=== PATIENT | male | born 1965 | race Caucasian/White ===

== ENCOUNTER 2018-02-21 21:13 | Inpatient (IN) ==
[2018-02-21] MEDS ORDERED: ceFAZolin 2 GM Premix Inj 2 GM/50 ML PIGGYBACK IV.SIG ONE (21:21)
[2018-02-21] MEDS ORDERED: Tetanus/Diphtheria Toxoid Adult Vaccine Inj 0.5 ML Vial IM ONE (21:21)
[2018-02-21] MEDS ORDERED: Sod Chloride 0.9% Inj 1,000 ML IV.SIG ONE ×2 (21:21→22:19)
--- NOTE | 2018-02-21 21:39 | ED ---
HPI General Chief Complaint: Skin/Abscess/Foreign Body Stated Complaint: Neck Injury/NSB FR Time Seen by Provider: 02/21/18 21:21 Source: patient Mode of arrival: EMS Limitations: no limitations History of Present Illness HPI Narrative: The patient is a 52-year-old male who presents to the emergency department via EMS from [place], [place], from a laceration to the left aspect of the neck. The patient states he was sharpening his knives this morning at 10 AM when he decided to get up and get another beer. The patient states he was walking and tripped accidentally when going from a tile floor to a carpeted floor. The patient states he fell on the ground, puncturing the left aspect of his neck with a knife. The patient states he was lying on the floor since 10 AM, EMS brought the patient to the emergency department for further evaluation. The patient does complain of a puncture wound to left aspect of the neck which bled initially but is currently stopped. He does admit to drinking alcohol earlier today. He denies any headache, does no neck pain over the laceration, cannot recall his last tetanus shot. The patient denies any chest pain, shortness breath, nausea, vomiting, or abdominal pain. Symptoms are moderate. Related Data Home Medications Medication Instructions Recorded Confirmed aspirin 325 mg PO DAILY 02/21/18 02/21/18 Allergies Allergy/AdvReac Type Severity Reaction Status Date / Time No Known Allergies Allergy Unverified 02/21/18 21:20 Review of Systems ROS: all other systems reviewed are negative [facility] Medical History Medical History Patient denies medical problems (Acute) Social History Social History Smoking Status: Current every day smoker Tobacco Type: Cigarettes How Often Do You Have a Drink Containing Alcohol: 4 or more times a week Recent Travel in [facility] within the Last 8 Weeks: No Recent Out of Country Travel within the Last 8 Weeks: No Immunization History Tetanus Immunization: <5 Years Hx Influenza Vaccine This Season: No Exam Narrative Exam Narrative: GENERAL: Awake, alert, 52-year-old male who appears his stated age and is in no acute respiratory distress. SKIN: Focused skin assessment warm/dry. HEAD: Atraumatic. Normocephalic. EYES: Pupils equal and round. No scleral icterus. No injection or drainage. ENT: No nasal bleeding or discharge. Mucous membranes pink and moist. NECK: Trachea midline. No JVD. The patient has a 2 cm transverse, linear laceration to left aspect of the neck which reveals subcutaneous tissue, but does not appear to go through the platysma. There is no active bleeding noted. No arterial pulsations noted. CARDIOVASCULAR: Regular rate and rhythm. No murmur appreciated. RESPIRATORY: No accessory muscle use. Clear to auscultation. Breath sounds equal bilaterally. GASTROINTESTINAL: Abdomen soft, non-tender, nondistended. MUSCULOSKELETAL: No obvious deformities. No clubbing. No cyanosis. No edema. NEUROLOGICAL: Awake and alert. No obvious cranial nerve deficits. Motor grossly within normal limits. Normal speech. Nonfocal. Oriented 4. PSYCHIATRIC: Appropriate mood and affect; insight and judgment normal. Procedures Laceration Laceration 1: Site: other (neck) Side (If applicable): left Size (cm): 2 Description: linear Depth: simple, single layer Anesthetic used: lidocaine 2% Anesthesia technique:: local infiltration Amount (mL): 3 Pre-repair:: wound explored, irrigated extensively and deep structures intact Skin layer closed with: prolene Size (cm): 4-0 Number of sutures:: 3 Technique:: simple, interrupted Course Consultations Consultation #1: I discussed the patient with the on-call trauma surgeon, Dr. Hernandez , who agrees with CTA of the neck and if negative discharge home. Time: 21:30 Initial Documented Vital Signs Temperature 98.0 F 02/21/18 21:21 Pulse Rate 112 H 02/21/18 21:21 Respiratory Rate 16 02/21/18 21:21 Blood Pressure 123/78 02/21/18 21:21 Pulse Oximetry 96 02/21/18 21:21 Last Documented Vital Signs Temperature 98.0 F 02/21/18 21:21 Pulse Rate 112 H 02/21/18 21:21 Respiratory Rate 16 02/21/18 21:21 Blood Pressure 123/78 02/21/18 21:21 Pulse Oximetry 96 02/21/18 21:21 Medical Decision Making MDM Narrative Medical decision making narrative: IV was established, labs are drawn and sent, the patient was placed on cardiac telemetry monitoring and continuous pulse oximetry monitoring. The patient's laceration was anesthetized, explored, did not appear to go through the platysma. I discussed the patient with the trauma surgeon, Dr. Hernandez, after discussion was agreed the wound would be explored, if there is no obvious extension through the platysma, the patient would receive a CTA and if negative be discharged home. The laceration was explored, no visible penetration of the platysma, was closed in a single layer fashion. The patient was administered 1 L of IV fluids. The patient's anion gap was noted to be elevated at 26. Bicarb is low at 11.6. Therefore, lactic acid was ordered. The patient was administered a second liter of IV fluids. Lactic acid was 16.0. Patient's hemoglobin was 9.4, previous hemoglobin on old records reveals a hemoglobin greater than 13. I am unsure if this is a combination of acute blood loss and alcoholic ketosis. The patient's heart rate did come down into the high 90s after 2 L of fluid. I discussed the patient with the on-call and trauma surgeon, Dr. Hernandez, who states the patient could be admitted to the intensive care service, there is no acute indication for surgery. Therefore, the on-call apartment leasing consultant was paged for admission. I discussed the patient with Dr. Mas who agrees with admission. Type and screen was sent to lab. I discussed the findings with the patient and family at bedside. Medical Screen Exam Complete: Yes Emergency Medical Condition: Yes Differential Diagnosis Differential Diagnosis: Differential diagnosis includes laceration, arterial injury, venous injury, Lab Data Result diagrams: 02/21/18 21:25 02/21/18 21:25 Lab Results 02/21/18 02/21/18 02/21/18 Range/Units 21:25 21:25 22:25 WBC 8.0 (4.0-11.0) th/mm3 RBC 3.13 L (4.50-5.90) mil/mm3 Hgb 9.4 L (13.0-17.0) gm/dL Hct 29.6 L (39.0-51.0) % MCV 94.5 (80.0-100.0) fL MCH 30.0 (27.0-34.0) pg MCHC 31.8 L (32.0-36.0) % RDW 17.7 H (11.6-17.2) % Plt Count 120 L (150-450) th/mm3 MPV 8.5 (7.0-11.0) fL Neut % (Auto) 81.6 H (16.0-70.0) % Lymph % (Auto) 11.0 (9.0-44.0) % [place] % (Auto) 6.6 (0.0-8.0) % Eos % (Auto) 0.0 (0.0-4.0) % Baso % (Auto) 0.8 (0.0-2.0) % Neut # (Auto) 6.5 (1.8-7.7) th/mm3 Lymph # (Auto) 0.9 L (1.0-4.8) th/mm3 [place] # (Auto) 0.5 (0.0-0.9) th/mm3 Eos # (Auto) 0.0 (0.0-0.4) th/mm3 Baso # (Auto) 0.1 (0.0-0.2) th/mm3 WBC Differential . Differential Comment Auto diff final Sodium 140 (136-145) meq/L Potassium 4.3 (3.5-5.1) meq/L Chloride 102 (98-107) meq/L Carbon Dioxide 11.9 L (21.0-32.0) meq/L Anion Gap 26 H (5-15) meq/L BUN 6 L (7-18) mg/dL Creatinine 0.98 (0.60-1.30) mg/dL Estimated GFR 80 L (>89) mL/min Random Glucose 112 H (74-106) mg/dL Lactic Acid 16.0 H* (0.4-2.0) mmol/L Calcium 8.2 L (8.5-10.1) mg/dL Total Creatine Kinase 309 H (39-308) U/L CK-MB (CK-2) 3.8 H (0.5-3.6) ng/mL CK-MB (CK-2) % 1.2 (0.0-4.0) % Serum Alcohol 134 H (0-5) mg/dL Imaging Data Radiologist's impression: Neck CTA 02/21/18 21:21 CONCLUSION: 1. Focal soft tissue swelling at the left lateral mid neck primarily within the subcutaneous fat. The deeper structures appear intact. 2. No arterial injury is seen. There is scattered atherosclerotic calcification without a significant stenosis. Discharge Plan Discharge Disposition Patient Disposition: 30 Still Patient Discharge Condition Condition: Serious Discharge Details Diagnosis: Laceration of neck, Lactic acidosis Physicians Team ED Provider: Damion Aly ED Midlevel Provider: Neelam Figueroa Primary Care Provider: Primary Care Clementine Hassan Rxs /Orders / Referrals /Forms Prescriptions: No Action aspirin 325 mg Tablet 325 mg PO DAILY RF: 0 Status ED Status: Pending Admission
[2018-02-21 21:53] LABS: Baso # (Auto) 0.1 th/mm3 (0.0-0.2); Baso % (Auto) 0.8 % (0.0-2.0); Hematocrit 29.6 % (39.0-51.0); Hemoglobin 9.4 gm/dL (13.0-17.0); Lymph # (Auto) 0.9 th/mm3 (1.0-4.8); Mean Corpuscular HGB Conc 31.8 % (32.0-36.0); Mean Corpuscular Volume 94.5 fL (80.0-100.0); Mean Platelet Volume 8.5 fL (7.0-11.0); Mono # (Auto) 0.5 th/mm3 (0.0-0.9); Mono % (Auto) 6.6 % (0.0-8.0); Neut # (Auto) 6.5 th/mm3 (1.8-7.7); Neut % (Auto) 81.6 % (16.0-70.0); Platelet Count 120 th/mm3 (150-450); Red Blood Count 3.13 mil/mm3 (4.50-5.90); Red Cell Distribution Width 17.7 % (11.6-17.2)
[2018-02-21 22:03] LABS: Calcium 8.2 mg/dL (8.5-10.1); Carbon Dioxide 11.9 meq/L (21.0-32.0); Potassium 4.3 meq/L (3.5-5.1)
[2018-02-21 22:25] LABS: CKMB Percent 1.2 % (0.0-4.0); Creatine Kinase MB 3.8 ng/mL (0.5-3.6)
--- NOTE | 2018-02-21 23:19 | CT ---
EXAM DATE: 02/21/2018 11:11 PM EDT AGE/SEX: 52 years / Male INDICATIONS: Laceration to the left aspect of the neck. CLINICAL DATA: This is the patient's initial encounter. Patient reports that signs and symptoms have been present for 1 day and indicates a pain score of 5/10. MEDICAL/SURGICAL HISTORY: None. None. RADIATION DOSE: 10.68 CTDI (mGy) COMPARISON: No prior exams available for comparison. TECHNIQUE: Volumetric scanning was performed using a multirow detector CT scanner during bolus infus ion of 75 ml Omnipaque 350 (iohexol) nonionic water-soluble contrast as a single exam dose. The da ta was postprocessed with a variety of visualization algorithms including full-volume maximum intensi ty projection, multiplanar sliding thin-slab reformation, curved-planar reformation, and surface-rend ering techniques. Using automated exposure control and adjustment of the mA and/or kV according to p atient size, radiation dose was kept as low as reasonably achievable to obtain optimal diagnostic anthony lity images. DICOM format image data is available electronically for review and comparison. FINDINGS: There is induration of the subcutaneous tissues at the left neck at the level of the thyroid cartilag e. The edema appears to be restricted to the superficial subcutaneous fat. There is small amount of a ir within the soft tissues in this region. The deeper structures appear intact. Aortic Arch: There is a three-vessel origin of the great vessels from the aorta. No evidence of ost ial narrowing. There is scattered atherosclerotic calcification at the origin of the right brachiocep halic and left subclavian arteries. Right Carotid: The common carotid artery is intact. The carotid bulb has a normal configuration wit hout ulceration or narrowing. There is calcification at the carotid bulb region. The internal caroti d artery lumen is smooth without stenosis. The external carotid artery is intact. Left Carotid: The common carotid artery is intact. The carotid bulb has a normal configuration with out ulceration or narrowing. The internal carotid artery lumen is smooth without stenosis. The exte rnal carotid artery is intact. Vertebrals: The vertebral arteries have a symmetric diameter. No stenotic lesions are seen. Percent stenosis is calculated using the diameter of the stenotic region over the diameter of the nor mal distal internal carotid artery. CONCLUSION: 1. Focal soft tissue swelling at the left lateral mid neck primarily within the subcutaneous fat. Th e deeper structures appear intact. 2. No arterial injury is seen. There is scattered atherosclerotic calcification without a significan t stenosis. Electronically signed by: Henry Mcleod MD 02/21/2018 11:18 PM EDT
[2018-02-21] MEDS ORDERED: Multivitamin Inj 10 ML, Thiamine Inj 100 MG, Folic Acid Inj 1 MG in Sodium Chlor 0.9% I... IV.SIG SCH (23:55)
--- NOTE | 2018-02-22 00:02 | XR ---
EXAM DATE: 02/21/2018 11:57 PM EDT AGE/SEX: 52 years / Male INDICATIONS: Short of breath, respiratory disease. CLINICAL DATA: This is the patient's initial encounter. Patient reports that signs and symptoms have been present for 1 day and indicates a pain score of 0/10. MEDICAL/SURGICAL HISTORY: None. None. COMPARISON: No prior exams available for comparison. FINDINGS: A single AP view of the chest demonstrates the lungs to be symmetrically aerated without evidence of mass, infiltrate or effusion. The cardiomediastinal contours are unremarkable. Osseous structures a re intact. CONCLUSION: No acute cardiopulmonary process. Electronically signed by: Henry Mcleod MD 02/22/2018 12:01 AM EDT
[2018-02-22] MEDS ORDERED: Acetaminophen 325 MG Tablet PO PRN (00:34)
[2018-02-22] MEDS ORDERED: Bisacodyl 10 MG Supp RECTAL PRN (00:34)
--- NOTE | 2018-02-22 00:34 | P.HPCC ---
History of Present Illness Service: Critical care medicine Primary Care Physician: No Primary Care Physician Chief Complaint: Neck laceration History of Present Illness: 52-year-old male with past medical history of tobacco and alcohol dependence. He states he was sharpening a non-serrated carving knife this morning while intoxicated. He said he got up to put the knife away and he tripped and fell and lacerated his left neck around 10 am on 02/21. He states he hit his head on the counter and had loss of consciousness. There was blood pooling on the floor and each time he tried to get up he was near-syncopal so he remained on the floor all day until neighbors found him at around 8 pm. He was brought to [facility] by [facility]. The wound was explored by the emergency medicine physician and platysma appeared intact. CTA of the neck demonstrated soft tissue swelling in the subcut fat with deeper structures appearing intact. He was found to have anion-gap lactic acidosis with bicarb of 11.9, anion gap of 26 , lactic acid 16. EtOH level is still 134. CPK is 309. Creatinine is normal. His hemoglobin is 9.4. Most recent prior hemoglobin was 13.[address] Aly discussed with Dr. Amador who recommended admission to medicine. The laceration was repaired in the ED and patient received 2 L normal saline bolus, Ancef 2gram, Td, Zofran and reglan for nausea. He denies headache, dysphagia, chest pain, shortness of breath, abdominal pain, flank pain, vomiting, melena, hematemesis, audiovisual hallucinations. He is tremulous and complains of thirst. He is a daily drinker of at least 10 beers per day, last drink was 9 am on 02/21. - Diagnosis (1) Laceration of neck (2) Lactic acidosis (3) EtOH dependence (4) Transaminitis (5) Hypovolemia (6) Alcohol withdrawal (7) LOC (loss of consciousness) (8) Fall from slip, trip, or stumble (9) Acute blood loss anemia (10) Thrombocytopenia (11) Tobacco abuse counseling (12) Tobacco abuse (13) Contusion of rib on right side (14) Hypovolemic shock Inpatient Certification: I certify that the inpatient services were ordered in accordance with Medicare regulations governing the order. This includes certification that hospital inpatient services are reasonable and necessary and in the case of services not specified as inpatient-only under 42 CFR 419.22(n), that they are appropriately provided as inpatient services in accordance to with the 2-midnight benchmark under 43 CFR 412.3(e) Review of Systems All other systems reviewed negative except as stated in HPI [facility] - History History Provided By: Patient - Medical History Medical History: Medical History (Last Updated 02/21/18 @ 21:23 by Pasquale Bean) Patient denies medical problems - Surgical History Surgical History: Surgical History (Last Updated 02/22/18 @ 00:41 by Hannah Mas MD) H/O arthroscopy of left knee S/P excision of varicocele - Family History Family History: Family History (Last Updated 02/22/18 @ 00:56 by Hannah Mas MD) Mother HLD (hyperlipidemia) - Tobacco History Tobacco Use In Past 30 Days: Yes Smoking Status: Current every day smoker Tobacco Type: Cigarettes Packs Per Day: 1 Years Smoked: 25 - Alcohol History How Often Do You Have a Drink Containing Alcohol: 4 or more times a week (12 beers daily) - Travel History Recent Travel in the [facility] Within the Last 8 Weeks: No Recent Travel Out of the Country Within the Last 8 Weeks: No - Immunization History Tetanus Immunization: <5 Years Hx Influenza Vaccine This Season: No Medications and Allergies Active Medications: Active Medications Dextrose/Lactated Ringer's (D5w/Lr Inj) 1,000 mls @ 125 mls/hr IV.CONT .Q8H REBECCA Multivitamins 10 ml/ Thiamine HCl 100 mg/ Folic Acid 1 mg/Sodium Chloride 511.2 mls @ 127.8 mls/hr IV.SIG DAILY REBECCA Stop: 02/23/18 12:59 Allergies Allergy/AdvReac Type Severity Reaction Status Date / Time No Known Allergies Allergy Unverified 02/21/18 21:20 Home Medications Medication Instructions Recorded Confirmed Type aspirin 325 mg PO DAILY 02/21/18 02/21/18 History Results - Labs CBC & Chem 7: 02/22/18 03:53 02/22/18 03:53 Labs: Short CBC 02/21/18 Range/Units 21:25 WBC 8.0 (4.0-11.0) th/mm3 Hgb 9.4 L (13.0-17.0) gm/dL Hct 29.6 L (39.0-51.0) % Plt Count 120 L (150-450) th/mm3 BMP 02/21/18 21:25 Sodium 140 Potassium 4.3 Chloride 102 Carbon Dioxide 11.9 L BUN 6 L Creatinine 0.98 Calcium 8.2 L Cardiac Enzymes 02/21/18 Range/Units 21:25 Total Creatine Kinase 309 H (39-308) U/L CK-MB (CK-2) 3.8 H (0.5-3.6) ng/mL - Imaging Impressions Neck CTA 02/21/18 21:21 CONCLUSION: 1. Focal soft tissue swelling at the left lateral mid neck primarily within the subcutaneous fat. The deeper structures appear intact. 2. No arterial injury is seen. There is scattered atherosclerotic calcification without a significant stenosis. Chest X-Ray 02/21/18 23:47 CONCLUSION: No acute cardiopulmonary process. Exam Vital signs: Vital Signs 02/21/18 21:21 02/22/18 00:22 Temperature 98.0 F Pulse Rate 112 H 108 H Respiratory Rate 16 16 Blood Pressure 123/78 139/73 Pulse Oximetry 96 96 Intake & Output 02/21/18 02/21/18 02/22/18 06:59 18:59 06:59 Weight 80 kg Narrative: Heart rate 97 blood pressure 139/73 sats 98% on room air GENERAL: Disheveled male who has dried blood on his chin, neck, upper arms, upper chest, hair. SKIN: Warm and dry. There are multiple ecchymosis overlying right lateral chest wall. HEAD: Normocephalic. EYES: Pupils equal and round, 3mm and reactive. No scleral icterus. No injection or drainage. ENT: No nasal bleeding or discharge. Mucous membranes pink and moist. NECK: Trachea midline. No crepitus. There is 3-3.5 cm linear laceration left neck that has been sutured with simple interrupted sutures. There is some mild swelling at the site without significant hematoma. No active bleeding. CARDIOVASCULAR: Regular rate and rhythm. 2/6 systolic murmur LSB. RESPIRATORY: Breathing comfortably on room air with no accessory muscle use. Clear to auscultation. Breath sounds equal bilaterally. GASTROINTESTINAL: Abdomen soft, non-tender, nondistended. Bowel sounds present. MUSCULOSKELETAL: Extremities without clubbing, cyanosis, or edema. No obvious deformities. NEUROLOGICAL: Awake and alert, oriented 3. Tremulous. No cranial nerve deficits, extraocular movements intact, no facial droop, normal midline tongue protrusion. No pronator drift. Strength 5 out of 5 in all extremities. Sensation intact. Caprini VTE Risk Assessment Caprini VTE Risk Assessment: Moderate/High Risk (score >= 2) VTE Pharmacological Exception Reason: Hemorrhage Caprini Risk Assessment Model: Point Value = 1 Point Value = 2 Point Value = 3 Point Value = 5 Age 41-60 Minor surgery BMI > 25 kg/m2 Swollen legs Varicose veins or History of unexplained or recurrent spontaneous Oral contraceptives or hormone replacement Sepsis (< 1 month) Serious lung disease, including pneumonia (< 1 month) Abnormal pulmonary function Acute myocardial infarction Congestive heart failure (< 1 month) History of inflammatory bowel disease Medical patient at bed rest Age 61-74 Arthroscopic surgery Major open surgery (> 45 min) Laparoscopic surgery (> 45 min) Malignancy Confined to bed (> 72 hours) Immobilizing plaster cast Central venous access Age >= 75 History of VTE Family history of VTE Factor V Leiden Prothrombin [id number] Lupus anticoagulant Anticardiolipin antibodies Elevated serum homocysteine Heparin-induced thrombocytopenia Other congenital or acquired thrombophilia Stroke (< 1 month) Elective arthroplasty Hip, pelvis, or leg fracture Acute spinal cord injury (< 1 month) Prophylaxis Regimen: Total Risk Factor Score Risk Level Prophylaxis Regimen 0-1 Low Early ambulation 2 Moderate Order ONE of the following: *Sequential Compression Device (SCD) *Heparin 5000 units SQ BID 3-4 Higher Order ONE of the following medications: *Heparin 5000 units SQ TID *Enoxaparin/Lovenox 40 mg SQ daily (WT < 150 kg, CrCl > 30 mL/min) *Enoxaparin/Lovenox 30 mg SQ daily (WT < 150 kg, CrCl > 10-29 mL/min) *Enoxaparin/Lovenox 30 mg SQ BID (WT < 150 kg, CrCl > 30 mL/min) AND/OR *Sequential Compression Device (SCD) 5 or more Highest Order ONE of the following medications: *Heparin 5000 units SQ TID (Preferred with Epidurals) *Enoxaparin/Lovenox 40 mg SQ daily (WT < 150 kg, CrCl > 30 mL/min) *Enoxaparin/Lovenox 30 mg SQ daily (WT < 150 kg, CrCl > 10-29 mL/min) *Enoxaparin/Lovenox 30 mg SQ BID (WT < 150 kg, CrCl > 30 mL/min) AND *Sequential Compression Device (SCD) Assessment and Plan - Problem List (1) Laceration of neck Code(s): S11.91XA - Laceration without foreign body of unspecified part of neck , initial encounter Status: Acute (2) Lactic acidosis Code(s): E87.2 - Acidosis Status: Acute (3) EtOH dependence Code(s): F10.20 - Alcohol dependence, uncomplicated Status: Acute (4) Transaminitis Code(s): R74.0 - Nonspecific elevation of levels of transaminase and lactic acid dehydrogenase [LDH] Status: Acute (5) Hypovolemia Code(s): E86.1 - Hypovolemia Status: Acute (6) Alcohol withdrawal Code(s): F10.239 - Alcohol dependence with withdrawal, unspecified Status: Acute (7) LOC (loss of consciousness) Code(s): R40.20 - Unspecified coma Status: Acute (8) Fall from slip, trip, or stumble Code(s): W01.0XXA - Fall on same level from slipping, tripping and stumbling without subsequent striking against object, initial encounter Status: Acute (9) Acute blood loss anemia Code(s): D62 - Acute posthemorrhagic anemia Status: Acute (10) Thrombocytopenia Code(s): D69.6 - Thrombocytopenia, unspecified Status: Acute (11) Tobacco abuse counseling Code(s): Z71.6 - Tobacco abuse counseling Status: Acute (12) Tobacco abuse Code(s): Z72.0 - Tobacco use Status: Chronic (13) Contusion of rib on right side Code(s): S20.211A - Contusion of right front wall of thorax, initial encounter Status: Acute (14) Hypovolemic shock Code(s): R57.1 - Hypovolemic shock Status: Acute - Assessment and Plan Plan: NEURO: Acute left neck laceration Platysma intact per ED evaluation. CTA unremarkable. Laceration repaired 02/21, suture removal ~7-10 days. Acute alcohol withdrawal Alcohol dependence Librium 25 mg p.o. every 6 hours. CIWA protocol with ativan prn. Thiamine/MVI/folic acid x3 days. Loss of consciousness Suspect syncope secondary to hypovolemia/blood loss. Does report head trauma, will f/u CT brain. Tylenol prn pain. RESP: Tobacco abuse Right rib contusion Obtained chest x-ray- no cardiomegaly, lungs clear w/o ptx. Tobacco cessation counseling discussed. Nicotine patch IS, albuterol prn. Monitor for airway protection during EtoH w/d. CV: Monitor hemodynamic GI: Regular diet FEN/RENAL: Acute anion gap metabolic acidosis Lactic acidemia Hypovolemic shock. Suspect secondary to hypovolemia and acute blood loss (EtOH abuse, no po intake all day, large amount of blood at scene per bystander) Received 2 L NS bolus in the ED. Will give additional LR 1 L bolus. D5 LR @ 125/ hr. Serial lactic acid. Check magnesium and phos, replace electrolytes as indicated per ICU electrolyte placement protocol. ID: No apparent source of concomitant sepsis and he is afebrile and without leukocytosis. F/u U/a. HEME: Acute blood loss anemia Thrombocytopenia, suspect consumptive secondary to acute blood loss Hgb 9.4. Monitor CBC, transfuse as indicated for hgb <7 or symptomatic. Transfusing 2 units PRBC stat. ENDO: Euglycemic without history of diabetes PROPH: SCDs for DVT prophylaxis. Avoid pharmacologic DVT prophylaxis at this time due to anemia and coagulopathy. Famotidine p.o. for stress ulcer prophylaxis. ACCESS: Peripheral IV providing adequate access at this time. Full code Patient and his sister were updated at bedside. Discussed with Dr. Aly Patient is hypovolemic with severe metabolic acidemia requiring ongoing resuscitation with fluids and PRBC to prevent further deterioration. Also with acute EtOH withdrawal. CC 40 minutes exclusive of separately billable procedures. (1) Laceration of neck Qualifiers: Encounter type: initial encounter Qualified Code(s): S11.91XA - Laceration without foreign body of unspecified part of neck, initial encounter
[2018-02-22] MEDS ORDERED: LORazepam 1 MG Tablet PO PRN (00:37)
[2018-02-22] MEDS ORDERED: Magnesium Oxide 400 MG Tablet PO PRN (00:38)
[2018-02-22] MEDS ORDERED: Magnesium Sulfate Inj 2 GM in Sodium Chlor 0.9% Inj 96 ML IV.SIG PRN (00:38)
[2018-02-22] MEDS ORDERED: Potassium Chloride 25 MEQ Effervescent Tablet PO PRN (00:38)
[2018-02-22] MEDS ORDERED: Sodium Phosphate Inj 30 MMOL in Sodium Chlor 0.9% Inj 250 ML IV.SIG PRN (00:38)
[2018-02-22] MEDS ORDERED: Potassium Phosphate 500 MG Soluble Tablet PO PRN ×2 (00:38)
[2018-02-22] MEDS ORDERED: Potassium Chlor 40 mEq Premix 40 MEQ/100 ML PIGGYBACK IV.SIG PRN ×2 (00:38)
[2018-02-22] MEDS ORDERED: Magnesium Sulfate Inj 4 GM in Sodium Chlor 0.9% Inj 92 ML IV.SIG PRN (00:38)
[2018-02-22] MEDS ORDERED: Potassium Chlor 20 mEq Premix 20 MEQ/100 ML PIGGYBACK IV.SIG PRN (00:38)
[2018-02-22] MEDS: Dextrose 5%/Lactated Ringer's 1,000 ML IV.CONT SCH (00:40)
--- NOTE | 2018-02-22 01:05 | CT ---
EXAM DATE: 02/22/2018 12:59 AM EDT AGE/SEX: 52 years / Male INDICATIONS: Trauma, head injury. CLINICAL DATA: This is the patient's initial encounter. Patient reports that signs and symptoms have been present for 1 day and indicates a pain score of 4/10. MEDICAL/SURGICAL HISTORY: None. Non-responsive. RADIATION DOSE: 56.35 CTDI (mGy) COMPARISON: No prior exams available for comparison. TECHNIQUE: CT of the head without contrast. Using automated exposure control and adjustment of the mA and/or kV according to patient size, radiation dose was kept as low as reasonably achievable to ob tain optimal diagnostic quality images. DICOM format image data is available electronically for revi ew and comparison. FINDINGS: Cerebrum: The ventricles are normal for age. No evidence of midline shift, mass lesion, hemorrhage or acute infarction. No extraaxial fluid collections are seen. Posterior Fossa: The cerebellum and brainstem are intact. The 4th ventricle is midline. The cerebe llopontine angle is unremarkable. Extracranial: The visualized portion of the orbits is intact. Skull: The calvaria is intact. No evidence of skull fracture. CONCLUSION: No acute intracranial abnormality is seen. . Electronically signed by: Henry Mcleod MD 02/22/2018 1:03 AM EDT
[2018-02-22 01:17] LABS: Bilirubin,Urine Negative (Negative); Clarity,Urine Clear (Clear); Color,Urine Yellow (Yellw/Straw); Glucose,Urine (UA) 50 mg/dL (Negative); Hyaline Casts,Urine 123 /lpf (0-3); Leukocyte Esterase,Urine Negative (Negative); Mucus,Urine Few /lpf (Occasional); Nitrite,Urine Negative (Negative); Specific Gravity,Urine 1.024 (1.002-1.035); Urobilinogen,Urine 4 or Greater mg/dL (Less than 2)
[2018-02-22 01:20] LABS: Amphetamine Urine With Conf Neg (Neg); Benzodiazepine Urine With Conf Neg (Neg)
[2018-02-22] MEDS: chlordiazePOXIDE 25 MG Capsule PO SCH ×5 (01:23→23:59)
[2018-02-22 01:25] LABS: Albumin 2.4 g/dL (3.4-5.0)
[2018-02-22 01:27] LABS: Total Protein 6.1 g/dL (6.4-8.2); Troponin I 0.03 ng/mL (0.02-0.05)
[2018-02-22 02:05] LABS: Magnesium 1.8 mg/dL (1.5-2.5); Phosphorus 4.6 mg/dL (2.5-4.9)
[2018-02-22 02:21] LABS: INR 1.6 Ratio; Prothrombin Time 15.7 sec (9.8-11.6)
[2018-02-22] MEDS: Chlorhexidine Gluconate 2% 1 Pack (2 Cloths) TOPICAL SCH (03:19)
[2018-02-22] MEDS ORDERED: Calcium Chloride Inj 0.33 GM in Dextrose 5% in Water Inj 100 ML IV.SIG ONE ×2 (03:45)
[2018-02-22] MEDS ORDERED: Chlorhexidine Gluconate 2% 1 Pack (2 Cloths) TOPICAL PRN (04:00)
[2018-02-22 04:19] LABS: Baso % (Auto) 0.4 % (0.0-2.0); Eos % (Auto) 0.1 % (0.0-4.0); Lymph # (Auto) 1.2 th/mm3 (1.0-4.8); Lymph % (Auto) 13.6 % (9.0-44.0); Mean Corpuscular Hemoglobin 30.5 pg (27.0-34.0); Mean Corpuscular Volume 100.2 fL (80.0-100.0); Mean Platelet Volume 8.6 fL (7.0-11.0); Mono # (Auto) 0.9 th/mm3 (0.0-0.9); Mono % (Auto) 10.7 % (0.0-8.0); Neut # (Auto) 6.7 th/mm3 (1.8-7.7); Neut % (Auto) 75.2 % (16.0-70.0); Platelet Count 71 th/mm3 (150-450); Red Blood Count 2.04 mil/mm3 (4.50-5.90); Red Cell Distribution Width 18.8 % (11.6-17.2); White Blood Count 8.8 th/mm3 (4.0-11.0)
[2018-02-22 04:21] LABS: Mean Corpuscular HGB Conc 30.5 % (32.0-36.0)
[2018-02-22 04:25] LABS: Hematocrit 20.4 % (39.0-51.0); Hemoglobin 6.2 gm/dL (13.0-17.0)
[2018-02-22 04:35] LABS: Alanine Aminotransferase 189 U/L (12-78); Albumin 2.1 g/dL (3.4-5.0); Alkaline Phosphatase 85 U/L (45-117); Anion Gap 22 meq/L (5-15); Aspartate Aminotransferase 946 U/L (15-37); Blood Urea Nitrogen 5 mg/dL (7-18); Calcium 6.8 mg/dL (8.5-10.1); Carbon Dioxide 11.1 meq/L (21.0-32.0); Chloride 109 meq/L (98-107); Creatine Kinase 956 U/L (39-308); Glomerular Filtration Rate Greater Than 89 mL/min (>89); Glucose,Random 122 mg/dL (74-106); Potassium 4.4 meq/L (3.5-5.1); Sodium 142 meq/L (136-145); Total Protein 5.4 g/dL (6.4-8.2); Troponin I 0.06 ng/mL (0.02-0.05)
[2018-02-22 04:52] LABS: CKMB Percent 1.2 % (0.0-4.0); Creatine Kinase MB 11.9 ng/mL (0.5-3.6)
[2018-02-22 05:00] LABS: Platelet Morphology Normal (Normal)
[2018-02-22] MEDS ORDERED: Sodium Chlor 0.9% Inj 250 ML IV.SIG SCH ×2 (05:00→16:00)
[2018-02-22] MEDS: Phytonadione 5 MG/SWFI 5 ML Oral Syringe PO SCH ×2 (05:19→09:13)
[2018-02-22 05:43] LABS: % Iron Saturation 14.6 % (20-50)
[2018-02-22] MEDS ORDERED: Famotidine 20 MG Tablet PO SCH (09:00)
[2018-02-22] MEDS: Senna/Docusate Sodium 8.6/50 MG Tablet PO SCH ×2 (09:13→21:08)
[2018-02-22] MEDS: rifAXIMin 550 MG Tablet PO SCH ×2 (09:13→21:07)
--- NOTE | 2018-02-22 09:23 | US ---
EXAM DATE: 02/22/2018 8:30 AM EDT AGE/SEX: 52 years / Male INDICATIONS: Abdominal pain. CLINICAL DATA: This is the patient's initial encounter. Patient reports that signs and symptoms have been present for 1 day and indicates a pain score of 2/10. MEDICAL/SURGICAL HISTORY: . Abdominal pain. Arthroscopy. Excision of varicocele. COMPARISON: No prior exams available for comparison. MEASUREMENTS: Liver:__ 17.7 cm. Common Bile Duct:__ 5mm. Right Kidney:__ 11.7 x 5.8 x 6.2 cm. FINDINGS: Limited exam due to bowel gas. Liver: Nodular appearing liver with diffusely increased hepatic echogenicity. Portal Vein: Hepatopedal flow seen in portal vein. Common Duct: No intraluminal mass or stone visualized. Gallbladder: Diffuse gallbladder wall thickening with mild pericholecystic fluid. Pancreas: Trace peripancreatic fluid and trace ascites. Right Kidney: Trace perinephric fluid. Right kidney is otherwise unremarkable. Other: None. CONCLUSION: 1. Cirrhotic appearing liver with trace amount of ascites. 2. Gallbladder wall thickening with mild pericholecystic fluid. Findings are commonly seen in the se tting of chronic liver disease but limit overall sonographic sensitivity for detection of early acute cholecystitis. If there is compelling continued clinical concern regarding cholecystitis, HIDA scan may be performed to document cystic duct patency. 3. Trace peripancreatic fluid. Suspect this is due to overall mesenteric edema. Clinical correlation with pancreatic enzymes is recommended. Electronically signed by: Jose Harp MD 02/22/2018 9:22 AM EDT
--- NOTE | 2018-02-22 11:57 | MB ---
cc: Karina Amador MD DATE: 02/22/2018 REASON FOR CONSULTATION: Laceration to neck, alcoholic acidosis, anemia, liver failure, thrombocytopenia. HISTORY OF PRESENT ILLNESS: This 52-year-old male was sharpening some sort of a knife yesterday morning while intoxicated. The knife pulled away and lacerated his left neck around 10 a.m. He was transferred to our institution once he was found, but it took probably about 12 hours or so. The patient was brought to the emergency room as a regular evaluation, and I was called by Dr. Damion Aly about the patient. He stated that this was a superficial wound, and my recommendation was for the patient to have exploration of the wound and closure, and I would be happy to consult on the patient. He should be admitted to Medicine for other more complex reasons. PAST MEDICAL HISTORY: Alcohol dependence, tobacco abuse, previous rib contusions, arthroscopy of the knee, varicocele removal. SOCIAL HISTORY: The patient smokes about a pack a day and drinks heavily, about 12 beers a day, if not more. PHYSICAL EXAMINATION: GENERAL: Reveals a 52-year-old male. HEENT: Normocephalic. No trauma to the head. Pupils are equal, reactive. Extraocular muscles intact. NECK: Bilateral carotid pulses. No bruits. A small laceration measuring about an inch in the left neck, which is very superficial, encompasses subcutaneous fat, not even going into the platysma or through the platysma, and has been closed in the ER. CHEST: Bilateral breath sounds. HEART: Regular rhythm. ABDOMEN: Soft. Active bowel sounds. Liver is actually palpated about 2 cm below the costal margin. EXTREMITIES: Within normal limits. The patient appears to be atrophic, malnourished, thin, and is still sort of somnolent, I guess he had a bad night, but answers questions appropriately. NEUROLOGIC: He was fully intact. LABORATORY DATA: I reviewed laboratory and diagnostic procedures. IMPRESSION AND RECOMMENDATIONS: This gentleman has a very superficial wound to the neck into the subcutaneous tissue, not even into the platysma, let alone through the platysma, which is a minor cut, essentially. His major problem, of course, is metabolic derangement consistent with alcohol abuse and malnutrition, which is ketoacidosis lactic acidosis with a lactic acid of 16 mmol/L on admission. Liver insufficiency, thrombocytopenia and anemia. It should be noted that in this particular scenario, patient's hemoglobin went from 9 to 6.2 in 12 hours or so, and this is not from any bleeding. The patient did not bleed from the neck barely anything, because neither external jugular or internal jugular vein were involved. This is dilutional, and in addition, the patient is thrombocytopenic with liver insufficiency and elevated PT/INR. I would certainly attribute most of the effect to receiving 4 units of saline to correct the acidosis, hyperlactatemia, but on the other hand, being an alcoholic patient, I would certainly rule out gastrointestinal bleed or other source of bleeding. This patient has no significant injury to the neck whatsoever. Thank you very much for referral. Karina Amador MD SJ/kb , 10:59 AM , 11:08 AM
[2018-02-22 14:28] LABS: Baso # (Auto) 0.1 th/mm3 (0.0-0.2); Baso % (Auto) 0.9 % (0.0-2.0); Eos # (Auto) 0.1 th/mm3 (0.0-0.4); Eos % (Auto) 0.8 % (0.0-4.0); Hematocrit 24.3 % (39.0-51.0); Hemoglobin 8.2 gm/dL (13.0-17.0); Lymph # (Auto) 1.6 th/mm3 (1.0-4.8); Mean Corpuscular HGB Conc 33.7 % (32.0-36.0); Mean Corpuscular Hemoglobin 29.5 pg (27.0-34.0); Mean Corpuscular Volume 87.6 fL (80.0-100.0); Mean Platelet Volume 8.7 fL (7.0-11.0); Mono # (Auto) 0.5 th/mm3 (0.0-0.9); Mono % (Auto) 8.8 % (0.0-8.0); Neut % (Auto) 64.5 % (16.0-70.0); Platelet Count 59 th/mm3 (150-450); Red Blood Count 2.77 mil/mm3 (4.50-5.90); White Blood Count 6.2 th/mm3 (4.0-11.0)
[2018-02-22 14:43] LABS: Activated Partial Thrombo Time 31.8 sec (24.3-30.1); INR 2.1 Ratio; Prothrombin Time 20.9 sec (9.8-11.6)
[2018-02-22 15:00] LABS: Alanine Aminotransferase 225 U/L (12-78); Albumin 2.3 g/dL (3.4-5.0); Anion Gap 8 meq/L (5-15); Blood Urea Nitrogen 5 mg/dL (7-18); Calcium 7.5 mg/dL (8.5-10.1); Carbon Dioxide 25.4 meq/L (21.0-32.0); Chloride 108 meq/L (98-107); Glucose,Random 116 mg/dL (74-106); Magnesium 1.5 mg/dL (1.5-2.5); Phosphorus 1.4 mg/dL (2.5-4.9); Potassium 3.6 meq/L (3.5-5.1); Sodium 141 meq/L (136-145)
[2018-02-22 15:07] LABS: Alkaline Phosphatase 83 U/L (45-117); Aspartate Aminotransferase 1449 U/L (15-37); Total Protein 5.5 g/dL (6.4-8.2)
[2018-02-22] MEDS ORDERED: Potassium Phosphate Inj 30 MMOL in Sodium Chlor 0.9% Inj 250 ML IV.SIG ONE (15:16)
--- NOTE | 2018-02-22 15:25 | P.PNVS ---
Subjective Subjective/Hospital Course: This gentleman has a very superficial wound to the neck into the subcutaneous tissue, not even into the platysma, let alone through the platysma, which is a minor cut, essentially. His major problem, of course, is metabolic derangement consistent with alcohol abuse and malnutrition, which is lactic acidosis with a lactic acid of 16 mmol/L and massive anion gap on admission. Liver insufficiency, thrombocytopenia and anemia. It should be noted that in this particular scenario, patient's hemoglobin went from 9 to 6.2 in 12 hours or so, and not from neck bleeding. The patient did not This is dilutional, and in addition, the patient is thrombocytopenic with liver insufficiency and elevated PT/INR. I would certainly attribute most of the effect to receiving 4 L of saline to correct the acidosis, hyperlactatemia, but on the other hand, being an alcoholic patient, I would certainly recommend to rule out gastrointestinal bleed or other source of bleeding. In conclusion patient has superficial tiny cuts to the left neck that has no clinical significance whatsoever. Case was discussed with Dr. Damion Aly last night and I fully agreed with his approach. CTA of the neck was negative and small laceration was called by the PA in the ER. Nothing further to add to care from surgical point Thanks J Objective Vital Signs / I&O: Vital Signs 02/21/18 21:21 02/22/18 00:22 02/22/18 03:00 Temperature 98.0 F 98.9 F Pulse Rate 112 H 108 H 117 H Respiratory Rate 16 16 20 Blood Pressure 123/78 139/73 153/75 H Pulse Oximetry 96 96 100 02/22/18 04:00 02/22/18 05:00 02/22/18 06:00 Temperature Pulse Rate 124 H 125 H 111 H Respiratory Rate 20 29 H 27 H Blood Pressure 147/68 H 98/53 L 120/62 Pulse Oximetry 97 97 100 02/22/18 06:40 02/22/18 07:18 02/22/18 10:15 Temperature 100.3 F H 98.6 F 100.1 F H Pulse Rate 115 H 112 H 104 H Respiratory Rate 25 H 25 H 20 Blood Pressure 124/62 144/77 H 111/60 Pulse Oximetry 100 100 98 02/22/18 10:35 Temperature 100.3 F H Pulse Rate 104 H Respiratory Rate 21 Blood Pressure 113/70 Pulse Oximetry 99 Intake & Output 02/21/18 02/22/18 02/22/18 18:59 06:59 18:59 Intake Total 1614.5 / 1614.5 0 / 0 Output Total 800 / 800 Balance 814.5 / 814.5 0 / 0 Weight 64.5 kg Intake: IV 1614.5 / 1614.5 Calcium Chloride Inj 0.33 GM In 103.3 / 103.3 D5W Inj 100 ML @ 110 mls/hr IV .SIG ONCE ONE Rx#:[id number] LR 1000 mL Inj 1,000 ML @ Wide 1000 / 1000 Open IV.SIG BOLUS ONE Rx#: [id number] MVI-12 Inj 10 ML Thiamine Inj 511.2 / 511.2 100 MG Folvite Inj 1 MG In NS Inj 500 ML @ 127.8 mls/hr IV. SIG DAILY REBECCA Rx#:[id number] Intake (Blood Product) Amt 0 / 0 0 / 0 Rbc As-3 Leukoreduced Unit 0 / 0 0 / 0 [id number] Rbc As-3 Leukoreduced Unit 0 / 0 [id number] Output: Urine 800 / 800 Other: Other Intake Source Rbc As-3 Leukoreduced Unit Saline Solution [id number] Date of Last Bowel Movement 02/22/18 Weight On Admission 64.5 kg Laboratory Results - last 24 hr 02/21/18 02/21/18 02/21/18 21:25 21:25 22:25 WBC 8.0 RBC 3.13 L Hgb 9.4 L Hct 29.6 L MCV 94.5 MCH 30.0 MCHC 31.8 L RDW 17.7 H Plt Count 120 L MPV 8.5 Prelim Diff (Auto) Neut % (Auto) 81.6 H Lymph % (Auto) 11.0 [place] % (Auto) 6.6 Eos % (Auto) 0.0 Baso % (Auto) 0.8 Neut # (Auto) 6.5 Lymph # (Auto) 0.9 L [place] # (Auto) 0.5 Eos # (Auto) 0.0 Baso # (Auto) 0.1 WBC Differential . Diff Scan Differential Comment Auto diff final Platelet Estimate Platelet Morphology PT INR APTT Fibrinogen Sodium 140 Potassium 4.3 Chloride 102 Carbon Dioxide 11.9 L Anion Gap 26 H BUN 6 L Creatinine 0.98 Estimated GFR 80 L Random Glucose 112 H Lactic Acid 16.0 H* Calcium 8.2 L Prot Corrected Calcium Phosphorus Magnesium Iron TIBC % Saturation Total Bilirubin Direct Bilirubin Indirect Bilirubin AST ALT Alkaline Phosphatase Ammonia Total Creatine Kinase 309 H CK-MB (CK-2) 3.8 H CK-MB (CK-2) % 1.2 Troponin I Total Protein Albumin Urine Color Urine Clarity Urine pH Ur Specific [place] Urine Protein Urine Glucose (UA) Urine Ketones Urine Occult Blood Urine Nitrate Urine Bilirubin Urine Urobilinogen Ur Leukocyte Esterase Urine RBC Urine WBC Hyaline Casts Granular Casts Urine Mucus Micro UA Comment Urine Culture Comments Urine Opiates Screen Ur Barbiturates Screen Ur Amphetamine Screen U Benzodiazepines Scrn Urine Cocaine Screen U Cannabinoids Screen Serum Alcohol 134 H Blood Type Blood Type Recheck Antibody Screen MTS Gel Crossmatch 02/22/18 02/22/18 02/22/18 00:15 00:15 00:15 WBC RBC Hgb Hct MCV MCH MCHC RDW Plt Count MPV Prelim Diff (Auto) Neut % (Auto) Lymph % (Auto) [place] % (Auto) Eos % (Auto) Baso % (Auto) Neut # (Auto) Lymph # (Auto) [place] # (Auto) Eos # (Auto) Baso # (Auto) WBC Differential Diff Scan Differential Comment Platelet Estimate Platelet Morphology PT INR APTT Fibrinogen Sodium Potassium Chloride Carbon Dioxide Anion Gap BUN Creatinine Estimated GFR Random Glucose Lactic Acid 15.8 H* Calcium Prot Corrected Calcium Phosphorus Magnesium Iron TIBC % Saturation Total Bilirubin 2.5 H Direct Bilirubin 1.5 H Indirect Bilirubin 1.0 H AST 586 H ALT 126 H Alkaline Phosphatase 98 Ammonia Total Creatine Kinase CK-MB (CK-2) CK-MB (CK-2) % Troponin I 0.03 Total Protein 6.1 L Albumin 2.4 L Urine Color Urine Clarity Urine pH Ur Specific [place] Urine Protein Urine Glucose (UA) Urine Ketones Urine Occult Blood Urine Nitrate Urine Bilirubin Urine Urobilinogen Ur Leukocyte Esterase Urine RBC Urine WBC Hyaline Casts Granular Casts Urine Mucus Micro UA Comment Urine Culture Comments Urine Opiates Screen Ur Barbiturates Screen Ur Amphetamine Screen U Benzodiazepines Scrn Urine Cocaine Screen U Cannabinoids Screen Serum Alcohol Blood Type O Positive Blood Type Recheck Required Antibody Screen Negative MTS Gel Crossmatch 02/22/18 02/22/18 02/22/18 00:15 00:15 00:15 WBC RBC Hgb Hct MCV MCH MCHC RDW Plt Count MPV Prelim Diff (Auto) Neut % (Auto) Lymph % (Auto) [place] % (Auto) Eos % (Auto) Baso % (Auto) Neut # (Auto) Lymph # (Auto) [place] # (Auto) Eos # (Auto) Baso # (Auto) WBC Differential Diff Scan Differential Comment Platelet Estimate Platelet Morphology PT INR APTT Fibrinogen Sodium Potassium Chloride Carbon Dioxide Anion Gap BUN Creatinine Estimated GFR Random Glucose Lactic Acid Calcium Prot Corrected Calcium Phosphorus 4.6 Magnesium 1.8 Iron TIBC % Saturation Total Bilirubin Direct Bilirubin Indirect Bilirubin AST ALT Alkaline Phosphatase Ammonia Total Creatine Kinase CK-MB (CK-2) CK-MB (CK-2) % Troponin I Total Protein Albumin Urine Color Yellow Urine Clarity Clear Urine pH 5.0 Ur Specific [place] 1.024 Urine Protein Negative Urine Glucose (UA) 50 Urine Ketones Trace Urine Occult Blood Moderate H Urine Nitrate Negative Urine Bilirubin Negative Urine Urobilinogen 4 or greater Ur Leukocyte Esterase Negative Urine RBC 1 Urine WBC 2 Hyaline Casts 123 Granular Casts 89 Urine Mucus Few H Micro UA Comment Cath-culture not ind Urine Culture Comments Cath-cult not ind Urine Opiates Screen Neg Ur Barbiturates Screen Neg Ur Amphetamine Screen Neg U Benzodiazepines Scrn Neg Urine Cocaine Screen Neg U Cannabinoids Screen Pos H Serum Alcohol Blood Type Blood Type Recheck Antibody Screen MTS Gel Crossmatch 02/22/18 02/22/18 02/22/18 01:15 01:15 03:53 WBC 8.8 RBC 2.04 L Hgb 6.2 L* D Hct 20.4 L* MCV 100.2 H D MCH 30.5 MCHC 30.5 L RDW 18.8 H Plt Count 71 L D MPV 8.6 Prelim Diff (Auto) Slide review pending Neut % (Auto) 75.2 H Lymph % (Auto) 13.6 [place] % (Auto) 10.7 H Eos % (Auto) 0.1 Baso % (Auto) 0.4 Neut # (Auto) 6.7 Lymph # (Auto) 1.2 [place] # (Auto) 0.9 Eos # (Auto) 0.0 Baso # (Auto) 0.0 WBC Differential . Diff Scan Auto diff confirmed Differential Comment . Platelet Estimate Low L Platelet Morphology Normal PT 15.7 H INR 1.6 APTT 31.0 H Fibrinogen 148 L Sodium Potassium Chloride Carbon Dioxide Anion Gap BUN Creatinine Estimated GFR Random Glucose Lactic Acid Calcium Prot Corrected Calcium Phosphorus Magnesium Iron TIBC % Saturation Total Bilirubin Direct Bilirubin Indirect Bilirubin AST ALT Alkaline Phosphatase Ammonia Total Creatine Kinase CK-MB (CK-2) CK-MB (CK-2) % Troponin I Total Protein Albumin Urine Color Urine Clarity Urine pH Ur Specific [place] Urine Protein Urine Glucose (UA) Urine Ketones Urine Occult Blood Urine Nitrate Urine Bilirubin Urine Urobilinogen Ur Leukocyte Esterase Urine RBC Urine WBC Hyaline Casts Granular Casts Urine Mucus Micro UA Comment Urine Culture Comments Urine Opiates Screen Ur Barbiturates Screen Ur Amphetamine Screen U Benzodiazepines Scrn Urine Cocaine Screen U Cannabinoids Screen Serum Alcohol Blood Type Blood Type Recheck Antibody Screen MTS Gel Crossmatch 02/22/18 02/22/18 02/22/18 03:53 03:53 03:53 WBC RBC Hgb Hct MCV MCH MCHC RDW Plt Count MPV Prelim Diff (Auto) Neut % (Auto) Lymph % (Auto) [place] % (Auto) Eos % (Auto) Baso % (Auto) Neut # (Auto) Lymph # (Auto) [place] # (Auto) Eos # (Auto) Baso # (Auto) WBC Differential Diff Scan Differential Comment Platelet Estimate Platelet Morphology PT INR APTT Fibrinogen Sodium 142 Potassium 4.4 Chloride 109 H Carbon Dioxide 11.1 L Anion Gap 22 H BUN 5 L Creatinine 0.78 Estimated GFR Greater than 89 Random Glucose 122 H Lactic Acid 14.3 H* Calcium 6.8 L* D Prot Corrected Calcium 7.7 L Phosphorus Magnesium Iron TIBC % Saturation Total Bilirubin 2.6 H Direct Bilirubin Indirect Bilirubin AST 946 H ALT 189 H Alkaline Phosphatase 85 Ammonia 48 H Total Creatine Kinase 956 H CK-MB (CK-2) 11.9 H CK-MB (CK-2) % 1.2 Troponin I 0.06 H Total Protein 5.4 L D Albumin 2.1 L Urine Color Urine Clarity Urine pH Ur Specific [place] Urine Protein Urine Glucose (UA) Urine Ketones Urine Occult Blood Urine Nitrate Urine Bilirubin Urine Urobilinogen Ur Leukocyte Esterase Urine RBC Urine WBC Hyaline Casts Granular Casts Urine Mucus Micro UA Comment Urine Culture Comments Urine Opiates Screen Ur Barbiturates Screen Ur Amphetamine Screen U Benzodiazepines Scrn Urine Cocaine Screen U Cannabinoids Screen Serum Alcohol Blood Type Blood Type Recheck Antibody Screen MTS Gel Crossmatch 02/22/18 02/22/18 02/22/18 03:53 05:36 13:20 WBC RBC Hgb Hct MCV MCH MCHC RDW Plt Count MPV Prelim Diff (Auto) Neut % (Auto) Lymph % (Auto) [place] % (Auto) Eos % (Auto) Baso % (Auto) Neut # (Auto) Lymph # (Auto) [place] # (Auto) Eos # (Auto) Baso # (Auto) WBC Differential Diff Scan Differential Comment Platelet Estimate Platelet Morphology PT 20.9 H INR 2.1 APTT 31.8 H Fibrinogen 88 L* Sodium Potassium Chloride Carbon Dioxide Anion Gap BUN Creatinine Estimated GFR Random Glucose Lactic Acid Calcium Prot Corrected Calcium Phosphorus Magnesium Iron 40 L TIBC 274 % Saturation 14.6 L Total Bilirubin Direct Bilirubin Indirect Bilirubin AST ALT Alkaline Phosphatase Ammonia Total Creatine Kinase CK-MB (CK-2) CK-MB (CK-2) % Troponin I Total Protein Albumin Urine Color Urine Clarity Urine pH Ur Specific [place] Urine Protein Urine Glucose (UA) Urine Ketones Urine Occult Blood Urine Nitrate Urine Bilirubin Urine Urobilinogen Ur Leukocyte Esterase Urine RBC Urine WBC Hyaline Casts Granular Casts Urine Mucus Micro UA Comment Urine Culture Comments Urine Opiates Screen Ur Barbiturates Screen Ur Amphetamine Screen U Benzodiazepines Scrn Urine Cocaine Screen U Cannabinoids Screen Serum Alcohol Blood Type Blood Type Recheck Antibody Screen MTS Gel Crossmatch See Detail 02/22/18 13:20 WBC 6.2 RBC 2.77 L Hgb 8.2 L D Hct 24.3 L MCV 87.6 D MCH 29.5 MCHC 33.7 RDW 18.0 H Plt Count 59 L MPV 8.7 Prelim Diff (Auto) Slide review pending Neut % (Auto) 64.5 Lymph % (Auto) 25.0 [place] % (Auto) 8.8 H Eos % (Auto) 0.8 Baso % (Auto) 0.9 Neut # (Auto) 4.0 Lymph # (Auto) 1.6 [place] # (Auto) 0.5 Eos # (Auto) 0.1 Baso # (Auto) 0.1 WBC Differential Diff Scan Differential Comment . Platelet Estimate Platelet Morphology PT INR APTT Fibrinogen Sodium Potassium Chloride Carbon Dioxide Anion Gap BUN Creatinine Estimated GFR Random Glucose Lactic Acid Calcium Prot Corrected Calcium Phosphorus Magnesium Iron TIBC % Saturation Total Bilirubin Direct Bilirubin Indirect Bilirubin AST ALT Alkaline Phosphatase Ammonia Total Creatine Kinase CK-MB (CK-2) CK-MB (CK-2) % Troponin I Total Protein Albumin Urine Color Urine Clarity Urine pH Ur Specific [place] Urine Protein Urine Glucose (UA) Urine Ketones Urine Occult Blood Urine Nitrate Urine Bilirubin Urine Urobilinogen Ur Leukocyte Esterase Urine RBC Urine WBC Hyaline Casts Granular Casts Urine Mucus Micro UA Comment Urine Culture Comments Urine Opiates Screen Ur Barbiturates Screen Ur Amphetamine Screen U Benzodiazepines Scrn Urine Cocaine Screen U Cannabinoids Screen Serum Alcohol Blood Type Blood Type Recheck Antibody Screen MTS Gel Crossmatch Impressions Neck CTA 02/21/18 21:21 CONCLUSION: 1. Focal soft tissue swelling at the left lateral mid neck primarily within the subcutaneous fat. The deeper structures appear intact. 2. No arterial injury is seen. There is scattered atherosclerotic calcification without a significant stenosis. Chest X-Ray 02/21/18 23:47 CONCLUSION: No acute cardiopulmonary process. Head CT 02/22/18 00:00 CONCLUSION: No acute intracranial abnormality is seen. . Liver Ultrasound 02/22/18 00:00 CONCLUSION: 1. Cirrhotic appearing liver with trace amount of ascites. 2. Gallbladder wall thickening with mild pericholecystic fluid. Findings are commonly seen in the setting of chronic liver disease but limit overall sonographic sensitivity for detection of early acute cholecystitis. If there is compelling continued clinical concern regarding cholecystitis, HIDA scan may be performed to document cystic duct patency. 3. Trace peripancreatic fluid. Suspect this is due to overall mesenteric edema. Clinical correlation with pancreatic enzymes is recommended.
[2018-02-22 15:26] LABS: Platelet Morphology Normal (Normal)
--- NOTE | 2018-02-22 15:57 | P.CONGI ---
History of Present Illness Consult date: 02/22/18 Consult reason: Elevated LFTs Chief complaint: Lactic/Metabolic Acidosis, Neck Lac, Ac Blood Loss History of Present Illness: This is a 52 yo M with history significant for ETOH abuse who was brought to the ER yesterday after a trip and fall at home in which he hit his head and sustained a laceration to his neck from falling on a knife that he was carrying. Pt had an elevated alcohol level on admission. Our service has been consulted to evaluate pt for elevated LFTs. Pt denies any known personal history of liver issues. Admits to drinking 3, 12 oz beers a day and has been doing this for ten years. Smoke 1 PPD. Denies illicit drug use, however urine toxicology is positive for cannabinoids. Pt denies any history of IV drug use. Denies having any tattoos and high risk sexual behaviors. Denies taking any prescription or OTC herbs or supplements. Does report he has been taking BC Powder three times a day for the past two years for orthopedic pains, prior to this was taking Ibuprofen. States he stopped taking the Ibuprofen two years ago because he was having BRB from his rectum, he was never evaluated by a doctor and states this resolved when he stopped taking the Ibuprofen. Pt does report intermittent nausea with dry heaves, denies any emesis. States some pain in his abdomen with the dry heaves but otherwise denies abdominal pain. States BMs have been normal in color, had a BM last night that was loose. Pt denies prior EGD or colonoscopy. <Shelby Back - Last Filed: 02/22/18 16:56> Review of Systems Gastrointestinal: Reports loose stools, Reports nausea, Denies abdominal pain, Denies black, tarry stools, Denies bright, red blood in stools, Denies vomiting <Shelby Back - Last Filed: 02/22/18 16:56> FOR[facility], [facility] - Medical History Medical History: Medical History (Last Updated 02/21/18 @ 21:23 by Pasquale Bean) Patient denies medical problems - Surgical History Surgical History: Surgical History (Last Updated 02/22/18 @ 00:41 by Hannah Mas MD) H/O arthroscopy of left knee S/P excision of varicocele - Family History Family History: Family History (Last Updated 02/22/18 @ 00:56 by Hannah Mas MD) Mother HLD (hyperlipidemia) <Addison Corley - Last Filed: 02/22/18 16:53> - History History Provided By: Patient - Medical History Medical History: Medical History (Last Updated 02/21/18 @ 21:23 by Pasquale Bean) Patient denies medical problems - Surgical History Surgical History: Surgical History (Last Updated 02/22/18 @ 00:41 by Hannah Mas MD) H/O arthroscopy of left knee S/P excision of varicocele - Family History Family History: Family History (Last Updated 02/22/18 @ 00:56 by Hannah Mas MD) Mother HLD (hyperlipidemia) - Tobacco History Second Hand Smoke Exposure: Yes Tobacco Use In Past 30 Days: Yes Smoking Status: Current every day smoker Tobacco Type: Cigarettes Packs Per Day: 1 Years Smoked: 25 - Alcohol History How Often Do You Have a Drink Containing Alcohol: 4 or more times a week (12 beers daily) - Substance Use History Substance History: No History of Abuse - Travel History Recent Travel in the [place] Within the Last 8 Weeks: No Recent Travel Out of the Country Within the Last 8 Weeks: No - Immunization History Tetanus Immunization: <5 Years Hx Influenza Vaccine This Season: No <Shelby Back - Last Filed: 02/22/18 16:56> Medications and Allergies Active Medications: Active Medications Al Hydroxide/Mg Hydroxide (Milk Of [place]di [place]) 30 ml PO Q12H PRN PRN Reason: Mild Constipation Albuterol (Albuterol Neb (Prn)) 2.5 mg NEB Q2HR NEB PRN PRN Reason: SHORTNESS OF BREATH/WHEEZING Bisacodyl (Dulcolax Supp) 10 mg RECTAL DAILY PRN PRN Reason: SEVERE CONSITIPATION Chlordiazepoxide (Librium) 25 mg PO Q6HR [facility] Last Admin: 02/22/18 12:03 Dose: 25 mg Chlorhexidine Gluconate (Chlorhexidine 2% Cloth) 3 pack TOPICAL DAILY@0400 [facility] Stop: 02/27/18 03:59 Last Admin: 02/22/18 03:19 Dose: 3 pack Chlorhexidine Gluconate (Chlorhexidine 2% Cloth) 3 pack TOPICAL DAILY@0400 PRN PRN Reason: Extra cloth needed Stop: 02/27/18 03:59 Flumazenil (Romazecon Inj) 0.2 mg IV.PUSH Q1M PRN PRN Reason: OVERSEDATION Haloperidol Lactate (Haldol Inj) 1 mg IV.PUSH Q15M PRN PRN Reason: for severe agitation Dextrose/Lactated Ringer's (D5w/Lr Inj) 1,000 mls @ 125 mls/hr IV.CONT .Q8H [facility] Last Infusion: 02/22/18 14:55 Dose: Infused Magnesium Sulfate Inj 4 gm/ (Sodium Chloride) 100 mls @ 50 mls/hr IV.SIG UNSCH PRN PRN Reason: For Magnesium 0.9 - 1.1 mg/dL Magnesium Sulfate Inj 2 gm/ (Sodium Chloride) 100 mls @ 50 mls/hr IV.SIG UNSCH PRN PRN Reason: For Magnesium 1.2 - 1.6 mg/dL Potassium Chloride (Kcl 40 Meq Premix Inj) 40 meq in 100 mls @ 25 mls/hr IV.SIG Q2H PRN PRN Reason: For Potassium 2.8 - 3.2 mEq/L Potassium Chloride (Kcl 20 Meq Premix Inj) 20 meq in 100 mls @ 50 mls/hr IV.SIG Q2H PRN PRN Reason: For Potassium 3.3 - 3.5 mEq/L Potassium Chloride (Kcl 40 Meq Premix Inj) 40 meq in 100 mls @ 25 mls/hr IV.SIG UNSCH PRN PRN Reason: For Potassium 3.3 - 3.5 mEq/L Potassium Phosphate 30 mmol/ (Sodium Chloride) 260 mls @ 42 mls/hr IV.SIG UNSCH PRN PRN Reason: SEE LABEL COMMENTS Sodium Phosphate 30 mmol/ (Sodium Chloride) 260 mls @ 42 mls/hr IV.SIG UNSCH PRN PRN Reason: For Phosphorus < 2.5 mg/dL Potassium Chloride (Kcl 20 Meq Premix Inj) 20 meq in 100 mls @ 50 mls/hr IV.SIG Q2H PRN PRN Reason: For Potassium 2.8 - 3.2 mEq/L Sodium Chloride (Ns Inj) 250 mls @ 15 mls/hr IV.SIG ONCE [facility] Stop: 02/22/18 21:39 Last Admin: 02/22/18 05:20 Dose: 15 mls/hr Multivitamins 10 ml/ Thiamine HCl 100 mg/ Folic Acid 1 mg/Sodium Chloride 511.2 mls @ 127.8 mls/hr IV.SIG Q24H [facility] Stop: 02/24/18 03:59 Sodium Chloride (Ns Inj) 250 mls @ 15 mls/hr IV.SIG ONCE [facility] Stop: 02/23/18 08:39 Potassium Phosphate 30 mmol/ (Sodium Chloride) 260 mls @ 43.333 mls/hr IV.SIG ONCE ONE Stop: 02/22/18 21:15 Pantoprazole Sodium 80 mg/ (Sodium Chloride) 35 mls @ 420 mls/hr IV.SIG BOLUS ONE Stop: 02/22/18 17:04 Pantoprazole Sodium 80 mg/ (Sodium Chloride) 100 mls @ 10 mls/hr IV.CONT CONT [facility] Lactulose (Lactulose Liq) 30 ml PO DAILY PRN PRN Reason: SEVERE CONSITIPATION Lorazepam (Ativan) 1 mg PO Q4H PRN PRN Reason: for CIWA 8-10 Lorazepam (Ativan) 2 mg PO Q2H PRN PRN Reason: for CIWA 11-14 Lorazepam (Ativan Inj) 2 mg IV.PUSH Q2H PRN PRN Reason: for CIWA 11-14 Last Admin: 02/22/18 03:28 Dose: 2 mg Lorazepam (Ativan Inj) 2 mg IV.PUSH Q1H PRN PRN Reason: for CIWA 15-20 Lorazepam (Ativan Inj) 2 mg IV.PUSH Q15M PRN PRN Reason: for CIWA > 20 Lorazepam (Ativan Inj) 1 mg IV.PUSH Q4H PRN PRN Reason: for CIWA 8-10 Magnesium Oxide (Mag-Ox) 800 mg PO UNSCH PRN PRN Reason: For Magnesium 1.2 - 1.6 mg/dL Methylprednisolone Sodium Succinate (Solumedrol Inj) 40 mg IV.PUSH Q12HR [facility] Nicotine (Habitrol 21 Mg Patch.24 Hr) 1 patch T-DERMAL DAILY [facility] Last Admin: 02/22/18 15:14 Dose: 1 patch Ondansetron HCl (Zofran Inj) 4 mg IV.PUSH Q6H PRN PRN Reason: NAUSEA OR VOMITING Patch Removal (Remove Old Patch) 1 each T-DERMAL DAILY [facility] Last Admin: 02/22/18 16:01 Dose: Not Given Pentoxifylline (Trental Sr) 400 mg PO TID [facility] Phytonadione (Mephyton Liq) 10 mg PO DAILY [facility] Stop: 02/23/18 09:01 Last Admin: 02/22/18 09:13 Dose: 10 mg Potassium Bicarb/Potassium Chloride (K-Lyte Cl Eff) 50 meq PO UNSCH PRN PRN Reason: For Potassium 3.3 - 3.5 mEq/L Potassium Phosphate (K-Phos Original) 2,000 mg PO Q4H PRN PRN Reason: Phosphorus Less Than 2.5 mg/dL Potassium Phosphate (K-Phos Original) 2,000 mg PO UNSCH PRN PRN Reason: SEE LABEL COMMENTS Rifaximin (Xifaxan) 550 mg PO Q12HR [facility] Last Admin: 02/22/18 09:13 Dose: 550 mg Senna/Docusate Sodium (Sandy-Colace) 1 tab PO BID [facility] Last Admin: 02/22/18 09:13 Dose: 1 tab Sennosides (Senokot) 17.2 mg PO Q12H PRN PRN Reason: Moderate Constipation Sodium Chloride (Ns Flush) 2 ml IV.FLUSH BID [facility] Last Admin: 02/22/18 09:13 Dose: 2 ml Sodium Chloride (Ns Flush) 2 ml IV.FLUSH PRN PRN PRN Reason: FLUSH AFTER USING IV ACCESS <Addison Corley - Last Filed: 02/22/18 16:53> Active Medications: Active Medications Al Hydroxide/Mg Hydroxide (Milk Of Cyndi Liq) 30 ml PO Q12H PRN PRN Reason: Mild Constipation Albuterol (Albuterol Neb (Prn)) 2.5 mg NEB Q2HR NEB PRN PRN Reason: SHORTNESS OF BREATH/WHEEZING Bisacodyl (Dulcolax Supp) 10 mg RECTAL DAILY PRN PRN Reason: SEVERE CONSITIPATION Chlordiazepoxide (Librium) 25 mg PO Q6HR [facility] Last Admin: 02/22/18 12:03 Dose: 25 mg Chlorhexidine Gluconate (Chlorhexidine 2% Cloth) 3 pack TOPICAL DAILY@0400 [facility] Stop: 02/27/18 03:59 Last Admin: 02/22/18 03:19 Dose: 3 pack Chlorhexidine Gluconate (Chlorhexidine 2% Cloth) 3 pack TOPICAL DAILY@0400 PRN PRN Reason: Extra cloth needed Stop: 02/27/18 03:59 Famotidine (Pepcid) 20 mg PO BID [facility] Last Admin: 02/22/18 09:13 Dose: 20 mg Flumazenil (Romazecon Inj) 0.2 mg IV.PUSH Q1M PRN PRN Reason: OVERSEDATION Haloperidol Lactate (Haldol Inj) 1 mg IV.PUSH Q15M PRN PRN Reason: for severe agitation Dextrose/Lactated Ringer's (D5w/Lr Inj) 1,000 mls @ 125 mls/hr IV.CONT .Q8H [facility] Last Infusion: 02/22/18 14:55 Dose: Infused Magnesium Sulfate Inj 4 gm/ (Sodium Chloride) 100 mls @ 50 mls/hr IV.SIG UNSCH PRN PRN Reason: For Magnesium 0.9 - 1.1 mg/dL Magnesium Sulfate Inj 2 gm/ (Sodium Chloride) 100 mls @ 50 mls/hr IV.SIG UNSCH PRN PRN Reason: For Magnesium 1.2 - 1.6 mg/dL Potassium Chloride (Kcl 40 Meq Premix Inj) 40 meq in 100 mls @ 25 mls/hr IV.SIG Q2H PRN PRN Reason: For Potassium 2.8 - 3.2 mEq/L Potassium Chloride (Kcl 20 Meq Premix Inj) 20 meq in 100 mls @ 50 mls/hr IV.SIG Q2H PRN PRN Reason: For Potassium 3.3 - 3.5 mEq/L Potassium Chloride (Kcl 40 Meq Premix Inj) 40 meq in 100 mls @ 25 mls/hr IV.SIG UNSCH PRN PRN Reason: For Potassium 3.3 - 3.5 mEq/L Potassium Phosphate 30 mmol/ (Sodium Chloride) 260 mls @ 42 mls/hr IV.SIG UNSCH PRN PRN Reason: SEE LABEL COMMENTS Sodium Phosphate 30 mmol/ (Sodium Chloride) 260 mls @ 42 mls/hr IV.SIG UNSCH PRN PRN Reason: For Phosphorus < 2.5 mg/dL Potassium Chloride (Kcl 20 Meq Premix Inj) 20 meq in 100 mls @ 50 mls/hr IV.SIG Q2H PRN PRN Reason: For Potassium 2.8 - 3.2 mEq/L Sodium Chloride (Ns Inj) 250 mls @ 15 mls/hr IV.SIG ONCE [facility] Stop: 02/22/18 21:39 Last Admin: 02/22/18 05:20 Dose: 15 mls/hr Multivitamins 10 ml/ Thiamine HCl 100 mg/ Folic Acid 1 mg/Sodium Chloride 511.2 mls @ 127.8 mls/hr IV.SIG Q24H [facility] Stop: 02/24/18 03:59 Sodium Chloride (Ns Inj) 250 mls @ 15 mls/hr IV.SIG ONCE [facility] Stop: 02/23/18 08:39 Potassium Phosphate 30 mmol/ (Sodium Chloride) 260 mls @ 43.333 mls/hr IV.SIG ONCE ONE Stop: 02/22/18 21:15 Lactulose (Lactulose Liq) 30 ml PO DAILY PRN PRN Reason: SEVERE CONSITIPATION Lorazepam (Ativan) 1 mg PO Q4H PRN PRN Reason: for CIWA 8-10 Lorazepam (Ativan) 2 mg PO Q2H PRN PRN Reason: for CIWA 11-14 Lorazepam (Ativan Inj) 2 mg IV.PUSH Q2H PRN PRN Reason: for CIWA 11-14 Last Admin: 02/22/18 03:28 Dose: 2 mg Lorazepam (Ativan Inj) 2 mg IV.PUSH Q1H PRN PRN Reason: for CIWA 15-20 Lorazepam (Ativan Inj) 2 mg IV.PUSH Q15M PRN PRN Reason: for CIWA > 20 Lorazepam (Ativan Inj) 1 mg IV.PUSH Q4H PRN PRN Reason: for CIWA 8-10 Magnesium Oxide (Mag-Ox) 800 mg PO UNSCH PRN PRN Reason: For Magnesium 1.2 - 1.6 mg/dL Nicotine (Habitrol 21 Mg Patch.24 Hr) 1 patch T-DERMAL DAILY [facility] Last Admin: 02/22/18 15:14 Dose: 1 patch Ondansetron HCl (Zofran Inj) 4 mg IV.PUSH Q6H PRN PRN Reason: NAUSEA OR VOMITING Patch Removal (Remove Old Patch) 1 each T-DERMAL DAILY [facility] Phytonadione (Mephyton Liq) 10 mg PO DAILY [facility] Stop: 02/23/18 09:01 Last Admin: 02/22/18 09:13 Dose: 10 mg Potassium Bicarb/Potassium Chloride (K-Lyte Cl Eff) 50 meq PO UNSCH PRN PRN Reason: For Potassium 3.3 - 3.5 mEq/L Potassium Phosphate (K-Phos Original) 2,000 mg PO Q4H PRN PRN Reason: Phosphorus Less Than 2.5 mg/dL Potassium Phosphate (K-Phos Original) 2,000 mg PO UNSCH PRN PRN Reason: SEE LABEL COMMENTS Rifaximin (Xifaxan) 550 mg PO Q12HR [facility] Last Admin: 02/22/18 09:13 Dose: 550 mg Senna/Docusate Sodium (Sandy-Colace) 1 tab PO BID [facility] Last Admin: 02/22/18 09:13 Dose: 1 tab Sennosides (Senokot) 17.2 mg PO Q12H PRN PRN Reason: Moderate Constipation Sodium Chloride (Ns Flush) 2 ml IV.FLUSH BID [facility] Last Admin: 02/22/18 09:13 Dose: 2 ml Sodium Chloride (Ns Flush) 2 ml IV.FLUSH PRN PRN PRN Reason: FLUSH AFTER USING IV ACCESS <Shelby Back - Last Filed: 02/22/18 16:56> Allergies Allergy/AdvReac Type Severity Reaction Status Date / Time No Known Allergies Allergy Unverified 02/21/18 21:20 Home Medications Medication Instructions Recorded Confirmed Type aspirin 325 mg PO DAILY 02/21/18 02/21/18 History Exam Vital signs: Vital Signs 02/21/18 21:21 02/22/18 00:22 02/22/18 03:00 Temperature 98.0 F 98.9 F Pulse Rate 112 H 108 H 117 H Respiratory Rate 16 16 20 Blood Pressure 123/78 139/73 153/75 H Pulse Oximetry 96 96 100 02/22/18 04:00 02/22/18 05:00 02/22/18 06:00 Temperature Pulse Rate 124 H 125 H 111 H Respiratory Rate 20 29 H 27 H Blood Pressure 147/68 H 98/53 L 120/62 Pulse Oximetry 97 97 100 02/22/18 06:40 02/22/18 07:00 02/22/18 07:18 Temperature 100.3 F H 98.6 F Pulse Rate 115 H 112 H 112 H Respiratory Rate 25 H 23 25 H Blood Pressure 124/62 120/62 144/77 H Pulse Oximetry 100 100 100 02/22/18 10:15 02/22/18 10:35 Temperature 100.1 F H 100.3 F H Pulse Rate 104 H 104 H Respiratory Rate 20 21 Blood Pressure 111/60 113/70 Pulse Oximetry 98 99 Intake & Output 02/21/18 02/22/18 02/22/18 18:59 06:59 18:59 Intake Total 1614.5 / 1614.5 3400 / 3400 Output Total 800 / 800 Balance 814.5 / 814.5 3400 / 3400 Weight 64.5 kg Intake: IV 1614.5 / 1614.5 3000 / 3000 D5W/LR Inj 1,000 ML @ 125 mls/ 1000 / 1000 hr IV.CONT .Q8H [facility] Rx#: [id number] Calcium Chloride Inj 0.33 GM In 103.3 / 103.3 D5W Inj 100 ML @ 110 mls/hr IV .SIG ONCE ONE Rx#:[id number] LR 1000 mL Inj 1,000 ML @ Wide 1000 / 1000 Open IV.SIG BOLUS ONE Rx#: [id number] MVI-12 Inj 10 ML Thiamine Inj 511.2 / 511.2 100 MG Folvite Inj 1 MG In NS Inj 500 ML @ 127.8 mls/hr IV. SIG DAILY [facility] Rx#:[id number] Intake (Blood Product) Amt 0 / 0 400 / 400 Rbc As-3 Leukoreduced Unit 0 / 0 0 / 0 [id number] Rbc As-3 Leukoreduced Unit 400 / 400 [id number] Output: Urine 800 / 800 Other: Other Intake Source Rbc As-3 Leukoreduced Unit Saline Solution [id number] Date of Last Bowel Movement 02/22/18 Weight On Admission 64.5 kg <Addison Corley - Last Filed: 02/22/18 16:53> Vital signs: Vital Signs 02/21/18 21:21 02/22/18 00:22 02/22/18 03:00 Temperature 98.0 F 98.9 F Pulse Rate 112 H 108 H 117 H Respiratory Rate 16 16 20 Blood Pressure 123/78 139/73 153/75 H Pulse Oximetry 96 96 100 02/22/18 04:00 02/22/18 05:00 02/22/18 06:00 Temperature Pulse Rate 124 H 125 H 111 H Respiratory Rate 20 29 H 27 H Blood Pressure 147/68 H 98/53 L 120/62 Pulse Oximetry 97 97 100 02/22/18 06:40 08/16/18 07:18 02/22/18 10:15 Temperature 100.3 F H 98.6 F 100.1 F H Pulse Rate 115 H 112 H 104 H Respiratory Rate 25 H 25 H 20 Blood Pressure 124/62 144/77 H 111/60 Pulse Oximetry 100 100 98 02/22/18 10:35 Temperature 100.3 F H Pulse Rate 104 H Respiratory Rate 21 Blood Pressure 113/70 Pulse Oximetry 99 Intake & Output 02/21/18 02/22/18 02/22/18 18:59 06:59 18:59 Intake Total 1614.5 / 1614.5 3000 / 3000 Output Total 800 / 800 Balance 814.5 / 814.5 3000 / 3000 Weight 64.5 kg Intake: IV 1614.5 / 1614.5 3000 / 3000 D5W/LR Inj 1,000 ML @ 125 mls/ 1000 / 1000 hr IV.CONT .Q8H [facility] Rx#: [id number] Calcium Chloride Inj 0.33 GM In 103.3 / 103.3 D5W Inj 100 ML @ 110 mls/hr IV .SIG ONCE ONE Rx#:[id number] LR 1000 mL Inj 1,000 ML @ Wide 1000 / 1000 Open IV.SIG BOLUS ONE Rx#: [id number] MVI-12 Inj 10 ML Thiamine Inj 511.2 / 511.2 100 MG Folvite Inj 1 MG In NS Inj 500 ML @ 127.8 mls/hr IV. SIG DAILY [facility] Rx#:[id number] Intake (Blood Product) Amt 0 / 0 0 / 0 Rbc As-3 Leukoreduced Unit 0 / 0 0 / 0 [id number] Rbc As-3 Leukoreduced Unit 0 / 0 [id number] Output: Urine 800 / 800 Other: Other Intake Source Rbc As-3 Leukoreduced Unit Saline Solution [id number] Date of Last Bowel Movement 02/22/18 Weight On Admission 64.5 kg - Constitutional no acute distress - Routine HEENT Exam Head: Present: normocephalic, atraumatic Eye: Present: conjunctival icterus - Routine Respiratory Exam Absent: accessory muscle use - Routine Abdominal Exam Present: soft, normoactive bowel sounds, distended. Absent: tenderness - Routine Skin Exam Present: dry, warm - Routine Neurological Exam Present: alert, oriented X3 <Bonnette,Shelby - Last Filed: 02/22/18 16:56> Results - Labs CBC & Chem 7: 02/22/18 13:20 02/22/18 13:20 Labs: Laboratory Results - last 24 hr 02/21/18 02/21/18 02/21/18 21:25 21:25 22:25 WBC 8.0 RBC 3.13 L Hgb 9.4 L Hct 29.6 L MCV 94.5 MCH 30.0 MCHC 31.8 L RDW 17.7 H Plt Count 120 L MPV 8.5 Prelim Diff (Auto) Neut % (Auto) 81.6 H Lymph % (Auto) 11.0 [place] % (Auto) 6.6 Eos % (Auto) 0.0 Baso % (Auto) 0.8 Neut # (Auto) 6.5 Lymph # (Auto) 0.9 L [place] # (Auto) 0.5 Eos # (Auto) 0.0 Baso # (Auto) 0.1 WBC Differential . Diff Scan Differential Comment Auto diff final Platelet Estimate Platelet Morphology PT INR APTT Fibrinogen Sodium 140 Potassium 4.3 Chloride 102 Carbon Dioxide 11.9 L Anion Gap 26 H BUN 6 L Creatinine 0.98 Estimated GFR 80 L Random Glucose 112 H Lactic Acid 16.0 H* Calcium 8.2 L Prot Corrected Calcium Phosphorus Magnesium Iron TIBC % Saturation Total Bilirubin Direct Bilirubin Indirect Bilirubin AST ALT Alkaline Phosphatase Ammonia Total Creatine Kinase 309 H CK-MB (CK-2) 3.8 H CK-MB (CK-2) % 1.2 Troponin I Total Protein Albumin Urine Color Urine Clarity Urine pH Ur Specific [place] Urine Protein Urine Glucose (UA) Urine Ketones Urine Occult Blood Urine Nitrate Urine Bilirubin Urine Urobilinogen Ur Leukocyte Esterase Urine RBC Urine WBC Hyaline Casts Granular Casts Urine Mucus Micro UA Comment Urine Culture Comments Urine Opiates Screen Ur Barbiturates Screen Ur Amphetamine Screen U Benzodiazepines Scrn Urine Cocaine Screen U Cannabinoids Screen Serum Alcohol 134 H Blood Type Blood Type Recheck Antibody Screen MTS Gel Crossmatch 02/22/18 02/22/18 02/22/18 00:15 00:15 00:15 WBC RBC Hgb Hct MCV MCH MCHC RDW Plt Count MPV Prelim Diff (Auto) Neut % (Auto) Lymph % (Auto) [place] % (Auto) Eos % (Auto) Baso % (Auto) Neut # (Auto) Lymph # (Auto) [place] # (Auto) Eos # (Auto) Baso # (Auto) WBC Differential Diff Scan Differential Comment Platelet Estimate Platelet Morphology PT INR APTT Fibrinogen Sodium Potassium Chloride Carbon Dioxide Anion Gap BUN Creatinine Estimated GFR Random Glucose Lactic Acid 15.8 H* Calcium Prot Corrected Calcium Phosphorus Magnesium Iron TIBC % Saturation Total Bilirubin 2.5 H Direct Bilirubin 1.5 H Indirect Bilirubin 1.0 H AST 586 H ALT 126 H Alkaline Phosphatase 98 Ammonia Total Creatine Kinase CK-MB (CK-2) CK-MB (CK-2) % Troponin I 0.03 Total Protein 6.1 L Albumin 2.4 L Urine Color Urine Clarity Urine pH Ur Specific [place] Urine Protein Urine Glucose (UA) Urine Ketones Urine Occult Blood Urine Nitrate Urine Bilirubin Urine Urobilinogen Ur Leukocyte Esterase Urine RBC Urine WBC Hyaline Casts Granular Casts Urine Mucus Micro UA Comment Urine Culture Comments Urine Opiates Screen Ur Barbiturates Screen Ur Amphetamine Screen U Benzodiazepines Scrn Urine Cocaine Screen U Cannabinoids Screen Serum Alcohol Blood Type O Positive Blood Type Recheck Required Antibody Screen Negative MTS Gel Crossmatch 02/22/18 02/22/18 02/22/18 00:15 00:15 00:15 WBC RBC Hgb Hct MCV MCH MCHC RDW Plt Count MPV Prelim Diff (Auto) Neut % (Auto) Lymph % (Auto) [place] % (Auto) Eos % (Auto) Baso % (Auto) Neut # (Auto) Lymph # (Auto) [place] # (Auto) Eos # (Auto) Baso # (Auto) WBC Differential Diff Scan Differential Comment Platelet Estimate Platelet Morphology PT INR APTT Fibrinogen Sodium Potassium Chloride Carbon Dioxide Anion Gap BUN Creatinine Estimated GFR Random Glucose Lactic Acid Calcium Prot Corrected Calcium Phosphorus 4.6 Magnesium 1.8 Iron TIBC % Saturation Total Bilirubin Direct Bilirubin Indirect Bilirubin AST ALT Alkaline Phosphatase Ammonia Total Creatine Kinase CK-MB (CK-2) CK-MB (CK-2) % Troponin I Total Protein Albumin Urine Color Yellow Urine Clarity Clear Urine pH 5.0 Ur Specific [place] 1.024 Urine Protein Negative Urine Glucose (UA) 50 Urine Ketones Trace Urine Occult Blood Moderate H Urine Nitrate Negative Urine Bilirubin Negative Urine Urobilinogen 4 or greater Ur Leukocyte Esterase Negative Urine RBC 1 Urine WBC 2 Hyaline Casts 123 Granular Casts 89 Urine Mucus Few H Micro UA Comment Cath-culture not ind Urine Culture Comments Cath-cult not ind Urine Opiates Screen Neg Ur Barbiturates Screen Neg Ur Amphetamine Screen Neg U Benzodiazepines Scrn Neg Urine Cocaine Screen Neg U Cannabinoids Screen Pos H Serum Alcohol Blood Type Blood Type Recheck Antibody Screen MTS Gel Crossmatch 02/22/18 02/22/18 02/22/18 01:15 01:15 03:53 WBC 8.8 RBC 2.04 L Hgb 6.2 L* D Hct 20.4 L* MCV 100.2 H D MCH 30.5 MCHC 30.5 L RDW 18.8 H Plt Count 71 L D MPV 8.6 Prelim Diff (Auto) Slide review pending Neut % (Auto) 75.2 H Lymph % (Auto) 13.6 [place] % (Auto) 10.7 H Eos % (Auto) 0.1 Baso % (Auto) 0.4 Neut # (Auto) 6.7 Lymph # (Auto) 1.2 [place] # (Auto) 0.9 Eos # (Auto) 0.0 Baso # (Auto) 0.0 WBC Differential . Diff Scan Auto diff confirmed Differential Comment . Platelet Estimate Low L Platelet Morphology Normal PT 15.7 H INR 1.6 APTT 31.0 H Fibrinogen 148 L Sodium Potassium Chloride Carbon Dioxide Anion Gap BUN Creatinine Estimated GFR Random Glucose Lactic Acid Calcium Prot Corrected Calcium Phosphorus Magnesium Iron TIBC % Saturation Total Bilirubin Direct Bilirubin Indirect Bilirubin AST ALT Alkaline Phosphatase Ammonia Total Creatine Kinase CK-MB (CK-2) CK-MB (CK-2) % Troponin I Total Protein Albumin Urine Color Urine Clarity Urine pH Ur Specific [place] Urine Protein Urine Glucose (UA) Urine Ketones Urine Occult Blood Urine Nitrate Urine Bilirubin Urine Urobilinogen Ur Leukocyte Esterase Urine RBC Urine WBC Hyaline Casts Granular Casts Urine Mucus Micro UA Comment Urine Culture Comments Urine Opiates Screen Ur Barbiturates Screen Ur Amphetamine Screen U Benzodiazepines Scrn Urine Cocaine Screen U Cannabinoids Screen Serum Alcohol Blood Type Blood Type Recheck Antibody Screen MTS Gel Crossmatch 02/22/18 02/22/18 02/22/18 03:53 03:53 03:53 WBC RBC Hgb Hct MCV MCH MCHC RDW Plt Count MPV Prelim Diff (Auto) Neut % (Auto) Lymph % (Auto) [place] % (Auto) Eos % (Auto) Baso % (Auto) Neut # (Auto) Lymph # (Auto) [place] # (Auto) Eos # (Auto) Baso # (Auto) WBC Differential Diff Scan Differential Comment Platelet Estimate Platelet Morphology PT INR APTT Fibrinogen Sodium 142 Potassium 4.4 Chloride 109 H Carbon Dioxide 11.1 L Anion Gap 22 H BUN 5 L Creatinine 0.78 Estimated GFR Greater than 89 Random Glucose 122 H Lactic Acid 14.3 H* Calcium 6.8 L* D Prot Corrected Calcium 7.7 L Phosphorus Magnesium Iron TIBC % Saturation Total Bilirubin 2.6 H Direct Bilirubin Indirect Bilirubin AST 946 H ALT 189 H Alkaline Phosphatase 85 Ammonia 48 H Total Creatine Kinase 956 H CK-MB (CK-2) 11.9 H CK-MB (CK-2) % 1.2 Troponin I 0.06 H Total Protein 5.4 L D Albumin 2.1 L Urine Color Urine Clarity Urine pH Ur Specific [place] Urine Protein Urine Glucose (UA) Urine Ketones Urine Occult Blood Urine Nitrate Urine Bilirubin Urine Urobilinogen Ur Leukocyte Esterase Urine RBC Urine WBC Hyaline Casts Granular Casts Urine Mucus Micro UA Comment Urine Culture Comments Urine Opiates Screen Ur Barbiturates Screen Ur Amphetamine Screen U Benzodiazepines Scrn Urine Cocaine Screen U Cannabinoids Screen Serum Alcohol Blood Type Blood Type Recheck Antibody Screen MTS Gel Crossmatch 02/22/18 02/22/18 02/22/18 03:53 05:36 13:20 WBC RBC Hgb Hct MCV MCH MCHC RDW Plt Count MPV Prelim Diff (Auto) Neut % (Auto) Lymph % (Auto) [place] % (Auto) Eos % (Auto) Baso % (Auto) Neut # (Auto) Lymph # (Auto) [place] # (Auto) Eos # (Auto) Baso # (Auto) WBC Differential Diff Scan Differential Comment Platelet Estimate Platelet Morphology PT 20.9 H INR 2.1 APTT 31.8 H Fibrinogen 88 L* Sodium Potassium Chloride Carbon Dioxide Anion Gap BUN Creatinine Estimated GFR Random Glucose Lactic Acid Calcium Prot Corrected Calcium Phosphorus Magnesium Iron 40 L TIBC 274 % Saturation 14.6 L Total Bilirubin Direct Bilirubin Indirect Bilirubin AST ALT Alkaline Phosphatase Ammonia Total Creatine Kinase CK-MB (CK-2) CK-MB (CK-2) % Troponin I Total Protein Albumin Urine Color Urine Clarity Urine pH Ur Specific [place] Urine Protein Urine Glucose (UA) Urine Ketones Urine Occult Blood Urine Nitrate Urine Bilirubin Urine Urobilinogen Ur Leukocyte Esterase Urine RBC Urine WBC Hyaline Casts Granular Casts Urine Mucus Micro UA Comment Urine Culture Comments Urine Opiates Screen Ur Barbiturates Screen Ur Amphetamine Screen U Benzodiazepines Scrn Urine Cocaine Screen U Cannabinoids Screen Serum Alcohol Blood Type Blood Type Recheck Antibody Screen MTS Gel Crossmatch See Detail 02/22/18 02/22/18 13:20 13:20 WBC 6.2 RBC 2.77 L Hgb 8.2 L D Hct 24.3 L MCV 87.6 D MCH 29.5 MCHC 33.7 RDW 18.0 H Plt Count 59 L MPV 8.7 Prelim Diff (Auto) Slide review pending Neut % (Auto) 64.5 Lymph % (Auto) 25.0 [place] % (Auto) 8.8 H Eos % (Auto) 0.8 Baso % (Auto) 0.9 Neut # (Auto) 4.0 Lymph # (Auto) 1.6 [place] # (Auto) 0.5 Eos # (Auto) 0.1 Baso # (Auto) 0.1 WBC Differential . Diff Scan Auto diff confirmed Differential Comment . Platelet Estimate Low L Platelet Morphology Normal PT INR APTT Fibrinogen Sodium 141 Potassium 3.6 D Chloride 108 H Carbon Dioxide 25.4 D Anion Gap 8 BUN 5 L Creatinine 0.74 Estimated GFR Random Glucose 116 H Lactic Acid Calcium 7.5 L Prot Corrected Calcium Phosphorus 1.4 L D Magnesium 1.5 Iron TIBC % Saturation Total Bilirubin 2.6 H Direct Bilirubin Indirect Bilirubin AST 1449 H ALT 225 H Alkaline Phosphatase 83 Ammonia Total Creatine Kinase CK-MB (CK-2) CK-MB (CK-2) % Troponin I Total Protein 5.5 L Albumin 2.3 L Urine Color Urine Clarity Urine pH Ur Specific [place] Urine Protein Urine Glucose (UA) Urine Ketones Urine Occult Blood Urine Nitrate Urine Bilirubin Urine Urobilinogen Ur Leukocyte Esterase Urine RBC Urine WBC Hyaline Casts Granular Casts Urine Mucus Micro UA Comment Urine Culture Comments Urine Opiates Screen Ur Barbiturates Screen Ur Amphetamine Screen U Benzodiazepines Scrn Urine Cocaine Screen U Cannabinoids Screen Serum Alcohol Blood Type Blood Type Recheck Antibody Screen MTS Gel Crossmatch - Imaging Impressions Neck CTA 02/21/18 21:21 CONCLUSION: 1. Focal soft tissue swelling at the left lateral mid neck primarily within the subcutaneous fat. The deeper structures appear intact. 2. No arterial injury is seen. There is scattered atherosclerotic calcification without a significant stenosis. Chest X-Ray 02/21/18 23:47 CONCLUSION: No acute cardiopulmonary process. Head CT 02/22/18 00:00 CONCLUSION: No acute intracranial abnormality is seen. . Liver Ultrasound 02/22/18 00:00 CONCLUSION: 1. Cirrhotic appearing liver with trace amount of ascites. 2. Gallbladder wall thickening with mild pericholecystic fluid. Findings are commonly seen in the setting of chronic liver disease but limit overall sonographic sensitivity for detection of early acute cholecystitis. If there is compelling continued clinical concern regarding cholecystitis, HIDA scan may be performed to document cystic duct patency. 3. Trace peripancreatic fluid. Suspect this is due to overall mesenteric edema. Clinical correlation with pancreatic enzymes is recommended. <Addison Corley - Last Filed: 02/22/18 16:53> - Labs CBC & Chem 7: 02/22/18 13:20 02/22/18 13:20 Labs: Laboratory Results - last 24 hr 02/21/18 02/21/18 02/21/18 21:25 21:25 22:25 WBC 8.0 RBC 3.13 L Hgb 9.4 L Hct 29.6 L MCV 94.5 MCH 30.0 MCHC 31.8 L RDW 17.7 H Plt Count 120 L MPV 8.5 Prelim Diff (Auto) Neut % (Auto) 81.6 H Lymph % (Auto) 11.0 [place] % (Auto) 6.6 Eos % (Auto) 0.0 Baso % (Auto) 0.8 Neut # (Auto) 6.5 Lymph # (Auto) 0.9 L [place] # (Auto) 0.5 Eos # (Auto) 0.0 Baso # (Auto) 0.1 WBC Differential . Diff Scan Differential Comment Auto diff final Platelet Estimate Platelet Morphology PT INR APTT Fibrinogen Sodium 140 Potassium 4.3 Chloride 102 Carbon Dioxide 11.9 L Anion Gap 26 H BUN 6 L Creatinine 0.98 Estimated GFR 80 L Random Glucose 112 H Lactic Acid 16.0 H* Calcium 8.2 L Prot Corrected Calcium Phosphorus Magnesium Iron TIBC % Saturation Total Bilirubin Direct Bilirubin Indirect Bilirubin AST ALT Alkaline Phosphatase Ammonia Total Creatine Kinase 309 H CK-MB (CK-2) 3.8 H CK-MB (CK-2) % 1.2 Troponin I Total Protein Albumin Urine Color Urine Clarity Urine pH Ur Specific [place] Urine Protein Urine Glucose (UA) Urine Ketones Urine Occult Blood Urine Nitrate Urine Bilirubin Urine Urobilinogen Ur Leukocyte Esterase Urine RBC Urine WBC Hyaline Casts Granular Casts Urine Mucus Micro UA Comment Urine Culture Comments Urine Opiates Screen Ur Barbiturates Screen Ur Amphetamine Screen U Benzodiazepines Scrn Urine Cocaine Screen U Cannabinoids Screen Serum Alcohol 134 H Blood Type Blood Type Recheck Antibody Screen MTS Gel Crossmatch 02/22/18 02/22/18 02/22/18 00:15 00:15 00:15 WBC RBC Hgb Hct MCV MCH MCHC RDW Plt Count MPV Prelim Diff (Auto) Neut % (Auto) Lymph % (Auto) [place] % (Auto) Eos % (Auto) Baso % (Auto) Neut # (Auto) Lymph # (Auto) [place] # (Auto) Eos # (Auto) Baso # (Auto) WBC Differential Diff Scan Differential Comment Platelet Estimate Platelet Morphology PT INR APTT Fibrinogen Sodium Potassium Chloride Carbon Dioxide Anion Gap BUN Creatinine Estimated GFR Random Glucose Lactic Acid 15.8 H* Calcium Prot Corrected Calcium Phosphorus Magnesium Iron TIBC % Saturation Total Bilirubin 2.5 H Direct Bilirubin 1.5 H Indirect Bilirubin 1.0 H AST 586 H ALT 126 H Alkaline Phosphatase 98 Ammonia Total Creatine Kinase CK-MB (CK-2) CK-MB (CK-2) % Troponin I 0.03 Total Protein 6.1 L Albumin 2.4 L Urine Color Urine Clarity Urine pH Ur Specific [place] Urine Protein Urine Glucose (UA) Urine Ketones Urine Occult Blood Urine Nitrate Urine Bilirubin Urine Urobilinogen Ur Leukocyte Esterase Urine RBC Urine WBC Hyaline Casts Granular Casts Urine Mucus Micro UA Comment Urine Culture Comments Urine Opiates Screen Ur Barbiturates Screen Ur Amphetamine Screen U Benzodiazepines Scrn Urine Cocaine Screen U Cannabinoids Screen Serum Alcohol Blood Type O Positive Blood Type Recheck Required Antibody Screen Negative MTS Gel Crossmatch 02/22/18 02/22/18 02/22/18 00:15 00:15 00:15 WBC RBC Hgb Hct MCV MCH MCHC RDW Plt Count MPV Prelim Diff (Auto) Neut % (Auto) Lymph % (Auto) [place] % (Auto) Eos % (Auto) Baso % (Auto) Neut # (Auto) Lymph # (Auto) [place] # (Auto) Eos # (Auto) Baso # (Auto) WBC Differential Diff Scan Differential Comment Platelet Estimate Platelet Morphology PT INR APTT Fibrinogen Sodium Potassium Chloride Carbon Dioxide Anion Gap BUN Creatinine Estimated GFR Random Glucose Lactic Acid Calcium Prot Corrected Calcium Phosphorus 4.6 Magnesium 1.8 Iron TIBC % Saturation Total Bilirubin Direct Bilirubin Indirect Bilirubin AST ALT Alkaline Phosphatase Ammonia Total Creatine Kinase CK-MB (CK-2) CK-MB (CK-2) % Troponin I Total Protein Albumin Urine Color Yellow Urine Clarity Clear Urine pH 5.0 Ur Specific [place] 1.024 Urine Protein Negative Urine Glucose (UA) 50 Urine Ketones Trace Urine Occult Blood Moderate H Urine Nitrate Negative Urine Bilirubin Negative Urine Urobilinogen 4 or greater Ur Leukocyte Esterase Negative Urine RBC 1 Urine WBC 2 Hyaline Casts 123 Granular Casts 89 Urine Mucus Few H Micro UA Comment Cath-culture not ind Urine Culture Comments Cath-cult not ind Urine Opiates Screen Neg Ur Barbiturates Screen Neg Ur Amphetamine Screen Neg U Benzodiazepines Scrn Neg Urine Cocaine Screen Neg U Cannabinoids Screen Pos H Serum Alcohol Blood Type Blood Type Recheck Antibody Screen MTS Gel Crossmatch 02/22/18 02/22/18 02/22/18 01:15 01:15 03:53 WBC 8.8 RBC 2.04 L Hgb 6.2 L* D Hct 20.4 L* MCV 100.2 H D MCH 30.5 MCHC 30.5 L RDW 18.8 H Plt Count 71 L D MPV 8.6 Prelim Diff (Auto) Slide review pending Neut % (Auto) 75.2 H Lymph % (Auto) 13.6 [place] % (Auto) 10.7 H Eos % (Auto) 0.1 Baso % (Auto) 0.4 Neut # (Auto) 6.7 Lymph # (Auto) 1.2 [place] # (Auto) 0.9 Eos # (Auto) 0.0 Baso # (Auto) 0.0 WBC Differential . Diff Scan Auto diff confirmed Differential Comment . Platelet Estimate Low L Platelet Morphology Normal PT 15.7 H INR 1.6 APTT 31.0 H Fibrinogen 148 L Sodium Potassium Chloride Carbon Dioxide Anion Gap BUN Creatinine Estimated GFR Random Glucose Lactic Acid Calcium Prot Corrected Calcium Phosphorus Magnesium Iron TIBC % Saturation Total Bilirubin Direct Bilirubin Indirect Bilirubin AST ALT Alkaline Phosphatase Ammonia Total Creatine Kinase CK-MB (CK-2) CK-MB (CK-2) % Troponin I Total Protein Albumin Urine Color Urine Clarity Urine pH Ur Specific [place] Urine Protein Urine Glucose (UA) Urine Ketones Urine Occult Blood Urine Nitrate Urine Bilirubin Urine Urobilinogen Ur Leukocyte Esterase Urine RBC Urine WBC Hyaline Casts Granular Casts Urine Mucus Micro UA Comment Urine Culture Comments Urine Opiates Screen Ur Barbiturates Screen Ur Amphetamine Screen U Benzodiazepines Scrn Urine Cocaine Screen U Cannabinoids Screen Serum Alcohol Blood Type Blood Type Recheck Antibody Screen MTS Gel Crossmatch 02/22/18 02/22/18 02/22/18 03:53 03:53 03:53 WBC RBC Hgb Hct MCV MCH MCHC RDW Plt Count MPV Prelim Diff (Auto) Neut % (Auto) Lymph % (Auto) [place] % (Auto) Eos % (Auto) Baso % (Auto) Neut # (Auto) Lymph # (Auto) [place] # (Auto) Eos # (Auto) Baso # (Auto) WBC Differential Diff Scan Differential Comment Platelet Estimate Platelet Morphology PT INR APTT Fibrinogen Sodium 142 Potassium 4.4 Chloride 109 H Carbon Dioxide 11.1 L Anion Gap 22 H BUN 5 L Creatinine 0.78 Estimated GFR Greater than 89 Random Glucose 122 H Lactic Acid 14.3 H* Calcium 6.8 L* D Prot Corrected Calcium 7.7 L Phosphorus Magnesium Iron TIBC % Saturation Total Bilirubin 2.6 H Direct Bilirubin Indirect Bilirubin AST 946 H ALT 189 H Alkaline Phosphatase 85 Ammonia 48 H Total Creatine Kinase 956 H CK-MB (CK-2) 11.9 H CK-MB (CK-2) % 1.2 Troponin I 0.06 H Total Protein 5.4 L D Albumin 2.1 L Urine Color Urine Clarity Urine pH Ur Specific [place] Urine Protein Urine Glucose (UA) Urine Ketones Urine Occult Blood Urine Nitrate Urine Bilirubin Urine Urobilinogen Ur Leukocyte Esterase Urine RBC Urine WBC Hyaline Casts Granular Casts Urine Mucus Micro UA Comment Urine Culture Comments Urine Opiates Screen Ur Barbiturates Screen Ur Amphetamine Screen U Benzodiazepines Scrn Urine Cocaine Screen U Cannabinoids Screen Serum Alcohol Blood Type Blood Type Recheck Antibody Screen MTS Gel Crossmatch 02/22/18 02/22/18 02/22/18 03:53 05:36 13:20 WBC RBC Hgb Hct MCV MCH MCHC RDW Plt Count MPV Prelim Diff (Auto) Neut % (Auto) Lymph % (Auto) [place] % (Auto) Eos % (Auto) Baso % (Auto) Neut # (Auto) Lymph # (Auto) [place] # (Auto) Eos # (Auto) Baso # (Auto) WBC Differential Diff Scan Differential Comment Platelet Estimate Platelet Morphology PT 20.9 H INR 2.1 APTT 31.8 H Fibrinogen 88 L* Sodium Potassium Chloride Carbon Dioxide Anion Gap BUN Creatinine Estimated GFR Random Glucose Lactic Acid Calcium Prot Corrected Calcium Phosphorus Magnesium Iron 40 L TIBC 274 % Saturation 14.6 L Total Bilirubin Direct Bilirubin Indirect Bilirubin AST ALT Alkaline Phosphatase Ammonia Total Creatine Kinase CK-MB (CK-2) CK-MB (CK-2) % Troponin I Total Protein Albumin Urine Color Urine Clarity Urine pH Ur Specific [place] Urine Protein Urine Glucose (UA) Urine Ketones Urine Occult Blood Urine Nitrate Urine Bilirubin Urine Urobilinogen Ur Leukocyte Esterase Urine RBC Urine WBC Hyaline Casts Granular Casts Urine Mucus Micro UA Comment Urine Culture Comments Urine Opiates Screen Ur Barbiturates Screen Ur Amphetamine Screen U Benzodiazepines Scrn Urine Cocaine Screen U Cannabinoids Screen Serum Alcohol Blood Type Blood Type Recheck Antibody Screen MTS Gel Crossmatch See Detail 02/22/18 02/22/18 13:20 13:20 WBC 6.2 RBC 2.77 L Hgb 8.2 L D Hct 24.3 L MCV 87.6 D MCH 29.5 MCHC 33.7 RDW 18.0 H Plt Count 59 L MPV 8.7 Prelim Diff (Auto) Slide review pending Neut % (Auto) 64.5 Lymph % (Auto) 25.0 [place] % (Auto) 8.8 H Eos % (Auto) 0.8 Baso % (Auto) 0.9 Neut # (Auto) 4.0 Lymph # (Auto) 1.6 [place] # (Auto) 0.5 Eos # (Auto) 0.1 Baso # (Auto) 0.1 WBC Differential . Diff Scan Auto diff confirmed Differential Comment . Platelet Estimate Low L Platelet Morphology Normal PT INR APTT Fibrinogen Sodium 141 Potassium 3.6 D Chloride 108 H Carbon Dioxide 25.4 D Anion Gap 8 BUN 5 L Creatinine 0.74 Estimated GFR Random Glucose 116 H Lactic Acid Calcium 7.5 L Prot Corrected Calcium Phosphorus 1.4 L D Magnesium 1.5 Iron TIBC % Saturation Total Bilirubin 2.6 H Direct Bilirubin Indirect Bilirubin AST 1449 H ALT 225 H Alkaline Phosphatase 83 Ammonia Total Creatine Kinase CK-MB (CK-2) CK-MB (CK-2) % Troponin I Total Protein 5.5 L Albumin 2.3 L Urine Color Urine Clarity Urine pH Ur Specific [place] Urine Protein Urine Glucose (UA) Urine Ketones Urine Occult Blood Urine Nitrate Urine Bilirubin Urine Urobilinogen Ur Leukocyte Esterase Urine RBC Urine WBC Hyaline Casts Granular Casts Urine Mucus Micro UA Comment Urine Culture Comments Urine Opiates Screen Ur Barbiturates Screen Ur Amphetamine Screen U Benzodiazepines Scrn Urine Cocaine Screen U Cannabinoids Screen Serum Alcohol Blood Type Blood Type Recheck Antibody Screen MTS Gel Crossmatch - Imaging Impressions Neck CTA 02/21/18 21:21 CONCLUSION: 1. Focal soft tissue swelling at the left lateral mid neck primarily within the subcutaneous fat. The deeper structures appear intact. 2. No arterial injury is seen. There is scattered atherosclerotic calcification without a significant stenosis. Chest X-Ray 02/21/18 23:47 CONCLUSION: No acute cardiopulmonary process. Head CT 02/22/18 00:00 CONCLUSION: No acute intracranial abnormality is seen. . Liver Ultrasound 02/22/18 00:00 CONCLUSION: 1. Cirrhotic appearing liver with trace amount of ascites. 2. Gallbladder wall thickening with mild pericholecystic fluid. Findings are commonly seen in the setting of chronic liver disease but limit overall sonographic sensitivity for detection of early acute cholecystitis. If there is compelling continued clinical concern regarding cholecystitis, HIDA scan may be performed to document cystic duct patency. 3. Trace peripancreatic fluid. Suspect this is due to overall mesenteric edema. Clinical correlation with pancreatic enzymes is recommended. <Shelby Back - Last Filed: 02/22/18 16:56> Assessment and Plan - Plan Patient was seen and examined, agree with above note, alcohol liver disease with cirrhosis, high INR, no sign of active bleeding but the patient has anemia which could be multifactorial, could be in DIC, we will monitor for bleeding, will do EGD if there is active bleeding, workup of the liver to rule out other etiology beside alcohol <Addison Corley - Last Filed: 02/22/18 16:53> - Plan Assessment: - Elevated LFTs with history of ETOH abuse- pt reports drinking 3 12 oz cans of beer daily for the past ten years, alcohol level was elevated on admission. Denies known personal history of liver issues. Denies history of or current illicit drug use, urine toxicology is positive for cannabinoids. Denies tattoos, high risk sexual behaviors. Denies family history of liver issues. Denies taking prescription medication or OTC herbs and supplements. Takes BC Powder LFTs have been trending up since admission Currently (02/22) [id number] ALT-225 Alk phos-83 T bili-2.6 DF-44 Would benefit from steroids Liver US (02/22) Cirrhotic appearing liver with trace amount of ascites. Gallbladder wall thickening with mild pericholecystic fluid. Findings are commonly seen in the setting of chronic liver disease but limit overall sonographic sensitivity for detection of early acute cholecystitis. Trace peripancreatic fluid. Suspect this is due to overall mesenteric edema. Thrombocytopenia (plts-59) Coagulopathy (INR-2.1) Hypoalbuminemia (albumin- 2.3) - Hyperammonemia- ammonia-48- pt on Lactulose- Xifaxan - Anemia- drop in H/H from admission to recheck early this AM- noted to be partially dilutional. Likely multifactorial, according to ER notes, there was noted to be significant bleeding from neck when EMS arrived on scene Of note, pt reports taking BC Powder TID for 2 years for orthopedic pains, prior to this was taking Ibuprofen but states he stopped this because he was having BRB from his rectum. Did not seek medical care, states resolved when he stopped Ibuprofen. Denies prior EGD or colonoscopy - Lactic acidosis Plan: ? EGD tomorrow depending on stability Obtain consent NPO after MN Hepatitis panel Hemoccult stool Protonix Xifaxan Pentoxifylline Solumedrol Vitamin K Liver work up ordered to rule out other etiologies Avoid hepatotoxins Monitor for worsening coagulopathy, thrombocytopenia Monitor LFTs Further recommendations to follow Pt has been seen and examined by myself and Dr. Corley and this note is written on his behalf <hSelby Back - Last Filed: 02/22/18 16:56>
[2018-02-22] MEDS ORDERED: Pantoprazole Inj 80 MG in Sodium Chlor 0.9% Inj 35 ML IV.SIG ONE (17:00)
[2018-02-22] MEDS: Pantoprazole Inj 80 MG in Sodium Chlor 0.9% Inj 100 ML IV.CONT SCH (18:06)
[2018-02-22] MEDS: Pentoxifylline 400 MG Controlled Release Tablet PO SCH (18:35)
[2018-02-22] MEDS: MethylPREDNISolone Sod Succinate Inj 40 MG/ML Vial IV.PUSH SCH (21:07)
[2018-02-22 22:01] LABS: Hematocrit 22.8 % (39.0-51.0); Hemoglobin 7.7 gm/dL (13.0-17.0); Mean Corpuscular HGB Conc 33.8 % (32.0-36.0); Mean Corpuscular Hemoglobin 29.5 pg (27.0-34.0); Mean Corpuscular Volume 87.4 fL (80.0-100.0); Platelet Count 51 th/mm3 (150-450); Red Blood Count 2.61 mil/mm3 (4.50-5.90); Red Cell Distribution Width 17.8 % (11.6-17.2); White Blood Count 5.5 th/mm3 (4.0-11.0)
[2018-02-22 22:13] LABS: % Iron Saturation 7.2 % (20-50)
[2018-02-22 22:16] LABS: Alpha Fetoprotein Tumor Marker 3.9 ng/mL (0.5-8.0)
[2018-02-22 23:51] LABS: Hepatitis A IgM Antibody Nonreactive (Nonreactive); Hepatitits B Surface Antigen Nonreactive (Nonreactive)
[2018-02-23] MEDS: Multivitamin Inj 10 ML, Thiamine Inj 100 MG, Folic Acid Inj 1 MG in Sodium Chlor 0.9% I... IV.SIG SCH ×2 (00:01→23:56)
[2018-02-23] MEDS: Dextrose 5%/Lactated Ringer's 1,000 ML IV.CONT SCH ×3 (01:36→17:49)
[2018-02-23] MEDS: Pantoprazole Inj 80 MG in Sodium Chlor 0.9% Inj 100 ML IV.CONT SCH ×3 (04:30→23:53)
[2018-02-23] MEDS: Chlorhexidine Gluconate 2% 1 Pack (2 Cloths) TOPICAL SCH (04:31)
[2018-02-23 04:39] LABS: Baso % (Auto) 0.2 % (0.0-2.0); Eos % (Auto) 0.1 % (0.0-4.0); Hematocrit 23.9 % (39.0-51.0); Hemoglobin 8.1 gm/dL (13.0-17.0); Lymph # (Auto) 0.3 th/mm3 (1.0-4.8); Lymph % (Auto) 7.9 % (9.0-44.0); Mean Corpuscular HGB Conc 33.9 % (32.0-36.0); Mean Corpuscular Hemoglobin 29.4 pg (27.0-34.0); Mean Corpuscular Volume 86.8 fL (80.0-100.0); Mean Platelet Volume 8.1 fL (7.0-11.0); Mono # (Auto) 0.2 th/mm3 (0.0-0.9); Mono % (Auto) 5.2 % (0.0-8.0); Neut # (Auto) 3.1 th/mm3 (1.8-7.7); Neut % (Auto) 86.6 % (16.0-70.0); Platelet Count 54 th/mm3 (150-450); Red Blood Count 2.76 mil/mm3 (4.50-5.90); Red Cell Distribution Width 17.9 % (11.6-17.2); White Blood Count 3.6 th/mm3 (4.0-11.0)
[2018-02-23 04:44] LABS: Activated Partial Thrombo Time 31.5 sec (24.3-30.1); INR 1.8 Ratio
[2018-02-23 05:07] LABS: Alanine Aminotransferase 181 U/L (12-78); Albumin 2.4 g/dL (3.4-5.0); Alkaline Phosphatase 84 U/L (45-117); Anion Gap 10 meq/L (5-15); Aspartate Aminotransferase 925 U/L (15-37); Blood Urea Nitrogen 5 mg/dL (7-18); Calcium 7.5 mg/dL (8.5-10.1); Carbon Dioxide 25.5 meq/L (21.0-32.0); Chloride 109 meq/L (98-107); Glomerular Filtration Rate Greater Than 89 mL/min (>89); Glucose,Random 154 mg/dL (74-106); Magnesium 1.5 mg/dL (1.5-2.5); Phosphorus 2.1 mg/dL (2.5-4.9); Potassium 3.1 meq/L (3.5-5.1); Sodium 144 meq/L (136-145); Total Protein 5.5 g/dL (6.4-8.2)
[2018-02-23] MEDS: Potassium Phosphate Inj 30 MMOL in Sodium Chlor 0.9% Inj 250 ML IV.SIG PRN ×2 (06:03→18:14)
[2018-02-23] MEDS: chlordiazePOXIDE 25 MG Capsule PO SCH ×4 (06:03→23:53)
[2018-02-23 06:07] LABS: Platelet Morphology Normal (Normal)
[2018-02-23] MEDS: Phytonadione 5 MG/SWFI 5 ML Oral Syringe PO SCH (09:20)
[2018-02-23] MEDS: MethylPREDNISolone Sod Succinate Inj 40 MG/ML Vial IV.PUSH SCH ×2 (09:20→20:34)
[2018-02-23] MEDS: rifAXIMin 550 MG Tablet PO SCH ×2 (09:21→20:34)
[2018-02-23] MEDS: Senna/Docusate Sodium 8.6/50 MG Tablet PO SCH ×2 (09:21→20:34)
[2018-02-23] MEDS: Pentoxifylline 400 MG Controlled Release Tablet PO SCH ×3 (09:21→17:42)
--- NOTE | 2018-02-23 12:10 | P.PNCC ---
Subjective Subjective Remarks/Hospital Course: 52-year-old male with past medical history of tobacco and alcohol dependence. He states he was sharpening a non-serrated carving knife this morning while intoxicated. He said he got up to put the knife away and he tripped and fell and lacerated his left neck around 10 am on 02/21. He states he hit his head on the counter and had loss of consciousness. There was blood pooling on the floor and each time he tried to get up he was near-syncopal so he remained on the floor all day until neighbors found him at around 8 pm. He was brought to [facility] by [facility]. The wound was explored by the emergency medicine physician and platysma appeared intact. CTA of the neck demonstrated soft tissue swelling in the subcut fat with deeper structures appearing intact. He was found to have anion-gap lactic acidosis with bicarb of 11.9, anion gap of 26 , lactic acid 16. EtOH level is still 134. CPK is 309. Creatinine is normal. His hemoglobin is 9.4. Most recent prior hemoglobin was 13.[address] Aly discussed with Dr. Amador who recommended admission to medicine. The laceration was repaired in the ED and patient received 2 L normal saline bolus, Ancef 2gram, Td, Zofran and reglan for nausea. He denies headache, dysphagia, chest pain, shortness of breath, abdominal pain, flank pain, vomiting, melena, hematemesis, audiovisual hallucinations. He is tremulous and complains of thirst. He is a daily drinker of at least 10 beers per day, last drink was 9 am on 02/21. SUBJ 02/23: Patient lying in bed somnolent from Ativan given overnight for alcohol withdrawal. Currently cooperative. Hemoglobin stable 8.1. Platelet count 54. Potassium 3.1 getting replaced. Tremulous on exam Objective Vital Signs / I&O: Vital Signs 02/22/18 13:00 02/22/18 14:00 02/22/18 15:00 Temperature Pulse Rate 107 H 110 H 100 H Respiratory Rate 20 19 21 Blood Pressure 139/76 115/76 111/72 Pulse Oximetry 97 91 L 100 02/22/18 16:00 02/22/18 17:00 02/22/18 18:00 Temperature 98.2 F Pulse Rate 109 H 100 H 94 H Respiratory Rate 25 H 25 H 21 Blood Pressure 104/76 119/67 123/73 Pulse Oximetry 100 100 94 L 02/22/18 19:00 02/22/18 19:02 02/22/18 20:00 Temperature 99.8 F H 100.1 F H Pulse Rate 114 H 102 H 97 H Respiratory Rate 23 25 H 23 Blood Pressure 113/63 113/63 125/70 Pulse Oximetry 97 97 98 02/22/18 21:00 02/22/18 22:00 02/22/18 23:00 Temperature Pulse Rate 93 H 92 H 84 Respiratory Rate 22 24 24 Blood Pressure 125/78 125/70 124/74 Pulse Oximetry 96 94 L 98 02/23/18 00:00 02/23/18 01:00 02/23/18 02:00 Temperature 99 F Pulse Rate 77 84 69 Respiratory Rate 18 22 20 Blood Pressure 121/72 138/85 127/69 Pulse Oximetry 95 98 100 02/23/18 03:00 02/23/18 04:00 02/23/18 05:00 Temperature 98.9 F Pulse Rate 68 75 71 Respiratory Rate 21 19 20 Blood Pressure 121/71 122/72 116/71 Pulse Oximetry 94 L 97 92 L 02/23/18 06:00 02/23/18 07:00 02/23/18 08:00 Temperature 99 F Pulse Rate 85 73 85 Respiratory Rate 20 13 15 Blood Pressure 137/74 137/74 139/78 Pulse Oximetry 97 97 95 02/23/18 09:00 02/23/18 10:00 02/23/18 11:00 Temperature Pulse Rate 79 67 73 Respiratory Rate 19 17 15 Blood Pressure 115/69 117/70 124/70 Pulse Oximetry 98 100 96 Intake & Output 02/22/18 02/23/18 02/23/18 18:59 06:59 18:59 Intake Total 3520 / 3520 1333.2 / 1333.2 1000 / 1000 Output Total 675 / 675 1999 Balance 2845 / 2845 -666.8 / -666.8 1000 / 1000 Weight 64.5 kg Intake: IV 3000 / 3000 871.2 / 871.2 1000 / 1000 D5W/LR Inj 1,000 ML @ 125 mls/ 1000 / 1000 1000 / 1000 hr IV.CONT .Q8H [facility] Rx#: [id number] Protonix Inj 80 MG In NS Inj 100 / 100 100 ML @ 10 mls/hr IV.CONT CONT [facility] Rx#:[id number] MVI-12 Inj 10 ML Thiamine Inj 511.2 / 511.2 100 MG Folvite Inj 1 MG In NS Inj 500 ML @ 127.8 mls/hr IV. SIG Q24H [facility] Rx#:[id number] Potassium Phosphate Inj 30 MMOL 260 / 260 In NS Inj 250 ML @ 43.333 mls/ hr IV.SIG ONCE ONE Rx#:[id number] NS Inj 250 ML @ 15 mls/hr IV. 0 / 0 SIG ONCE [facility] Rx#:[id number] Oral 120 / 120 Other 231 / 231 Pre-Pooled Cryo Thawed 10units 231 / 231 Unit [id number] Intake (Blood Product) Amt 400 / 400 231 / 231 Pre-Pooled Cryo Thawed 10units 231 / 231 Unit [id number] Rbc As-3 Leukoreduced Unit 0 / 0 [id number] Rbc As-3 Leukoreduced Unit 400 / 400 [id number] Output: Urine 675 / 675 1999 Other: Other Intake Source Rbc As-3 Leukoreduced Unit Saline Solution [id number] # Voids 1 Date of Last Bowel Movement 02/22/18 02/22/18 02/22/18 Result Diagrams: 02/23/18 04:14 02/23/18 04:14 Objective Remarks: GENERAL: Disheveled male who lying in bed, somnolent but received Ativan recently SKIN: Multiple ecchymosis overlying right lateral chest wall. HEAD: Normocephalic. EYES: Pupils equal and round, 3mm and reactive. ENT: No nasal bleeding or discharge. Mucous membranes pink and moist. NECK: Trachea midline. 3-3.5 cm linear laceration left neck that has been sutured with simple interrupted sutures. No swelling or erythema CARDIOVASCULAR: Regular rate and rhythm. 2/6 systolic murmur LSB. RESPIRATORY: Breathing comfortably on room air with no accessory muscle use. Clear to auscultation. GASTROINTESTINAL: Abdomen soft, non-tender, nondistended. Bowel sounds present. MUSCULOSKELETAL: Extremities without clubbing, cyanosis, or edema. No obvious deformities. NEUROLOGICAL: Patient is somnolent but wakes up to stimulation, he is alert. Tremulous. No focal deficits but positive asterixis Assessment and Plan - Problem List (1) Laceration of neck Code(s): S11.91XA - Laceration without foreign body of unspecified part of neck , initial encounter Status: Acute (2) Lactic acidosis Code(s): E87.2 - Acidosis Status: Acute (3) EtOH dependence Code(s): F10.20 - Alcohol dependence, uncomplicated Status: Acute (4) Transaminitis Code(s): R74.0 - Nonspecific elevation of levels of transaminase and lactic acid dehydrogenase [LDH] Status: Acute (5) Hypovolemia Code(s): E86.1 - Hypovolemia Status: Acute (6) Alcohol withdrawal Code(s): F10.239 - Alcohol dependence with withdrawal, unspecified Status: Acute (7) LOC (loss of consciousness) Code(s): R40.20 - Unspecified coma Status: Acute (8) Fall from slip, trip, or stumble Code(s): W01.0XXA - Fall on same level from slipping, tripping and stumbling without subsequent striking against object, initial encounter Status: Acute (9) Acute blood loss anemia Code(s): D62 - Acute posthemorrhagic anemia Status: Acute (10) Thrombocytopenia Code(s): D69.6 - Thrombocytopenia, unspecified Status: Acute (11) Tobacco abuse counseling Code(s): Z71.6 - Tobacco abuse counseling Status: Acute (12) Tobacco abuse Code(s): Z72.0 - Tobacco use Status: Chronic (13) Contusion of rib on right side Code(s): S20.211A - Contusion of right front wall of thorax, initial encounter Status: Acute (14) Hypovolemic shock Code(s): R57.1 - Hypovolemic shock Status: Acute - Assessment and Plan Plan: NEURO: Acute left neck laceration Platysma intact per ED evaluation. CTA unremarkable. Laceration repaired 02/21, suture removal ~7-10 days. Acute alcohol withdrawal Alcohol dependence Librium 25 mg p.o. every 6 hours-reduce to every 12 due to excessive sedation. CIWA protocol with ativan prn. Thiamine/MVI/folic acid x3 days. Loss of consciousness Suspect syncope secondary to hypovolemia/blood loss. Does report head trauma, CT head negative for acute findings Tylenol prn pain. RESP: Tobacco abuse Right rib contusion Obtained chest x-ray- no cardiomegaly, lungs clear Nicotine patch IS, albuterol prn. Monitor for airway protection during EtoH w/d. CV: Monitor hemodynamic GI: Hyperammonemia Liver cirrhosis Appreciate gastroenterology consult Endoscopy planned for today Continue Xifaxan and lactulose pentoxifylline per GI Ammonia has normalized now FEN/RENAL: Acute anion gap metabolic acidosis Lactic acidemia Hypovolemic shock. Suspect secondary to hypovolemia and acute blood loss (EtOH abuse, no po intake all day, large amount of blood at scene per bystander) Received 3L crystalloid bolus on admission. Continue maintenance IV fluids Replace electrolytes as indicated per ICU electrolyte placement protocol. ID: No apparent source of concomitant sepsis and he is afebrile and without leukocytosis. F/u U/a. HEME: Acute blood loss anemia Thrombocytopenia, suspect consumptive secondary to acute blood loss Monitor CBC, transfuse as indicated for hgb <7 or symptomatic. s/p 2 units PRBC stat. Endoscopy per GI ENDO: Euglycemic without history of diabetes PROPH: SCDs for DVT prophylaxis. Avoid pharmacologic DVT prophylaxis at this time due to anemia and coagulopathy. Famotidine p.o. for stress ulcer prophylaxis. ACCESS: Peripheral IV providing adequate access at this time. Full code Patient and his sister were updated at bedside by Dr. Mas. CC 30 minutes exclusive of separately billable procedures. Patient is critically ill with severe anemia probable GI bleed and active alcohol withdrawal. Continue ICU care (1) Laceration of neck Qualifiers: Encounter type: initial encounter Qualified Code(s): S11.91XA - Laceration without foreign body of unspecified part of neck, initial encounter
--- NOTE | 2018-02-23 14:28 | P.PNGI ---
Subjective Interval history: Patient is resting in the bed eyes closed answering simple questions with yes or no answers Mother is in room for supportive care Patient has no obvious nausea vomiting or abdominal pain Current hemoglobin 8.1 <Isha Montanez - Last Filed: 02/23/18 14:35> Interval history: Patient was seen and examined, agree with above note, waking up more now with more response, most likely alcohol related, also has anemia we will plan on doing upper endoscopy tomorrow if his INR is stable and if we are able to obtain a consent <Addison Corley - Last Filed: 02/23/18 15:35> Physical Exam Vital signs: Vital Signs 02/22/18 15:00 02/22/18 16:00 02/22/18 17:00 Temperature Pulse Rate 100 H 109 H 100 H Respiratory Rate 21 25 H 25 H Blood Pressure 111/72 104/76 119/67 Pulse Oximetry 100 100 100 02/22/18 18:00 02/22/18 19:00 02/22/18 19:02 Temperature 98.2 F 99.8 F H Pulse Rate 94 H 114 H 102 H Respiratory Rate 21 23 25 H Blood Pressure 123/73 113/63 113/63 Pulse Oximetry 94 L 97 97 02/22/18 20:00 02/22/18 21:00 02/22/18 22:00 Temperature 100.1 F H Pulse Rate 97 H 93 H 92 H Respiratory Rate 23 22 24 Blood Pressure 125/70 125/78 125/70 Pulse Oximetry 98 96 94 L 02/22/18 23:00 02/23/18 00:00 02/23/18 01:00 Temperature 99 F Pulse Rate 84 77 84 Respiratory Rate 24 18 22 Blood Pressure 124/74 121/72 138/85 Pulse Oximetry 98 95 98 02/23/18 02:00 02/23/18 03:00 02/23/18 04:00 Temperature 98.9 F Pulse Rate 69 68 75 Respiratory Rate 20 21 19 Blood Pressure 127/69 121/71 122/72 Pulse Oximetry 100 94 L 97 02/23/18 05:00 02/23/18 06:00 02/23/18 07:00 Temperature Pulse Rate 71 85 73 Respiratory Rate 20 20 13 Blood Pressure 116/71 137/74 137/74 Pulse Oximetry 92 L 97 97 02/23/18 08:00 02/23/18 09:00 08/17/18 10:00 Temperature 99 F Pulse Rate 85 79 67 Respiratory Rate 15 19 17 Blood Pressure 139/78 115/69 117/70 Pulse Oximetry 95 98 100 02/23/18 11:00 02/23/18 12:00 Temperature Pulse Rate 73 63 Respiratory Rate 15 18 Blood Pressure 124/70 Pulse Oximetry 96 Intake & Output 02/22/18 02/23/18 02/23/18 18:59 06:59 18:59 Intake Total 3520 / 3520 1333.2 / 1333.2 1200 / 1200 Output Total 675 / 675 1999 Balance 2845 / 2845 -666.8 / -666.8 1200 / 1200 Weight 64.5 kg Intake: IV 3000 / 3000 871.2 / 871.2 1200 / 1200 D5W/LR Inj 1,000 ML @ 125 mls/ 1000 / 1000 1000 / 1000 hr IV.CONT .Q8H [facility] Rx#: [id number] Protonix Inj 80 MG In NS Inj 100 / 100 100 / 100 100 ML @ 10 mls/hr IV.CONT CONT [facility] Rx#:[id number] Magnesium Sulfate Inj 2 GM In 100 / 100 NS Inj 96 ML @ 50 mls/hr IV.SIG UNSCH PRN Rx#:[id number] MVI-12 Inj 10 ML Thiamine Inj 511.2 / 511.2 100 MG Folvite Inj 1 MG In NS Inj 500 ML @ 127.8 mls/hr IV. SIG Q24H [facility] Rx#:[id number] Potassium Phosphate Inj 30 MMOL 260 / 260 In NS Inj 250 ML @ 43.333 mls/ hr IV.SIG ONCE ONE Rx#:[id number] NS Inj 250 ML @ 15 mls/hr IV. 0 / 0 SIG ONCE [facility] Rx#:[id number] Oral 120 / 120 Other 231 / 231 Pre-Pooled Cryo Thawed 10units 231 / 231 Unit [id number] Intake (Blood Product) Amt 400 / 400 231 / 231 Pre-Pooled Cryo Thawed 10units 231 / 231 Unit [id number] Rbc As-3 Leukoreduced Unit 0 / 0 [id number] Rbc As-3 Leukoreduced Unit 400 / 400 [id number] Output: Urine 675 / 675 1999 Other: Other Intake Source Rbc As-3 Leukoreduced Unit Saline Solution [id number] # Voids 1 Date of Last Bowel Movement 02/22/18 02/22/18 02/22/18 - Constitutional no acute distress - Routine HEENT Exam Head: Present: normocephalic ENT: Present: mucous membranes dry - Routine Neck Exam Present: supple - Routine Respiratory Exam Present: accessory muscle use - Routine Cardiovascular Exam Present: S1 (Even, unlabored), S2 - Routine Abdominal Exam Present: soft (Round, no facial grimace to light palpation,) - Routine Skin Exam Present: intact <Lisseth,Isha M - Last Filed: 02/23/18 14:35> Vital signs: Vital Signs 02/22/18 16:00 02/22/18 17:00 02/22/18 18:00 Temperature 98.2 F Pulse Rate 109 H 100 H 94 H Respiratory Rate 25 H 25 H 21 Blood Pressure 104/76 119/67 123/73 Pulse Oximetry 100 100 94 L 02/22/18 19:00 02/22/18 19:02 02/22/18 20:00 Temperature 99.8 F H 100.1 F H Pulse Rate 114 H 102 H 97 H Respiratory Rate 23 25 H 23 Blood Pressure 113/63 113/63 125/70 Pulse Oximetry 97 97 98 02/22/18 21:00 02/22/18 22:00 02/22/18 23:00 Temperature Pulse Rate 93 H 92 H 84 Respiratory Rate 22 24 24 Blood Pressure 125/78 125/70 124/74 Pulse Oximetry 96 94 L 98 02/23/18 00:00 02/23/18 01:00 02/23/18 02:00 Temperature 99 F Pulse Rate 77 84 69 Respiratory Rate 18 22 20 Blood Pressure 121/72 138/85 127/69 Pulse Oximetry 95 98 100 02/23/18 03:00 02/23/18 04:00 02/23/18 05:00 Temperature 98.9 F Pulse Rate 68 75 71 Respiratory Rate 21 19 20 Blood Pressure 121/71 122/72 116/71 Pulse Oximetry 94 L 97 92 L 02/23/18 06:00 02/23/18 07:00 02/23/18 08:00 Temperature 99 F Pulse Rate 85 73 85 Respiratory Rate 20 13 15 Blood Pressure 137/74 137/74 139/78 Pulse Oximetry 97 97 95 02/23/18 09:00 02/23/18 10:00 02/23/18 11:00 Temperature Pulse Rate 79 67 73 Respiratory Rate 19 17 15 Blood Pressure 115/69 117/70 124/70 Pulse Oximetry 98 100 96 02/23/18 12:00 Temperature Pulse Rate 63 Respiratory Rate 18 Blood Pressure Pulse Oximetry Intake & Output 02/22/18 02/23/18 02/23/18 18:59 06:59 18:59 Intake Total 3520 / 3520 1333.2 / 1333.2 1200 / 1200 Output Total 675 / 675 1999 Balance 2845 / 2845 -666.8 / -666.8 1200 / 1200 Weight 64.5 kg Intake: IV 3000 / 3000 871.2 / 871.2 1200 / 1200 D5W/LR Inj 1,000 ML @ 125 mls/ 1000 / 1000 1000 / 1000 hr IV.CONT .Q8H [facility] Rx#: [id number] Protonix Inj 80 MG In NS Inj 100 / 100 100 / 100 100 ML @ 10 mls/hr IV.CONT CONT [facility] Rx#:[id number] Magnesium Sulfate Inj 2 GM In 100 / 100 NS Inj 96 ML @ 50 mls/hr IV.SIG UNSCH PRN Rx#:[id number] MVI-12 Inj 10 ML Thiamine Inj 511.2 / 511.2 100 MG Folvite Inj 1 MG In NS Inj 500 ML @ 127.8 mls/hr IV. SIG Q24H [facility] Rx#:[id number] Potassium Phosphate Inj 30 MMOL 260 / 260 In NS Inj 250 ML @ 43.333 mls/ hr IV.SIG ONCE ONE Rx#:[id number] NS Inj 250 ML @ 15 mls/hr IV. 0 / 0 SIG ONCE [facility] Rx#:[id number] Oral 120 / 120 Other 231 / 231 Pre-Pooled Cryo Thawed 10units 231 / 231 Unit [id number] Intake (Blood Product) Amt 400 / 400 231 / 231 Pre-Pooled Cryo Thawed 10units 231 / 231 Unit [id number] Rbc As-3 Leukoreduced Unit 0 / 0 [id number] Rbc As-3 Leukoreduced Unit 400 / 400 [id number] Output: Urine 675 / 675 1999 Other: Other Intake Source Rbc As-3 Leukoreduced Unit Saline Solution [id number] # Voids 1 Date of Last Bowel Movement 02/22/18 02/22/18 02/22/18 <Addison Corley - Last Filed: 02/23/18 15:35> Results - Labs CBC & Chem 7: 02/23/18 04:14 02/23/18 04:14 Laboratory Results - last 24 hr 02/22/18 02/22/18 02/22/18 05:36 13:20 13:20 WBC 6.2 RBC 2.77 L Hgb 8.2 L D Hct 24.3 L MCV 87.6 D MCH 29.5 MCHC 33.7 RDW 18.0 H Plt Count 59 L MPV 8.7 Prelim Diff (Auto) Slide review pending Neut % (Auto) 64.5 Lymph % (Auto) 25.0 Adams % (Auto) 8.8 H Eos % (Auto) 0.8 Baso % (Auto) 0.9 Neut # (Auto) 4.0 Lymph # (Auto) 1.6 Adams # (Auto) 0.5 Eos # (Auto) 0.1 Baso # (Auto) 0.1 WBC Differential . Diff Scan Auto diff confirmed Differential Comment . Platelet Estimate Low L Platelet Morphology Normal PT 20.9 H INR 2.1 APTT 31.8 H Fibrinogen 88 L* Sodium Potassium Chloride Carbon Dioxide Anion Gap BUN Creatinine Estimated GFR Random Glucose Lactic Acid Calcium Phosphorus Magnesium Iron TIBC % Saturation Ferritin Total Bilirubin AST ALT Alkaline Phosphatase Ammonia Total Protein Albumin Tumor Marker AFP Hepatitis A IgM Ab Hep Bs Antigen Hep B Core IgM Ab Hep C IgG Ab MTS Gel Crossmatch See Detail Blood Bank Comment 02/22/18 02/22/18 02/22/18 13:20 16:54 17:10 WBC RBC Hgb Hct MCV MCH MCHC RDW Plt Count MPV Prelim Diff (Auto) Neut % (Auto) Lymph % (Auto) Adams % (Auto) Eos % (Auto) Baso % (Auto) Neut # (Auto) Lymph # (Auto) Adams # (Auto) Eos # (Auto) Baso # (Auto) WBC Differential Diff Scan Differential Comment Platelet Estimate Platelet Morphology PT INR APTT Fibrinogen Sodium 141 Potassium 3.6 D Chloride 108 H Carbon Dioxide 25.4 D Anion Gap 8 BUN 5 L Creatinine 0.74 Estimated GFR Random Glucose 116 H Lactic Acid 1.4 Calcium 7.5 L Phosphorus 1.4 L D Magnesium 1.5 Iron TIBC % Saturation Ferritin Total Bilirubin 2.6 H AST 1449 H ALT 225 H Alkaline Phosphatase 83 Ammonia Total Protein 5.5 L Albumin 2.3 L Tumor Marker AFP Hepatitis A IgM Ab Hep Bs Antigen Hep B Core IgM Ab Hep C IgG Ab MedArk[employer] Gel Crossmatch Blood Bank Comment 02/22/18 02/22/18 02/22/18 21:23 21:23 21:23 WBC 5.5 RBC 2.61 L Hgb 7.7 L Hct 22.8 L MCV 87.4 MCH 29.5 MCHC 33.8 RDW 17.8 H Plt Count 51 L MPV 8.0 Prelim Diff (Auto) Neut % (Auto) Lymph % (Auto) Adams % (Auto) Eos % (Auto) Baso % (Auto) Neut # (Auto) Lymph # (Auto) Adams # (Auto) Eos # (Auto) Baso # (Auto) WBC Differential Diff Scan Differential Comment Platelet Estimate Platelet Morphology PT INR APTT Fibrinogen Sodium Potassium Chloride Carbon Dioxide Anion Gap BUN Creatinine Estimated GFR Random Glucose Lactic Acid 1.8 Calcium Phosphorus Magnesium Iron TIBC % Saturation Ferritin Total Bilirubin AST ALT Alkaline Phosphatase Ammonia Total Protein Albumin Tumor Marker AFP Hepatitis A IgM Ab Nonreactive Hep Bs Antigen Nonreactive Hep B Core IgM Ab Nonreactive Hep C IgG Ab Nonreactive MedArk[employer] Gel Crossmatch Blood Bank Comment 02/22/18 02/23/18 02/23/18 21:23 04:14 04:14 WBC 3.6 L RBC 2.76 L Hgb 8.1 L Hct 23.9 L MCV 86.8 MCH 29.4 MCHC 33.9 RDW 17.9 H Plt Count 54 L MPV 8.1 Prelim Diff (Auto) Slide review pending Neut % (Auto) 86.6 H Lymph % (Auto) 7.9 L Adams % (Auto) 5.2 Eos % (Auto) 0.1 Baso % (Auto) 0.2 Neut # (Auto) 3.1 Lymph # (Auto) 0.3 L Adams # (Auto) 0.2 Eos # (Auto) 0.0 Baso # (Auto) 0.0 WBC Differential . Diff Scan Auto diff confirmed Differential Comment . Platelet Estimate Low L Platelet Morphology Normal PT INR APTT Fibrinogen Sodium 144 Potassium 3.1 L Chloride 109 H Carbon Dioxide 25.5 Anion Gap 10 BUN 5 L Creatinine 0.69 Estimated GFR Greater than 89 Random Glucose 154 H Lactic Acid Calcium 7.5 L Phosphorus 2.1 L Magnesium 1.5 Iron 19 L TIBC 263 % Saturation 7.2 L Ferritin 67 Total Bilirubin 2.4 H AST 925 H ALT 181 H Alkaline Phosphatase 84 Ammonia Total Protein 5.5 L Albumin 2.4 L Tumor Marker AFP 3.9 Hepatitis A IgM Ab Hep Bs Antigen Hep B Core IgM Ab Hep C IgG Ab MTS Gel Crossmatch Blood Bank Comment 02/23/18 02/23/18 04:14 04:14 WBC RBC Hgb Hct MCV MCH MCHC RDW Plt Count MPV Prelim Diff (Auto) Neut % (Auto) Lymph % (Auto) Adams % (Auto) Eos % (Auto) Baso % (Auto) Neut # (Auto) Lymph # (Auto) Adams # (Auto) Eos # (Auto) Baso # (Auto) WBC Differential Diff Scan Differential Comment Platelet Estimate Platelet Morphology PT 18.0 H INR 1.8 APTT 31.5 H Fibrinogen 139 L Sodium Potassium Chloride Carbon Dioxide Anion Gap BUN Creatinine Estimated GFR Random Glucose Lactic Acid Calcium Phosphorus Magnesium Iron TIBC % Saturation Ferritin Total Bilirubin AST ALT Alkaline Phosphatase Ammonia 14 Total Protein Albumin Tumor Marker AFP Hepatitis A IgM Ab Hep Bs Antigen Hep B Core IgM Ab Hep C IgG Ab MTS Gel Crossmatch Blood Bank Comment <Isha Montanez - Last Filed: 02/23/18 14:35> - Labs CBC & Chem 7: 02/23/18 04:14 02/23/18 04:14 Laboratory Results - last 24 hr 02/22/18 02/22/18 02/22/18 05:36 16:54 17:10 WBC RBC Hgb Hct MCV MCH MCHC RDW Plt Count MPV Prelim Diff (Auto) Neut % (Auto) Lymph % (Auto) Adams % (Auto) Eos % (Auto) Baso % (Auto) Neut # (Auto) Lymph # (Auto) Adams # (Auto) Eos # (Auto) Baso # (Auto) WBC Differential Diff Scan Differential Comment Platelet Estimate Platelet Morphology PT INR APTT Fibrinogen Sodium Potassium Chloride Carbon Dioxide Anion Gap BUN Creatinine Estimated GFR Random Glucose Lactic Acid 1.4 Calcium Phosphorus Magnesium Iron TIBC % Saturation Ferritin Total Bilirubin AST ALT Alkaline Phosphatase Ammonia Total Protein Albumin Tumor Marker AFP Hepatitis A IgM Ab Hep Bs Antigen Hep B Core IgM Ab Hep C IgG Ab MTS Gel Crossmatch See Detail Blood Bank Comment 02/22/18 02/22/18 02/22/18 21:23 21:23 21:23 WBC 5.5 RBC 2.61 L Hgb 7.7 L Hct 22.8 L MCV 87.4 MCH 29.5 MCHC 33.8 RDW 17.8 H Plt Count 51 L MPV 8.0 Prelim Diff (Auto) Neut % (Auto) Lymph % (Auto) Adams % (Auto) Eos % (Auto) Baso % (Auto) Neut # (Auto) Lymph # (Auto) Adams # (Auto) Eos # (Auto) Baso # (Auto) WBC Differential Diff Scan Differential Comment Platelet Estimate Platelet Morphology PT INR APTT Fibrinogen Sodium Potassium Chloride Carbon Dioxide Anion Gap BUN Creatinine Estimated GFR Random Glucose Lactic Acid 1.8 Calcium Phosphorus Magnesium Iron TIBC % Saturation Ferritin Total Bilirubin AST ALT Alkaline Phosphatase Ammonia Total Protein Albumin Tumor Marker AFP Hepatitis A IgM Ab Nonreactive Hep Bs Antigen Nonreactive Hep B Core IgM Ab Nonreactive Hep C IgG Ab Nonreactive MTS Gel Crossmatch Blood Bank Comment 02/22/18 02/23/18 02/23/18 21:23 04:14 04:14 WBC 3.6 L RBC 2.76 L Hgb 8.1 L Hct 23.9 L MCV 86.8 MCH 29.4 MCHC 33.9 RDW 17.9 H Plt Count 54 L MPV 8.1 Prelim Diff (Auto) Slide review pending Neut % (Auto) 86.6 H Lymph % (Auto) 7.9 L Adams % (Auto) 5.2 Eos % (Auto) 0.1 Baso % (Auto) 0.2 Neut # (Auto) 3.1 Lymph # (Auto) 0.3 L Adams # (Auto) 0.2 Eos # (Auto) 0.0 Baso # (Auto) 0.0 WBC Differential . Diff Scan Auto diff confirmed Differential Comment . Platelet Estimate Low L Platelet Morphology Normal PT INR APTT Fibrinogen Sodium 144 Potassium 3.1 L Chloride 109 H Carbon Dioxide 25.5 Anion Gap 10 BUN 5 L Creatinine 0.69 Estimated GFR Greater than 89 Random Glucose 154 H Lactic Acid Calcium 7.5 L Phosphorus 2.1 L Magnesium 1.5 Iron 19 L TIBC 263 % Saturation 7.2 L Ferritin 67 Total Bilirubin 2.4 H AST 925 H ALT 181 H Alkaline Phosphatase 84 Ammonia Total Protein 5.5 L Albumin 2.4 L Tumor Marker AFP 3.9 Hepatitis A IgM Ab Hep Bs Antigen Hep B Core IgM Ab Hep C IgG Ab MTS Gel Crossmatch Blood Bank Comment 02/23/18 02/23/18 04:14 04:14 WBC RBC Hgb Hct MCV MCH MCHC RDW Plt Count MPV Prelim Diff (Auto) Neut % (Auto) Lymph % (Auto) Adams % (Auto) Eos % (Auto) Baso % (Auto) Neut # (Auto) Lymph # (Auto) Adams # (Auto) Eos # (Auto) Baso # (Auto) WBC Differential Diff Scan Differential Comment Platelet Estimate Platelet Morphology PT 18.0 H INR 1.8 APTT 31.5 H Fibrinogen 139 L Sodium Potassium Chloride Carbon Dioxide Anion Gap BUN Creatinine Estimated GFR Random Glucose Lactic Acid Calcium Phosphorus Magnesium Iron TIBC % Saturation Ferritin Total Bilirubin AST ALT Alkaline Phosphatase Ammonia 14 Total Protein Albumin Tumor Marker AFP Hepatitis A IgM Ab Hep Bs Antigen Hep B Core IgM Ab Hep C IgG Ab MTS Gel Crossmatch Blood Bank Comment <Addison Corley - Last Filed: 02/23/18 15:35> Assessment and Plan - Plan Assessment: - Elevated LFTs with history of ETOH abuse- pt reports drinking 3 12 oz cans of beer daily for the past ten years, alcohol level was elevated on admission. Denies known personal history of liver issues. Denies history of or current illicit drug use, urine toxicology is positive for cannabinoids. Denies tattoos, high risk sexual behaviors. Denies family history of liver issues. Denies taking prescription medication or OTC herbs and supplements. Takes BC Powder LFTs have been trending up since admission Currently (02/22) [id number] ALT-225 Alk phos-83 T bili-2.6 DF-44 Would benefit from steroids Liver US (02/22) Cirrhotic appearing liver with trace amount of ascites. Gallbladder wall thickening with mild pericholecystic fluid. Findings are commonly seen in the setting of chronic liver disease but limit overall sonographic sensitivity for detection of early acute cholecystitis. Trace peripancreatic fluid. Suspect this is due to overall mesenteric edema. Thrombocytopenia (plts-59) Coagulopathy (INR-2.1) Hypoalbuminemia (albumin- 2.3) - Hyperammonemia- ammonia-48- pt on Lactulose- Xifaxan - Anemia- drop in H/H from admission to recheck early this AM- noted to be partially dilutional. Likely multifactorial, according to ER notes, there was noted to be significant bleeding from neck when EMS arrived on scene Of note, pt reports taking BC Powder TID for 2 years for orthopedic pains, prior to this was taking Ibuprofen but states he stopped this because he was having BRB from his rectum. Did not seek medical care, states resolved when he stopped Ibuprofen. Denies prior EGD or colonoscopy 02/23/2018 patient is resting in the bed with his eyes closed but is answering simple questions. Mother is in the room for supportive care. Patient appears to have no increased anxiety and seems to be lucid for his answers. We will plan EGD for tomorrow but need to check INR labs and possibly give FFP if needed. Vitamin K given today. Currently patient denies any nausea or vomiting and no abdominal pain. Labs show bilirubin 2.4 AST 925 ALT 181, 3.9 alpha-fetoprotein. Liver workup pending. Labs show current hemoglobin 8.1. Admission to the hospital currently continues to be monitored in the intensive care setting underlying cirrhosis with lactic and metabolic acidosis, stable gradual improvement, GI symptoms of nausea vomiting and no obvious bleeding stable. IV fluids continue at 125 an hour. Polanco catheter in place for accurate I&O. Plan: Diet clear liquids today Consent for EGD in a.m., possible esophageal banding PT/INR a.m. of 02/24/2018. Liver workup pending Xifaxan, steroids, Protonix,Pentoxifylline Avoid hepatotoxins Further recommendations to follow after EGD Patient was seen per myself and Dr. Corley, note was written on his behalf <Isha Montanez - Last Filed: 02/23/18 14:35>
[2018-02-23 17:24] LABS: Magnesium 1.9 mg/dL (1.5-2.5); Phosphorus 2.4 mg/dL (2.5-4.9)
[2018-02-24 01:05] LABS: Baso % (Auto) 0.1 % (0.0-2.0); Hematocrit 24.3 % (39.0-51.0); Hemoglobin 8.4 gm/dL (13.0-17.0); Lymph # (Auto) 0.4 th/mm3 (1.0-4.8); Lymph % (Auto) 5.5 % (9.0-44.0); Mean Corpuscular HGB Conc 34.4 % (32.0-36.0); Mean Corpuscular Hemoglobin 29.9 pg (27.0-34.0); Mean Corpuscular Volume 86.8 fL (80.0-100.0); Mean Platelet Volume 8.2 fL (7.0-11.0); Mono # (Auto) 0.4 th/mm3 (0.0-0.9); Mono % (Auto) 5.2 % (0.0-8.0); Neut # (Auto) 6.1 th/mm3 (1.8-7.7); Neut % (Auto) 89.2 % (16.0-70.0); Platelet Count 60 th/mm3 (150-450); Red Blood Count 2.79 mil/mm3 (4.50-5.90); Red Cell Distribution Width 19.1 % (11.6-17.2); White Blood Count 6.8 th/mm3 (4.0-11.0)
[2018-02-24] MEDS: Dextrose 5%/Lactated Ringer's 1,000 ML IV.CONT SCH ×3 (01:06→01:08)
[2018-02-24 01:20] LABS: Activated Partial Thrombo Time 30.1 sec (24.3-30.1); INR 1.8 Ratio
[2018-02-24 01:31] LABS: Alanine Aminotransferase 151 U/L (12-78); Albumin 2.3 g/dL (3.4-5.0); Anion Gap 7 meq/L (5-15); Aspartate Aminotransferase 475 U/L (15-37); Blood Urea Nitrogen 6 mg/dL (7-18); Calcium 7.5 mg/dL (8.5-10.1); Carbon Dioxide 27.2 meq/L (21.0-32.0); Chloride 110 meq/L (98-107); Glomerular Filtration Rate Greater Than 89 mL/min (>89); Glucose,Random 148 mg/dL (74-106); Potassium 3.2 meq/L (3.5-5.1); Sodium 144 meq/L (136-145)
[2018-02-24 01:34] LABS: Alkaline Phosphatase 86 U/L (45-117); Total Protein 5.6 g/dL (6.4-8.2)
[2018-02-24 02:10] LABS: Platelet Morphology Normal (Normal)
[2018-02-24] MEDS: Potassium Chlor 20 mEq Premix 20 MEQ/100 ML PIGGYBACK IV.SIG PRN ×4 (03:26→10:00)
[2018-02-24] MEDS: Chlorhexidine Gluconate 2% 1 Pack (2 Cloths) TOPICAL SCH (05:15)
[2018-02-24] MEDS: chlordiazePOXIDE 25 MG Capsule PO SCH ×3 (05:15→23:31)
--- NOTE | 2018-02-24 06:31 | XR ---
EXAM DATE: 02/24/2018 6:28 AM EDT AGE/SEX: 52 years / Male INDICATIONS: Shortness of breath, possible pulmonary disease. CLINICAL DATA: This is the patient's subsequent encounter. Patient reports that signs and symptoms h ave been present for 3 days and indicates a pain score of Nonresponsive. MEDICAL/SURGICAL HISTORY: Non-responsive. Non-responsive. COMPARISON: C, CHEST 1V SINGLE AP, 02/21/2018. . FINDINGS: The heart size is normal. There is minimal increased density at the left base. The right lung is montserrat r. No effusion is seen. CONCLUSION: Minimal atelectasis or consolidation at the left base. Electronically signed by: Henry Mcleod MD 02/24/2018 6:30 AM EDT
[2018-02-24] MEDS: MethylPREDNISolone Sod Succinate Inj 40 MG/ML Vial IV.PUSH SCH ×2 (08:00→20:26)
[2018-02-24] MEDS: Senna/Docusate Sodium 8.6/50 MG Tablet PO SCH ×2 (08:01→20:25)
[2018-02-24] MEDS: Pentoxifylline 400 MG Controlled Release Tablet PO SCH ×2 (08:02→13:05)
[2018-02-24] MEDS: rifAXIMin 550 MG Tablet PO SCH ×2 (08:02→20:25)
[2018-02-24] MEDS: Pantoprazole Inj 80 MG in Sodium Chlor 0.9% Inj 100 ML IV.CONT SCH ×3 (08:55→20:25)
--- NOTE | 2018-02-24 10:25 | P.PNGI ---
Physical Exam Vital signs: Vital Signs 02/23/18 11:00 02/23/18 12:00 02/23/18 13:00 Temperature 99 F Pulse Rate 73 63 73 Respiratory Rate 15 16 13 Blood Pressure 124/70 118/67 123/71 Pulse Oximetry 96 98 99 02/23/18 14:00 02/23/18 15:00 02/23/18 16:00 Temperature Pulse Rate 70 76 66 Respiratory Rate 12 15 15 Blood Pressure 123/72 115/68 113/64 Pulse Oximetry 96 97 97 02/23/18 17:00 02/23/18 18:00 02/23/18 19:00 Temperature 98 F 99 F Pulse Rate 69 81 93 H Respiratory Rate 16 19 18 Blood Pressure 111/64 133/68 167/66 H Pulse Oximetry 97 94 L 98 02/23/18 20:00 02/23/18 21:00 02/23/18 22:00 Temperature 99.1 F 99 F 99 F Pulse Rate 67 78 72 Respiratory Rate 19 17 16 Blood Pressure 112/61 121/66 108/64 Pulse Oximetry 98 95 94 L 02/23/18 23:00 02/24/18 00:00 02/24/18 01:00 Temperature 99 F 98.8 F 99 F Pulse Rate 75 97 H 76 Respiratory Rate 18 16 17 Blood Pressure 99/56 L 148/69 H 113/67 Pulse Oximetry 95 97 95 02/24/18 02:00 02/24/18 03:00 02/24/18 04:00 Temperature 98.8 F 99 F 98.9 F Pulse Rate 78 78 75 Respiratory Rate 16 18 16 Blood Pressure 87/54 L 130/76 120/72 Pulse Oximetry 95 95 97 02/24/18 05:00 02/24/18 06:00 02/24/18 08:00 Temperature 98.8 F 98.8 F 98.5 F Pulse Rate 68 77 66 Respiratory Rate 17 15 18 Blood Pressure 124/70 140/76 130/71 Pulse Oximetry 94 L 98 93 L Intake & Output 02/23/18 02/24/18 02/24/18 18:59 06:59 18:59 Intake Total 2650 / 2650 1320 / 1320 200 / 200 Output Total 400 / 400 650 / 650 Balance 2250 / 2250 670 / 670 200 / 200 Weight 70.5 kg Intake: IV 2450 / 2450 1200 / 1200 200 / 200 D5W/LR Inj 1,000 ML @ 125 mls/ 2000 / 2000 1000 / 1000 hr IV.CONT .Q8H REBECCA Rx#: [id number] Protonix Inj 80 MG In NS Inj 100 / 100 100 / 100 100 ML @ 10 mls/hr IV.CONT CONT REBECCA Rx#:[id number] Magnesium Sulfate Inj 2 GM In 100 / 100 NS Inj 96 ML @ 50 mls/hr IV.SIG UNSCH PRN Rx#:[id number] KCl 20 mEq Premix Inj 20 meq In 100 / 100 200 / 200 100 ml @ 50 mls/hr IV.SIG Q2H PRN Rx#:[id number] Potassium Phosphate Inj 30 MMOL 250 / 250 In NS Inj 250 ML @ 42 mls/hr IV.SIG UNSCH PRN Rx#:[id number] Oral 200 / 200 120 / 120 Output: Urine 400 / 400 650 / 650 Other: # Voids 1 Date of Last Bowel Movement 02/22/18 02/22/18 02/22/18 Results - Labs CBC & Chem 7: 02/24/18 00:58 02/24/18 00:58 Laboratory Results - last 24 hr 02/22/18 02/23/18 02/24/18 21:23 16:20 00:58 WBC 6.8 D RBC 2.79 L Hgb 8.4 L Hct 24.3 L MCV 86.8 MCH 29.9 MCHC 34.4 RDW 19.1 H Plt Count 60 L MPV 8.2 Prelim Diff (Auto) Slide review pending Neut % (Auto) 89.2 H Lymph % (Auto) 5.5 L [place] % (Auto) 5.2 Eos % (Auto) 0.0 Baso % (Auto) 0.1 Neut # (Auto) 6.1 Lymph # (Auto) 0.4 L [place] # (Auto) 0.4 Eos # (Auto) 0.0 Baso # (Auto) 0.0 WBC Differential . Diff Scan Auto diff confirmed Differential Comment . Platelet Estimate Low L Platelet Morphology Normal PT INR APTT Fibrinogen Sodium Potassium 3.0 L Chloride Carbon Dioxide Anion Gap BUN Creatinine Estimated GFR Random Glucose Calcium Phosphorus 2.4 L Magnesium 1.9 Total Bilirubin AST ALT Alkaline Phosphatase Total Protein Albumin REYNALDO Screen Neg 02/24/18 02/24/18 00:58 00:58 WBC RBC Hgb Hct MCV MCH MCHC RDW Plt Count MPV Prelim Diff (Auto) Neut % (Auto) Lymph % (Auto) [place] % (Auto) Eos % (Auto) Baso % (Auto) Neut # (Auto) Lymph # (Auto) [place] # (Auto) Eos # (Auto) Baso # (Auto) WBC Differential Diff Scan Differential Comment Platelet Estimate Platelet Morphology PT 18.0 H INR 1.8 APTT 30.1 Fibrinogen 122 L Sodium 144 Potassium 3.2 L Chloride 110 H Carbon Dioxide 27.2 Anion Gap 7 BUN 6 L Creatinine 0.63 Estimated GFR Greater than 89 Random Glucose 148 H Calcium 7.5 L Phosphorus Magnesium Total Bilirubin 2.1 H AST 475 H ALT 151 H Alkaline Phosphatase 86 Total Protein 5.6 L Albumin 2.3 L REYNALDO Screen Microbiology 02/24/18 00:30 Stool Stool Occult Blood (GEORGE) - Final Hemoccult negative - Imaging Impressions Chest X-Ray 02/24/18 06:00 CONCLUSION: Minimal atelectasis or consolidation at the left base. Assessment and Plan - Plan Assessment: - Elevated LFTs with history of ETOH abuse- pt reports drinking 3 12 oz cans of beer daily for the past ten years, alcohol level was elevated on admission. Denies known personal history of liver issues. Denies history of or current illicit drug use, urine toxicology is positive for cannabinoids. Denies tattoos, high risk sexual behaviors. Denies family history of liver issues. Denies taking prescription medication or OTC herbs and supplements. Takes BC Powder LFTs have been trending up since admission Currently (02/22) AST-1449 ALT-225 Alk phos-83 T bili-2.6 DF-44 Would benefit from steroids Liver US (02/22) Cirrhotic appearing liver with trace amount of ascites. Gallbladder wall thickening with mild pericholecystic fluid. Findings are commonly seen in the setting of chronic liver disease but limit overall sonographic sensitivity for detection of early acute cholecystitis. Trace peripancreatic fluid. Suspect this is due to overall mesenteric edema. Thrombocytopenia (plts-59) Coagulopathy (INR-2.1) Hypoalbuminemia (albumin- 2.3) - Hyperammonemia- ammonia-48- pt on Lactulose- Xifaxan - Anemia- drop in H/H from admission to recheck early this AM- noted to be partially dilutional. Likely multifactorial, according to ER notes, there was noted to be significant bleeding from neck when EMS arrived on scene Of note, pt reports taking BC Powder TID for 2 years for orthopedic pains, prior to this was taking Ibuprofen but states he stopped this because he was having BRB from his rectum. Did not seek medical care, states resolved when he stopped Ibuprofen. Denies prior EGD or colonoscopy 02/23/2018 patient is resting in the bed with his eyes closed but is answering simple questions. Mother is in the room for supportive care. Patient appears to have no increased anxiety and seems to be lucid for his answers. We will plan EGD for tomorrow but need to check INR labs and possibly give FFP if needed. Vitamin K given today. Currently patient denies any nausea or vomiting and no abdominal pain. Labs show bilirubin 2.4 AST 925 ALT 181, 3.9 alpha-fetoprotein. Liver workup pending. Labs show current hemoglobin 8.1. Admission to the hospital currently continues to be monitored in the intensive care setting underlying cirrhosis with lactic and metabolic acidosis, stable gradual improvement, GI symptoms of nausea vomiting and no obvious bleeding stable. IV fluids continue at 125 an hour. Polanco catheter in place for accurate I&O. 02/24/2018 .reviewed labs patient's platelet count is 60. PT/INR 1.8, FFP 1 unit ordered this a.m. continue to avoid hepatotoxins Still plan for EGD today. Plan: Diet n.p.o. EGD possible esophageal banding plan today FFP 1 unit Xifaxan, steroids, Protonix,Pentoxifylline continue Further recommendations to follow after EGD Patient was seen per myself and Dr. Corley, note was written on his behalf
[2018-02-24] MEDS ORDERED: Sodium Chlor 0.9% Inj 250 ML IV.SIG SCH (11:00)
[2018-02-24] MEDS ORDERED: Lidocaine PF 1% Inj 5 ML Syringe INFILTRATN ONE (12:00)
--- NOTE | 2018-02-24 12:27 | GIPROC ---
[facility] [address] [facility]. [facility], [address] EGD PROCEDURE REPORT EXAM DATE: 02/24/2018 PATIENT NAME: Pasquale Cruz MR #: [id number] BIRTHDATE: 1965 ATTENDING: Surjit Choudhary MD ORDER #: [id number] CARE MGR: Shoaib Marquez STATUS: inpatient INDICATIONS: The patient is a 52 yr old male here for an EGD due to melena, abnormal ultrasound of the GI tract,, and Cirrhosis/ Ascites PROCEDURE PERFORMED: EGD, diagnostic MEDICATIONS: None and Per Anesthesia. TOPICAL ANESTHETIC: none CONSENT: The patient understands the risks and benefits of the procedure and understands that these risks include, but are not limited to: sedation, allergic reaction, infection, perforation and/or bleeding. Alternative means of evaluation and treatment include, among others: physical exam, x-rays, and/or surgical intervention. The patient elects to proceed with this endoscopic procedure. medical equipment was checked for proper function. Hand hygiene and appropriate measures for infection prevention was taken. After the risks, benefits and alternatives of the procedure were thoroughly explained, Informed consent was verified, confirmed and timeout was successfully executed by the treatment team. The patient was anesthetized with topical anesthesia and the Pentax [id number] endoscope was introduced through the mouth and advanced to the second portion of the duodenum. Retroflexed views revealed No Gastric Vx The gastroscope was then slowly withdrawn and removed. ESOPHAGUS: There was LA Class A esophagitis noted. There were 3 columns of small varices in the distal esophagus. There was evidence of prior scarring. No banding done as no active bleeding and varices are small. STOMACH: Moderate portal hypertensive gastropathy was found in the entire examined stomach. DUODENUM: The duodenal mucosa appeared normal in the entire duodenum. ADVERSE EVENTS: There were no complications. IMPRESSIONS: 1. There was LA Class A esophagitis noted 2. No banding done as no active bleeding and varices are small 3. Portal hypertensive gastropathy was found in the entire examined stomach 4. Normal duodenal mucosa in the entire duodenum 5. Retroflexed views revealed No Gastric Vx RECOMMENDATIONS: Nadolol 20 mg QD. PATIENT CONDITION: stable DISPOSITION: Inpatient REPEAT EXAM: Return as needed for EGD Surjit Choudhary MD eSigned: Surjit Choudhary MD 02/24/2018 12:26 PM cc: PATIENT NAME: Pasquale Cruz MR#: [id number]
[2018-02-24 14:40] LABS: Alpha 1 Antitrypsin 128 mg/dL (100 - 190); Smooth Muscle Total Auto Abs Negative (Negative)
[2018-02-24] MEDS: Haloperidol Inj 5 MG/ML Ampul IV.PUSH PRN (16:07)
--- NOTE | 2018-02-24 16:44 | P.PNCC ---
Subjective Subjective Remarks/Hospital Course: 52-year-old male with past medical history of tobacco and alcohol dependence. He states he was sharpening a non-serrated carving knife this morning while intoxicated. He said he got up to put the knife away and he tripped and fell and lacerated his left neck around 10 am on 02/21. He states he hit his head on the counter and had loss of consciousness. There was blood pooling on the floor and each time he tried to get up he was near-syncopal so he remained on the floor all day until neighbors found him at around 8 pm. He was brought to [facility] by [facility]. The wound was explored by the emergency medicine physician and platysma appeared intact. CTA of the neck demonstrated soft tissue swelling in the subcut fat with deeper structures appearing intact. He was found to have anion-gap lactic acidosis with bicarb of 11.9, anion gap of 26 , lactic acid 16. EtOH level is still 134. CPK is 309. Creatinine is normal. His hemoglobin is 9.4. Most recent prior hemoglobin was 13.[address] Aly discussed with Dr. Amador who recommended admission to medicine. The laceration was repaired in the ED and patient received 2 L normal saline bolus, Ancef 2gram, Td, Zofran and reglan for nausea. He denies headache, dysphagia, chest pain, shortness of breath, abdominal pain, flank pain, vomiting, melena, hematemesis, audiovisual hallucinations. He is tremulous and complains of thirst. He is a daily drinker of at least 10 beers per day, last drink was 9 am on 02/21. 02/23: Patient lying in bed somnolent from Ativan given overnight for alcohol withdrawal. Currently cooperative. Hemoglobin stable 8.1. Platelet count 54. Potassium 3.1 getting replaced. Tremulous on exam Subjective: 02/24 EGD today with esophagitis, portal gastropathy, small varices non-bleeding and thus no intervention. EtOH withdrawal symptoms and delirium have accelerated despite librium, ativan, haldol.. Adding precedex. Objective Vital Signs / I&O: Vital Signs 02/23/18 17:00 02/23/18 18:00 02/23/18 19:00 Temperature 98 F 99 F Pulse Rate 69 81 93 H Respiratory Rate 16 19 18 Blood Pressure 111/64 133/68 167/66 H Pulse Oximetry 97 94 L 98 02/23/18 20:00 02/23/18 21:00 02/23/18 22:00 Temperature 99.1 F 99 F 99 F Pulse Rate 67 78 72 Respiratory Rate 19 17 16 Blood Pressure 112/61 121/66 108/64 Pulse Oximetry 98 95 94 L 02/23/18 23:00 02/24/18 00:00 02/24/18 01:00 Temperature 99 F 98.8 F 99 F Pulse Rate 75 97 H 76 Respiratory Rate 18 16 17 Blood Pressure 99/56 L 148/69 H 113/67 Pulse Oximetry 95 97 95 02/24/18 02:00 02/24/18 03:00 02/24/18 04:00 Temperature 98.8 F 99 F 98.9 F Pulse Rate 78 78 75 Respiratory Rate 16 18 16 Blood Pressure 87/54 L 130/76 120/72 Pulse Oximetry 95 95 97 02/24/18 05:00 02/24/18 06:00 02/24/18 08:00 Temperature 98.8 F 98.8 F 98.5 F Pulse Rate 68 77 66 Respiratory Rate 17 15 18 Blood Pressure 124/70 140/76 130/71 Pulse Oximetry 94 L 98 93 L 02/24/18 10:00 02/24/18 11:00 02/24/18 12:00 Temperature 98.7 F 98 F Pulse Rate 64 74 70 Respiratory Rate 16 18 16 Blood Pressure 151/77 H 176/77 H 145/75 H Pulse Oximetry 96 96 95 02/24/18 14:00 Temperature 98.5 F Pulse Rate 76 Respiratory Rate 18 Blood Pressure 136/71 Pulse Oximetry 95 Intake & Output 02/23/18 02/24/18 02/24/18 18:59 06:59 18:59 Intake Total 2650 / 2650 1320 / 1320 400 / 400 Output Total 400 / 400 650 / 650 Balance 2250 / 2250 670 / 670 400 / 400 Weight 70.5 kg Intake: IV 2450 / 2450 1200 / 1200 200 / 200 D5W/LR Inj 1,000 ML @ 125 mls/ 2000 / 2000 1000 / 1000 hr IV.CONT .Q8H REBECCA Rx#: [id number] Protonix Inj 80 MG In NS Inj 100 / 100 100 / 100 100 ML @ 10 mls/hr IV.CONT CONT REBECCA Rx#:[id number] Magnesium Sulfate Inj 2 GM In 100 / 100 NS Inj 96 ML @ 50 mls/hr IV.SIG UNSCH PRN Rx#:[id number] KCl 20 mEq Premix Inj 20 meq In 100 / 100 200 / 200 100 ml @ 50 mls/hr IV.SIG Q2H PRN Rx#:[id number] Potassium Phosphate Inj 30 MMOL 250 / 250 In NS Inj 250 ML @ 42 mls/hr IV.SIG UNSCH PRN Rx#:[id number] Oral 200 / 200 120 / 120 Anesthesia Amount 200 / 200 Output: Urine 400 / 400 650 / 650 Other: # Voids 1 Date of Last Bowel Movement 02/22/18 02/22/18 02/22/18 Result Diagrams: 02/24/18 00:58 02/24/18 16:45 Objective Remarks: GENERAL: Disheveled male who is laying in bed, restless, agitated. SKIN: Multiple ecchymosis overlying right lateral chest wall. HEAD: Normocephalic. EYES: Pupils equal and round, 3mm and reactive. ENT: No nasal bleeding or discharge. Mucous membranes pink and moist. NECK: Trachea midline. 3-3.5 cm linear laceration left neck that has been sutured with simple interrupted sutures. No swelling or erythema CARDIOVASCULAR: Regular rate and rhythm. 2/6 systolic murmur LSB. RESPIRATORY: Breathing comfortably on room air with no accessory muscle use. Clear to auscultation. GASTROINTESTINAL: Abdomen soft, non-tender, nondistended. Bowel sounds present. MUSCULOSKELETAL: Extremities without clubbing, cyanosis, or edema. No obvious deformities. NEUROLOGICAL: Patient at times appears sleepy but intermittently is restless and agitated. Tremulous. No focal deficits but positive asterixis Assessment and Plan - Problem List (1) Laceration of neck Code(s): S11.91XA - Laceration without foreign body of unspecified part of neck , initial encounter Status: Acute (2) Lactic acidosis Code(s): E87.2 - Acidosis Status: Acute (3) EtOH dependence Code(s): F10.20 - Alcohol dependence, uncomplicated Status: Acute (4) Transaminitis Code(s): R74.0 - Nonspecific elevation of levels of transaminase and lactic acid dehydrogenase [LDH] Status: Acute (5) Hypovolemia Code(s): E86.1 - Hypovolemia Status: Acute (6) Alcohol withdrawal Code(s): F10.239 - Alcohol dependence with withdrawal, unspecified Status: Acute (7) LOC (loss of consciousness) Code(s): R40.20 - Unspecified coma Status: Acute (8) Fall from slip, trip, or stumble Code(s): W01.0XXA - Fall on same level from slipping, tripping and stumbling without subsequent striking against object, initial encounter Status: Acute (9) Acute blood loss anemia Code(s): D62 - Acute posthemorrhagic anemia Status: Acute (10) Thrombocytopenia Code(s): D69.6 - Thrombocytopenia, unspecified Status: Acute (11) Tobacco abuse counseling Code(s): Z71.6 - Tobacco abuse counseling Status: Acute (12) Tobacco abuse Code(s): Z72.0 - Tobacco use Status: Chronic (13) Contusion of rib on right side Code(s): S20.211A - Contusion of right front wall of thorax, initial encounter Status: Acute (14) Hypovolemic shock Code(s): R57.1 - Hypovolemic shock Status: Acute - Assessment and Plan Plan: NEURO: Acute left neck laceration Platysma intact per ED evaluation. CTA unremarkable. Laceration repaired 02/21, suture removal ~7-10 days. Acute alcohol withdrawal Alcohol dependence Librium 25 mg p.o. every 6 hours-reduce to every 12 due to excessive sedation. CIWA protocol with ativan prn. Thiamine/MVI/folic acid x3 days. Precedex added. Loss of consciousness Suspect syncope secondary to hypovolemia/blood loss. Does report head trauma, CT head negative for acute findings Tylenol prn pain. RESP: Tobacco abuse Right rib contusion Obtained chest x-ray- no cardiomegaly, lungs clear Nicotine patch IS, albuterol prn. Monitor for airway protection during EtoH w/d. CV: Monitor hemodynamic GI: Small Varices Esophagitis Hyperammonemia Liver cirrhosis Appreciate gastroenterology consult Endoscopy 02/24 - LA Class A esophagitis, small nonbleeding varices, portal gastropathy. Continue Xifaxan and lactulose pentoxifylline per GI Ammonia has normalized now FEN/RENAL: Acute anion gap metabolic acidosis Lactic acidemia Hypovolemic shock. Suspect secondary to hypovolemia and acute blood loss (EtOH abuse, no po intake all day, moderate blood at scene per bystander) Received 3L crystalloid bolus on admission. Continue maintenance IV fluids d5 LR decrease to 85 ml/hr. Replace electrolytes as indicated per ICU electrolyte placement protocol. ID: No apparent source of concomitant sepsis and he is afebrile and without leukocytosis. F/u U/a. HEME: Acute blood loss anemia Thrombocytopenia, suspect consumptive secondary to acute blood loss Monitor CBC, transfuse as indicated for hgb <7 or symptomatic. s/p 2 units PRBC stat. ENDO: Euglycemic without history of diabetes PROPH: SCDs for DVT prophylaxis. Avoid pharmacologic DVT prophylaxis at this time due to anemia and coagulopathy. Famotidine p.o. for stress ulcer prophylaxis. ACCESS: Peripheral IV providing adequate access at this time. Full code Patient and his mother and sister were updated at bedside. Level 3 followup. (1) Laceration of neck Qualifiers: Encounter type: initial encounter Qualified Code(s): S11.91XA - Laceration without foreign body of unspecified part of neck, initial encounter
[2018-02-24 17:51] LABS: Ceruloplasmin 17 mg/dL (18-36)
[2018-02-24 20:06] LABS: Baso % (Auto) 0.1 % (0.0-2.0); Lymph # (Auto) 0.6 th/mm3 (1.0-4.8); Lymph % (Auto) 4.5 % (9.0-44.0); Mean Corpuscular HGB Conc 32.1 % (32.0-36.0); Mean Corpuscular Volume 90.1 fL (80.0-100.0); Mean Platelet Volume 8.3 fL (7.0-11.0); Mono # (Auto) 0.8 th/mm3 (0.0-0.9); Mono % (Auto) 6.6 % (0.0-8.0); Neut # (Auto) 11.3 th/mm3 (1.8-7.7); Neut % (Auto) 88.8 % (16.0-70.0); Platelet Count 70 th/mm3 (150-450); Red Blood Count 3.11 mil/mm3 (4.50-5.90); Red Cell Distribution Width 19.1 % (11.6-17.2); White Blood Count 12.7 th/mm3 (4.0-11.0)
[2018-02-24 20:30] LABS: Anion Gap 10 meq/L (5-15); Blood Urea Nitrogen 7 mg/dL (7-18); Calcium 7.6 mg/dL (8.5-10.1); Carbon Dioxide 22.8 meq/L (21.0-32.0); Chloride 111 meq/L (98-107); Glomerular Filtration Rate Greater Than 89 mL/min (>89); Glucose,Random 117 mg/dL (74-106); Potassium 3.5 meq/L (3.5-5.1); Sodium 144 meq/L (136-145)
[2018-02-24 22:27] LABS: Platelet Morphology Normal (Normal); Target Cells 1+
[2018-02-25] MEDS: Haloperidol Inj 5 MG/ML Ampul IV.PUSH PRN (00:25)
[2018-02-25] MEDS: Dextrose 5%/Lactated Ringer's 1,000 ML IV.CONT SCH ×4 (04:27→20:42)
[2018-02-25] MEDS: Pentoxifylline 400 MG Controlled Release Tablet PO SCH ×2 (15:51→17:47)
[2018-02-25] MEDS: chlordiazePOXIDE 25 MG Capsule PO SCH ×2 (15:52→17:47)
[2018-02-25] MEDS ORDERED: Pantoprazole Inj 80 MG in Sodium Chlor 0.9% Inj 100 ML IV.CONT SCH (19:00)
[2018-02-25] MEDS: MethylPREDNISolone Sod Succinate Inj 40 MG/ML Vial IV.PUSH SCH (20:28)
[2018-02-25] MEDS: rifAXIMin 550 MG Tablet PO SCH (20:28)
[2018-02-25] MEDS: Senna/Docusate Sodium 8.6/50 MG Tablet PO SCH (20:28)
[2018-02-25] MEDS: KCL 20 mEq/D5W/NaCl 0.45% Inj 1,000 ML IV.CONT SCH (21:33)
--- NOTE | 2018-02-25 23:44 | P.PNCC ---
Subjective Subjective Remarks/Hospital Course: 52-year-old male with past medical history of tobacco and alcohol dependence. He states he was sharpening a non-serrated carving knife this morning while intoxicated. He said he got up to put the knife away and he tripped and fell and lacerated his left neck around 10 am on 02/21. He states he hit his head on the counter and had loss of consciousness. There was blood pooling on the floor and each time he tried to get up he was near-syncopal so he remained on the floor all day until neighbors found him at around 8 pm. He [place] [facility] [facility] The wound was explored by the emergency medicine physician and platysma appeared intact. CTA of the neck demonstrated soft tissue swelling in the subcut fat with deeper structures appearing intact. He was found to have anion-gap lactic acidosis with bicarb of 11.9, anion gap of 26 , lactic acid 16. EtOH level is still 134. CPK is 309. Creatinine is normal. His hemoglobin is 9.4. Most recent prior hemoglobin was 13.[address] Aly discussed with Dr. Amador who recommended admission to medicine. The laceration was repaired in the ED and patient received 2 L normal saline bolus, Ancef 2gram, Td, Zofran and reglan for nausea. He denies headache, dysphagia, chest pain, shortness of breath, abdominal pain, flank pain, vomiting, melena, hematemesis, audiovisual hallucinations. He is tremulous and complains of thirst. He is a daily drinker of at least 10 beers per day, last drink was 9 am on 02/21. 02/23: Patient lying in bed somnolent from Ativan given overnight for alcohol withdrawal. Currently cooperative. Hemoglobin stable 8.1. Platelet count 54. Potassium 3.1 getting replaced. Tremulous on exam 02/24 EGD today with esophagitis, portal gastropathy, small varices non-bleeding and thus no intervention. EtOH withdrawal symptoms and delirium have accelerated despite librium, ativan, haldol.. Adding precedex. Subjective: 02/25 Remains on precedex. DTs are the primary issue at this point, seems a little better than yesterday but still delirious. Objective Vital Signs / I&O: Vital Signs 02/25/18 00:00 02/25/18 00:01 02/25/18 01:00 Temperature 97.6 F Pulse Rate 114 H 82 77 Respiratory Rate 26 H 25 H 21 Blood Pressure 142/63 H 142/80 H Pulse Oximetry 94 L 94 L 96 02/25/18 02:00 02/25/18 02:01 02/25/18 03:00 Temperature Pulse Rate 132 H 83 76 Respiratory Rate 28 H 27 H 32 H Blood Pressure 111/71 Pulse Oximetry 90 L 95 97 02/25/18 03:23 02/25/18 04:00 02/25/18 04:01 Temperature 98.2 F Pulse Rate 60 61 61 Respiratory Rate 30 H 20 22 Blood Pressure 156/83 H 122/66 Pulse Oximetry 96 93 L 93 L 02/25/18 05:00 02/25/18 06:00 02/25/18 06:01 Temperature Pulse Rate 56 L 54 L 55 L Respiratory Rate 26 H 24 22 Blood Pressure 134/70 140/67 Pulse Oximetry 92 L 91 L 91 L 02/25/18 07:00 02/25/18 08:00 02/25/18 10:00 Temperature 97.6 F Pulse Rate 75 75 53 L Respiratory Rate 20 16 Blood Pressure 129/71 127/95 H Pulse Oximetry 95 96 02/25/18 12:00 02/25/18 14:00 02/25/18 15:00 Temperature Pulse Rate 54 L 53 L 55 L Respiratory Rate 18 Blood Pressure 155/69 H Pulse Oximetry 93 L 02/25/18 16:00 02/25/18 17:00 02/25/18 18:00 Temperature 97.6 F Pulse Rate 67 75 58 L Respiratory Rate 16 18 16 Blood Pressure 134/70 132/75 126/74 Pulse Oximetry 93 L 93 L 95 Intake & Output 02/25/18 02/25/18 02/26/18 06:59 18:59 06:59 Intake Total 100 / 100 1400 / 1400 1000 / 1000 Output Total 0 / 0 600 / 600 Balance 100 / 100 800 / 800 1000 / 1000 Intake: IV 100 / 100 1000 / 1000 1000 / 1000 D5W/LR Inj 1,000 ML @ 85 mls/hr 1000 / 1000 1000 / 1000 IV.CONT .[id number] REBECCA Rx#: [id number] Protonix Inj 80 MG In NS Inj 100 / 100 100 ML @ 10 mls/hr IV.CONT Q10H REBECCA Rx#:[id number] Oral 0 / 0 400 / 400 Tube Feeding 0 / 0 Output: Urine 0 / 0 600 / 600 Other: Date of Last Bowel Movement 02/22/18 02/22/18 Result Diagrams: 02/24/18 19:16 02/24/18 19:16 Objective Remarks: GENERAL: Disheveled male who is laying in bed, in soft restraints. SKIN: Multiple ecchymosis overlying right lateral chest wall. HEAD: Normocephalic. EYES: Pupils equal and round, 3mm and reactive. ENT: No nasal bleeding or discharge. Mucous membranes pink and moist. NECK: Trachea midline. 3-3.5 cm linear laceration left neck that has been sutured with simple interrupted sutures. No swelling or erythema CARDIOVASCULAR: Regular rate and rhythm. 2/6 systolic murmur LSB. RESPIRATORY: Breathing comfortably on room air with no accessory muscle use. Clear to auscultation. GASTROINTESTINAL: Abdomen soft, non-tender, nondistended. Bowel sounds present. MUSCULOSKELETAL: Extremities without clubbing, cyanosis, or edema. No obvious deformities. NEUROLOGICAL: Patient is sleepy but arousable, intermittently restless. Does awake and converses but demonstrates delusions, delirium. No focal deficits, no asterixis noted today. Assessment and Plan - Problem List (1) Laceration of neck Code(s): S11.91XA - Laceration without foreign body of unspecified part of neck , initial encounter Status: Acute (2) Lactic acidosis Code(s): E87.2 - Acidosis Status: Acute (3) EtOH dependence Code(s): F10.20 - Alcohol dependence, uncomplicated Status: Acute (4) Transaminitis Code(s): R74.0 - Nonspecific elevation of levels of transaminase and lactic acid dehydrogenase [LDH] Status: Acute (5) Hypovolemia Code(s): E86.1 - Hypovolemia Status: Acute (6) Alcohol withdrawal Code(s): F10.239 - Alcohol dependence with withdrawal, unspecified Status: Acute (7) LOC (loss of consciousness) Code(s): R40.20 - Unspecified coma Status: Acute (8) Fall from slip, trip, or stumble Code(s): W01.0XXA - Fall on same level from slipping, tripping and stumbling without subsequent striking against object, initial encounter Status: Acute (9) Acute blood loss anemia Code(s): D62 - Acute posthemorrhagic anemia Status: Acute (10) Thrombocytopenia Code(s): D69.6 - Thrombocytopenia, unspecified Status: Acute (11) Tobacco abuse counseling Code(s): Z71.6 - Tobacco abuse counseling Status: Acute (12) Tobacco abuse Code(s): Z72.0 - Tobacco use Status: Chronic (13) Contusion of rib on right side Code(s): S20.211A - Contusion of right front wall of thorax, initial encounter Status: Acute (14) Hypovolemic shock Code(s): R57.1 - Hypovolemic shock Status: Acute - Assessment and Plan Plan: NEURO: Acute left neck laceration Platysma intact per ED evaluation. CTA unremarkable. Laceration repaired 02/21, suture removal ~7-10 days. Acute alcohol withdrawal Alcohol dependence Librium 25 mg p.o. every 6 hours taper to every 12 due to excessive sedation. CIWA protocol with ativan prn. Thiamine/MVI/folic acid x3 days. Wean precedex as tolerated. Loss of consciousness Suspect syncope secondary to hypovolemia/blood loss. Did report head trauma, CT head negative for acute findings Tylenol prn pain. RESP: Tobacco abuse Right rib contusion Obtained chest x-ray on admit- no cardiomegaly, lungs clear Nicotine patch IS, albuterol prn. Monitor for airway protection during EtoH w/d. CV: Monitor hemodynamic GI: Small Varices Esophagitis Hyperammonemia, resolved Liver cirrhosis Appreciate gastroenterology consult Endoscopy 02/24 - LA Class A esophagitis, small nonbleeding varices, portal gastropathy. Continue Xifaxan and lactulose pentoxifylline per GI Nadolol 20 mg po daily (hold orders) Ammonia has normalized now Holding off on dobhoff and tube feeds for now due to varices, discussing with GI. Family uncertain if plan is to proceed with colonoscopy, discussing with GI. FEN/RENAL: Acute anion gap metabolic acidosisresolved Lactic acidemia resolved Hypovolemic shock. resolved Suspect secondary to hypovolemia and acute blood loss (EtOH abuse, no po intake all day, moderate blood at scene per bystander) Decrease IVF to D51/2 NS 20 KCL/L @ 42/hr. Replace electrolytes as indicated per ICU electrolyte placement protocol. ID: U/a negative. HEME: Acute blood loss anemia Thrombocytopenia, suspect consumptive secondary to acute blood loss Hypofibrinogenemia Coagulopathy secondary to poor hepatic synthetic function and consumption due to acute blood loss. Monitor CBC, transfuse as indicated for hgb <7 or symptomatic. s/p 2 units PRBC stat. ENDO: Euglycemic without history of diabetes PROPH: SCDs for DVT prophylaxis. Avoid pharmacologic DVT prophylaxis at this time due to anemia and coagulopathy. Famotidine p.o. for stress ulcer prophylaxis. ACCESS: Peripheral IV providing adequate access at this time. Full code Patient and his sisters were updated at bedside. Level 3 followup. (1) Laceration of neck Qualifiers: Encounter type: initial encounter Qualified Code(s): S11.91XA - Laceration without foreign body of unspecified part of neck, initial encounter
[2018-02-26] MEDS: chlordiazePOXIDE 25 MG Capsule PO SCH ×5 (00:32→15:36)
[2018-02-26] MEDS: Dexmedetomidine Inj 200 MCG in Sodium Chlor 0.9% Inj 48 ML IV.CONT PRN ×2 (05:14→22:03)
[2018-02-26] MEDS: Pentoxifylline 400 MG Controlled Release Tablet PO SCH ×5 (07:26→17:59)
[2018-02-26] MEDS: Senna/Docusate Sodium 8.6/50 MG Tablet PO SCH ×4 (07:27→21:04)
[2018-02-26] MEDS: Chlorhexidine Gluconate 2% 1 Pack (2 Cloths) TOPICAL SCH ×2 (07:34→07:45)
[2018-02-26] MEDS: rifAXIMin 550 MG Tablet PO SCH ×3 (07:35→21:03)
[2018-02-26] MEDS: MethylPREDNISolone Sod Succinate Inj 40 MG/ML Vial IV.PUSH SCH ×3 (07:35→21:04)
[2018-02-26] MEDS: Pantoprazole Inj 40 MG Vial IV.PUSH SCH (07:39)
[2018-02-26] MEDS: Nadolol 20 MG Tablet PO SCH (09:53)
[2018-02-26 10:05] LABS: Albumin 2.1 g/dL (3.4-5.0); Anion Gap 7 meq/L (5-15); Aspartate Aminotransferase 115 U/L (15-37); Blood Urea Nitrogen 10 mg/dL (7-18); Calcium 7.5 mg/dL (8.5-10.1); Carbon Dioxide 26.4 meq/L (21.0-32.0); Chloride 113 meq/L (98-107); Glomerular Filtration Rate Greater Than 89 mL/min (>89); Glucose,Random 119 mg/dL (74-106); Potassium 3.3 meq/L (3.5-5.1); Sodium 146 meq/L (136-145)
[2018-02-26 10:06] LABS: Alanine Aminotransferase 96 U/L (12-78)
[2018-02-26 10:08] LABS: Alkaline Phosphatase 97 U/L (45-117); Total Protein 5.4 g/dL (6.4-8.2)
[2018-02-26 10:11] LABS: Baso % (Auto) 0.1 % (0.0-2.0); Hematocrit 30.8 % (39.0-51.0); Hemoglobin 9.9 gm/dL (13.0-17.0); Lymph # (Auto) 0.6 th/mm3 (1.0-4.8); Lymph % (Auto) 12.9 % (9.0-44.0); Mean Corpuscular HGB Conc 32.2 % (32.0-36.0); Mean Corpuscular Hemoglobin 29.4 pg (27.0-34.0); Mean Corpuscular Volume 91.4 fL (80.0-100.0); Mean Platelet Volume 8.8 fL (7.0-11.0); Mono # (Auto) 0.5 th/mm3 (0.0-0.9); Mono % (Auto) 11.7 % (0.0-8.0); Neut # (Auto) 3.2 th/mm3 (1.8-7.7); Neut % (Auto) 75.3 % (16.0-70.0); Platelet Count 72 th/mm3 (150-450); Red Blood Count 3.37 mil/mm3 (4.50-5.90); Red Cell Distribution Width 19.6 % (11.6-17.2); White Blood Count 4.3 th/mm3 (4.0-11.0)
[2018-02-26 11:06] LABS: Platelet Morphology Normal (Normal); Target Cells 1+
[2018-02-26] MEDS: Pantoprazole Inj 80 MG in Sodium Chlor 0.9% Inj 100 ML IV.CONT SCH ×2 (11:33→11:37)
--- NOTE | 2018-02-26 16:07 | P.PNGI ---
Subjective Interval history: Laying in bed somewhat confused and lethargic but no evidence of active bleeding at this point Physical Exam Vital signs: Vital Signs 02/25/18 16:00 02/25/18 16:01 02/25/18 17:00 Temperature 97.6 F Pulse Rate 67 68 75 Respiratory Rate 24 21 25 H Blood Pressure 134/70 155/89 H 132/75 Pulse Oximetry 93 L 93 L 93 L 02/25/18 17:01 02/25/18 18:00 02/25/18 19:00 Temperature Pulse Rate 74 58 L 55 L Respiratory Rate 25 H 22 12 Blood Pressure 134/70 126/74 Pulse Oximetry 93 L 95 97 02/25/18 19:48 02/25/18 20:00 02/25/18 21:00 Temperature 98.0 F Pulse Rate 57 L 63 78 Respiratory Rate 23 21 23 Blood Pressure 109/75 146/82 H 100/63 Pulse Oximetry 96 96 94 L 02/25/18 22:00 02/25/18 23:00 02/26/18 00:00 Temperature Pulse Rate 80 74 50 L Respiratory Rate 20 17 19 Blood Pressure 97/63 L 111/72 Pulse Oximetry 93 L 92 L 95 02/26/18 00:01 02/26/18 01:00 02/26/18 01:35 Temperature Pulse Rate 52 L 66 74 Respiratory Rate 20 26 H 20 Blood Pressure 143/70 H 108/64 Pulse Oximetry 95 90 L 92 L 02/26/18 02:00 02/26/18 02:01 02/26/18 03:00 Temperature Pulse Rate 55 L 58 L 58 L Respiratory Rate 18 19 20 Blood Pressure 143/80 H 123/76 Pulse Oximetry 98 98 94 L 02/26/18 04:00 02/26/18 05:00 02/26/18 06:00 Temperature 98.1 F Pulse Rate 55 L 44 L 50 L Respiratory Rate 18 13 14 Blood Pressure 134/80 137/77 139/84 Pulse Oximetry 95 97 98 02/26/18 08:00 02/26/18 08:01 02/26/18 09:00 Temperature 97.6 F Pulse Rate 55 L 57 L 42 L Respiratory Rate 16 16 14 Blood Pressure 130/77 Pulse Oximetry 94 L 93 L 94 L 02/26/18 09:01 02/26/18 09:07 02/26/18 10:00 Temperature Pulse Rate 43 L 47 L Respiratory Rate 11 L 15 Blood Pressure 152/80 H Pulse Oximetry 95 94 L 97 02/26/18 10:08 02/26/18 11:00 02/26/18 12:00 Temperature 97.9 F Pulse Rate 57 L 64 56 L Respiratory Rate 19 18 16 Blood Pressure 169/93 H 149/76 H 165/81 H Pulse Oximetry 95 97 99 Intake & Output 02/25/18 02/26/18 02/26/18 18:59 06:59 18:59 Intake Total 1400 / 1400 1040 / 1040 2171.2 / 2171.2 Output Total 600 / 600 2300 / 2300 Balance 800 / 800 -1260 / -1260 2171.2 / 2171.2 Intake: IV 1000 / 1000 1000 / 1000 2171.2 / 2171.2 D5W/LR Inj 1,000 ML @ 85 mls/hr 1000 / 1000 1000 / 1000 IV.CONT .[id number] REBECCA Rx#: [id number] Magnesium Sulfate Inj 2 GM In 0 / 0 NS Inj 96 ML @ 50 mls/hr IV.SIG UNSCH PRN Rx#:[id number] KCl 20 mEq Premix Inj 20 meq In 100 / 100 100 ml @ 50 mls/hr IV.SIG Q2H PRN Rx#:[id number] Potassium Phosphate Inj 30 MMOL 260 / 260 In NS Inj 250 ML @ 42 mls/hr IV.SIG UNSCH PRN Rx#:[id number] Oral 400 / 400 40 / 40 Output: Urine 600 / 600 2300 / 2300 Other: Date of Last Bowel Movement 02/22/18 02/22/18 02/22/18 - Constitutional no acute distress, somnolent - Routine HEENT Exam Head: Present: normocephalic, atraumatic Eye: Present: EOMI ENT: Present: mucous membranes moist - Routine Neck Exam Present: supple - Routine Respiratory Exam Present: CTA bilaterally - Routine Cardiovascular Exam Present: RRR - Routine Abdominal Exam Present: distended (Mildly distended mostly tympanic). Absent: tenderness - Routine Extremities Exam Absent: cyanosis, clubbing, edema Results - Labs CBC & Chem 7: 02/26/18 08:52 02/26/18 08:52 Laboratory Results - last 24 hr 02/24/18 02/26/18 02/26/18 10:17 08:52 08:52 WBC 4.3 RBC 3.37 L Hgb 9.9 L Hct 30.8 L MCV 91.4 MCH 29.4 MCHC 32.2 RDW 19.6 H Plt Count 72 L MPV 8.8 Prelim Diff (Auto) Slide review pending Neut % (Auto) 75.3 H Lymph % (Auto) 12.9 Howell % (Auto) 11.7 H Eos % (Auto) 0.0 Baso % (Auto) 0.1 Neut # (Auto) 3.2 Lymph # (Auto) 0.6 L Howell # (Auto) 0.5 Eos # (Auto) 0.0 Baso # (Auto) 0.0 WBC Differential . Diff Scan Auto diff confirmed Differential Comment . Platelet Estimate Low L Platelet Morphology Normal Target Cells 1+ H Sodium 146 H Potassium 3.3 L Chloride 113 H Carbon Dioxide 26.4 Anion Gap 7 BUN 10 Creatinine 0.63 Estimated GFR Greater than 89 Random Glucose 119 H Calcium 7.5 L Total Bilirubin 2.1 H AST 115 H ALT 96 H Alkaline Phosphatase 97 Total Protein 5.4 L Albumin 2.1 L Blood Bank Comment Assessment and Plan - Attending Attestation - Elevated LFTs with history of ETOH abuse consistent with alcoholic hepatitis pt reports drinking 3 12 oz cans of beer daily for the past ten years, alcohol level was elevated on admission. Denies known personal history of liver issues. Denies history of or current illicit drug use, urine toxicology is positive for cannabinoids. Denies tattoos, high risk sexual behaviors. Denies family history of liver issues. Denies taking prescription medication or OTC herbs and supplements. Takes BC Powder LFTs have been trending up since admission Currently (02/22) AST-[id number] ALT-225 Alk phos-83 T bili-2.6 DF-44 Would benefit from steroids Liver US (02/22) Cirrhotic appearing liver with trace amount of ascites. Gallbladder wall thickening with mild pericholecystic fluid. Findings are commonly seen in the setting of chronic liver disease but limit overall sonographic sensitivity for detection of early acute cholecystitis. Trace peripancreatic fluid. Suspect this is due to overall mesenteric edema. Thrombocytopenia (plts-59) Coagulopathy (INR-2.1) Hypoalbuminemia (albumin- 2.3) - Hyperammonemia- ammonia-48- pt on Lactulose- Xifaxan - Anemia- drop in H/H from admission to recheck early this AM- noted to be partially dilutional. Likely multifactorial, according to ER notes, there was noted to be significant bleeding from neck when EMS arrived on scene Of note, pt reports taking BC Powder TID for 2 years for orthopedic pains, prior to this was taking Ibuprofen but states he stopped this because he was having BRB from his rectum. Did not seek medical care, states resolved when he stopped Ibuprofen. Denies prior EGD or colonoscopy -Cirrhosis 02/23/2018 patient is resting in the bed with his eyes closed but is answering simple questions. Mother is in the room for supportive care. Patient appears to have no increased anxiety and seems to be lucid for his answers. We will plan EGD for tomorrow but need to check INR labs and possibly give FFP if needed. Vitamin K given today. Currently patient denies any nausea or vomiting and no abdominal pain. Labs show bilirubin 2.4 AST 925 ALT 181, 3.9 alpha-fetoprotein. Liver workup pending. Labs show current hemoglobin 8.1. Admission to the hospital currently continues to be monitored in the intensive care setting underlying cirrhosis with lactic and metabolic acidosis, stable gradual improvement, GI symptoms of nausea vomiting and no obvious bleeding stable. IV fluids continue at 125 an hour. Polanco catheter in place for accurate I&O. Plan: No varices noted and no active bleedings noted on endoscopy Liver workup pending Xifaxan, steroids, Protonix,Pentoxifylline Avoid hepatotoxins And stop alcohol Monitor labs Advance diet as tolerated
--- NOTE | 2018-02-26 19:37 | P.PNCC ---
Subjective Subjective Remarks/Hospital Course: 52-year-old male with past medical history of tobacco and alcohol dependence. He states he was sharpening a non-serrated carving knife this morning while intoxicated. He said he got up to put the knife away and he tripped and fell and lacerated his left neck around 10 am on 02/21. He states he hit his head on the counter and had loss of consciousness. There was blood pooling on the floor and each time he tried to get up he was near-syncopal so he remained on the floor all day until neighbors found him at around 8 pm. He was brought to [facility] by [facility]. The wound was explored by the emergency medicine physician and platysma appeared intact. CTA of the neck demonstrated soft tissue swelling in the subcut fat with deeper structures appearing intact. He was found to have anion-gap lactic acidosis with bicarb of 11.9, anion gap of 26 , lactic acid 16. EtOH level is still 134. CPK is 309. Creatinine is normal. His hemoglobin is 9.4. Most recent prior hemoglobin was 13.[address] Ayl discussed with Dr. Amador who recommended admission to medicine. The laceration was repaired in the ED and patient received 2 L normal saline bolus, Ancef 2gram, Td, Zofran and reglan for nausea. He denies headache, dysphagia, chest pain, shortness of breath, abdominal pain, flank pain, vomiting, melena, hematemesis, audiovisual hallucinations. He is tremulous and complains of thirst. He is a daily drinker of at least 10 beers per day, last drink was 9 am on 02/21. 02/23: Patient lying in bed somnolent from Ativan given overnight for alcohol withdrawal. Currently cooperative. Hemoglobin stable 8.1. Platelet count 54. Potassium 3.1 getting replaced. Tremulous on exam 02/24 EGD today with esophagitis, portal gastropathy, small varices non-bleeding and thus no intervention. EtOH withdrawal symptoms and delirium have accelerated despite librium, ativan, haldol.. Adding precedex. Subjective: 02/25 Remains on precedex. DTs are the primary issue at this point, seems a little better than yesterday but still delirious. 02/26: agitated delirium persists. remains on precedex, although mental status starting to clear slightly. hgb stable. Objective Vital Signs / I&O: Vital Signs 02/25/18 19:48 02/25/18 20:00 02/25/18 21:00 Temperature 36.7 C Pulse Rate 57 L 63 78 Respiratory Rate 23 21 23 Blood Pressure 109/75 146/82 H 100/63 Pulse Oximetry 96 96 94 L 02/25/18 22:00 02/25/18 23:00 02/26/18 00:00 Temperature Pulse Rate 80 74 50 L Respiratory Rate 20 17 19 Blood Pressure 97/63 L 111/72 Pulse Oximetry 93 L 92 L 95 02/26/18 00:01 02/26/18 01:00 02/26/18 01:35 Temperature Pulse Rate 52 L 66 74 Respiratory Rate 20 26 H 20 Blood Pressure 143/70 H 108/64 Pulse Oximetry 95 90 L 92 L 02/26/18 02:00 02/26/18 02:01 02/26/18 03:00 Temperature Pulse Rate 55 L 58 L 58 L Respiratory Rate 18 19 20 Blood Pressure 143/80 H 123/76 Pulse Oximetry 98 98 94 L 02/26/18 04:00 02/26/18 05:00 02/26/18 06:00 Temperature 36.7 C Pulse Rate 55 L 44 L 50 L Respiratory Rate 18 13 14 Blood Pressure 134/80 137/77 139/84 Pulse Oximetry 95 97 98 02/26/18 08:00 02/26/18 08:01 02/26/18 09:00 Temperature 36.4 C Pulse Rate 55 L 57 L 42 L Respiratory Rate 16 16 14 Blood Pressure 130/77 Pulse Oximetry 94 L 93 L 94 L 02/26/18 09:01 02/26/18 09:07 02/26/18 10:00 Temperature Pulse Rate 43 L 47 L Respiratory Rate 11 L 15 Blood Pressure 152/80 H Pulse Oximetry 95 94 L 97 02/26/18 10:08 02/26/18 11:00 02/26/18 12:00 Temperature 36.6 C Pulse Rate 57 L 64 56 L Respiratory Rate 19 18 16 Blood Pressure 169/93 H 149/76 H 165/81 H Pulse Oximetry 95 97 99 02/26/18 14:00 02/26/18 16:00 02/26/18 18:00 Temperature 36.8 C Pulse Rate 78 52 L 56 L Respiratory Rate 17 Blood Pressure 149/75 H Pulse Oximetry 96 Intake & Output 02/26/18 02/26/18 02/27/18 06:59 18:59 06:59 Intake Total 1040 / 1040 2171.2 / 2171.2 Output Total 2300 / 2300 275 / 275 Balance -1260 / -1260 1896.2 / 1896.2 Intake: IV 1000 / 1000 2171.2 / 2171.2 D5W/LR Inj 1,000 ML @ 85 mls/hr 1000 / 1000 IV.CONT .[id number] [facility] Rx#: [id number] Magnesium Sulfate Inj 2 GM In 0 / 0 NS Inj 96 ML @ 50 mls/hr IV.SIG UNSCH PRN Rx#:[id number] KCl 20 mEq Premix Inj 20 meq In 100 / 100 100 ml @ 50 mls/hr IV.SIG Q2H PRN Rx#:[id number] Potassium Phosphate Inj 30 MMOL 260 / 260 In NS Inj 250 ML @ 42 mls/hr IV.SIG UNSCH PRN Rx#:[id number] Oral 40 / 40 Output: Urine 2300 / 2300 275 / 275 Other: Date of Last Bowel Movement 02/22/18 02/22/18 Result Diagrams: 02/26/18 08:52 02/26/18 08:52 Objective Remarks: GENERAL: Disheveled male who is laying in bed, in soft restraints. SKIN: Multiple ecchymosis overlying right lateral chest wall. HEAD: Normocephalic. EYES: Pupils equal and round, 3mm and reactive. ENT: No nasal bleeding or discharge. Mucous membranes pink and moist. NECK: Trachea midline. 3-3.5 cm linear laceration left neck that has been sutured with simple interrupted sutures. No swelling or erythema CARDIOVASCULAR: Regular rate and rhythm. 2/6 systolic murmur LSB. RESPIRATORY: Breathing comfortably on room air with no accessory muscle use. Clear to auscultation. GASTROINTESTINAL: Abdomen soft, non-tender, nondistended. Bowel sounds present. MUSCULOSKELETAL: Extremities without clubbing, cyanosis, or edema. No obvious deformities. NEUROLOGICAL: Patient is sleepy but arousable, intermittently restless. Does awake and converses but demonstrates delusions, delirium. No focal deficits, no asterixis noted today. Assessment and Plan - Problem List (1) Laceration of neck Code(s): S11.91XA - Laceration without foreign body of unspecified part of neck , initial encounter Status: Acute (2) Lactic acidosis Code(s): E87.2 - Acidosis Status: Acute (3) EtOH dependence Code(s): F10.20 - Alcohol dependence, uncomplicated Status: Acute (4) Transaminitis Code(s): R74.0 - Nonspecific elevation of levels of transaminase and lactic acid dehydrogenase [LDH] Status: Acute (5) Hypovolemia Code(s): E86.1 - Hypovolemia Status: Acute (6) Alcohol withdrawal Code(s): F10.239 - Alcohol dependence with withdrawal, unspecified Status: Acute (7) LOC (loss of consciousness) Code(s): R40.20 - Unspecified coma Status: Acute (8) Fall from slip, trip, or stumble Code(s): W01.0XXA - Fall on same level from slipping, tripping and stumbling without subsequent striking against object, initial encounter Status: Acute (9) Acute blood loss anemia Code(s): D62 - Acute posthemorrhagic anemia Status: Acute (10) Thrombocytopenia Code(s): D69.6 - Thrombocytopenia, unspecified Status: Acute (11) Tobacco abuse counseling Code(s): Z71.6 - Tobacco abuse counseling Status: Acute (12) Tobacco abuse Code(s): Z72.0 - Tobacco use Status: Chronic (13) Contusion of rib on right side Code(s): S20.211A - Contusion of right front wall of thorax, initial encounter Status: Acute (14) Hypovolemic shock Code(s): R57.1 - Hypovolemic shock Status: Acute - Assessment and Plan Plan: NEURO: Acute left neck laceration Platysma intact per ED evaluation. CTA unremarkable. Laceration repaired 02/21, suture removal ~7-10 days. Acute alcohol withdrawal Alcohol dependence Librium 25 mg p.o. q12h ativan for CIWA Thiamine/MVI/folic acid x3 days. Wean precedex as tolerated to off increase haldol to 5mg iv for agitation start clonidine 0.3mg po TID to help with withdraw symptoms. Loss of consciousness Suspect syncope secondary to hypovolemia/blood loss. Did report head trauma, CT head negative for acute findings Tylenol prn pain. RESP: Tobacco abuse Right rib contusion Obtained chest x-ray on admit- no cardiomegaly, lungs clear Nicotine patch IS, albuterol prn. Monitor for airway protection during EtoH w/d. CV: Monitor hemodynamic start clonidine to help with tachycardia associated with withdraw. GI: Small Varices Esophagitis Hyperammonemia, resolved Liver cirrhosis Appreciate gastroenterology consult Endoscopy 02/24 - LA Class A esophagitis, small nonbleeding varices, portal gastropathy. Continue Xifaxan and lactulose pentoxifylline per GI Nadolol 20 mg po daily (hold orders) Ammonia has normalized now Holding off on dobhoff and tube feeds for now due to varices, discussing with GI. Family uncertain if plan is to proceed with colonoscopy, discussing with GI. FEN/RENAL: Acute anion gap metabolic acidosisresolved Lactic acidemia resolved Hypovolemic shock. resolved Suspect secondary to hypovolemia and acute blood loss (EtOH abuse, no po intake all day, moderate blood at scene per bystander) Decrease IVF to D51/2 NS 20 KCL/L @ 42/hr. Replace electrolytes as indicated per ICU electrolyte placement protocol. ID: U/a negative. HEME: Acute blood loss anemia Thrombocytopenia, suspect consumptive secondary to acute blood loss Hypofibrinogenemia Coagulopathy secondary to poor hepatic synthetic function and consumption due to acute blood loss. Monitor CBC, transfuse as indicated for hgb <7 or symptomatic. s/p 2 units PRBC stat. ENDO: Euglycemic without history of diabetes PROPH: SCDs for DVT prophylaxis. Avoid pharmacologic DVT prophylaxis at this time due to anemia and coagulopathy. Famotidine p.o. for stress ulcer prophylaxis. ACCESS: Peripheral IV providing adequate access at this time. Full code could safely transition out of ICU once off precedex infusion. continue ciwa. (1) Laceration of neck Qualifiers: Encounter type: initial encounter Qualified Code(s): S11.91XA - Laceration without foreign body of unspecified part of neck, initial encounter
[2018-02-26] MEDS: KCL 20 mEq/D5W/NaCl 0.45% Inj 1,000 ML IV.CONT SCH (21:02)
[2018-02-26] MEDS ORDERED: Haloperidol Inj 5 MG/ML Ampul IV.PUSH PRN (22:43)
[2018-02-27] MEDS: chlordiazePOXIDE 25 MG Capsule PO SCH ×2 (04:06→15:12)
[2018-02-27 06:02] LABS: Alanine Aminotransferase 86 U/L (12-78); Anion Gap 6 meq/L (5-15); Aspartate Aminotransferase 83 U/L (15-37); Blood Urea Nitrogen 17 mg/dL (7-18); Calcium 7.6 mg/dL (8.5-10.1); Carbon Dioxide 26.5 meq/L (21.0-32.0); Chloride 113 meq/L (98-107); Glomerular Filtration Rate Greater Than 89 mL/min (>89); Glucose,Random 127 mg/dL (74-106); Magnesium 1.8 mg/dL (1.5-2.5); Phosphorus 3.7 mg/dL (2.5-4.9); Potassium 3.9 meq/L (3.5-5.1); Sodium 145 meq/L (136-145)
[2018-02-27 06:05] LABS: Alkaline Phosphatase 98 U/L (45-117); Total Protein 5.4 g/dL (6.4-8.2)
[2018-02-27] MEDS: Pantoprazole Inj 40 MG Vial IV.PUSH SCH (06:08)
[2018-02-27 06:59] LABS: Baso % (Auto) 0.2 % (0.0-2.0); Hematocrit 31.1 % (39.0-51.0); Lymph # (Auto) 0.8 th/mm3 (1.0-4.8); Lymph % (Auto) 11.4 % (9.0-44.0); Mean Corpuscular HGB Conc 32.3 % (32.0-36.0); Mean Corpuscular Hemoglobin 29.6 pg (27.0-34.0); Mean Corpuscular Volume 91.4 fL (80.0-100.0); Mean Platelet Volume 8.9 fL (7.0-11.0); Mono # (Auto) 0.7 th/mm3 (0.0-0.9); Mono % (Auto) 10.4 % (0.0-8.0); Neut # (Auto) 5.3 th/mm3 (1.8-7.7); Platelet Count 82 th/mm3 (150-450); Red Cell Distribution Width 19.2 % (11.6-17.2); White Blood Count 6.8 th/mm3 (4.0-11.0)
[2018-02-27] MEDS: Pentoxifylline 400 MG Controlled Release Tablet PO SCH ×3 (08:39→18:21)
[2018-02-27] MEDS: Nadolol 20 MG Tablet PO SCH (08:39)
[2018-02-27] MEDS: Senna/Docusate Sodium 8.6/50 MG Tablet PO SCH ×2 (08:39→20:51)
[2018-02-27] MEDS: rifAXIMin 550 MG Tablet PO SCH ×2 (08:39→20:52)
[2018-02-27] MEDS: MethylPREDNISolone Sod Succinate Inj 40 MG/ML Vial IV.PUSH SCH ×2 (08:40→20:50)
[2018-02-27 09:22] LABS: Platelet Morphology Normal (Normal); Target Cells 1+
--- NOTE | 2018-02-27 12:00 | P.PNGI ---
Subjective Interval history: Patient is attempting to sit up in bed but is still fairly weakened and leaning over Oxygen at 4 L, heart rate 54 No obvious bleeding Still has shakey hands and continues CIWA protocol Physical Exam Vital signs: Vital Signs 02/26/18 12:00 02/26/18 14:00 02/26/18 16:00 Temperature 97.9 F 98.2 F Pulse Rate 56 L 78 52 L Respiratory Rate 16 17 Blood Pressure 165/81 H 149/75 H Pulse Oximetry 99 96 02/26/18 17:00 02/26/18 17:01 02/26/18 18:00 Temperature Pulse Rate 60 60 56 L Respiratory Rate 20 19 17 Blood Pressure 125/73 161/85 H Pulse Oximetry 93 L 93 L 95 02/26/18 19:00 02/26/18 19:48 02/26/18 20:00 Temperature 98.4 F Pulse Rate 80 54 L Respiratory Rate 32 H 20 Blood Pressure 127/85 Pulse Oximetry 86 L 94 L 94 L 02/26/18 20:03 02/26/18 21:00 02/26/18 21:02 Temperature Pulse Rate 56 L 54 L 57 L Respiratory Rate 27 H 30 H 19 Blood Pressure 147/81 H 168/81 H Pulse Oximetry 93 L 95 95 02/26/18 22:00 02/26/18 22:01 02/26/18 23:00 Temperature Pulse Rate 51 L 55 L 53 L Respiratory Rate 18 17 17 Blood Pressure 150/74 H 154/82 H Pulse Oximetry 95 95 94 L 02/27/18 00:00 02/27/18 01:00 02/27/18 02:00 Temperature 98.3 F Pulse Rate 57 L 59 L 58 L Respiratory Rate 17 17 19 Blood Pressure 146/83 H 148/89 H 151/91 H Pulse Oximetry 94 L 93 L 90 L 02/27/18 03:00 02/27/18 03:01 02/27/18 04:00 Temperature 98.3 F Pulse Rate 54 L 54 L 45 L Respiratory Rate 19 18 18 Blood Pressure 160/92 H Pulse Oximetry 92 L 93 L 97 02/27/18 04:01 02/27/18 06:00 02/27/18 08:00 Temperature 97.8 F Pulse Rate 52 L 45 L 43 L Respiratory Rate 21 14 Blood Pressure 161/83 H 156/77 H Pulse Oximetry 96 100 02/27/18 08:48 02/27/18 10:00 Temperature Pulse Rate 50 L Respiratory Rate Blood Pressure Pulse Oximetry 97 Intake & Output 02/26/18 02/27/18 02/27/18 18:59 06:59 18:59 Intake Total 2171.2 / 2171.2 1115 / 1115 Output Total 275 / 275 1300 / 1300 Balance 1896.2 / 1896.2 -185 / -185 Weight 75 kg Intake: IV 2171.2 / 2171.2 1055 / 1055 Precedex Inj 200 MCG In NS Inj 55 / 55 48 ML @ 0.2 MCG/KG/HR 3.52 mls/ hr IV.CONT TITRATE PRN Rx#: [id number] D5W/1/2NS + KCL 20 mEq Inj 1, 1000 / 1000 000 ML @ 42 mls/hr IV.CONT . [id number] [facility] Rx#:[id number] Magnesium Sulfate Inj 2 GM In 0 / 0 NS Inj 96 ML @ 50 mls/hr IV.SIG UNSCH PRN Rx#:[id number] KCl 20 mEq Premix Inj 20 meq In 100 / 100 100 ml @ 50 mls/hr IV.SIG Q2H PRN Rx#:[id number] Potassium Phosphate Inj 30 MMOL 260 / 260 In NS Inj 250 ML @ 42 mls/hr IV.SIG UNSCH PRN Rx#:[id number] Oral 60 / 60 Output: Urine 275 / 275 1300 / 1300 Other: Date of Last Bowel Movement 02/22/18 02/22/18 02/22/18 # Bowel Movements 0 # Incontinent Bowel Movements 0 - Constitutional mild distress - Routine HEENT Exam Head: Present: normocephalic ENT: Present: mucous membranes moist - Routine Respiratory Exam Present: accessory muscle use (No acute shortness of breath but does require oxygen per nasal cannula) - Routine Cardiovascular Exam Present: bradycardia - Routine Abdominal Exam Present: soft (taut, soft bowel sounds) - Routine Neurological Exam Present: alert (Drowsy but is responding to soft verbal stimuli) Results - Labs CBC & Chem 7: 02/27/18 06:11 02/27/18 04:23 Laboratory Results - last 24 hr 02/27/18 02/27/18 04:23 06:11 WBC 6.8 D RBC 3.40 L Hgb 10.0 L Hct 31.1 L MCV 91.4 MCH 29.6 MCHC 32.3 RDW 19.2 H Plt Count 82 L MPV 8.9 Prelim Diff (Auto) Slide review pending Neut % (Auto) 78.0 H Lymph % (Auto) 11.4 Bleckley % (Auto) 10.4 H Eos % (Auto) 0.0 Baso % (Auto) 0.2 Neut # (Auto) 5.3 Lymph # (Auto) 0.8 L Bleckley # (Auto) 0.7 Eos # (Auto) 0.0 Baso # (Auto) 0.0 WBC Differential . Diff Scan Auto diff confirmed Differential Comment . Platelet Estimate Low L Platelet Morphology Normal Target Cells 1+ H Sodium 145 Potassium 3.9 Chloride 113 H Carbon Dioxide 26.5 Anion Gap 6 BUN 17 Creatinine 0.63 Estimated GFR Greater than 89 Random Glucose 127 H Calcium 7.6 L Phosphorus 3.7 Magnesium 1.8 Total Bilirubin 1.9 H AST 83 H ALT 86 H Alkaline Phosphatase 98 Total Protein 5.4 L Albumin 2.0 L
--- NOTE | 2018-02-27 12:04 | P.PNGI ---
Physical Exam Vital signs: Vital Signs 02/26/18 22:00 02/26/18 22:01 02/26/18 23:00 Temperature Pulse Rate 51 L 55 L 53 L Respiratory Rate 18 17 17 Blood Pressure 150/74 H 154/82 H Pulse Oximetry 95 95 94 L 02/27/18 00:00 02/27/18 01:00 02/27/18 02:00 Temperature 98.3 F Pulse Rate 57 L 59 L 58 L Respiratory Rate 17 17 19 Blood Pressure 146/83 H 148/89 H 151/91 H Pulse Oximetry 94 L 93 L 90 L 02/27/18 03:00 02/27/18 03:01 02/27/18 04:00 Temperature 98.3 F Pulse Rate 54 L 54 L 45 L Respiratory Rate 19 18 18 Blood Pressure 160/92 H Pulse Oximetry 92 L 93 L 97 02/27/18 04:01 02/27/18 06:00 02/27/18 08:00 Temperature 97.8 F Pulse Rate 52 L 45 L 43 L Respiratory Rate 21 14 Blood Pressure 161/83 H 156/77 H Pulse Oximetry 96 100 02/27/18 08:48 02/27/18 10:00 02/27/18 12:00 Temperature 97.9 F Pulse Rate 50 L 56 L Respiratory Rate 19 Blood Pressure 164/85 H Pulse Oximetry 97 95 02/27/18 14:00 02/27/18 14:14 02/27/18 16:00 Temperature 97.6 F Pulse Rate 62 56 L 64 Respiratory Rate 19 23 Blood Pressure 114/68 Pulse Oximetry 87 L 02/27/18 16:38 02/27/18 16:40 02/27/18 18:00 Temperature Pulse Rate 48 L 64 Respiratory Rate 23 Blood Pressure Pulse Oximetry 96 02/27/18 20:00 Temperature Pulse Rate 54 L Respiratory Rate 22 Blood Pressure Pulse Oximetry 96 Intake & Output 02/27/18 02/27/18 02/28/18 06:59 18:59 06:59 Intake Total 1115 / 1115 160 / 160 1000 / 1000 Output Total 1300 / 1300 300 / 300 Balance -185 / -185 -140 / -140 1000 / 1000 Weight 75 kg Intake: IV 1055 / 1055 100 / 100 1000 / 1000 Precedex Inj 200 MCG In NS Inj 55 / 55 48 ML @ 0.2 MCG/KG/HR 3.52 mls/ hr IV.CONT TITRATE PRN Rx#: [id number] D5W/1/2NS + KCL 20 mEq Inj 1, 1000 / 1000 1000 / 1000 000 ML @ 42 mls/hr IV.CONT . [id number] [facility] Rx#:[id number] Zosyn 4.5 GM Premix 4.5 gm In 100 / 100 100 ml @ 200 mls/hr IV.SIG Q8H [facility] Rx#:[id number] Oral 60 / 60 60 / 60 Output: Urine 1300 / 1300 300 / 300 Other: Date of Last Bowel Movement 02/22/18 02/22/18 # Bowel Movements 0 0 # Incontinent Bowel Movements 0 0 <Bruce Eric E - Last Filed: 02/27/18 21:05> Vital signs: Vital Signs 02/26/18 14:00 02/26/18 16:00 02/26/18 17:00 Temperature 98.2 F Pulse Rate 78 52 L 60 Respiratory Rate 17 20 Blood Pressure 149/75 H Pulse Oximetry 96 93 L 02/26/18 17:01 02/26/18 18:00 02/26/18 19:00 Temperature Pulse Rate 60 56 L 80 Respiratory Rate 19 17 32 H Blood Pressure 125/73 161/85 H 127/85 Pulse Oximetry 93 L 95 86 L 02/26/18 19:48 02/26/18 20:00 02/26/18 20:03 Temperature 98.4 F Pulse Rate 54 L 56 L Respiratory Rate 20 27 H Blood Pressure 147/81 H Pulse Oximetry 94 L 94 L 93 L 02/26/18 21:00 02/26/18 21:02 02/26/18 22:00 Temperature Pulse Rate 54 L 57 L 51 L Respiratory Rate 30 H 19 18 Blood Pressure 168/81 H Pulse Oximetry 95 95 95 02/26/18 22:01 02/26/18 23:00 02/27/18 00:00 Temperature 98.3 F Pulse Rate 55 L 53 L 57 L Respiratory Rate 17 17 17 Blood Pressure 150/74 H 154/82 H 146/83 H Pulse Oximetry 95 94 L 94 L 02/27/18 01:00 02/27/18 02:00 02/27/18 03:00 Temperature Pulse Rate 59 L 58 L 54 L Respiratory Rate 17 19 19 Blood Pressure 148/89 H 151/91 H Pulse Oximetry 93 L 90 L 92 L 02/27/18 03:01 02/27/18 04:00 02/27/18 04:01 Temperature 98.3 F Pulse Rate 54 L 45 L 52 L Respiratory Rate 18 18 21 Blood Pressure 160/92 H 161/83 H Pulse Oximetry 93 L 97 96 02/27/18 06:00 02/27/18 08:00 02/27/18 08:48 Temperature 97.8 F Pulse Rate 45 L 43 L Respiratory Rate 14 Blood Pressure 156/77 H Pulse Oximetry 100 97 02/27/18 10:00 Temperature Pulse Rate 50 L Respiratory Rate Blood Pressure Pulse Oximetry Intake & Output 02/26/18 02/27/18 02/27/18 18:59 06:59 18:59 Intake Total 2171.2 / 2171.2 1115 / 1115 Output Total 275 / 275 1300 / 1300 Balance 1896.2 / 1896.2 -185 / -185 Weight 75 kg Intake: IV 2171.2 / 2171.2 1055 / 1055 Precedex Inj 200 MCG In NS Inj 55 / 55 48 ML @ 0.2 MCG/KG/HR 3.52 mls/ hr IV.CONT TITRATE PRN Rx#: [id number] D5W/1/2NS + KCL 20 mEq Inj 1, 1000 / 1000 000 ML @ 42 mls/hr IV.CONT . [id number] [facility] Rx#:[id number] Magnesium Sulfate Inj 2 GM In 0 / 0 NS Inj 96 ML @ 50 mls/hr IV.SIG UNSCH PRN Rx#:[id number] KCl 20 mEq Premix Inj 20 meq In 100 / 100 100 ml @ 50 mls/hr IV.SIG Q2H PRN Rx#:[id number] Potassium Phosphate Inj 30 MMOL 260 / 260 In NS Inj 250 ML @ 42 mls/hr IV.SIG UNSCH PRN Rx#:[id number] Oral 60 / 60 Output: Urine 275 / 275 1300 / 1300 Other: Date of Last Bowel Movement 02/22/18 02/22/18 02/22/18 # Bowel Movements 0 # Incontinent Bowel Movements 0 <Isha Montanez - Last Filed: 02/28/18 15:22> Results - Labs CBC & Chem 7: 02/27/18 06:11 02/27/18 04:23 Laboratory Results - last 24 hr 02/27/18 02/27/18 02/27/18 04:23 06:11 18:06 WBC 6.8 D RBC 3.40 L Hgb 10.0 L Hct 31.1 L MCV 91.4 MCH 29.6 MCHC 32.3 RDW 19.2 H Plt Count 82 L MPV 8.9 Prelim Diff (Auto) Slide review pending Neut % (Auto) 78.0 H Lymph % (Auto) 11.4 O'Brien % (Auto) 10.4 H Eos % (Auto) 0.0 Baso % (Auto) 0.2 Neut # (Auto) 5.3 Lymph # (Auto) 0.8 L O'Brien # (Auto) 0.7 Eos # (Auto) 0.0 Baso # (Auto) 0.0 WBC Differential . Diff Scan Auto diff confirmed Differential Comment . Platelet Estimate Low L Platelet Morphology Normal Target Cells 1+ H Puncture Site Right radial Patient Temperature 98.6 O2 Saturation 90 ABG pH 7.49 H ABG pCO2 31 L ABG pO2 62 ABG HCO3 23 ABG O2 Content 12.4 ABG Base Excess 0.0 ABG Methemoglobin 1.2 Baudilio Test Present Hemoglobin 9.7 L Carboxyhemoglobin 1.3 O2 Delivery Device Nasal cannula Liter Flow 5.00 Inspired O2 21 Critical Value No Sodium 145 Potassium 3.9 Chloride 113 H Carbon Dioxide 26.5 Anion Gap 6 BUN 17 Creatinine 0.63 Estimated GFR Greater than 89 Random Glucose 127 H Calcium 7.6 L Phosphorus 3.7 Magnesium 1.8 Total Bilirubin 1.9 H AST 83 H ALT 86 H Alkaline Phosphatase 98 Total Protein 5.4 L Albumin 2.0 L - Imaging Impressions Chest X-Ray 02/27/18 00:00 CONCLUSION: Interval development of airspace opacities in the medial infrahilar region bilaterally. <Bruce Eric E - Last Filed: 02/27/18 21:05> - Labs CBC & Chem 7: 02/28/18 04:16 02/28/18 04:16 Laboratory Results - last 24 hr 02/27/18 02/27/18 04:23 06:11 WBC 6.8 D RBC 3.40 L Hgb 10.0 L Hct 31.1 L MCV 91.4 MCH 29.6 MCHC 32.3 RDW 19.2 H Plt Count 82 L MPV 8.9 Prelim Diff (Auto) Slide review pending Neut % (Auto) 78.0 H Lymph % (Auto) 11.4 O'Brien % (Auto) 10.4 H Eos % (Auto) 0.0 Baso % (Auto) 0.2 Neut # (Auto) 5.3 Lymph # (Auto) 0.8 L O'Brien # (Auto) 0.7 Eos # (Auto) 0.0 Baso # (Auto) 0.0 WBC Differential . Diff Scan Auto diff confirmed Differential Comment . Platelet Estimate Low L Platelet Morphology Normal Target Cells 1+ H Sodium 145 Potassium 3.9 Chloride 113 H Carbon Dioxide 26.5 Anion Gap 6 BUN 17 Creatinine 0.63 Estimated GFR Greater than 89 Random Glucose 127 H Calcium 7.6 L Phosphorus 3.7 Magnesium 1.8 Total Bilirubin 1.9 H AST 83 H ALT 86 H Alkaline Phosphatase 98 Total Protein 5.4 L Albumin 2.0 L <Isha Montanez - Last Filed: 02/28/18 15:22> Assessment and Plan - Attending Attestation Patient seen and examined Agree with above Continue with current supportive care Monitor labs Advance diet to low-salt diet <Bruce Eric - Last Filed: 02/27/18 21:05> - Plan - Elevated LFTs with history of ETOH abuse consistent with alcoholic hepatitis pt reports drinking 3 12 oz cans of beer daily for the past ten years, alcohol level was elevated on admission. Denies known personal history of liver issues. Denies history of or current illicit drug use, urine toxicology is positive for cannabinoids. Denies tattoos, high risk sexual behaviors. Denies family history of liver issues. Denies taking prescription medication or OTC herbs and supplements. Takes BC Powder LFTs have been trending up since admission Currently (02/22) AST-[id number] ALT-225 Alk phos-83 T bili-2.6 DF-44 Would benefit from steroids Liver US (02/22) Cirrhotic appearing liver with trace amount of ascites. Gallbladder wall thickening with mild pericholecystic fluid. Findings are commonly seen in the setting of chronic liver disease but limit overall sonographic sensitivity for detection of early acute cholecystitis. Trace peripancreatic fluid. Suspect this is due to overall mesenteric edema. Thrombocytopenia (plts-59) Coagulopathy (INR-2.1) Hypoalbuminemia (albumin- 2.3) - Hyperammonemia- ammonia-48- pt on Lactulose- Xifaxan - Anemia- drop in H/H from admission to recheck early this AM- noted to be partially dilutional. Likely multifactorial, according to ER notes, there was noted to be significant bleeding from neck when EMS arrived on scene Of note, pt reports taking BC Powder TID for 2 years for orthopedic pains, prior to this was taking Ibuprofen but states he stopped this because he was having BRB from his rectum. Did not seek medical care, states resolved when he stopped Ibuprofen. Denies prior EGD or colonoscopy -Cirrhosis 02/23/2018 patient is resting in the bed with his eyes closed but is answering simple questions. Mother is in the room for supportive care. Patient appears to have no increased anxiety and seems to be lucid for his answers. We will plan EGD for tomorrow but need to check INR labs and possibly give FFP if needed. Vitamin K given today. Currently patient denies any nausea or vomiting and no abdominal pain. Labs show bilirubin 2.4 AST 925 ALT 181, 3.9 alpha-fetoprotein. Liver workup pending. Labs show current hemoglobin 8.1. Admission to the hospital currently continues to be monitored in the intensive care setting underlying cirrhosis with lactic and metabolic acidosis, stable gradual improvement, GI symptoms of nausea vomiting and no obvious bleeding stable. IV fluids continue at 125 an hour. Polanco catheter in place for accurate I&O. 02/27/2018 hemoglobin stable at 10. Patient is still very weak and fatigued and appears to have shakey hands. Speech is slurred mildly understandable. Patient tolerated small amounts of clear liquids today without any current nausea vomiting currently continue same treatment EGD 02/24/2018 showed 3 columns of esophageal varices but no banding was needed. Remains on nadolol 20 mg daily Plan: Diet clear liquids Xifaxan, steroids, Protonix,Pentoxifylline, Nadolol 20 mg daily Avoid hepatotoxins Monitor labs and for any active bleeding Patient was seen per myself and Dr. Eric, note was written on his behalf <Isha Montanez - Last Filed: 02/28/18 15:22>
[2018-02-27] MEDS: guaiFENesin 600 MG ER Tablet PO SCH ×2 (15:24→20:51)
[2018-02-27] MEDS: Piperacil/Tazo 4.5 GM Premix 4.5 GM/100 ML BAG IV.SIG SCH ×2 (15:24→23:46)
--- NOTE | 2018-02-27 17:17 | P.PNIM ---
Subjective Interval history: 52-year-old male with past medical history of tobacco and alcohol dependence. He states he was sharpening a non-serrated carving knife this morning while intoxicated. He said he got up to put the knife away and he tripped and fell and lacerated his left neck around 10 am on 02/21. He states he hit his head on the counter and had loss of consciousness. There was blood pooling on the floor and each time he tried to get up he was near-syncopal so he remained on the floor all day until neighbors found him at around 8 pm. [place] [facility] [place] The wound was explored by the emergency medicine physician and platysma appeared intact. CTA of the neck demonstrated soft tissue swelling in the subcut fat with deeper structures appearing intact. He was found to have anion-gap lactic acidosis with bicarb of 11.9, anion gap of 26 , lactic acid 16. EtOH level is still 134. CPK is 309. Creatinine is normal. His hemoglobin is 9.4. Most recent prior hemoglobin was 13.[address] Aly discussed with Dr. Amador who recommended admission to medicine. The laceration was repaired in the ED and patient received 2 L normal saline bolus, Ancef 2gram, Td, Zofran and reglan for nausea. He denies headache, dysphagia, chest pain, shortness of breath, abdominal pain, flank pain, vomiting, melena, hematemesis, audiovisual hallucinations. He is tremulous and complains of thirst. He is a daily drinker of at least 10 beers per day, last drink was 9 am on 02/21. 02/23: Patient lying in bed somnolent from Ativan given overnight for alcohol withdrawal. Currently cooperative. Hemoglobin stable 8.1. Platelet count 54. Potassium 3.1 getting replaced. Tremulous on exam 02/24 EGD today with esophagitis, portal gastropathy, small varices non-bleeding and thus no intervention. EtOH withdrawal symptoms and delirium have accelerated despite librium, ativan, haldol.. Adding precedex. 02/25 Remains on precedex. DTs are the primary issue at this point, seems a little better than yesterday but still delirious. 02/26: agitated delirium persists. remains on precedex, although mental status starting to clear slightly. hgb stable. 8-21 TRANSFERRED TO OUR SERVICE TODAY HAS REMAINED CONFUSED TODAY REQUIRING MORE OXYGEN LUNGS CONGESTED START ANTIBIOTICS AND MUCINEX AND NEB TREATMENTS AM LABS PT AND OT ABG Physical Exam Vital signs: Vital Signs 02/26/18 18:00 02/26/18 19:00 02/26/18 19:48 Temperature Pulse Rate 56 L 80 Respiratory Rate 17 32 H Blood Pressure 161/85 H 127/85 Pulse Oximetry 95 86 L 94 L 02/26/18 20:00 02/26/18 20:03 02/26/18 21:00 Temperature 98.4 F Pulse Rate 54 L 56 L 54 L Respiratory Rate 20 27 H 30 H Blood Pressure 147/81 H Pulse Oximetry 94 L 93 L 95 02/26/18 21:02 02/26/18 22:00 02/26/18 22:01 Temperature Pulse Rate 57 L 51 L 55 L Respiratory Rate 19 18 17 Blood Pressure 168/81 H 150/74 H Pulse Oximetry 95 95 95 02/26/18 23:00 02/27/18 00:00 02/27/18 01:00 Temperature 98.3 F Pulse Rate 53 L 57 L 59 L Respiratory Rate 17 17 17 Blood Pressure 154/82 H 146/83 H 148/89 H Pulse Oximetry 94 L 94 L 93 L 02/27/18 02:00 02/27/18 03:00 02/27/18 03:01 Temperature Pulse Rate 58 L 54 L 54 L Respiratory Rate 19 19 18 Blood Pressure 151/91 H 160/92 H Pulse Oximetry 90 L 92 L 93 L 02/27/18 04:00 02/27/18 04:01 02/27/18 06:00 Temperature 98.3 F Pulse Rate 45 L 52 L 45 L Respiratory Rate 18 21 Blood Pressure 161/83 H Pulse Oximetry 97 96 02/27/18 08:00 02/27/18 08:48 02/27/18 10:00 Temperature 97.8 F Pulse Rate 43 L 50 L Respiratory Rate 14 Blood Pressure 156/77 H Pulse Oximetry 100 97 02/27/18 12:00 02/27/18 14:00 02/27/18 14:14 Temperature Pulse Rate 56 L 62 56 L Respiratory Rate 19 Blood Pressure Pulse Oximetry 02/27/18 16:00 02/27/18 16:38 02/27/18 16:40 Temperature Pulse Rate 64 48 L Respiratory Rate 23 Blood Pressure Pulse Oximetry 96 Intake & Output 02/26/18 02/27/18 02/27/18 18:59 06:59 18:59 Intake Total 2171.2 / 2171.2 1115 / 1115 100 / 100 Output Total 275 / 275 1300 / 1300 Balance 1896.2 / 1896.2 -185 / -185 100 / 100 Weight 75 kg Intake: IV 2171.2 / 2171.2 1055 / 1055 100 / 100 Precedex Inj 200 MCG In NS Inj 55 / 55 48 ML @ 0.2 MCG/KG/HR 3.52 mls/ hr IV.CONT TITRATE PRN Rx#: [id number] D5W/1/2NS + KCL 20 mEq Inj 1, 1000 / 1000 000 ML @ 42 mls/hr IV.CONT . [id number] REBECCA Rx#:[id number] Magnesium Sulfate Inj 2 GM In 0 / 0 NS Inj 96 ML @ 50 mls/hr IV.SIG UNSCH PRN Rx#:[id number] Zosyn 4.5 GM Premix 4.5 gm In 100 / 100 100 ml @ 200 mls/hr IV.SIG Q8H REBECCA Rx#:[id number] KCl 20 mEq Premix Inj 20 meq In 100 / 100 100 ml @ 50 mls/hr IV.SIG Q2H PRN Rx#:[id number] Potassium Phosphate Inj 30 MMOL 260 / 260 In NS Inj 250 ML @ 42 mls/hr IV.SIG UNSCH PRN Rx#:[id number] Oral 60 / 60 Output: Urine 275 / 275 1300 / 1300 Other: Date of Last Bowel Movement 02/22/18 02/22/18 02/22/18 # Bowel Movements 0 # Incontinent Bowel Movements 0 Narrative: GENERAL: Disheveled male who is laying in bed, in soft restraints. SKIN: Multiple ecchymosis overlying right lateral chest wall. HEAD: Normocephalic. EYES: Pupils equal and round, 3mm and reactive. ENT: No nasal bleeding or discharge. Mucous membranes pink and moist. NECK: Trachea midline. 3-3.5 cm linear laceration left neck that has been sutured with simple interrupted sutures. No swelling or erythema CARDIOVASCULAR: Regular rate and rhythm. 2/6 systolic murmur LSB. RESPIRATORY: COARSE BS BL- RHONCHI BL NO RALES [employer] INSPIRATIONS GASTROINTESTINAL: Abdomen soft, non-tender, nondistended. Bowel sounds present. MUSCULOSKELETAL: Extremities without clubbing, cyanosis, or edema. No obvious deformities. NEUROLOGICAL: Patient is sleepy but arousable, intermittently restless. Does awake and converses but demonstrates delusions, delirium. No focal deficits, no asterixis noted today. INSIGHT AND JUDGEMENT IS LIMITED Results - Labs CBC & Chem 7: 02/27/18 06:11 02/27/18 04:23 Laboratory Results - last 24 hr 02/27/18 02/27/18 04:23 06:11 WBC 6.8 D RBC 3.40 L Hgb 10.0 L Hct 31.1 L MCV 91.4 MCH 29.6 MCHC 32.3 RDW 19.2 H Plt Count 82 L MPV 8.9 Prelim Diff (Auto) Slide review pending Neut % (Auto) 78.0 H Lymph % (Auto) 11.4 Kane % (Auto) 10.4 H Eos % (Auto) 0.0 Baso % (Auto) 0.2 Neut # (Auto) 5.3 Lymph # (Auto) 0.8 L Kane # (Auto) 0.7 Eos # (Auto) 0.0 Baso # (Auto) 0.0 WBC Differential . Diff Scan Auto diff confirmed Differential Comment . Platelet Estimate Low L Platelet Morphology Normal Target Cells 1+ H Sodium 145 Potassium 3.9 Chloride 113 H Carbon Dioxide 26.5 Anion Gap 6 BUN 17 Creatinine 0.63 Estimated GFR Greater than 89 Random Glucose 127 H Calcium 7.6 L Phosphorus 3.7 Magnesium 1.8 Total Bilirubin 1.9 H AST 83 H ALT 86 H Alkaline Phosphatase 98 Total Protein 5.4 L Albumin 2.0 L - Imaging Neck CTA 02/21/18 21:21 CONCLUSION: 1. Focal soft tissue swelling at the left lateral mid neck primarily within the subcutaneous fat. The deeper structures appear intact. 2. No arterial injury is seen. There is scattered atherosclerotic calcification without a significant stenosis. Chest X-Ray 02/21/18 23:47 CONCLUSION: No acute cardiopulmonary process. Head CT 02/22/18 00:00 CONCLUSION: No acute intracranial abnormality is seen. . Liver Ultrasound 02/22/18 00:00 CONCLUSION: 1. Cirrhotic appearing liver with trace amount of ascites. 2. Gallbladder wall thickening with mild pericholecystic fluid. Findings are commonly seen in the setting of chronic liver disease but limit overall sonographic sensitivity for detection of early acute cholecystitis. If there is compelling continued clinical concern regarding cholecystitis, HIDA scan may be performed to document cystic duct patency. 3. Trace peripancreatic fluid. Suspect this is due to overall mesenteric edema. Clinical correlation with pancreatic enzymes is recommended. Chest X-Ray 02/24/18 06:00 CONCLUSION: Minimal atelectasis or consolidation at the left base. - Procedures EGD today with esophagitis, portal gastropathy, small varices non-bleeding and thus no intervention Assessment and Plan - Plan NEURO: Acute left neck laceration Platysma intact per ED evaluation. CTA unremarkable. Laceration repaired 02/21, suture removal ~7-10 days. Acute alcohol withdrawal Alcohol dependence Librium 25 mg p.o. q12h ativan for CIWA Thiamine/MVI/folic acid x3 days. Wean precedex as tolerated to off increase haldol to 5mg iv for agitation start clonidine 0.3mg po TID to help with withdraw symptoms. OFF PRECEDEX Loss of consciousness Suspect syncope secondary to hypovolemia/blood loss. Did report head trauma, CT head negative for acute findings Tylenol prn pain. RESP: Tobacco abuse Right rib contusion Obtained chest x-ray on admit- no cardiomegaly, lungs clear Nicotine patch IS, albuterol prn. Monitor for airway protection during EtoH w/d. COPD VS PNA- ZOSYN- MUCINEX DUONEBS ADD SOLUMEDROL CV: Monitor hemodynamic start clonidine to help with tachycardia associated with withdraw. GI: Small Varices Esophagitis Hyperammonemia, resolved Liver cirrhosis Appreciate gastroenterology consult Endoscopy 02/24 - LA Class A esophagitis, small nonbleeding varices, portal gastropathy. Continue Xifaxan and lactulose pentoxifylline per GI Nadolol 20 mg po daily (hold orders) Ammonia has normalized now Holding off on dobhoff and tube feeds for now due to varices, discussing with GI. Family uncertain if plan is to proceed with colonoscopy, discussing with GI. FEN/RENAL: Acute anion gap metabolic acidosisresolved Lactic acidemia resolved Hypovolemic shock. resolved Suspect secondary to hypovolemia and acute blood loss (EtOH abuse, no po intake all day, moderate blood at scene per bystander) Decrease IVF to D51/2 NS 20 KCL/L @ 42/hr. Replace electrolytes as indicated per ICU electrolyte placement protocol. ID: U/a negative. HEME: Acute blood loss anemia Thrombocytopenia, suspect consumptive secondary to acute blood loss Hypofibrinogenemia Coagulopathy secondary to poor hepatic synthetic function and consumption due to acute blood loss. Monitor CBC, transfuse as indicated for hgb <7 or symptomatic. s/p 2 units PRBC stat. ENDO: Euglycemic without history of diabetes PROPH: SCDs for DVT prophylaxis. Avoid pharmacologic DVT prophylaxis at this time due to anemia and coagulopathy. Famotidine p.o. for stress ulcer prophylaxis. ACCESS: Peripheral IV providing adequate access at this time. Full code ADD SOLUMEDROL AND ZOSYN AND MUCINEX AND DUONEBS ABG NOW Code Status: FULL CODE Discussed Condition With: RN AND PT AND MOTHER Discharge Planning: PENDING IMPROVEMENT
--- NOTE | 2018-02-27 18:06 | XR ---
EXAM DATE: 02/27/2018 6:00 PM EDT AGE/SEX: 52 years / Male INDICATIONS: Congestion. CLINICAL DATA: This is the patient's subsequent encounter. Patient reports that signs and symptoms h ave been present for 4 - 6 days and indicates a pain score of 0/10. MEDICAL/SURGICAL HISTORY: None. None. COMPARISON: C, CHEST 1V SINGLE AP, 02/24/2018. . FINDINGS: Interval development of indistinctness and fullness of the bronchopulmonary markings in the perihilar and infrahilar region with some ill-defined airspace opacities in the medial lower lungs. Both hemid iaphragms remain well delineated. The heart is normal in size. The upper lungs are clear. CONCLUSION: Interval development of airspace opacities in the medial infrahilar region bilaterally. Electronically signed by: Mikhail Echeverria MD 02/27/2018 6:05 PM EDT
[2018-02-27 18:23] LABS: ABG PCO2 31 mmHg (38-42); ABG PO2 62 mmHG (61-120)
[2018-02-27] MEDS: KCL 20 mEq/D5W/NaCl 0.45% Inj 1,000 ML IV.CONT SCH (20:50)
[2018-02-28] MEDS: chlordiazePOXIDE 25 MG Capsule PO SCH ×2 (03:20→13:40)
[2018-02-28] MEDS: Pantoprazole Inj 40 MG Vial IV.PUSH SCH (05:42)
[2018-02-28 06:18] LABS: INR 1.4 Ratio; Prothrombin Time 14.4 sec (9.8-11.6)
[2018-02-28 06:23] LABS: Baso % (Auto) 0.1 % (0.0-2.0); Hematocrit 31.7 % (39.0-51.0); Hemoglobin 10.2 gm/dL (13.0-17.0); Lymph # (Auto) 0.8 th/mm3 (1.0-4.8); Lymph % (Auto) 6.6 % (9.0-44.0); Mean Corpuscular Hemoglobin 29.2 pg (27.0-34.0); Mean Corpuscular Volume 91.3 fL (80.0-100.0); Mean Platelet Volume 9.1 fL (7.0-11.0); Mono # (Auto) 1.2 th/mm3 (0.0-0.9); Mono % (Auto) 10.1 % (0.0-8.0); Neut # (Auto) 9.6 th/mm3 (1.8-7.7); Neut % (Auto) 83.2 % (16.0-70.0); Platelet Count 99 th/mm3 (150-450); Red Blood Count 3.48 mil/mm3 (4.50-5.90); Red Cell Distribution Width 19.1 % (11.6-17.2); White Blood Count 11.6 th/mm3 (4.0-11.0)
[2018-02-28 06:41] LABS: Albumin 2.2 g/dL (3.4-5.0); Anion Gap 8 meq/L (5-15); Aspartate Aminotransferase 61 U/L (15-37); Blood Urea Nitrogen 17 mg/dL (7-18); Calcium 7.7 mg/dL (8.5-10.1); Carbon Dioxide 27.1 meq/L (21.0-32.0); Chloride 109 meq/L (98-107); Glomerular Filtration Rate Greater Than 89 mL/min (>89); Glucose,Random 110 mg/dL (74-106); Magnesium 1.9 mg/dL (1.5-2.5); Potassium 3.5 meq/L (3.5-5.1); Sodium 144 meq/L (136-145)
[2018-02-28 06:50] LABS: Alanine Aminotransferase 76 U/L (12-78); Alkaline Phosphatase 102 U/L (45-117); Free T4 (Free Thyroxine) 0.85 ng/dL (0.76-1.46); Phosphorus 3.4 mg/dL (2.5-4.9); Total Protein 5.8 g/dL (6.4-8.2)
[2018-02-28 07:51] LABS: Acanthocytes Occ; Platelet Morphology Normal (Normal); Target Cells 1+
[2018-02-28] MEDS: Nadolol 20 MG Tablet PO SCH (10:09)
[2018-02-28] MEDS: Senna/Docusate Sodium 8.6/50 MG Tablet PO SCH ×2 (10:09→21:47)
[2018-02-28] MEDS: MethylPREDNISolone Sod Succinate Inj 40 MG/ML Vial IV.PUSH SCH ×2 (10:09→21:46)
[2018-02-28] MEDS: Piperacil/Tazo 4.5 GM Premix 4.5 GM/100 ML BAG IV.SIG SCH ×3 (10:09→23:47)
[2018-02-28] MEDS: rifAXIMin 550 MG Tablet PO SCH ×2 (10:10→21:47)
[2018-02-28] MEDS: guaiFENesin 600 MG ER Tablet PO SCH ×2 (10:10→21:47)
[2018-02-28] MEDS: Pentoxifylline 400 MG Controlled Release Tablet PO SCH ×3 (10:10→18:44)
--- NOTE | 2018-02-28 12:10 | P.PNIM ---
Subjective Interval history: 52-year-old male with past medical history of tobacco and alcohol dependence. He states he was sharpening a non-serrated carving knife this morning while intoxicated. He said he got up to put the knife away and he tripped and fell and lacerated his left neck around 10 am on 02/21. He states he hit his head on the counter and had loss of consciousness. There was blood pooling on the floor and each time he tried to get up he was near-syncopal so he remained on the floor all day until neighbors found him at around 8 pm. He was brought to [facility] [place] by [facility]. The wound was explored by the emergency medicine physician and platysma appeared intact. CTA of the neck demonstrated soft tissue swelling in the subcut fat with deeper structures appearing intact. He was found to have anion-gap lactic acidosis with bicarb of 11.9, anion gap of 26 , lactic acid 16. EtOH level is still 134. CPK is 309. Creatinine is normal. His hemoglobin is 9.4. Most recent prior hemoglobin was 13.[address] Aly discussed with Dr. Amador who recommended admission to medicine. The laceration was repaired in the ED and patient received 2 L normal saline bolus, Ancef 2gram, Td, Zofran and reglan for nausea. He denies headache, dysphagia, chest pain, shortness of breath, abdominal pain, flank pain, vomiting, melena, hematemesis, audiovisual hallucinations. He is tremulous and complains of thirst. He is a daily drinker of at least 10 beers per day, last drink was 9 am on 02/21. 02/23: Patient lying in bed somnolent from Ativan given overnight for alcohol withdrawal. Currently cooperative. Hemoglobin stable 8.1. Platelet count 54. Potassium 3.1 getting replaced. Tremulous on exam 02/24 EGD today with esophagitis, portal gastropathy, small varices non-bleeding and thus no intervention. EtOH withdrawal symptoms and delirium have accelerated despite librium, ativan, haldol.. Adding precedex. 02/25 Remains on precedex. DTs are the primary issue at this point, seems a little better than yesterday but still delirious. 02/26: agitated delirium persists. remains on precedex, although mental status starting to clear slightly. hgb stable. 02-27 TRANSFERRED TO OUR SERVICE TODAY HAS REMAINED CONFUSED TODAY REQUIRING MORE OXYGEN LUNGS CONGESTED START ANTIBIOTICS AND MUCINEX AND NEB TREATMENTS AM LABS PT AND OT ABG 02-28 WILL CONSULT PULMONARY DW RN AND PT AND FAMILY AND RESPIRATORY ON 10L BY MASK Physical Exam Vital signs: Vital Signs 02/27/18 14:00 02/27/18 14:14 02/27/18 16:00 Temperature 97.6 F Pulse Rate 62 56 L 64 Respiratory Rate 19 23 Blood Pressure 114/68 Pulse Oximetry 87 L 02/27/18 16:38 02/27/18 16:40 02/27/18 17:00 Temperature Pulse Rate 48 L 46 L Respiratory Rate 23 25 H Blood Pressure 147/82 H Pulse Oximetry 96 100 02/27/18 18:00 02/27/18 18:16 02/27/18 19:00 Temperature Pulse Rate 51 L 52 L 72 Respiratory Rate 12 22 28 H Blood Pressure 154/71 H 151/79 H Pulse Oximetry 94 L 94 L 81 L 02/27/18 19:03 02/27/18 20:00 02/27/18 21:00 Temperature 99.3 F Pulse Rate 67 56 L 74 Respiratory Rate 26 H 16 33 H Blood Pressure 129/70 160/82 H 146/67 H Pulse Oximetry 94 L 95 87 L 02/27/18 22:00 02/27/18 23:00 02/27/18 23:01 Temperature Pulse Rate 51 L 64 71 Respiratory Rate 19 25 H 22 Blood Pressure 172/82 H 168/83 H Pulse Oximetry 95 89 L 81 L 02/27/18 23:27 02/28/18 00:00 02/28/18 00:06 Temperature Pulse Rate 55 L 57 L 57 L Respiratory Rate 20 21 21 Blood Pressure 185/87 H 158/84 H Pulse Oximetry 93 L 91 L 02/28/18 01:00 02/28/18 02:00 02/28/18 03:00 Temperature Pulse Rate 50 L 57 L 60 Respiratory Rate 21 26 H 22 Blood Pressure 174/79 H 173/83 H Pulse Oximetry 94 L 91 L 95 02/28/18 03:01 02/28/18 03:03 02/28/18 03:39 Temperature Pulse Rate 59 L 56 L 48 L Respiratory Rate 29 H 23 20 Blood Pressure 190/91 H 161/80 H Pulse Oximetry 94 L 91 L 02/28/18 04:00 02/28/18 05:00 02/28/18 05:38 Temperature 99.1 F Pulse Rate 43 L 52 L 51 L Respiratory Rate 19 23 20 Blood Pressure 173/82 H 172/113 H 175/86 H Pulse Oximetry 100 90 L 92 L 02/28/18 06:00 02/28/18 06:01 02/28/18 06:22 Temperature Pulse Rate 53 L 52 L 48 L Respiratory Rate 30 H 26 H 22 Blood Pressure 139/70 147/72 H Pulse Oximetry 91 L 91 L 93 L 02/28/18 07:47 02/28/18 11:07 Temperature Pulse Rate 56 L 52 L Respiratory Rate 26 H 20 Blood Pressure Pulse Oximetry 93 L 95 Intake & Output 02/27/18 02/28/18 02/28/18 18:59 06:59 18:59 Intake Total 160 / 160 1100 / 1100 Output Total 300 / 300 700 / 700 Balance -140 / -140 400 / 400 Weight 74 kg Intake: IV 100 / 100 1100 / 1100 D5W/1/2NS + KCL 20 mEq Inj 1, 1000 / 1000 000 ML @ 42 mls/hr IV.CONT . [id number] REBECCA Rx#:[id number] Zosyn 4.5 GM Premix 4.5 gm In 100 / 100 100 / 100 100 ml @ 200 mls/hr IV.SIG Q8H REBECCA Rx#:[id number] Oral 60 / 60 Output: Urine 300 / 300 700 / 700 Other: Date of Last Bowel Movement 02/22/18 02/22/18 # Bowel Movements 0 0 # Incontinent Bowel Movements 0 0 Narrative: GENERAL: Disheveled male who is laying in bed, in soft restraints. SKIN: Multiple ecchymosis overlying right lateral chest wall. HEAD: Normocephalic. EYES: Pupils equal and round, 3mm and reactive. ENT: No nasal bleeding or discharge. Mucous membranes pink and moist. NECK: Trachea midline. 3-3.5 cm linear laceration left neck that has been sutured with simple interrupted sutures. No swelling or erythema CARDIOVASCULAR: Regular rate and rhythm. 2/6 systolic murmur LSB. RESPIRATORY: COARSE BS BL- RHONCHI BL NO RALES [employer] INSPIRATIONS GASTROINTESTINAL: Abdomen soft, non-tender, nondistended. Bowel sounds present. MUSCULOSKELETAL: Extremities without clubbing, cyanosis, or edema. No obvious deformities. NEUROLOGICAL: Patient is sleepy but arousable, intermittently restless. Does awake and converses but demonstrates delusions, delirium. No focal deficits, no asterixis noted today. INSIGHT AND JUDGEMENT IS LIMITED Results - Labs CBC & Chem 7: 02/28/18 04:16 02/28/18 04:16 Laboratory Results - last 24 hr 02/22/18 02/27/18 02/28/18 21:23 18:06 04:16 WBC RBC Hgb Hct MCV MCH MCHC RDW Plt Count MPV Prelim Diff (Auto) Neut % (Auto) Lymph % (Auto) Starr % (Auto) Eos % (Auto) Baso % (Auto) Neut # (Auto) Lymph # (Auto) Starr # (Auto) Eos # (Auto) Baso # (Auto) WBC Differential Diff Scan Differential Comment Platelet Estimate Platelet Morphology Target Cells Acanthocytes (Spur) PT INR Puncture Site Right radial Patient Temperature 98.6 O2 Saturation 90 ABG pH 7.49 H ABG pCO2 31 L ABG pO2 62 ABG HCO3 23 ABG O2 Content 12.4 ABG Base Excess 0.0 ABG Methemoglobin 1.2 Baudilio Test Present Hemoglobin 9.7 L Carboxyhemoglobin 1.3 O2 Delivery Device Nasal cannula Liter Flow 5.00 Inspired O2 21 Critical Value No Sodium 144 Potassium 3.5 Chloride 109 H Carbon Dioxide 27.1 Anion Gap 8 BUN 17 Creatinine 0.70 Estimated GFR Greater than 89 Random Glucose 110 H Calcium 7.7 L Phosphorus 3.4 Magnesium 1.9 Total Bilirubin 2.2 H AST 61 H ALT 76 Alkaline Phosphatase 102 Total Protein 5.8 L Albumin 2.2 L TSH 1.940 Free T4 0.85 Mitochondria M2 IgG Ab Less than 20.0 02/28/18 02/28/18 04:16 04:16 WBC 11.6 H D RBC 3.48 L Hgb 10.2 L Hct 31.7 L MCV 91.3 MCH 29.2 MCHC 32.0 RDW 19.1 H Plt Count 99 L MPV 9.1 Prelim Diff (Auto) Slide review pending Neut % (Auto) 83.2 H Lymph % (Auto) 6.6 L Starr % (Auto) 10.1 H Eos % (Auto) 0.0 Baso % (Auto) 0.1 Neut # (Auto) 9.6 H Lymph # (Auto) 0.8 L Starr # (Auto) 1.2 H Eos # (Auto) 0.0 Baso # (Auto) 0.0 WBC Differential . Diff Scan Auto diff confirmed Differential Comment . Platelet Estimate Low L Platelet Morphology Normal Target Cells 1+ H Acanthocytes (Spur) Occ H PT 14.4 H INR 1.4 Puncture Site Patient Temperature O2 Saturation ABG pH ABG pCO2 ABG pO2 ABG HCO3 ABG O2 Content ABG Base Excess ABG Methemoglobin Baudilio Test Hemoglobin Carboxyhemoglobin O2 Delivery Device Liter Flow Inspired O2 Critical Value Sodium Potassium Chloride Carbon Dioxide Anion Gap BUN Creatinine Estimated GFR Random Glucose Calcium Phosphorus Magnesium Total Bilirubin AST ALT Alkaline Phosphatase Total Protein Albumin TSH Free T4 Mitochondria M2 IgG Ab - Imaging Impressions Chest X-Ray 02/27/18 00:00 CONCLUSION: Interval development of airspace opacities in the medial infrahilar region bilaterally. - Procedures EGD today with esophagitis, portal gastropathy, small varices non-bleeding and thus no intervention Assessment and Plan - Plan NEURO: Acute left neck laceration Platysma intact per ED evaluation. CTA unremarkable. Laceration repaired 02/21, suture removal ~7-10 days. Acute alcohol withdrawal Alcohol dependence Librium 25 mg p.o. q12h ativan for CIWA Thiamine/MVI/folic acid x3 days. Wean precedex as tolerated to off increase haldol to 5mg iv for agitation start clonidine 0.3mg po TID to help with withdraw symptoms. OFF PRECEDEX Loss of consciousness Suspect syncope secondary to hypovolemia/blood loss. Did report head trauma, CT head negative for acute findings Tylenol prn pain. RESP: Tobacco abuse Right rib contusion Obtained chest x-ray on admit- no cardiomegaly, lungs clear Nicotine patch IS, albuterol prn. Monitor for airway protection during EtoH w/d. COPD VS PNA- ZOSYN- MUCINEX DUONEBS ADD SOLUMEDROL PROBABLY LEFT SIDE PNEUMONIA VS COPD WILL CONSULT PULMONARY CV: Monitor hemodynamic start clonidine to help with tachycardia associated with withdraw. GI: Small Varices Esophagitis Hyperammonemia, resolved Liver cirrhosis Appreciate gastroenterology consult Endoscopy 02/24 - [place] Class A esophagitis, small nonbleeding varices, portal gastropathy. Continue Xifaxan and lactulose pentoxifylline per GI Nadolol 20 mg po daily (hold orders) Ammonia has normalized now Holding off on dobhoff and tube feeds for now due to varices, discussing with GI. Family uncertain if plan is to proceed with colonoscopy, discussing with GI. FEN/RENAL: Acute anion gap metabolic acidosisresolved Lactic acidemia resolved Hypovolemic shock. resolved Suspect secondary to hypovolemia and acute blood loss (EtOH abuse, no po intake all day, moderate blood at scene per bystander) Decrease IVF to D51/2 NS 20 KCL/L @ 42/hr. Replace electrolytes as indicated per ICU electrolyte placement protocol. ID: U/a negative. HEME: Acute blood loss anemia Thrombocytopenia, suspect consumptive secondary to acute blood loss Hypofibrinogenemia Coagulopathy secondary to poor hepatic synthetic function and consumption due to acute blood loss. Monitor CBC, transfuse as indicated for hgb <7 or symptomatic. s/p 2 units PRBC stat. ENDO: Euglycemic without history of diabetes PROPH: SCDs for DVT prophylaxis. Avoid pharmacologic DVT prophylaxis at this time due to anemia and coagulopathy. Famotidine p.o. for stress ulcer prophylaxis. ACCESS: Peripheral IV providing adequate access at this time. Full code ADD SOLUMEDROL AND ZOSYN AND MUCINEX AND DUONEBS ABG NOW Code Status: FULL CODE Discussed Condition With: RN AND PT AND FAMILY AND RT Discharge Planning: PENDING IMPROVEMENT
[2018-02-28] MEDS: Budesonide-Formoterol 160/4.5 MCG 6 GM Inhaler INH SCH ×2 (14:25→21:54)
--- NOTE | 2018-02-28 15:22 | P.PNGI ---
Subjective Interval history: Patient is resting in the bed eyes closed appears fairly lethargic and drowsy he has been on his CIWA protocol but has had no pain meds today. Current hemoglobin 10 labs PT/INR 1.4, bilirubin 2.2, AST 61, ALT 76, Mother in the room for supportive care No obvious abdominal pain <Isha Montanez - Last Filed: 02/28/18 15:16> Physical Exam Vital signs: Vital Signs 02/27/18 16:00 02/27/18 16:38 02/27/18 16:40 Temperature 97.6 F Pulse Rate 64 48 L Respiratory Rate 23 23 Blood Pressure 114/68 Pulse Oximetry 87 L 96 02/27/18 17:00 02/27/18 18:00 02/27/18 18:16 Temperature Pulse Rate 46 L 51 L 52 L Respiratory Rate 25 H 12 22 Blood Pressure 147/82 H 154/71 H 151/79 H Pulse Oximetry 100 94 L 94 L 02/27/18 19:00 02/27/18 19:03 02/27/18 20:00 Temperature 99.3 F Pulse Rate 72 67 56 L Respiratory Rate 28 H 26 H 16 Blood Pressure 129/70 160/82 H Pulse Oximetry 81 L 94 L 95 02/27/18 21:00 02/27/18 22:00 02/27/18 23:00 Temperature Pulse Rate 74 51 L 64 Respiratory Rate 33 H 19 25 H Blood Pressure 146/67 H 172/82 H Pulse Oximetry 87 L 95 89 L 02/27/18 23:01 02/27/18 23:27 02/28/18 00:00 Temperature Pulse Rate 71 55 L 57 L Respiratory Rate 22 20 21 Blood Pressure 168/83 H 185/87 H Pulse Oximetry 81 L 93 L 02/28/18 00:06 02/28/18 01:00 02/28/18 02:00 Temperature Pulse Rate 57 L 50 L 57 L Respiratory Rate 21 21 26 H Blood Pressure 158/84 H 174/79 H 173/83 H Pulse Oximetry 91 L 94 L 91 L 02/28/18 03:00 02/28/18 03:01 02/28/18 03:03 Temperature Pulse Rate 60 59 L 56 L Respiratory Rate 22 29 H 23 Blood Pressure 190/91 H 161/80 H Pulse Oximetry 95 94 L 91 L 02/28/18 03:39 02/28/18 04:00 02/28/18 05:00 Temperature 99.1 F Pulse Rate 48 L 43 L 52 L Respiratory Rate 20 19 23 Blood Pressure 173/82 H 172/113 H Pulse Oximetry 100 90 L 02/28/18 05:38 02/28/18 06:00 02/28/18 06:01 Temperature Pulse Rate 51 L 53 L 52 L Respiratory Rate 20 30 H 26 H Blood Pressure 175/86 H 139/70 Pulse Oximetry 92 L 91 L 91 L 02/28/18 06:22 02/28/18 07:47 02/28/18 08:00 Temperature 98.3 F Pulse Rate 48 L 56 L 41 L Respiratory Rate 22 26 H 20 Blood Pressure 147/72 H 171/84 H Pulse Oximetry 93 L 93 L 99 02/28/18 10:00 02/28/18 11:07 02/28/18 12:00 Temperature 97.7 F Pulse Rate 46 L 52 L 52 L Respiratory Rate 20 22 Blood Pressure 148/72 H Pulse Oximetry 95 99 02/28/18 14:00 Temperature Pulse Rate 53 L Respiratory Rate Blood Pressure Pulse Oximetry Intake & Output 02/27/18 02/28/18 02/28/18 18:59 06:59 18:59 Intake Total 160 / 160 1100 / 1100 100 / 100 Output Total 300 / 300 700 / 700 Balance -140 / -140 400 / 400 100 / 100 Weight 74 kg Intake: IV 100 / 100 1100 / 1100 100 / 100 D5W/1/2NS + KCL 20 mEq Inj 1, 1000 / 1000 000 ML @ 42 mls/hr IV.CONT . [id number] [facility] Rx#:[id number] Zosyn 4.5 GM Premix 4.5 gm In 100 / 100 100 / 100 100 / 100 100 ml @ 200 mls/hr IV.SIG Q8H [facility] Rx#:[id number] Oral 60 / 60 Output: Urine 300 / 300 700 / 700 Other: Date of Last Bowel Movement 02/22/18 02/22/18 02/22/18 # Bowel Movements 0 0 # Incontinent Bowel Movements 0 0 - Constitutional no acute distress (Overweight) - Routine HEENT Exam ENT: Present: mucous membranes dry - Routine Neck Exam Present: supple - Routine Respiratory Exam Present: accessory muscle use (No obvious shortness of breath) - Routine Cardiovascular Exam Present: S1, S2 - Routine Abdominal Exam Present: normoactive bowel sounds (Soft bowel sounds, round,), distended ( Moderate distention,taut, no obvious pain with light palpation) <Isha Montanez - Last Filed: 02/28/18 15:16> Vital signs: Vital Signs 02/27/18 16:00 02/27/18 16:38 02/27/18 16:40 Temperature 97.6 F Pulse Rate 64 48 L Respiratory Rate 23 23 Blood Pressure 114/68 Pulse Oximetry 87 L 96 02/27/18 17:00 02/27/18 18:00 02/27/18 18:16 Temperature Pulse Rate 46 L 51 L 52 L Respiratory Rate 25 H 12 22 Blood Pressure 147/82 H 154/71 H 151/79 H Pulse Oximetry 100 94 L 94 L 02/27/18 19:00 02/27/18 19:03 02/27/18 20:00 Temperature 99.3 F Pulse Rate 72 67 56 L Respiratory Rate 28 H 26 H 16 Blood Pressure 129/70 160/82 H Pulse Oximetry 81 L 94 L 95 02/27/18 21:00 02/27/18 22:00 02/27/18 23:00 Temperature Pulse Rate 74 51 L 64 Respiratory Rate 33 H 19 25 H Blood Pressure 146/67 H 172/82 H Pulse Oximetry 87 L 95 89 L 02/27/18 23:01 02/27/18 23:27 02/28/18 00:00 Temperature Pulse Rate 71 55 L 57 L Respiratory Rate 22 20 21 Blood Pressure 168/83 H 185/87 H Pulse Oximetry 81 L 93 L 02/28/18 00:06 02/28/18 01:00 02/28/18 02:00 Temperature Pulse Rate 57 L 50 L 57 L Respiratory Rate 21 21 26 H Blood Pressure 158/84 H 174/79 H 173/83 H Pulse Oximetry 91 L 94 L 91 L 02/28/18 03:00 02/28/18 03:01 02/28/18 03:03 Temperature Pulse Rate 60 59 L 56 L Respiratory Rate 22 29 H 23 Blood Pressure 190/91 H 161/80 H Pulse Oximetry 95 94 L 91 L 02/28/18 03:39 02/28/18 04:00 02/28/18 05:00 Temperature 99.1 F Pulse Rate 48 L 43 L 52 L Respiratory Rate 20 19 23 Blood Pressure 173/82 H 172/113 H Pulse Oximetry 100 90 L 02/28/18 05:38 02/28/18 06:00 02/28/18 06:01 Temperature Pulse Rate 51 L 53 L 52 L Respiratory Rate 20 30 H 26 H Blood Pressure 175/86 H 139/70 Pulse Oximetry 92 L 91 L 91 L 02/28/18 06:22 02/28/18 07:47 02/28/18 08:00 Temperature 98.3 F Pulse Rate 48 L 56 L 41 L Respiratory Rate 22 26 H 20 Blood Pressure 147/72 H 171/84 H Pulse Oximetry 93 L 93 L 99 02/28/18 10:00 02/28/18 11:07 02/28/18 12:00 Temperature 97.7 F Pulse Rate 46 L 52 L 52 L Respiratory Rate 20 22 Blood Pressure 148/72 H Pulse Oximetry 95 99 02/28/18 14:00 Temperature Pulse Rate 53 L Respiratory Rate Blood Pressure Pulse Oximetry Intake & Output 02/27/18 02/28/18 02/28/18 18:59 06:59 18:59 Intake Total 160 / 160 1100 / 1100 100 / 100 Output Total 300 / 300 700 / 700 Balance -140 / -140 400 / 400 100 / 100 Weight 74 kg Intake: IV 100 / 100 1100 / 1100 100 / 100 D5W/1/2NS + KCL 20 mEq Inj 1, 1000 / 1000 000 ML @ 42 mls/hr IV.CONT . [id number] [facility] Rx#:[id number] Zosyn 4.5 GM Premix 4.5 gm In 100 / 100 100 / 100 100 / 100 100 ml @ 200 mls/hr IV.SIG Q8H [facility] Rx#:[id number] Oral 60 / 60 Output: Urine 300 / 300 700 / 700 Other: Date of Last Bowel Movement 02/22/18 02/22/18 02/22/18 # Bowel Movements 0 0 # Incontinent Bowel Movements 0 0 <Bruce Eric E - Last Filed: 02/28/18 15:52> Results - Labs CBC & Chem 7: 02/28/18 04:16 02/28/18 04:16 Laboratory Results - last 24 hr 02/22/1818 02/28/18 21:23 18:06 04:16 WBC RBC Hgb Hct MCV MCH MCHC RDW Plt Count MPV Prelim Diff (Auto) Neut % (Auto) Lymph % (Auto) Wilcox % (Auto) Eos % (Auto) Baso % (Auto) Neut # (Auto) Lymph # (Auto) Wilcox # (Auto) Eos # (Auto) Baso # (Auto) WBC Differential Diff Scan Differential Comment Platelet Estimate Platelet Morphology Target Cells Acanthocytes (Spur) PT INR Puncture Site Right radial Patient Temperature 98.6 O2 Saturation 90 ABG pH 7.49 H ABG pCO2 31 L ABG pO2 62 ABG HCO3 23 ABG O2 Content 12.4 ABG Base Excess 0.0 ABG Methemoglobin 1.2 Baudilio Test Present Hemoglobin 9.7 L Carboxyhemoglobin 1.3 O2 Delivery Device Nasal cannula Liter Flow 5.00 Inspired O2 21 Critical Value No Sodium 144 Potassium 3.5 Chloride 109 H Carbon Dioxide 27.1 Anion Gap 8 BUN 17 Creatinine 0.70 Estimated GFR Greater than 89 Random Glucose 110 H Calcium 7.7 L Phosphorus 3.4 Magnesium 1.9 Total Bilirubin 2.2 H AST 61 H ALT 76 Alkaline Phosphatase 102 Total Protein 5.8 L Albumin 2.2 L TSH 1.940 Free T4 0.85 Mitochondria M2 IgG Ab Less than 20.0 02/28/18 02/28/18 04:16 04:16 WBC 11.6 H D RBC 3.48 L Hgb 10.2 L Hct 31.7 L MCV 91.3 MCH 29.2 MCHC 32.0 RDW 19.1 H Plt Count 99 L MPV 9.1 Prelim Diff (Auto) Slide review pending Neut % (Auto) 83.2 H Lymph % (Auto) 6.6 L Wilcox % (Auto) 10.1 H Eos % (Auto) 0.0 Baso % (Auto) 0.1 Neut # (Auto) 9.6 H Lymph # (Auto) 0.8 L Wilcox # (Auto) 1.2 H Eos # (Auto) 0.0 Baso # (Auto) 0.0 WBC Differential . Diff Scan Auto diff confirmed Differential Comment . Platelet Estimate Low L Platelet Morphology Normal Target Cells 1+ H Acanthocytes (Spur) Occ H PT 14.4 H INR 1.4 Puncture Site Patient Temperature O2 Saturation ABG pH ABG pCO2 ABG pO2 ABG HCO3 ABG O2 Content ABG Base Excess ABG Methemoglobin Baudilio Test Hemoglobin Carboxyhemoglobin O2 Delivery Device Liter Flow Inspired O2 Critical Value Sodium Potassium Chloride Carbon Dioxide Anion Gap BUN Creatinine Estimated GFR Random Glucose Calcium Phosphorus Magnesium Total Bilirubin AST ALT Alkaline Phosphatase Total Protein Albumin TSH Free T4 Mitochondria M2 IgG Ab - Imaging Impressions Chest X-Ray 02/27/18 00:00 CONCLUSION: Interval development of airspace opacities in the medial infrahilar region bilaterally. - Procedures EGD today with esophagitis, portal gastropathy, small varices non-bleeding and thus no intervention <Isha Montanez - Last Filed: 02/28/18 15:16> - Labs CBC & Chem 7: 02/28/18 04:16 02/28/18 04:16 Laboratory Results - last 24 hr 02/22/18 02/27/18 02/28/18 21:23 18:06 04:16 WBC RBC Hgb Hct MCV MCH MCHC RDW Plt Count MPV Prelim Diff (Auto) Neut % (Auto) Lymph % (Auto) Wilcox % (Auto) Eos % (Auto) Baso % (Auto) Neut # (Auto) Lymph # (Auto) Wilcox # (Auto) Eos # (Auto) Baso # (Auto) WBC Differential Diff Scan Differential Comment Platelet Estimate Platelet Morphology Target Cells Acanthocytes (Spur) PT INR Puncture Site Right radial Patient Temperature 98.6 O2 Saturation 90 ABG pH 7.49 H ABG pCO2 31 L ABG pO2 62 ABG HCO3 23 ABG O2 Content 12.4 ABG Base Excess 0.0 ABG Methemoglobin 1.2 Baudilio Test Present Hemoglobin 9.7 L Carboxyhemoglobin 1.3 O2 Delivery Device Nasal cannula Liter Flow 5.00 Inspired O2 21 Critical Value No Sodium 144 Potassium 3.5 Chloride 109 H Carbon Dioxide 27.1 Anion Gap 8 BUN 17 Creatinine 0.70 Estimated GFR Greater than 89 Random Glucose 110 H Calcium 7.7 L Phosphorus 3.4 Magnesium 1.9 Total Bilirubin 2.2 H AST 61 H ALT 76 Alkaline Phosphatase 102 Total Protein 5.8 L Albumin 2.2 L TSH 1.940 Free T4 0.85 Mitochondria M2 IgG Ab Less than 20.0 02/28/18 02/28/18 04:16 04:16 WBC 11.6 H D RBC 3.48 L Hgb 10.2 L Hct 31.7 L MCV 91.3 MCH 29.2 MCHC 32.0 RDW 19.1 H Plt Count 99 L MPV 9.1 Prelim Diff (Auto) Slide review pending Neut % (Auto) 83.2 H Lymph % (Auto) 6.6 L Wilcox % (Auto) 10.1 H Eos % (Auto) 0.0 Baso % (Auto) 0.1 Neut # (Auto) 9.6 H Lymph # (Auto) 0.8 L Wilcox # (Auto) 1.2 H Eos # (Auto) 0.0 Baso # (Auto) 0.0 WBC Differential . Diff Scan Auto diff confirmed Differential Comment . Platelet Estimate Low L Platelet Morphology Normal Target Cells 1+ H Acanthocytes (Spur) Occ H PT 14.4 H INR 1.4 Puncture Site Patient Temperature O2 Saturation ABG pH ABG pCO2 ABG pO2 ABG HCO3 ABG O2 Content ABG Base Excess ABG Methemoglobin Baudilio Test Hemoglobin Carboxyhemoglobin O2 Delivery Device Liter Flow Inspired O2 Critical Value Sodium Potassium Chloride Carbon Dioxide Anion Gap BUN Creatinine Estimated GFR Random Glucose Calcium Phosphorus Magnesium Total Bilirubin AST ALT Alkaline Phosphatase Total Protein Albumin TSH Free T4 Mitochondria M2 IgG Ab - Imaging Impressions Chest X-Ray 02/27/18 00:00 CONCLUSION: Interval development of airspace opacities in the medial infrahilar region bilaterally. <Bruce Eric E - Last Filed: 02/28/18 15:52> Assessment and Plan - Plan - Elevated LFTs with history of ETOH abuse consistent with alcoholic hepatitis pt reports drinking 3 12 oz cans of beer daily for the past ten years, alcohol level was elevated on admission. Denies known personal history of liver issues. Denies history of or current illicit drug use, urine toxicology is positive for cannabinoids. Denies tattoos, high risk sexual behaviors. Denies family history of liver issues. Denies taking prescription medication or OTC herbs and supplements. Takes BC Powder LFTs have been trending up since admission Currently (02/22) [id number] ALT-225 Alk phos-83 T bili-2.6 DF-44 Would benefit from steroids Liver US (02/22) Cirrhotic appearing liver with trace amount of ascites. Gallbladder wall thickening with mild pericholecystic fluid. Findings are commonly seen in the setting of chronic liver disease but limit overall sonographic sensitivity for detection of early acute cholecystitis. Trace peripancreatic fluid. Suspect this is due to overall mesenteric edema. Thrombocytopenia (plts-59) Coagulopathy (INR-2.1) Hypoalbuminemia (albumin- 2.3) - Hyperammonemia- ammonia-48- pt on Lactulose- Xifaxan - Anemia- drop in H/H from admission to recheck early this AM- noted to be partially dilutional. Likely multifactorial, according to ER notes, there was noted to be significant bleeding from neck when EMS arrived on scene Of note, pt reports taking BC Powder TID for 2 years for orthopedic pains, prior to this was taking Ibuprofen but states he stopped this because he was having BRB from his rectum. Did not seek medical care, states resolved when he stopped Ibuprofen. Denies prior EGD or colonoscopy -Cirrhosis 02/23/2018 patient is resting in the bed with his eyes closed but is answering simple questions. Mother is in the room for supportive care. Patient appears to have no increased anxiety and seems to be lucid for his answers. We will plan EGD for tomorrow but need to check INR labs and possibly give FFP if needed. Vitamin K given today. Currently patient denies any nausea or vomiting and no abdominal pain. Labs show bilirubin 2.4 AST 925 ALT 181, 3.9 alpha-fetoprotein. Liver workup pending. Labs show current hemoglobin 8.1. Admission to the hospital currently continues to be monitored in the intensive care setting underlying cirrhosis with lactic and metabolic acidosis, stable gradual improvement, GI symptoms of nausea vomiting and no obvious bleeding stable. IV fluids continue at 125 an hour. Polanco catheter in place for accurate I&O. 02/27/2018 hemoglobin stable at 10. Patient is still very weak and fatigued and appears to have shakey hands. Speech is slurred mildly understandable. Patient tolerated small amounts of clear liquids today without any current nausea vomiting currently continue same treatment EGD 02/24/2018 showed 3 columns of esophageal varices but no banding was needed. Remains on nadolol 20 mg daily 02/28/2018 patient's fairly lethargic today continues with his CIWA protocol but is not requiring any pain meds. Liver workup shows REYNALDO negative, AMA 20, AMSA negative, ceruloplasmin 17, hepatitis panel negative alpha-fetoprotein 3.9. Current bilirubin 2.2, AST 61 ALT 76, PT/INR 1.4 and hemoglobin 10. Patient has no obvious bleeding will need outpatient and further liver workup when he is stable. Speech therapy has been working with patient on his swallow since he is fairly lethargic. Recommended low-sodium diet if patient can tolerate may need thickener in his feedings and/or liquids for now. Still remains in the intensive care setting for now for close observation. Now requiring simple mask oxygen. O2 sat in the low to mid 90s Plan: Diet , low-sodium, recommendations appreciated from speech therapist monitoring patient's swallow Xifaxan, steroids, Protonix,Pentoxifylline, Nadolol 20 mg daily Avoid hepatotoxins Monitor labs and for any active bleeding Patient was seen per myself and Dr. Eric, note was written on his behalf <Isha Montanez - Last Filed: 02/28/18 15:16> - Attending Attestation Patient seen and examined Agree with above Continue with current supportive care Monitor labs Alcoholic hepatitis appears to be stable may be been improving Encephalopathy has been slow to resolve would recommend workup for other causes No blood or bleeding noted Not much to add from a GI perspective at this point we will sign off <Bruce Eric - Last Filed: 02/28/18 15:52>
[2018-02-28 15:38] LABS: Hemoglobin A1c 5.1 % (4.3-6.0)
--- NOTE | 2018-02-28 19:34 | MB ---
cc: Speedy Benjamin MD DATE: 02/28/2018 REASON FOR CONSULTATION: Pneumonia and respiratory distress. HISTORY OF PRESENT ILLNESS: This is a 52-year-old white male with a long history of ethanolism and tobaccoism who was admitted a week ago with a fall, at which time he lacerated his left neck and also had a concussion, following which he had lost consciousness. The patient was brought by his neighbors, since he was unable to get up off of the floor and apparently EVAC had to place him on oxygen. Upon arrival in the ER, he was noted to have significant lactic acidosis and ethanol level of over 130. The patient had a hemoglobin of 9.4. His neck laceration was sutured by the surgical team. Subsequent to that, the patient was in the intensive care unit, treated for sepsis and pneumonia as well as transaminitis, hypoglycemia and exacerbation of COPD. He had suffered a contusion to the right rib cage and was hypotensive due to dehydration. Following adequate resuscitation and antibiotic therapy and supportive care, the patient did improve and has been on oxygen intermittently; however, yesterday, the patient deteriorated with nausea, vomiting and agitation, and possibly aspirated again. He was on Precedex drip for his agitation and has been on a partial nonrebreather mask to maintain his saturations above 92. A chest x-ray that was done today showed evidence of extensive right lung as well as a left lung infiltrate in the perihilar region. The patient is running a saturation of 95% on 60% FiO2, and he is confused and somewhat agitated, but is in bed. PAST MEDICAL HISTORY: Has included a history of COPD and chronic smoking, history of alcohol dependence and alcohol withdrawal, history of transaminitis, and previous history of pneumonia. He has had esophageal varices and liver cirrhosis and coagulopathy. ALLERGIES: NO KNOWN DRUG ALLERGIES. HABITS: The patient smoked 1-2 packs per day for over 25 years. Alcohol use is regular. PAST SURGICAL HISTORY: Includes varicocele excision and arthroscopy of the left knee. FAMILY HISTORY: Essentially noncontributory. His father of malignancy. Mother is alive in good health. REVIEW OF SYSTEMS: The patient is uncooperative and disoriented, unable to provide any details. PHYSICAL EXAMINATION: GENERAL: This is an averagely built, middle-aged, white male, who is awake, but somewhat confused. Face was flushed. VITAL SIGNS: His blood pressure was 130/60, pulse is 105, respirations 22, temperature 98.2. HEENT: Head is normocephalic. Pupils reactive. Sclerae were clear. Nasal mucosa edematous. Throat was injected. Tongue was dry. NECK: Supple. No venous distention. There is a sutured laceration of the neck on the left side and no thyromegaly. CHEST: Equal movements with wheezes scattered throughout both lung barreto. Crackles over the right middle lower chest, as well as the left base. HEART: The heart sounds were regular, S1 and S2. No murmur. No S3. ABDOMEN: Soft, protuberant, no mass. No organomegaly, tenderness. The bowel sounds are active. EXTREMITIES: No lesions. Peripheral pulses are diminished. Reflexes are 1+ with no gross motor deficits. SKIN: No lesions are noted. IMPRESSION: 1. Probable aspiration pneumonia. 2. Alcohol dependence. 3. Anemia. 4. Recent fall and syncopal episode. 5. Probable chronic obstructive pulmonary disease. PLAN: The patient is already on antibiotic coverage including Zosyn 4.5 grams IV every 8 hours. We will also add Flagyl 500 mg IV every 8 hours. Continue with Solu-Medrol 40 mg IV every 12 hours. O2 via Ventimask at 50% and wean down to nasal cannula. Chest x-ray to be repeated. Sputum sent for culture and Gram stain. Nebulized DuoNeb solution added every 6 hours and that the patient aspiration precautions to be done as well as a swallow test to evaluate him for aspiration. The patient's sedation will be gradually weaned down. Continue with Rifaximin 550 mg b.i.d. p.o. and Symbicort added at 160/4.5 mcg 2 puffs twice a day. MD FOX Mehta/donna , 05:47 PM , 06:03 PM
[2018-02-28] MEDS: KCL 20 mEq/D5W/NaCl 0.45% Inj 1,000 ML IV.CONT SCH (21:42)
[2018-03-01] MEDS: chlordiazePOXIDE 25 MG Capsule PO SCH ×2 (01:45→15:14)
[2018-03-01 05:22] LABS: Baso % (Auto) 0.1 % (0.0-2.0); Hematocrit 29.8 % (39.0-51.0); Hemoglobin 9.8 gm/dL (13.0-17.0); Lymph # (Auto) 0.7 th/mm3 (1.0-4.8); Lymph % (Auto) 9.5 % (9.0-44.0); Mean Corpuscular HGB Conc 32.7 % (32.0-36.0); Mean Corpuscular Hemoglobin 29.5 pg (27.0-34.0); Mean Corpuscular Volume 90.1 fL (80.0-100.0); Mean Platelet Volume 8.8 fL (7.0-11.0); Mono # (Auto) 0.7 th/mm3 (0.0-0.9); Mono % (Auto) 9.3 % (0.0-8.0); Neut % (Auto) 81.1 % (16.0-70.0); Platelet Count 80 th/mm3 (150-450); Red Blood Count 3.31 mil/mm3 (4.50-5.90); Red Cell Distribution Width 18.4 % (11.6-17.2); White Blood Count 7.4 th/mm3 (4.0-11.0)
[2018-03-01 05:40] LABS: Alanine Aminotransferase 57 U/L (12-78); Albumin 1.9 g/dL (3.4-5.0); Anion Gap 7 meq/L (5-15); Aspartate Aminotransferase 43 U/L (15-37); Blood Urea Nitrogen 14 mg/dL (7-18); Calcium 7.5 mg/dL (8.5-10.1); Carbon Dioxide 26.5 meq/L (21.0-32.0); Chloride 108 meq/L (98-107); Glomerular Filtration Rate Greater Than 89 mL/min (>89); Glucose,Random 126 mg/dL (74-106); Magnesium 1.8 mg/dL (1.5-2.5); Potassium 3.5 meq/L (3.5-5.1); Sodium 141 meq/L (136-145)
[2018-03-01 05:42] LABS: Alkaline Phosphatase 87 U/L (45-117); Phosphorus 3.3 mg/dL (2.5-4.9); Total Protein 5.3 g/dL (6.4-8.2)
[2018-03-01] MEDS: Pantoprazole Inj 40 MG Vial IV.PUSH SCH (05:43)
--- NOTE | 2018-03-01 06:25 | XR ---
EXAM DATE: 03/01/2018 5:39 AM EDT AGE/SEX: 52 years / Male INDICATIONS: Shortness of breath, possible pulmonary disease. CLINICAL DATA: This is the patient's subsequent encounter. Patient reports that signs and symptoms h ave been present for 1 week and indicates a pain score of Nonresponsive. MEDICAL/SURGICAL HISTORY: Non-responsive. Non-responsive. COMPARISON: [facility] – [place], CHEST 1V SINGLE AP, 02/27/2018. . FINDINGS: A single AP view of the chest demonstrates no significant change. Bilateral infiltrates are again see n within the medial lung bases. No effusions. Heart is normal in size. Bony structures are unremarkab le. CONCLUSION: Unchanged bilateral infiltrates. Electronically signed by: Mikhail Booker MD 03/01/2018 6:24 AM EDT
[2018-03-01 07:18] LABS: ABG Base Excess 0.5 mmol/L (-2-2); ABG PCO2 35 mmHg (38-42); ABG PO2 73 mmHG (61-120)
[2018-03-01] MEDS ORDERED: hydrALAZINE 50 MG Tablet PO ONE (08:15)
[2018-03-01] MEDS: rifAXIMin 550 MG Tablet PO SCH ×2 (08:50→21:03)
[2018-03-01] MEDS: Piperacil/Tazo 4.5 GM Premix 4.5 GM/100 ML BAG IV.SIG SCH ×3 (08:50→23:08)
[2018-03-01] MEDS: Pentoxifylline 400 MG Controlled Release Tablet PO SCH ×3 (08:50→18:15)
[2018-03-01] MEDS: guaiFENesin 600 MG ER Tablet PO SCH ×2 (08:50→21:03)
[2018-03-01] MEDS: MethylPREDNISolone Sod Succinate Inj 40 MG/ML Vial IV.PUSH SCH ×2 (08:50→21:04)
[2018-03-01] MEDS: Senna/Docusate Sodium 8.6/50 MG Tablet PO SCH ×2 (08:50→21:03)
[2018-03-01] MEDS: Nadolol 20 MG Tablet PO SCH (08:51)
[2018-03-01] MEDS: Budesonide-Formoterol 160/4.5 MCG 6 GM Inhaler INH SCH ×2 (08:51→21:03)
[2018-03-01 09:04] LABS: Platelet Morphology Normal (Normal); Target Cells 1+
--- NOTE | 2018-03-01 12:13 | P.PN ---
Subjective Interval history: He is lethargic today. On O2 Ventimask at 50 % Was on Ativan , librium and haldol. On IV Fluids and NPO. Physical Exam Vital signs: Vital Signs 02/28/18 14:00 02/28/18 15:52 02/28/18 16:00 Temperature 97.1 F L Pulse Rate 53 L 51 L 44 L Respiratory Rate 23 20 Blood Pressure 154/76 H Pulse Oximetry 99 02/28/18 16:29 02/28/18 18:00 02/28/18 20:00 Temperature 99.0 F Pulse Rate 51 L 52 L Respiratory Rate 17 Blood Pressure 167/81 H Pulse Oximetry 93 L 99 02/28/18 20:15 02/28/18 22:00 03/01/18 00:00 Temperature 96.4 F L Pulse Rate 48 L 47 L 41 L Respiratory Rate 20 19 Blood Pressure 169/88 H Pulse Oximetry 96 95 03/01/18 02:00 03/01/18 04:00 03/01/18 04:13 Temperature 97.2 F L Pulse Rate 41 L 40 L 47 L Respiratory Rate 17 16 Blood Pressure 195/98 H Pulse Oximetry 97 03/01/18 06:00 03/01/18 08:00 03/01/18 08:07 Temperature 96.4 F L Pulse Rate 40 L 40 L 40 L Respiratory Rate 14 14 Blood Pressure 203/91 H Pulse Oximetry 94 L 95 03/01/18 10:00 Temperature Pulse Rate 58 L Respiratory Rate Blood Pressure Pulse Oximetry Intake & Output 02/28/18 03/01/18 03/01/18 18:59 06:59 18:59 Intake Total 540 / 540 1500 / 1500 Output Total 1000 / 1000 380 / 380 Balance -460 / -460 1120 / 1120 Weight 73.5 kg Intake: IV 300 / 300 1300 / 1300 D5W/1/2NS + KCL 20 mEq Inj 1, 1000 / 1000 000 ML @ 42 mls/hr IV.CONT . [id number] REBECCA Rx#:[id number] Zosyn 4.5 GM Premix 4.5 gm In 200 / 200 100 / 100 100 ml @ 200 mls/hr IV.SIG Q8H REBECCA Rx#:[id number] Flagyl 500 MG Inj 100 ML @ 100 100 / 100 200 / 200 mls/hr IV.SIG Q8H REBECCA Rx#: [id number] Oral 240 / 240 Tube Feeding 0 / 0 Anesthesia Amount 200 / 200 Output: Urine 1000 / 1000 380 / 380 Other: # Incontinent Voids 1 Date of Last Bowel Movement 02/22/18 02/22/18 02/22/18 # Bowel Movements 0 0 # Incontinent Bowel Movements 0 Narrative: GENERAL: Lethargic and pale. SKIN: Multiple ecchymosis overlying right lateral chest wall. HEAD: Normocephalic. EYES: Pupils equal and reactive. ENT: No nasal bleeding or discharge. Mucous membranes pink and moist. NECK: Trachea midline. No swelling or erythema CARDIOVASCULAR: Regular rate and rhythm. 2/6 systolic murmur LSB. RESPIRATORY: COARSE wheezes all over GASTROINTESTINAL: Abdomen soft, non-tender, nondistended. Bowel sounds present. MUSCULOSKELETAL: Extremities without clubbing, cyanosis, or edema. No obvious deformities. NEUROLOGICAL: Patient is sleepy but intermittently restless. delirium. no asterixis noted . Results - Labs CBC & Chem 7: 03/01/18 03:45 03/01/18 03:45 Laboratory Results - last 24 hr 02/28/18 03/01/18 03/01/18 04:16 03:45 03:45 WBC 7.4 RBC 3.31 L Hgb 9.8 L Hct 29.8 L MCV 90.1 MCH 29.5 MCHC 32.7 RDW 18.4 H Plt Count 80 L MPV 8.8 Prelim Diff (Auto) Slide review pending Neut % (Auto) 81.1 H Lymph % (Auto) 9.5 [place] % (Auto) 9.3 H Eos % (Auto) 0.0 Baso % (Auto) 0.1 Neut # (Auto) 6.0 Lymph # (Auto) 0.7 L [place] # (Auto) 0.7 Eos # (Auto) 0.0 Baso # (Auto) 0.0 WBC Differential . Diff Scan Auto diff confirmed Differential Comment . Platelet Estimate Low L Platelet Morphology Normal Target Cells 1+ H Puncture Site Patient Temperature O2 Saturation ABG pH ABG pCO2 ABG pO2 ABG HCO3 ABG O2 Content ABG Base Excess ABG Methemoglobin Baudilio Test Hemoglobin Carboxyhemoglobin O2 Delivery Device Inspired O2 Critical Value Sodium 141 Potassium 3.5 Chloride 108 H Carbon Dioxide 26.5 Anion Gap 7 BUN 14 Creatinine 0.53 L Estimated GFR Greater than 89 POC Glucose Random Glucose 126 H Hemoglobin A1c 5.1 Calcium 7.5 L Phosphorus 3.3 Magnesium 1.8 Total Bilirubin 1.7 H AST 43 H ALT 57 Alkaline Phosphatase 87 Total Protein 5.3 L Albumin 1.9 L 03/01/18 03/01/18 07:01 07:48 WBC RBC Hgb Hct MCV MCH MCHC RDW Plt Count MPV Prelim Diff (Auto) Neut % (Auto) Lymph % (Auto) [place] % (Auto) Eos % (Auto) Baso % (Auto) Neut # (Auto) Lymph # (Auto) [place] # (Auto) Eos # (Auto) Baso # (Auto) WBC Differential Diff Scan Differential Comment Platelet Estimate Platelet Morphology Target Cells Puncture Site Right radial Patient Temperature 98.6 O2 Saturation 92 ABG pH 7.45 H ABG pCO2 35 L ABG pO2 73 ABG HCO3 24 ABG O2 Content 13.0 ABG Base Excess 0.5 ABG Methemoglobin 1.2 Baudilio Test Present Hemoglobin 9.9 L Carboxyhemoglobin 1.3 O2 Delivery Device Ventur mask Inspired O2 50 Critical Value No Sodium Potassium Chloride Carbon Dioxide Anion Gap BUN Creatinine Estimated GFR POC Glucose 142 H Random Glucose Hemoglobin A1c Calcium Phosphorus Magnesium Total Bilirubin AST ALT Alkaline Phosphatase Total Protein Albumin - Imaging Impressions Chest X-Ray 03/01/18 00:00 CONCLUSION: Unchanged bilateral infiltrates. - Procedures EGD today with esophagitis, portal gastropathy, small varices non-bleeding and thus no intervention Assessment and Plan - Assessment (1) Aspiration pneumonia due to gastric secretions Code(s): J69.0 - Pneumonitis due to inhalation of food and vomit Status: Acute (2) COPD (chronic obstructive pulmonary disease) Code(s): J44.9 - Chronic obstructive pulmonary disease, unspecified Status: Acute (3) Laceration of neck Code(s): S11.91XA - Laceration without foreign body of unspecified part of neck , initial encounter Status: Acute (4) Lactic acidosis Code(s): E87.2 - Acidosis Status: Acute (5) EtOH dependence Code(s): F10.20 - Alcohol dependence, uncomplicated Status: Acute (6) Transaminitis Code(s): R74.0 - Nonspecific elevation of levels of transaminase and lactic acid dehydrogenase [LDH] Status: Acute (7) Hypovolemia Code(s): E86.1 - Hypovolemia Status: Acute (8) Alcohol withdrawal Code(s): F10.239 - Alcohol dependence with withdrawal, unspecified Status: Acute (9) LOC (loss of consciousness) Code(s): R40.20 - Unspecified coma Status: Acute - Plan 1. Will hold sedation. 2. O2 at 40 % Ventimask and wean . 3. Nebs qid , duoneb 4. Continue antibiotics , Zosyn , Flagyl 5. Chest XRay , CBC BMP in am 6. PT Evaluation. 7. PO diet after swallow study if more alert. (3) Laceration of neck Qualifiers: Encounter type: initial encounter Qualified Code(s): S11.91XA - Laceration without foreign body of unspecified part of neck, initial encounter
[2018-03-01] MEDS ORDERED: hydrALAZINE 50 MG Tablet PO PRN (17:00)
--- NOTE | 2018-03-01 17:00 | P.PNIM ---
Subjective Interval history: 52-year-old male with past medical history of tobacco and alcohol dependence. He states he was sharpening a non-serrated carving knife this morning while intoxicated. He said he got up to put the knife away and he tripped and fell and lacerated his left neck around 10 am on 02/21. He states he hit his head on the counter and had loss of consciousness. There was blood pooling on the floor and each time he tried to get up he was near-syncopal so he remained on the floor all day until neighbors found him at around 8 pm. He [place] [facility] [place] The wound was explored by the emergency medicine physician and platysma appeared intact. CTA of the neck demonstrated soft tissue swelling in the subcut fat with deeper structures appearing intact. He was found to have anion-gap lactic acidosis with bicarb of 11.9, anion gap of 26 , lactic acid 16. EtOH level is still 134. CPK is 309. Creatinine is normal. His hemoglobin is 9.4. Most recent prior hemoglobin was 13.[address] Aly discussed with Dr. Amador who recommended admission to medicine. The laceration was repaired in the ED and patient received 2 L normal saline bolus, Ancef 2gram, Td, Zofran and reglan for nausea. He denies headache, dysphagia, chest pain, shortness of breath, abdominal pain, flank pain, vomiting, melena, hematemesis, audiovisual hallucinations. He is tremulous and complains of thirst. He is a daily drinker of at least 10 beers per day, last drink was 9 am on 02/21. 02/23: Patient lying in bed somnolent from Ativan given overnight for alcohol withdrawal. Currently cooperative. Hemoglobin stable 8.1. Platelet count 54. Potassium 3.1 getting replaced. Tremulous on exam 02/24 EGD today with esophagitis, portal gastropathy, small varices non-bleeding and thus no intervention. EtOH withdrawal symptoms and delirium have accelerated despite librium, ativan, haldol.. Adding precedex. 02/25 Remains on precedex. DTs are the primary issue at this point, seems a little better than yesterday but still delirious. 02/26: agitated delirium persists. remains on precedex, although mental status starting to clear slightly. hgb stable. 02-27 TRANSFERRED TO OUR SERVICE TODAY HAS REMAINED CONFUSED TODAY REQUIRING MORE OXYGEN LUNGS CONGESTED START ANTIBIOTICS AND MUCINEX AND NEB TREATMENTS AM LABS PT AND OT ABG 02-28 WILL CONSULT PULMONARY JULIO C RN AND PT AND FAMILY AND RESPIRATORY ON 10L BY MASK 03-01 HAD ISSUES WITH HEART RATE AND BLOOD PRESSURE REMAINS VERY LETHARGIC MADE NPO EXCEPT MEDS JULIO C RN AND PT AND FAMILY HAVING URINARY RETENTION NOT ABLE TO START FLOMAX DUE TO DYSPHAGIA PLACE RILEY AM LABS PRN HYDRALAZINE Physical Exam Vital signs: Vital Signs 02/28/18 18:00 02/28/18 20:00 02/28/18 20:15 Temperature 99.0 F Pulse Rate 51 L 52 L 48 L Respiratory Rate 17 20 Blood Pressure 167/81 H Pulse Oximetry 99 96 02/28/18 22:00 03/01/18 00:00 03/01/18 02:00 Temperature 96.4 F L Pulse Rate 47 L 41 L 41 L Respiratory Rate 19 Blood Pressure 169/88 H Pulse Oximetry 95 03/01/18 04:00 03/01/18 04:13 03/01/18 06:00 Temperature 97.2 F L Pulse Rate 40 L 47 L 40 L Respiratory Rate 17 16 Blood Pressure 195/98 H Pulse Oximetry 97 03/01/18 08:00 03/01/18 08:07 03/01/18 10:00 Temperature 96.4 F L Pulse Rate 40 L 40 L 58 L Respiratory Rate 14 14 Blood Pressure 203/91 H Pulse Oximetry 94 L 95 03/01/18 12:00 03/01/18 12:14 03/01/18 14:00 Temperature 97.5 F L Pulse Rate 52 L 55 L 58 L Respiratory Rate 17 16 Blood Pressure 102/70 Pulse Oximetry 94 L 03/01/18 15:47 Temperature Pulse Rate 61 Respiratory Rate 14 Blood Pressure Pulse Oximetry Intake & Output 02/28/18 03/01/18 03/01/18 18:59 06:59 18:59 Intake Total 540 / 540 1500 / 1500 200 / 200 Output Total 1000 / 1000 380 / 380 Balance -460 / -460 1120 / 1120 200 / 200 Weight 73.5 kg Intake: IV 300 / 300 1300 / 1300 200 / 200 D5W/1/2NS + KCL 20 mEq Inj 1, 1000 / 1000 000 ML @ 42 mls/hr IV.CONT . [id number] REBECCA Rx#:[id number] Zosyn 4.5 GM Premix 4.5 gm In 200 / 200 100 / 100 100 / 100 100 ml @ 200 mls/hr IV.SIG Q8H REBECCA Rx#:[id number] Flagyl 500 MG Inj 100 ML @ 100 100 / 100 200 / 200 100 / 100 mls/hr IV.SIG Q8H REBECCA Rx#: [id number] Oral 240 / 240 Tube Feeding 0 / 0 Anesthesia Amount 200 / 200 Output: Urine 1000 / 1000 380 / 380 Other: # Incontinent Voids 1 Date of Last Bowel Movement 02/22/18 02/22/18 02/22/18 # Bowel Movements 0 0 # Incontinent Bowel Movements 0 Narrative: GENERAL: Lethargic and pale. SKIN: Multiple ecchymosis overlying right lateral chest wall. HEAD: Normocephalic. EYES: Pupils equal and reactive. ENT: No nasal bleeding or discharge. Mucous membranes pink and moist. NECK: Trachea midline. No swelling or erythema CARDIOVASCULAR: Regular rate and rhythm. 2/6 systolic murmur LSB. RESPIRATORY: COARSE wheezes all over GASTROINTESTINAL: Abdomen soft, non-tender, nondistended. Bowel sounds present. MUSCULOSKELETAL: Extremities without clubbing, cyanosis, or edema. No obvious deformities. NEUROLOGICAL: Patient is sleepy but intermittently restless. delirium. no asterixis noted . Results - Labs CBC & Chem 7: 03/01/18 03:45 03/01/18 03:45 Laboratory Results - last 24 hr 03/01/18 03/01/18 03/01/18 03:45 03:45 07:01 WBC 7.4 RBC 3.31 L Hgb 9.8 L Hct 29.8 L MCV 90.1 MCH 29.5 MCHC 32.7 RDW 18.4 H Plt Count 80 L MPV 8.8 Prelim Diff (Auto) Slide review pending Neut % (Auto) 81.1 H Lymph % (Auto) 9.5 [place] % (Auto) 9.3 H Eos % (Auto) 0.0 Baso % (Auto) 0.1 Neut # (Auto) 6.0 Lymph # (Auto) 0.7 L [place] # (Auto) 0.7 Eos # (Auto) 0.0 Baso # (Auto) 0.0 WBC Differential . Diff Scan Auto diff confirmed Differential Comment . Platelet Estimate Low L Platelet Morphology Normal Target Cells 1+ H Puncture Site Right radial Patient Temperature 98.6 O2 Saturation 92 ABG pH 7.45 H ABG pCO2 35 L ABG pO2 73 ABG HCO3 24 ABG O2 Content 13.0 ABG Base Excess 0.5 ABG Methemoglobin 1.2 Baudilio Test Present Hemoglobin 9.9 L Carboxyhemoglobin 1.3 O2 Delivery Device Ventur mask Inspired O2 50 Critical Value No Sodium 141 Potassium 3.5 Chloride 108 H Carbon Dioxide 26.5 Anion Gap 7 BUN 14 Creatinine 0.53 L Estimated GFR Greater than 89 POC Glucose Random Glucose 126 H Calcium 7.5 L Phosphorus 3.3 Magnesium 1.8 Total Bilirubin 1.7 H AST 43 H ALT 57 Alkaline Phosphatase 87 Total Protein 5.3 L Albumin 1.9 L 03/01/18 07:48 WBC RBC Hgb Hct MCV MCH MCHC RDW Plt Count MPV Prelim Diff (Auto) Neut % (Auto) Lymph % (Auto) [place] % (Auto) Eos % (Auto) Baso % (Auto) Neut # (Auto) Lymph # (Auto) [place] # (Auto) Eos # (Auto) Baso # (Auto) WBC Differential Diff Scan Differential Comment Platelet Estimate Platelet Morphology Target Cells Puncture Site Patient Temperature O2 Saturation ABG pH ABG pCO2 ABG pO2 ABG HCO3 ABG O2 Content ABG Base Excess ABG Methemoglobin Baudilio Test Hemoglobin Carboxyhemoglobin O2 Delivery Device Inspired O2 Critical Value Sodium Potassium Chloride Carbon Dioxide Anion Gap BUN Creatinine Estimated GFR POC Glucose 142 H Random Glucose Calcium Phosphorus Magnesium Total Bilirubin AST ALT Alkaline Phosphatase Total Protein Albumin - Imaging Impressions Chest X-Ray 03/01/18 00:00 CONCLUSION: Unchanged bilateral infiltrates. - Procedures EGD today with esophagitis, portal gastropathy, small varices non-bleeding and thus no intervention Assessment and Plan - Plan NEURO: Acute left neck laceration Platysma intact per ED evaluation. CTA unremarkable. Laceration repaired 02/21, suture removal ~7-10 days. Acute alcohol withdrawal Alcohol dependence Librium 25 mg p.o. q12h ativan for CIWA Thiamine/MVI/folic acid x3 days. Wean precedex as tolerated to off increase haldol to 5mg iv for agitation start clonidine 0.3mg po TID to help with withdraw symptoms. OFF PRECEDEX Loss of consciousness Suspect syncope secondary to hypovolemia/blood loss. Did report head trauma, CT head negative for acute findings Tylenol prn pain. RESP: Tobacco abuse Right rib contusion Obtained chest x-ray on admit- no cardiomegaly, lungs clear Nicotine patch IS, albuterol prn. Monitor for airway protection during EtoH w/d. COPD VS PNA- ZOSYN- MUCINEX DUONEBS ADD SOLUMEDROL PROBABLY LEFT SIDE PNEUMONIA VS COPD WILL CONSULT PULMONARY CV: Monitor hemodynamic start clonidine to help with tachycardia associated with withdraw. GI: Small Varices Esophagitis Hyperammonemia, resolved Liver cirrhosis Appreciate gastroenterology consult Endoscopy 02/24 - LA Class A esophagitis, small nonbleeding varices, portal gastropathy. Continue Xifaxan and lactulose pentoxifylline per GI Nadolol 20 mg po daily (hold orders) Ammonia has normalized now Holding off on Dobbhoff and tube feeds for now due to varices, discussing with GI. Family uncertain if plan is to proceed with colonoscopy, discussing with GI. FEN/RENAL: Acute anion gap metabolic acidosisresolved Lactic acidemia resolved Hypovolemic shock. resolved Suspect secondary to hypovolemia and acute blood loss (EtOH abuse, no po intake all day, moderate blood at scene per bystander) Decrease IVF to D51/2 NS 20 KCL/L @ 42/hr. Replace electrolytes as indicated per ICU electrolyte placement protocol. ID: U/a negative. HEME: Acute blood loss anemia Thrombocytopenia, suspect consumptive secondary to acute blood loss Hypofibrinogenemia Coagulopathy secondary to poor hepatic synthetic function and consumption due to acute blood loss. Monitor CBC, transfuse as indicated for hgb <7 or symptomatic. s/p 2 units PRBC stat. ENDO: Euglycemic without history of diabetes PROPH: SCDs for DVT prophylaxis. Avoid pharmacologic DVT prophylaxis at this time due to anemia and coagulopathy. Famotidine p.o. for stress ulcer prophylaxis. ACCESS: Peripheral IV providing adequate access at this time. Full code CONTINUE SOLUMEDROL AND ZOSYN AND FLAGYL AND MUCINEX AND DUONEB URINARY RETENTION- RILEY PLACED- KEEP IN PLACE PATIENT REMAINS LETHARGIC- HOLD SEDATION SWALLOW EVAL HAD BRADYCARDIA HOLD BETA BLOCKERS DW RN AND PT AND FAMILY Code Status: FULL CODE Discussed Condition With: RN AND PT AND FAMILY Discharge Planning: PENDING IMPROVEMENT
[2018-03-01] MEDS: KCL 20 mEq/D5W/NaCl 0.45% Inj 1,000 ML IV.CONT SCH (21:03)
[2018-03-01 23:16] LABS: Bilirubin,Urine Negative (Negative); Clarity,Urine Clear (Clear); Color,Urine Amber (Yellw/Straw); Glucose,Urine (UA) Negative (Negative); Hyaline Casts,Urine 1 /lpf (0-3); Leukocyte Esterase,Urine Negative (Negative); Mucus,Urine Few /lpf (Occasional); Nitrite,Urine Negative (Negative); Specific Gravity,Urine 1.032 (1.002-1.035); Squamous Epithelial Cell,Urine <1 /hpf (0-5); Urobilinogen,Urine 4 or Greater mg/dL (Less than 2)
[2018-03-02] MEDS: chlordiazePOXIDE 25 MG Capsule PO SCH ×2 (02:19→14:02)
[2018-03-02] MEDS: Pantoprazole Inj 40 MG Vial IV.PUSH SCH (05:04)
[2018-03-02 07:14] LABS: Baso % (Auto) 0.2 % (0.0-2.0); Hematocrit 33.1 % (39.0-51.0); Hemoglobin 10.6 gm/dL (13.0-17.0); Lymph # (Auto) 0.7 th/mm3 (1.0-4.8); Lymph % (Auto) 6.9 % (9.0-44.0); Mean Corpuscular HGB Conc 32.1 % (32.0-36.0); Mean Corpuscular Hemoglobin 29.3 pg (27.0-34.0); Mean Corpuscular Volume 91.4 fL (80.0-100.0); Mono # (Auto) 0.9 th/mm3 (0.0-0.9); Mono % (Auto) 9.2 % (0.0-8.0); Neut # (Auto) 8.5 th/mm3 (1.8-7.7); Neut % (Auto) 83.7 % (16.0-70.0); Platelet Count 101 th/mm3 (150-450); Red Blood Count 3.62 mil/mm3 (4.50-5.90); Red Cell Distribution Width 18.4 % (11.6-17.2); White Blood Count 10.2 th/mm3 (4.0-11.0)
[2018-03-02] MEDS: Piperacil/Tazo 4.5 GM Premix 4.5 GM/100 ML BAG IV.SIG SCH ×3 (07:56→23:37)
[2018-03-02] MEDS: MethylPREDNISolone Sod Succinate Inj 40 MG/ML Vial IV.PUSH SCH (08:00)
[2018-03-02] MEDS: Senna/Docusate Sodium 8.6/50 MG Tablet PO SCH ×2 (08:00→21:01)
[2018-03-02] MEDS: Budesonide-Formoterol 160/4.5 MCG 6 GM Inhaler INH SCH ×2 (08:00→21:01)
[2018-03-02] MEDS: Pentoxifylline 400 MG Controlled Release Tablet PO SCH ×3 (08:00→17:12)
[2018-03-02] MEDS: guaiFENesin 600 MG ER Tablet PO SCH ×2 (08:00→21:01)
[2018-03-02] MEDS: rifAXIMin 550 MG Tablet PO SCH ×2 (08:00→21:01)
[2018-03-02] MEDS: Nadolol 20 MG Tablet PO SCH (08:01)
[2018-03-02 10:55] LABS: INR 1.5 Ratio; Prothrombin Time 15.3 sec (9.8-11.6)
[2018-03-02 11:19] LABS: Alanine Aminotransferase 52 U/L (12-78); Anion Gap 9 meq/L (5-15); Aspartate Aminotransferase 37 U/L (15-37); Blood Urea Nitrogen 19 mg/dL (7-18); Calcium 7.7 mg/dL (8.5-10.1); Carbon Dioxide 25.9 meq/L (21.0-32.0); Chloride 107 meq/L (98-107); Glomerular Filtration Rate Greater Than 89 mL/min (>89); Glucose,Random 120 mg/dL (74-106); Magnesium 2.2 mg/dL (1.5-2.5); Phosphorus 2.8 mg/dL (2.5-4.9); Potassium 3.2 meq/L (3.5-5.1); Sodium 142 meq/L (136-145)
[2018-03-02 11:22] LABS: Alkaline Phosphatase 94 U/L (45-117); Total Protein 5.7 g/dL (6.4-8.2)
--- NOTE | 2018-03-02 16:20 | P.PNIM ---
Subjective Interval history: 52-year-old male with past medical history of tobacco and alcohol dependence. He states he was sharpening a non-serrated carving knife this morning while intoxicated. He said he got up to put the knife away and he tripped and fell and lacerated his left neck around 10 am on 02/21. He states he hit his head on the counter and had loss of consciousness. There was blood pooling on the floor and each time he tried to get up he was near-syncopal so he remained on the floor all day until neighbors found him at around 8 pm. He was [place] [facility] [place] [facility] The wound was explored by the emergency medicine physician and platysma appeared intact. CTA of the neck demonstrated soft tissue swelling in the subcut fat with deeper structures appearing intact. He was found to have anion-gap lactic acidosis with bicarb of 11.9, anion gap of 26 , lactic acid 16. EtOH level is still 134. CPK is 309. Creatinine is normal. His hemoglobin is 9.4. Most recent prior hemoglobin was 13.[address] Aly discussed with Dr. Amador who recommended admission to medicine. The laceration was repaired in the ED and patient received 2 L normal saline bolus, Ancef 2gram, Td, Zofran and reglan for nausea. He denies headache, dysphagia, chest pain, shortness of breath, abdominal pain, flank pain, vomiting, melena, hematemesis, audiovisual hallucinations. He is tremulous and complains of thirst. He is a daily drinker of at least 10 beers per day, last drink was 9 am on 02/21. 02/23: Patient lying in bed somnolent from Ativan given overnight for alcohol withdrawal. Currently cooperative. Hemoglobin stable 8.1. Platelet count 54. Potassium 3.1 getting replaced. Tremulous on exam 02/24 EGD today with esophagitis, portal gastropathy, small varices non-bleeding and thus no intervention. EtOH withdrawal symptoms and delirium have accelerated despite librium, ativan, haldol.. Adding precedex. 02/25 Remains on precedex. DTs are the primary issue at this point, seems a little better than yesterday but still delirious. 02/26: agitated delirium persists. remains on precedex, although mental status starting to clear slightly. hgb stable. 02-27 TRANSFERRED TO OUR SERVICE TODAY HAS REMAINED CONFUSED TODAY REQUIRING MORE OXYGEN LUNGS CONGESTED START ANTIBIOTICS AND MUCINEX AND NEB TREATMENTS AM LABS PT AND OT ABG 02-28 WILL CONSULT PULMONARY DW RN AND PT AND FAMILY AND RESPIRATORY ON 10L BY MASK 03-01 HAD ISSUES WITH HEART RATE AND BLOOD PRESSURE REMAINS VERY LETHARGIC MADE NPO EXCEPT MEDS DW RN AND PT AND FAMILY HAVING URINARY RETENTION NOT ABLE TO START FLOMAX DUE TO DYSPHAGIA PLACE RILEY AM LABS PRN HYDRALAZINE 03-02 DW RN AND PT AND FAMILY LESS LETHARGIC PASSED A SWALLOW EVAL TODAY TOLERATING A DIET RILEY IN PLACE TODAY START FLOMAX PRN HYDRALAZINE Physical Exam Vital signs: Vital Signs 03/01/18 18:00 03/01/18 20:00 03/01/18 20:20 Temperature 97.9 F Pulse Rate 54 L 55 L 55 L Respiratory Rate 14 19 Blood Pressure 116/73 Pulse Oximetry 99 98 03/01/18 22:00 03/02/18 00:00 03/02/18 01:11 Temperature 98.3 F Pulse Rate 61 54 L 51 L Respiratory Rate 16 20 Blood Pressure 134/77 Pulse Oximetry 96 03/02/18 02:00 03/02/18 04:00 03/02/18 04:08 Temperature 98.2 F Pulse Rate 57 L 59 L 56 L Respiratory Rate 18 20 Blood Pressure 144/90 H Pulse Oximetry 93 L 03/02/18 06:00 03/02/18 08:00 03/02/18 08:09 Temperature 97.7 F Pulse Rate 67 67 72 Respiratory Rate 12 22 Blood Pressure 96/53 L Pulse Oximetry 91 L 93 L 03/02/18 10:00 03/02/18 11:57 03/02/18 12:00 Temperature 98 F Pulse Rate 67 61 55 L Respiratory Rate 18 10 L Blood Pressure 123/69 Pulse Oximetry 95 03/02/18 14:00 03/02/18 15:41 Temperature Pulse Rate 72 69 Respiratory Rate 24 Blood Pressure Pulse Oximetry Intake & Output 03/01/18 03/02/18 03/02/18 18:59 06:59 18:59 Intake Total 350 / 350 1400 / 1400 100 / 100 Output Total 600 / 600 315 / 315 Balance -250 / -250 1085 / 1085 100 / 100 Weight 74.5 kg Intake: IV 300 / 300 1300 / 1300 100 / 100 D5W/1/2NS + KCL 20 mEq Inj 1, 1000 / 1000 000 ML @ 42 mls/hr IV.CONT . [id number] [facility] Rx#:[id number] Zosyn 4.5 GM Premix 4.5 gm In 200 / 200 100 / 100 100 / 100 100 ml @ 200 mls/hr IV.SIG Q8H [facility] Rx#:[id number] Flagyl 500 MG Inj 100 ML @ 100 100 / 100 200 / 200 mls/hr IV.SIG Q8H [facility] Rx#: [id number] Oral 50 / 50 100 / 100 Output: Urine 315 / 315 Urine Amount (Catheter) 600 / 600 Indwelling Urethral Catheter 600 / 600 Other: # Voids 1 Date of Last Bowel Movement 02/22/18 02/22/18 02/22/18 # Bowel Movements 0 Narrative: GENERAL: Lethargic and pale. PASSED SWALLOW EVAL SKIN: Multiple ecchymosis overlying right lateral chest wall. HEAD: Normocephalic. EYES: Pupils equal and reactive. ENT: No nasal bleeding or discharge. Mucous membranes pink and moist. NECK: Trachea midline. No swelling or erythema CARDIOVASCULAR: Regular rate and rhythm. 2/6 systolic murmur LSB. RESPIRATORY: COARSE wheezes all over GASTROINTESTINAL: Abdomen soft, non-tender, nondistended. Bowel sounds present. MUSCULOSKELETAL: Extremities without clubbing, cyanosis, or edema. No obvious deformities. NEUROLOGICAL: Patient is sleepy but intermittently restless. LESS delirium. no asterixis noted . - Urinary Catheter Management Indwelling Urethral Catheter Cath placed during this visit: yes Reason for continuing: Acute urinary retention Insertion date: 03/01/18 Insertion time: 17:05 Results - Labs CBC & Chem 7: 03/02/18 06:17 03/02/18 09:30 Laboratory Results - last 24 hr 03/01/18 03/02/18 03/02/18 17:05 06:17 06:17 WBC 10.2 RBC 3.62 L Hgb 10.6 L Hct 33.1 L MCV 91.4 MCH 29.3 MCHC 32.1 RDW 18.4 H Plt Count 101 L MPV 9.0 Neut % (Auto) 83.7 H Lymph % (Auto) 6.9 L [place] % (Auto) 9.2 H Eos % (Auto) 0.0 Baso % (Auto) 0.2 Neut # (Auto) 8.5 H Lymph # (Auto) 0.7 L [place] # (Auto) 0.9 Eos # (Auto) 0.0 Baso # (Auto) 0.0 WBC Differential . Differential Comment Auto diff final PT INR Sodium Potassium Chloride Carbon Dioxide Anion Gap BUN Creatinine Estimated GFR Random Glucose Calcium Phosphorus Magnesium Total Bilirubin AST ALT Alkaline Phosphatase Ammonia 29 Total Protein Albumin Urine Color Anna Urine Clarity Clear Urine pH 5.0 Ur Specific [place] 1.032 Urine Protein Negative Urine Glucose (UA) Negative Urine Ketones Negative Urine Occult Blood Negative Urine Nitrate Negative Urine Bilirubin Negative Urine Urobilinogen 4 or greater Ur Leukocyte Esterase Negative Urine RBC 3 Urine WBC 5 Ur Squamous Epith Cells <1 Hyaline Casts 1 Urine Mucus Few H Micro UA Comment Cath-culture not ind Ur Microscopic Review Not Reportable Urine Culture Comments Cath-cult not ind 03/02/18 03/02/18 09:30 09:30 WBC RBC Hgb Hct MCV MCH MCHC RDW Plt Count MPV Neut % (Auto) Lymph % (Auto) [place] % (Auto) Eos % (Auto) Baso % (Auto) Neut # (Auto) Lymph # (Auto) [place] # (Auto) Eos # (Auto) Baso # (Auto) WBC Differential Differential Comment PT 15.3 H INR 1.5 Sodium 142 Potassium 3.2 L Chloride 107 Carbon Dioxide 25.9 Anion Gap 9 BUN 19 H Creatinine 0.63 Estimated GFR Greater than 89 Random Glucose 120 H Calcium 7.7 L Phosphorus 2.8 Magnesium 2.2 Total Bilirubin 1.6 H AST 37 ALT 52 Alkaline Phosphatase 94 Ammonia Total Protein 5.7 L Albumin 2.0 L Urine Color Urine Clarity Urine pH Ur Specific [place] Urine Protein Urine Glucose (UA) Urine Ketones Urine Occult Blood Urine Nitrate Urine Bilirubin Urine Urobilinogen Ur Leukocyte Esterase Urine RBC Urine WBC Ur Squamous Epith Cells Hyaline Casts Urine Mucus Micro UA Comment Ur Microscopic Review Urine Culture Comments - Procedures EGD today with esophagitis, portal gastropathy, small varices non-bleeding and thus no intervention Assessment and Plan - Plan NEURO: Acute left neck laceration Platysma intact per ED evaluation. CTA unremarkable. Laceration repaired 02/21, suture removal ~7-10 days. Acute alcohol withdrawal Alcohol dependence Librium 25 mg p.o. q12h ativan for CIWA Thiamine/MVI/folic acid x3 days. Wean precedex as tolerated to off increase haldol to 5mg iv for agitation start clonidine 0.3mg po TID to help with withdraw symptoms. OFF PRECEDEX Loss of consciousness Suspect syncope secondary to hypovolemia/blood loss. Did report head trauma, CT head negative for acute findings Tylenol prn pain. RESP: Tobacco abuse Right rib contusion Obtained chest x-ray on admit- no cardiomegaly, lungs clear Nicotine patch IS, albuterol prn. Monitor for airway protection during EtoH w/d. COPD VS PNA- ZOSYN- MUCINEX DUONEBS ADD SOLUMEDROL PROBABLY LEFT SIDE PNEUMONIA VS COPD WILL CONSULT PULMONARY CV: Monitor hemodynamic start clonidine to help with tachycardia associated with withdraw. GI: Small Varices Esophagitis Hyperammonemia, resolved Liver cirrhosis Appreciate gastroenterology consult Endoscopy 02/24 - LA Class A esophagitis, small nonbleeding varices, portal gastropathy. Continue Xifaxan and lactulose pentoxifylline per GI Nadolol 20 mg po daily (hold orders) Ammonia has normalized now Holding off on Dobbhoff and tube feeds for now due to varices, discussing with GI. Family uncertain if plan is to proceed with colonoscopy, discussing with GI. FEN/RENAL: Acute anion gap metabolic acidosisresolved Lactic acidemia resolved Hypovolemic shock. resolved Suspect secondary to hypovolemia and acute blood loss (EtOH abuse, no po intake all day, moderate blood at scene per bystander) Decrease IVF to D51/2 NS 20 KCL/L @ 42/hr. Replace electrolytes as indicated per ICU electrolyte placement protocol. ID: U/a negative. HEME: Acute blood loss anemia Thrombocytopenia, suspect consumptive secondary to acute blood loss Hypofibrinogenemia Coagulopathy secondary to poor hepatic synthetic function and consumption due to acute blood loss. Monitor CBC, transfuse as indicated for hgb <7 or symptomatic. s/p 2 units PRBC stat. ENDO: Euglycemic without history of diabetes PROPH: SCDs for DVT prophylaxis. Avoid pharmacologic DVT prophylaxis at this time due to anemia and coagulopathy. Famotidine p.o. for stress ulcer prophylaxis. ACCESS: Peripheral IV providing adequate access at this time. Full code CONTINUE SOLUMEDROL AND ZOSYN AND FLAGYL AND MUCINEX AND DUONEB URINARY RETENTION- RILEY PLACED- KEEP IN PLACE PATIENT PASSED SWALLOW EVAL- DIET STARTED CAN RESTART MED FLOMAX HAD BRADYCARDIA HOLD BETA BLOCKERS DW RN AND PT AND FAMILY Code Status: FULL CODE Discussed Condition With: RN AND PT AND FAMILY Discharge Planning: PENDING IMPROVEMENT
--- NOTE | 2018-03-02 18:31 | P.PN ---
Subjective Interval history: Better today and on O2 3L. Able to take a diet and is cooperative. No fever. CXR is stable. Physical Exam Vital signs: Vital Signs 03/01/18 20:00 03/01/18 20:20 03/01/18 22:00 Temperature 97.9 F Pulse Rate 55 L 55 L 61 Respiratory Rate 14 19 Blood Pressure 116/73 Pulse Oximetry 99 98 03/02/18 00:00 03/02/18 01:11 03/02/18 02:00 Temperature 98.3 F Pulse Rate 54 L 51 L 57 L Respiratory Rate 16 20 Blood Pressure 134/77 Pulse Oximetry 96 03/02/18 04:00 03/02/18 04:08 03/02/18 06:00 Temperature 98.2 F Pulse Rate 59 L 56 L 67 Respiratory Rate 18 20 Blood Pressure 144/90 H Pulse Oximetry 93 L 03/02/18 08:00 03/02/18 08:09 03/02/18 10:00 Temperature 97.7 F Pulse Rate 67 72 67 Respiratory Rate 12 22 Blood Pressure 96/53 L Pulse Oximetry 91 L 93 L 03/02/18 11:57 03/02/18 12:00 03/02/18 14:00 Temperature 98 F Pulse Rate 61 55 L 72 Respiratory Rate 18 10 L Blood Pressure 123/69 Pulse Oximetry 95 03/02/18 15:41 03/02/18 16:00 Temperature 97 F L Pulse Rate 69 53 L Respiratory Rate 24 11 L Blood Pressure 106/64 Pulse Oximetry 97 Intake & Output 03/01/18 03/02/18 03/02/18 18:59 06:59 18:59 Intake Total 350 / 350 1400 / 1400 300 / 300 Output Total 600 / 600 315 / 315 Balance -250 / -250 1085 / 1085 300 / 300 Weight 74.5 kg Intake: IV 300 / 300 1300 / 1300 300 / 300 D5W/1/2NS + KCL 20 mEq Inj 1, 1000 / 1000 000 ML @ 42 mls/hr IV.CONT . [id number] [facility] Rx#:[id number] Zosyn 4.5 GM Premix 4.5 gm In 200 / 200 100 / 100 200 / 200 100 ml @ 200 mls/hr IV.SIG Q8H [facility] Rx#:[id number] Flagyl 500 MG Inj 100 ML @ 100 100 / 100 200 / 200 100 / 100 mls/hr IV.SIG Q8H [facility] Rx#: [id number] Oral 50 / 50 100 / 100 Output: Urine 315 / 315 Urine Amount (Catheter) 600 / 600 Indwelling Urethral Catheter 600 / 600 Other: # Voids 1 Date of Last Bowel Movement 02/22/18 02/22/18 02/22/18 # Bowel Movements 0 Narrative: GENERAL: Awake and answers questions. PASSED SWALLOW EVAL SKIN: Multiple ecchymosis overlying right lateral chest wall. HEAD: Normocephalic. EYES: Pupils equal and reactive. ENT: No nasal bleeding or discharge. Mucous membranes pink and moist. NECK: Trachea midline. No swelling or erythema CARDIOVASCULAR: Regular rate and rhythm. 2/6 systolic murmur LSB. RESPIRATORY:Occ Basal crackles and wheeze. GASTROINTESTINAL: Abdomen soft, non-tender, nondistended. Bowel sounds present. MUSCULOSKELETAL: Extremities without clubbing, cyanosis, or edema. No obvious deformities. NEUROLOGICAL: Patient is alert and moves all limbs .Mild tremors noted . No gross deficit. - Urinary Catheter Management Indwelling Urethral Catheter Cath placed during this visit: yes Reason for continuing: Acute urinary retention Insertion date: 03/01/18 Insertion time: 17:05 Results - Labs CBC & Chem 7: 03/02/18 06:17 03/02/18 09:30 Laboratory Results - last 24 hr 03/01/18 03/02/18 03/02/18 17:05 06:17 06:17 WBC 10.2 RBC 3.62 L Hgb 10.6 L Hct 33.1 L MCV 91.4 MCH 29.3 MCHC 32.1 RDW 18.4 H Plt Count 101 L MPV 9.0 Neut % (Auto) 83.7 H Lymph % (Auto) 6.9 L [place] % (Auto) 9.2 H Eos % (Auto) 0.0 Baso % (Auto) 0.2 Neut # (Auto) 8.5 H Lymph # (Auto) 0.7 L [place] # (Auto) 0.9 Eos # (Auto) 0.0 Baso # (Auto) 0.0 WBC Differential . Differential Comment Auto diff final PT INR Sodium Potassium Chloride Carbon Dioxide Anion Gap BUN Creatinine Estimated GFR Random Glucose Calcium Phosphorus Magnesium Total Bilirubin AST ALT Alkaline Phosphatase Ammonia 29 Total Protein Albumin Urine Color Anna Urine Clarity Clear Urine pH 5.0 Ur Specific [place] 1.032 Urine Protein Negative Urine Glucose (UA) Negative Urine Ketones Negative Urine Occult Blood Negative Urine Nitrate Negative Urine Bilirubin Negative Urine Urobilinogen 4 or greater Ur Leukocyte Esterase Negative Urine RBC 3 Urine WBC 5 Ur Squamous Epith Cells <1 Hyaline Casts 1 Urine Mucus Few H Micro UA Comment Cath-culture not ind Ur Microscopic Review Not Reportable Urine Culture Comments Cath-cult not ind 03/02/18 03/02/18 09:30 09:30 WBC RBC Hgb Hct MCV MCH MCHC RDW Plt Count MPV Neut % (Auto) Lymph % (Auto) [place] % (Auto) Eos % (Auto) Baso % (Auto) Neut # (Auto) Lymph # (Auto) [place] # (Auto) Eos # (Auto) Baso # (Auto) WBC Differential Differential Comment PT 15.3 H INR 1.5 Sodium 142 Potassium 3.2 L Chloride 107 Carbon Dioxide 25.9 Anion Gap 9 BUN 19 H Creatinine 0.63 Estimated GFR Greater than 89 Random Glucose 120 H Calcium 7.7 L Phosphorus 2.8 Magnesium 2.2 Total Bilirubin 1.6 H AST 37 ALT 52 Alkaline Phosphatase 94 Ammonia Total Protein 5.7 L Albumin 2.0 L Urine Color Urine Clarity Urine pH Ur Specific [place] Urine Protein Urine Glucose (UA) Urine Ketones Urine Occult Blood Urine Nitrate Urine Bilirubin Urine Urobilinogen Ur Leukocyte Esterase Urine RBC Urine WBC Ur Squamous Epith Cells Hyaline Casts Urine Mucus Micro UA Comment Ur Microscopic Review Urine Culture Comments - Procedures EGD today with esophagitis, portal gastropathy, small varices non-bleeding and thus no intervention Assessment and Plan - Assessment (1) Aspiration pneumonia due to gastric secretions Code(s): J69.0 - Pneumonitis due to inhalation of food and vomit Status: Acute (2) COPD (chronic obstructive pulmonary disease) Code(s): J44.9 - Chronic obstructive pulmonary disease, unspecified Status: Acute (3) Laceration of neck Code(s): S11.91XA - Laceration without foreign body of unspecified part of neck , initial encounter Status: Acute (4) Lactic acidosis Code(s): E87.2 - Acidosis Status: Acute (5) EtOH dependence Code(s): F10.20 - Alcohol dependence, uncomplicated Status: Acute (6) Transaminitis Code(s): R74.0 - Nonspecific elevation of levels of transaminase and lactic acid dehydrogenase [LDH] Status: Acute (7) Hypovolemia Code(s): E86.1 - Hypovolemia Status: Acute (8) Alcohol withdrawal Code(s): F10.239 - Alcohol dependence with withdrawal, unspecified Status: Acute (9) LOC (loss of consciousness) Code(s): R40.20 - Unspecified coma Status: Acute - Plan 1. Diet as tolerated 2. O2 at 3 l N/C 3. Nebs qid , duoneb 4. Continue antibiotics , Zosyn , Flagyl 5. CBC BMP Ches Xray in am 6. PT Evaluation. 7. Transfer to tele (3) Laceration of neck Qualifiers: Encounter type: initial encounter Qualified Code(s): S11.91XA - Laceration without foreign body of unspecified part of neck, initial encounter
[2018-03-02] MEDS: KCL 20 mEq/D5W/NaCl 0.45% Inj 1,000 ML IV.CONT SCH (21:00)
[2018-03-03] MEDS: chlordiazePOXIDE 25 MG Capsule PO SCH ×2 (01:36→18:52)
[2018-03-03 05:29] LABS: Baso % (Auto) 0.5 % (0.0-2.0); Eos % (Auto) 0.3 % (0.0-4.0); Hematocrit 30.9 % (39.0-51.0); Hemoglobin 10.1 gm/dL (13.0-17.0); Lymph % (Auto) 10.4 % (9.0-44.0); Mean Corpuscular HGB Conc 32.6 % (32.0-36.0); Mean Corpuscular Hemoglobin 29.3 pg (27.0-34.0); Mean Corpuscular Volume 89.9 fL (80.0-100.0); Mean Platelet Volume 8.3 fL (7.0-11.0); Mono # (Auto) 0.7 th/mm3 (0.0-0.9); Neut % (Auto) 81.8 % (16.0-70.0); Platelet Count 109 th/mm3 (150-450); Red Blood Count 3.44 mil/mm3 (4.50-5.90); Red Cell Distribution Width 17.9 % (11.6-17.2); White Blood Count 9.8 th/mm3 (4.0-11.0)
[2018-03-03] MEDS: Pantoprazole Inj 40 MG Vial IV.PUSH SCH (05:52)
[2018-03-03 05:58] LABS: Albumin 1.9 g/dL (3.4-5.0); Anion Gap 7 meq/L (5-15); Aspartate Aminotransferase 33 U/L (15-37); Blood Urea Nitrogen 19 mg/dL (7-18); Calcium 7.5 mg/dL (8.5-10.1); Chloride 106 meq/L (98-107); Glomerular Filtration Rate Greater Than 89 mL/min (>89); Glucose,Random 103 mg/dL (74-106); Magnesium 2.1 mg/dL (1.5-2.5); Potassium 3.2 meq/L (3.5-5.1); Sodium 140 meq/L (136-145)
[2018-03-03 06:01] LABS: Alanine Aminotransferase 46 U/L (12-78); Alkaline Phosphatase 89 U/L (45-117); Phosphorus 2.5 mg/dL (2.5-4.9); Total Protein 5.3 g/dL (6.4-8.2)
--- NOTE | 2018-03-03 09:29 | P.PNPL ---
Subjective Interval history: No events overnight, on 3L oxygen with good sats. Afebrile. Physical Exam Vital signs: Vital Signs 03/02/18 10:00 03/02/18 11:57 03/02/18 12:00 Temperature 98 F Pulse Rate 67 61 55 L Respiratory Rate 18 10 L Blood Pressure 123/69 Pulse Oximetry 95 03/02/18 14:00 03/02/18 15:41 03/02/18 16:00 Temperature 97 F L Pulse Rate 72 69 53 L Respiratory Rate 24 11 L Blood Pressure 106/64 Pulse Oximetry 97 03/02/18 18:00 03/02/18 19:16 03/02/18 20:00 Temperature 98.1 F Pulse Rate 66 64 68 Respiratory Rate 16 15 Blood Pressure 100/73 Pulse Oximetry 96 97 03/02/18 22:00 03/02/18 23:49 03/03/18 00:00 Temperature 98 F Pulse Rate 68 75 58 L Respiratory Rate 18 11 L Blood Pressure 126/77 Pulse Oximetry 97 03/03/18 02:00 03/03/18 04:00 03/03/18 04:11 Temperature 97.9 F Pulse Rate 61 69 68 Respiratory Rate 18 18 Blood Pressure 130/66 Pulse Oximetry 92 L 03/03/18 06:00 03/03/18 08:06 Temperature Pulse Rate 76 69 Respiratory Rate 17 Blood Pressure Pulse Oximetry 99 Intake & Output 03/02/18 03/03/18 03/03/18 18:59 06:59 18:59 Intake Total 540 / 540 1680 / 1680 Output Total 400 / 400 350 / 350 Balance 140 / 140 1330 / 1330 Weight 74.5 kg Intake: IV 300 / 300 1200 / 1200 D5W/1/2NS + KCL 20 mEq Inj 1, 1000 / 1000 000 ML @ 42 mls/hr IV.CONT . [id number] [facility] Rx#:[id number] Zosyn 4.5 GM Premix 4.5 gm In 200 / 200 100 / 100 100 ml @ 200 mls/hr IV.SIG Q8H [facility] Rx#:[id number] Flagyl 500 MG Inj 100 ML @ 100 100 / 100 100 / 100 mls/hr IV.SIG Q8H [facility] Rx#: [id number] Oral 240 / 240 480 / 480 Output: Urine Amount (Catheter) 400 / 400 350 / 350 Indwelling Urethral Catheter 400 / 400 350 / 350 Other: Date of Last Bowel Movement 02/22/18 02/22/18 # Bowel Movements 0 0 - Constitutional no acute distress - Routine HEENT Exam Head: Present: normocephalic, atraumatic Eye: Present: EOMI, PERRL, normal accommodation ENT: Present: mucous membranes moist - Routine Neck Exam Present: supple, full ROM, trachea midline - Routine Respiratory Exam Present: CTA bilaterally - Routine Cardiovascular Exam Present: RRR, S1, S2 - Routine Abdominal Exam Present: soft, normoactive bowel sounds - Routine Skin Exam Present: intact - Routine Neurological Exam Present: alert - Urinary Catheter Management Indwelling Urethral Catheter Cath placed during this visit: yes Reason for continuing: Acute urinary retention Insertion date: 03/01/18 Insertion time: 17:05 Assessment and Plan - Assessment (1) Laceration of neck Code(s): S11.91XA - Laceration without foreign body of unspecified part of neck , initial encounter Status: Acute Qualifiers: Encounter type: initial encounter Qualified Code(s): S11.91XA - Laceration without foreign body of unspecified part of neck, initial encounter (2) Lactic acidosis Code(s): E87.2 - Acidosis Status: Acute (3) EtOH dependence Code(s): F10.20 - Alcohol dependence, uncomplicated Status: Acute (4) Transaminitis Code(s): R74.0 - Nonspecific elevation of levels of transaminase and lactic acid dehydrogenase [LDH] Status: Acute (5) Hypovolemia Code(s): E86.1 - Hypovolemia Status: Acute (6) Alcohol withdrawal Code(s): F10.239 - Alcohol dependence with withdrawal, unspecified Status: Acute (7) LOC (loss of consciousness) Code(s): R40.20 - Unspecified coma Status: Acute (8) Fall from slip, trip, or stumble Code(s): W01.0XXA - Fall on same level from slipping, tripping and stumbling without subsequent striking against object, initial encounter Status: Acute (9) Acute blood loss anemia Code(s): D62 - Acute posthemorrhagic anemia Status: Acute (10) Thrombocytopenia Code(s): D69.6 - Thrombocytopenia, unspecified Status: Acute (11) Tobacco abuse counseling Code(s): Z71.6 - Tobacco abuse counseling Status: Acute (12) Tobacco abuse Code(s): Z72.0 - Tobacco use Status: Chronic (13) Contusion of rib on right side Code(s): S20.211A - Contusion of right front wall of thorax, initial encounter Status: Acute (14) Hypovolemic shock Code(s): R57.1 - Hypovolemic shock Status: Acute - Plan 1)Resp Insuff 2)Aspiration pneumonia due to gastric secretions 3)COPD 4) Laceration of neck 5) Lactic acidosis- Resolved 6) EtOH dependence 7) Alcohol withdrawal 8)Anemia 9)Thrombocytopenia 10)Coagulopathy- improving Plan Continue with oxygen keep sats >92% Bronchodilators Continue with abx( Zosyn , Flagyl)monitor for signs of infections ( Fever, WBC) Check sputum cx CXR 03/01: unchanged b/l infiltrates d/c IVF and diurese as needed. Electrolytes replacement per protocol. Continue treatment plan
--- NOTE | 2018-03-03 10:08 | P.PNIM ---
Subjective Interval history: 52-year-old male with past medical history of tobacco and alcohol dependence. He states he was sharpening a non-serrated carving knife this morning while intoxicated. He said he got up to put the knife away and he tripped and fell and lacerated his left neck around 10 am on 02/21. He states he hit his head on the counter and had loss of consciousness. There was blood pooling on the floor and each time he tried to get up he was near-syncopal so he remained on the floor all day until neighbors found him at around 8 pm. He was brought [place] [facility] [place] [facility]. The wound was explored by the emergency medicine physician and platysma appeared intact. CTA of the neck demonstrated soft tissue swelling in the subcut fat with deeper structures appearing intact. He was found to have anion-gap lactic acidosis with bicarb of 11.9, anion gap of 26 , lactic acid 16. EtOH level is still 134. CPK is 309. Creatinine is normal. His hemoglobin is 9.4. Most recent prior hemoglobin was 13.[address] Aly discussed with Dr. Amador who recommended admission to medicine. The laceration was repaired in the ED and patient received 2 L normal saline bolus, Ancef 2gram, Td, Zofran and reglan for nausea. He denies headache, dysphagia, chest pain, shortness of breath, abdominal pain, flank pain, vomiting, melena, hematemesis, audiovisual hallucinations. He is tremulous and complains of thirst. He is a daily drinker of at least 10 beers per day, last drink was 9 am on 02/21. 02/23: Patient lying in bed somnolent from Ativan given overnight for alcohol withdrawal. Currently cooperative. Hemoglobin stable 8.1. Platelet count 54. Potassium 3.1 getting replaced. Tremulous on exam 02/24 EGD today with esophagitis, portal gastropathy, small varices non-bleeding and thus no intervention. EtOH withdrawal symptoms and delirium have accelerated despite librium, ativan, haldol.. Adding precedex. 02/25 Remains on precedex. DTs are the primary issue at this point, seems a little better than yesterday but still delirious. 02/26: agitated delirium persists. remains on precedex, although mental status starting to clear slightly. hgb stable. 02-27 TRANSFERRED TO OUR SERVICE TODAY HAS REMAINED CONFUSED TODAY REQUIRING MORE OXYGEN LUNGS CONGESTED START ANTIBIOTICS AND MUCINEX AND NEB TREATMENTS AM LABS PT AND OT ABG 02-28 WILL CONSULT PULMONARY DW RN AND PT AND FAMILY AND RESPIRATORY ON 10L BY MASK 03-01 HAD ISSUES WITH HEART RATE AND BLOOD PRESSURE REMAINS VERY LETHARGIC MADE NPO EXCEPT MEDS DW RN AND PT AND FAMILY HAVING URINARY RETENTION NOT ABLE TO START FLOMAX DUE TO DYSPHAGIA PLACE RILEY AM LABS PRN HYDRALAZINE 03-02 DW RN AND PT AND FAMILY LESS LETHARGIC PASSED A SWALLOW EVAL TODAY TOLERATING A DIET RILEY IN PLACE TODAY START FLOMAX PRN HYDRALAZINE 03-03 VERY LETHARGIC TODAY WILL GET ABG AMMONIA LEVEL IS NORMAL DW RN AND PT INCREASE ACTIVITY SEEN BY PULMONARY Physical Exam Vital signs: Vital Signs 03/02/18 11:57 03/02/18 12:00 03/02/18 14:00 Temperature 98 F Pulse Rate 61 55 L 72 Respiratory Rate 18 10 L Blood Pressure 123/69 Pulse Oximetry 95 03/02/18 15:41 03/02/18 16:00 03/02/18 18:00 Temperature 97 F L Pulse Rate 69 53 L 66 Respiratory Rate 24 11 L Blood Pressure 106/64 Pulse Oximetry 97 03/02/18 19:16 03/02/18 20:00 03/02/18 22:00 Temperature 98.1 F Pulse Rate 64 68 68 Respiratory Rate 16 15 Blood Pressure 100/73 Pulse Oximetry 96 97 03/02/18 23:49 03/03/18 00:00 03/03/18 02:00 Temperature 98 F Pulse Rate 75 58 L 61 Respiratory Rate 18 11 L Blood Pressure 126/77 Pulse Oximetry 97 03/03/18 04:00 03/03/18 04:11 03/03/18 06:00 Temperature 97.9 F Pulse Rate 69 68 76 Respiratory Rate 18 18 Blood Pressure 130/66 Pulse Oximetry 92 L 03/03/18 08:06 Temperature Pulse Rate 69 Respiratory Rate 17 Blood Pressure Pulse Oximetry 99 Intake & Output 03/02/18 03/03/18 03/03/18 18:59 06:59 18:59 Intake Total 540 / 540 1680 / 1680 Output Total 400 / 400 350 / 350 Balance 140 / 140 1330 / 1330 Weight 74.5 kg Intake: IV 300 / 300 1200 / 1200 D5W/1/2NS + KCL 20 mEq Inj 1, 1000 / 1000 000 ML @ 42 mls/hr IV.CONT . [id number] REBECCA Rx#:[id number] Zosyn 4.5 GM Premix 4.5 gm In 200 / 200 100 / 100 100 ml @ 200 mls/hr IV.SIG Q8H REBECCA Rx#:[id number] Flagyl 500 MG Inj 100 ML @ 100 100 / 100 100 / 100 mls/hr IV.SIG Q8H REBECCA Rx#: [id number] Oral 240 / 240 480 / 480 Output: Urine Amount (Catheter) 400 / 400 350 / 350 Indwelling Urethral Catheter 400 / 400 350 / 350 Other: Date of Last Bowel Movement 02/22/18 02/22/18 # Bowel Movements 0 0 Narrative: GENERAL:VERY LETHARGIC AGAIN TODAY PASSED SWALLOW EVAL YESTERDAY SKIN: Multiple ecchymosis overlying right lateral chest wall. HEAD: Normocephalic. EYES: Pupils equal and reactive. ENT: No nasal bleeding or discharge. Mucous membranes pink and moist. NECK: Trachea midline. No swelling or erythema CARDIOVASCULAR: Regular rate and rhythm. 2/6 systolic murmur LSB. RESPIRATORY:Occ Basal crackles and wheeze. GASTROINTESTINAL: Abdomen soft, non-tender, nondistended. Bowel sounds present. MUSCULOSKELETAL: Extremities without clubbing, cyanosis, or edema. No obvious deformities. NEUROLOGICAL: Patient is AROUSABLE and moves all limbs .Mild tremors noted . No gross deficit. - Urinary Catheter Management Indwelling Urethral Catheter Cath placed during this visit: yes Reason for continuing: Acute urinary retention Insertion date: 03/01/18 Insertion time: 17:05 Results - Labs CBC & Chem 7: 03/03/18 05:10 03/03/18 05:10 Laboratory Results - last 24 hr 03/02/18 03/02/18 03/03/18 09:30 09:30 05:10 WBC RBC Hgb Hct MCV MCH MCHC RDW Plt Count MPV Neut % (Auto) Lymph % (Auto) Murray % (Auto) Eos % (Auto) Baso % (Auto) Neut # (Auto) Lymph # (Auto) Murray # (Auto) Eos # (Auto) Baso # (Auto) WBC Differential Differential Comment PT 15.3 H INR 1.5 Sodium 142 140 Potassium 3.2 L 3.2 L Chloride 107 106 Carbon Dioxide 25.9 27.0 Anion Gap 9 7 BUN 19 H 19 H Creatinine 0.63 0.64 Estimated GFR Greater than 89 Greater than 89 Random Glucose 120 H 103 Calcium 7.7 L 7.5 L Phosphorus 2.8 2.5 Magnesium 2.2 2.1 Total Bilirubin 1.6 H 1.4 H AST 37 33 ALT 52 46 Alkaline Phosphatase 94 89 Ammonia Total Protein 5.7 L 5.3 L Albumin 2.0 L 1.9 L 03/03/18 03/03/18 05:10 05:10 WBC 9.8 RBC 3.44 L Hgb 10.1 L Hct 30.9 L MCV 89.9 MCH 29.3 MCHC 32.6 RDW 17.9 H Plt Count 109 L MPV 8.3 Neut % (Auto) 81.8 H Lymph % (Auto) 10.4 Murray % (Auto) 7.0 Eos % (Auto) 0.3 Baso % (Auto) 0.5 Neut # (Auto) 8.0 H Lymph # (Auto) 1.0 Murray # (Auto) 0.7 Eos # (Auto) 0.0 Baso # (Auto) 0.0 WBC Differential . Differential Comment Auto diff final PT INR Sodium Potassium Chloride Carbon Dioxide Anion Gap BUN Creatinine Estimated GFR Random Glucose Calcium Phosphorus Magnesium Total Bilirubin AST ALT Alkaline Phosphatase Ammonia 11 Total Protein Albumin - Imaging Neck CTA 02/21/18 21:21 CONCLUSION: 1. Focal soft tissue swelling at the left lateral mid neck primarily within the subcutaneous fat. The deeper structures appear intact. 2. No arterial injury is seen. There is scattered atherosclerotic calcification without a significant stenosis. Chest X-Ray 02/21/18 23:47 CONCLUSION: No acute cardiopulmonary process. Head CT 02/22/18 00:00 CONCLUSION: No acute intracranial abnormality is seen. . Liver Ultrasound 02/22/18 00:00 CONCLUSION: 1. Cirrhotic appearing liver with trace amount of ascites. 2. Gallbladder wall thickening with mild pericholecystic fluid. Findings are commonly seen in the setting of chronic liver disease but limit overall sonographic sensitivity for detection of early acute cholecystitis. If there is compelling continued clinical concern regarding cholecystitis, HIDA scan may be performed to document cystic duct patency. 3. Trace peripancreatic fluid. Suspect this is due to overall mesenteric edema. Clinical correlation with pancreatic enzymes is recommended. Chest X-Ray 02/24/18 06:00 CONCLUSION: Minimal atelectasis or consolidation at the left base. Chest X-Ray 02/27/18 00:00 CONCLUSION: Interval development of airspace opacities in the medial infrahilar region bilaterally. Chest X-Ray 03/01/18 00:00 CONCLUSION: Unchanged bilateral infiltrates. - Procedures EGD today with esophagitis, portal gastropathy, small varices non-bleeding and thus no intervention Assessment and Plan - Plan NEURO: Acute left neck laceration Platysma intact per ED evaluation. CTA unremarkable. Laceration repaired 02/21, suture removal ~7-10 days. Acute alcohol withdrawal Alcohol dependence Librium 25 mg p.o. q12h ativan for CIWA Thiamine/MVI/folic acid x3 days. Wean precedex as tolerated to off increase haldol to 5mg iv for agitation start clonidine 0.3mg po TID to help with withdraw symptoms. OFF PRECEDEX Loss of consciousness Suspect syncope secondary to hypovolemia/blood loss. Did report head trauma, CT head negative for acute findings Tylenol prn pain. RESP: Tobacco abuse Right rib contusion Obtained chest x-ray on admit- no cardiomegaly, lungs clear Nicotine patch IS, albuterol prn. Monitor for airway protection during EtoH w/d. COPD VS PNA- ZOSYN- MUCINEX DUONEBS ADD SOLUMEDROL PROBABLY LEFT SIDE PNEUMONIA VS COPD WILL CONSULT PULMONARY CV: Monitor hemodynamic start clonidine to help with tachycardia associated with withdraw. GI: Small Varices Esophagitis Hyperammonemia, resolved Liver cirrhosis Appreciate gastroenterology consult Endoscopy 02/24 - LA Class A esophagitis, small nonbleeding varices, portal gastropathy. Continue Xifaxan and lactulose pentoxifylline per GI Nadolol 20 mg po daily (hold orders) Ammonia has normalized now Holding off on Dobbhoff and tube feeds for now due to varices, discussing with GI. Family uncertain if plan is to proceed with colonoscopy, discussing with GI. FEN/RENAL: Acute anion gap metabolic acidosisresolved Lactic acidemia resolved Hypovolemic shock. resolved Suspect secondary to hypovolemia and acute blood loss (EtOH abuse, no po intake all day, moderate blood at scene per bystander) Decrease IVF to D51/2 NS 20 KCL/L @ 42/hr. Replace electrolytes as indicated per ICU electrolyte placement protocol. ID: U/a negative. HEME: Acute blood loss anemia Thrombocytopenia, suspect consumptive secondary to acute blood loss Hypofibrinogenemia Coagulopathy secondary to poor hepatic synthetic function and consumption due to acute blood loss. Monitor CBC, transfuse as indicated for hgb <7 or symptomatic. s/p 2 units PRBC stat. ENDO: Euglycemic without history of diabetes PROPH: SCDs for DVT prophylaxis. Avoid pharmacologic DVT prophylaxis at this time due to anemia and coagulopathy. Famotidine p.o. for stress ulcer prophylaxis. ACCESS: Peripheral IV providing adequate access at this time. Full code CONTINUE SOLUMEDROL AND ZOSYN AND FLAGYL AND MUCINEX AND DUONEB URINARY RETENTION- RILEY PLACED- KEEP IN PLACE PATIENT PASSED SWALLOW EVAL- DIET STARTED CAN RESTART MED FLOMAX HAD BRADYCARDIA HOLD BETA BLOCKERS LETHARGIC TODAY WILL GET ABG 8-25 DW RN AND PT Code Status: FULL CODE Discussed Condition With: RN AND PT Discharge Planning: PENDING IMPROVEMENT
[2018-03-03 10:20] LABS: ABG Base Excess 1.1 mmol/L (-2-2); ABG PCO2 31 mmHg (38-42); ABG PO2 76 mmHG (61-120)
[2018-03-03] MEDS: Nadolol 20 MG Tablet PO SCH (12:08)
[2018-03-03] MEDS: guaiFENesin 600 MG ER Tablet PO SCH ×2 (12:10→20:57)
[2018-03-03] MEDS: Pentoxifylline 400 MG Controlled Release Tablet PO SCH ×3 (12:11→18:53)
[2018-03-03] MEDS: Budesonide-Formoterol 160/4.5 MCG 6 GM Inhaler INH SCH ×2 (12:12→20:57)
[2018-03-03] MEDS: rifAXIMin 550 MG Tablet PO SCH ×2 (12:12→20:56)
[2018-03-03] MEDS: Senna/Docusate Sodium 8.6/50 MG Tablet PO SCH ×2 (12:12→20:57)
[2018-03-03] MEDS: Piperacil/Tazo 4.5 GM Premix 4.5 GM/100 ML BAG IV.SIG SCH ×2 (12:54→20:55)
[2018-03-03] MEDS: Potassium Phosphate Inj 30 MMOL in Sodium Chlor 0.9% Inj 250 ML IV.SIG PRN (12:56)
[2018-03-04] MEDS: chlordiazePOXIDE 25 MG Capsule PO SCH (03:16)
[2018-03-04 04:30] LABS: Baso % (Auto) 0.4 % (0.0-2.0); Eos # (Auto) 0.1 th/mm3 (0.0-0.4); Eos % (Auto) 1.1 % (0.0-4.0); Hematocrit 28.5 % (39.0-51.0); Hemoglobin 9.5 gm/dL (13.0-17.0); Lymph # (Auto) 0.6 th/mm3 (1.0-4.8); Lymph % (Auto) 7.6 % (9.0-44.0); Mean Corpuscular HGB Conc 33.2 % (32.0-36.0); Mean Corpuscular Hemoglobin 29.4 pg (27.0-34.0); Mean Corpuscular Volume 88.7 fL (80.0-100.0); Mono # (Auto) 0.5 th/mm3 (0.0-0.9); Mono % (Auto) 5.4 % (0.0-8.0); Neut # (Auto) 7.3 th/mm3 (1.8-7.7); Neut % (Auto) 85.5 % (16.0-70.0); Platelet Count 86 th/mm3 (150-450); Red Blood Count 3.22 mil/mm3 (4.50-5.90); Red Cell Distribution Width 17.8 % (11.6-17.2); White Blood Count 8.5 th/mm3 (4.0-11.0)
[2018-03-04] MEDS: Pantoprazole Inj 40 MG Vial IV.PUSH SCH (05:33)
[2018-03-04 07:14] LABS: Anion Gap 10 meq/L (5-15); Chloride 109 meq/L (98-107); Potassium 3.4 meq/L (3.5-5.1); Sodium 142 meq/L (136-145)
[2018-03-04 07:15] LABS: Alanine Aminotransferase 41 U/L (12-78); Albumin 1.8 g/dL (3.4-5.0); Alkaline Phosphatase 83 U/L (45-117); Aspartate Aminotransferase 39 U/L (15-37); Blood Urea Nitrogen 17 mg/dL (7-18); Calcium 7.6 mg/dL (8.5-10.1); Glomerular Filtration Rate Greater Than 89 mL/min (>89); Glucose,Random 92 mg/dL (74-106); Magnesium 1.9 mg/dL (1.5-2.5); Phosphorus 2.6 mg/dL (2.5-4.9)
[2018-03-04 07:24] LABS: Platelet Morphology Normal (Normal)
[2018-03-04 07:26] LABS: Burr Cells 1+
[2018-03-04 07:27] LABS: Acanthocytes Occ
--- NOTE | 2018-03-04 08:37 | P.PN ---
Subjective Interval history: 52-year-old male with past medical history of tobacco and alcohol dependence. He states he was sharpening a non-serrated carving knife this morning while intoxicated. He said he got up to put the knife away and he tripped and fell and lacerated his left neck around 10 am on 02/21. He states he hit his head on the counter and had loss of consciousness. There was blood pooling on the floor and each time he tried to get up he was near-syncopal so he remained on the floor all day until neighbors found him at around 8 pm. [place] [facility] [place] [facility] The wound was explored by the emergency medicine physician and platysma appeared intact. CTA of the neck demonstrated soft tissue swelling in the subcut fat with deeper structures appearing intact. He was found to have anion-gap lactic acidosis with bicarb of 11.9, anion gap of 26 , lactic acid 16. EtOH level is still 134. CPK is 309. Creatinine is normal. His hemoglobin is 9.4. Most recent prior hemoglobin was 13.[address] Aly discussed with Dr. Amador who recommended admission to medicine. The laceration was repaired in the ED and patient received 2 L normal saline bolus, Ancef 2gram, Td, Zofran and Reglan for nausea. Since admission started on CIWA protocol thinking in Alcohol withdrawal, he drinks 10 beers daily. had EGD 02/24/18 with Esophagitis, portal gastropathy, small varices non-bleeding and thus no intervention, was on Precedex, on Oxygen document preparation specialist following, Urinary retention, placed Polanco catha and started on Flomax, passed Swallow test on 03/02/1803/04: Stable in his bedroom, continue Lethargic, discussed with nurse Miss Pearson, no new issues, continue present care in Intensive care unit not improving his Mental condition. No nausea, vomit or diarrhea. Physical Exam Vital signs: Vital Signs 03/03/18 09:00 03/03/18 10:00 03/03/18 11:00 Temperature Pulse Rate 63 61 62 Respiratory Rate 14 14 13 Blood Pressure 97/65 L 97/66 L 95/65 L Pulse Oximetry 100 97 99 03/03/18 12:00 03/03/18 12:06 03/03/18 12:56 Temperature Pulse Rate 52 L 54 L 54 L Respiratory Rate 15 14 20 Blood Pressure 110/65 Pulse Oximetry 97 97 03/03/18 13:00 03/03/18 14:00 03/03/18 15:00 Temperature Pulse Rate 51 L 64 69 Respiratory Rate 13 11 L 13 Blood Pressure 122/73 91/61 L 92/63 L Pulse Oximetry 99 91 L 95 03/03/18 15:54 03/03/18 16:00 03/03/18 17:00 Temperature 98.5 F Pulse Rate 64 62 56 L Respiratory Rate 15 12 11 L Blood Pressure 91/64 L 95/67 L Pulse Oximetry 100 100 03/03/18 18:00 03/03/18 18:01 03/03/18 20:00 Temperature 98.6 F Pulse Rate 55 L 56 L 58 L Respiratory Rate 15 15 18 Blood Pressure 113/68 103/67 Pulse Oximetry 99 99 100 03/03/18 20:06 03/03/18 22:00 03/04/18 00:00 Temperature 98.8 F Pulse Rate 58 L 71 68 Respiratory Rate 16 15 Blood Pressure 137/82 Pulse Oximetry 100 95 03/04/18 02:00 03/04/18 03:51 03/04/18 04:00 Temperature 98.5 F Pulse Rate 81 75 68 Respiratory Rate 16 14 Blood Pressure 133/85 Pulse Oximetry 100 03/04/18 06:00 03/04/18 07:00 03/04/18 07:51 Temperature Pulse Rate 73 69 Respiratory Rate 12 Blood Pressure Pulse Oximetry 100 Intake & Output 03/03/18 03/04/18 03/04/18 18:59 06:59 18:59 Intake Total 650 / 650 540 / 540 Output Total 525 / 525 375 / 375 Balance 125 / 125 165 / 165 Weight 76 kg Intake: IV 300 / 300 300 / 300 Zosyn 4.5 GM Premix 4.5 gm In 100 / 100 100 / 100 100 ml @ 200 mls/hr IV.SIG Q8H REBECCA Rx#:[id number] Flagyl 500 MG Inj 100 ML @ 100 200 / 200 200 / 200 mls/hr IV.SIG Q8H REBECCA Rx#: [id number] Oral 350 / 350 240 / 240 Output: Urine Amount (Catheter) 525 / 525 375 / 375 Indwelling Urethral Catheter 525 / 525 375 / 375 Other: Date of Last Bowel Movement 02/22/18 02/22/18 # Bowel Movements 0 Narrative: GENERAL: Lethargic SKIN: Multiple ecchymosis overlying right lateral chest wall. HEAD: Normocephalic. EYES: Pupils equal and reactive. ENT: No nasal bleeding or discharge. Mucous membranes pink and moist. NECK: Trachea midline. No swelling or erythema CARDIOVASCULAR: Regular rate and rhythm. 2/6 systolic murmur LSB. RESPIRATORY:Occ Basal crackles and wheeze. GASTROINTESTINAL: Abdomen soft, non-tender, nondistended. Bowel sounds present. MUSCULOSKELETAL: Extremities without clubbing, cyanosis, or edema. No obvious deformities. NEUROLOGICAL: Patient is AROUSABLE and moves all limbs .Mild tremors noted . No gross deficit. - Urinary Catheter Management Indwelling Urethral Catheter Cath placed during this visit: yes Reason for continuing: Acute urinary retention Insertion date: 03/01/18 Insertion time: 17:05 Results - Labs CBC & Chem 7: 03/04/18 02:57 03/04/18 02:57 Laboratory Results - last 24 hr 03/03/18 03/04/18 03/04/18 10:10 02:57 02:57 WBC 8.5 RBC 3.22 L Hgb 9.5 L Hct 28.5 L MCV 88.7 MCH 29.4 MCHC 33.2 RDW 17.8 H Plt Count 86 L MPV 9.0 Prelim Diff (Auto) Slide review pending Neut % (Auto) 85.5 H Lymph % (Auto) 7.6 L Cecil % (Auto) 5.4 Eos % (Auto) 1.1 Baso % (Auto) 0.4 Neut # (Auto) 7.3 Lymph # (Auto) 0.6 L Cecil # (Auto) 0.5 Eos # (Auto) 0.1 Baso # (Auto) 0.0 WBC Differential . Diff Scan Auto diff confirmed Differential Comment . Platelet Estimate Low L Platelet Morphology Normal [place] Cells 1+ H Acanthocytes (Spur) Occ H Puncture Site Left radial Patient Temperature 98.6 O2 Saturation 94 ABG pH 7.51 H* ABG pCO2 31 L ABG pO2 76 ABG HCO3 24 ABG O2 Content 12.3 ABG Base Excess 1.1 ABG Methemoglobin 1.2 Baudilio Test + Hemoglobin 9.2 L Carboxyhemoglobin 1.3 O2 Delivery Device Nasal cannula Liter Flow 3.00 Critical Value Yes Sodium 142 Potassium 3.4 L Chloride 109 H Carbon Dioxide 23.0 Anion Gap 10 BUN 17 Creatinine 0.54 L Estimated GFR Greater than 89 Random Glucose 92 Calcium 7.6 L Phosphorus 2.6 Magnesium 1.9 Total Bilirubin 1.3 H AST 39 H ALT 41 Alkaline Phosphatase 83 Total Protein 5.0 L Albumin 1.8 L - Imaging Neck CTA 02/21/18 21:21 CONCLUSION: 1. Focal soft tissue swelling at the left lateral mid neck primarily within the subcutaneous fat. The deeper structures appear intact. 2. No arterial injury is seen. There is scattered atherosclerotic calcification without a significant stenosis. Chest X-Ray 02/21/18 23:47 CONCLUSION: No acute cardiopulmonary process. Head CT 02/22/18 00:00 CONCLUSION: No acute intracranial abnormality is seen. . Liver Ultrasound 02/22/18 00:00 CONCLUSION: 1. Cirrhotic appearing liver with trace amount of ascites. 2. Gallbladder wall thickening with mild pericholecystic fluid. Findings are commonly seen in the setting of chronic liver disease but limit overall sonographic sensitivity for detection of early acute cholecystitis. If there is compelling continued clinical concern regarding cholecystitis, HIDA scan may be performed to document cystic duct patency. 3. Trace peripancreatic fluid. Suspect this is due to overall mesenteric edema. Clinical correlation with pancreatic enzymes is recommended. Chest X-Ray 02/24/18 06:00 CONCLUSION: Minimal atelectasis or consolidation at the left base. Chest X-Ray 02/27/18 00:00 CONCLUSION: Interval development of airspace opacities in the medial infrahilar region bilaterally. Chest X-Ray 03/01/18 00:00 CONCLUSION: Unchanged bilateral infiltrates. - Procedures EGD today with esophagitis, portal gastropathy, small varices non-bleeding and thus no intervention Assessment and Plan - Plan 1. Acute left neck Laceration, Platysma intact CTA unremarkable, Laceration repaired 02/21/18 suture removed seven to 10 days, 2. Acute Alcohol withdrawal/alcoholic dependence continue CIWA protocol 3. Tobacco dependence strongly recommended to stop smoking 4. Respiratory failure document preparation specialist following, CXR no cardiomegaly, lungs clear 5. Aspiration Pneumonia Zosyn, Metronidazole, bronchodilator, Mucolytic and incentive spirometry 6. Esophageal Varices/Esophagitis/Liver Cirrhosis/ Hyperammonemia resolved. Endoscopy 02/24 - [place] Class A esophagitis, small nonbleeding varices, portal gastropathy. Continue Xifaxan and lactulose pentoxifylline per GI Nadolol 20 mg po daily (hold orders) Ammonia has normalized now 7. Acute Anion gap Metabolic acidosis resolved/Lactic acidemia resolved/ Hypovolemic shock resolved 8. Acute blood loss anemia following hemoglobin 9. Urinary Retention Polanco cath placed and Flomax PROPH: SCDs for DVT prophylaxis. Avoid pharmacologic DVT prophylaxis at this time due to anemia and coagulopathy. Famotidine p.o. for stress ulcer prophylaxis. Code Status: Full code. Discussed Condition With: Nurse Miss Garciaa. Discharge Planning: not yet clear for discharge.
--- NOTE | 2018-03-04 09:14 | P.PNPL ---
Subjective Interval history: Patient is more awake today, on 3L oxygen Afebrile. Physical Exam Vital signs: Vital Signs 03/03/18 10:00 03/03/18 11:00 03/03/18 12:00 Temperature Pulse Rate 61 62 52 L Respiratory Rate 14 13 15 Blood Pressure 97/66 L 95/65 L Pulse Oximetry 97 99 97 03/03/18 12:06 03/03/18 12:56 03/03/18 13:00 Temperature Pulse Rate 54 L 54 L 51 L Respiratory Rate 14 20 13 Blood Pressure 110/65 122/73 Pulse Oximetry 97 99 03/03/18 14:00 03/03/18 15:00 03/03/18 15:54 Temperature Pulse Rate 64 69 64 Respiratory Rate 11 L 13 15 Blood Pressure 91/61 L 92/63 L Pulse Oximetry 91 L 95 03/03/18 16:00 03/03/18 17:00 03/03/18 18:00 Temperature 98.5 F Pulse Rate 62 56 L 55 L Respiratory Rate 12 11 L 15 Blood Pressure 91/64 L 95/67 L Pulse Oximetry 100 100 99 03/03/18 18:01 03/03/18 20:00 03/03/18 20:06 Temperature 98.6 F Pulse Rate 56 L 58 L 58 L Respiratory Rate 15 18 16 Blood Pressure 113/68 103/67 Pulse Oximetry 99 100 100 03/03/18 22:00 03/04/18 00:00 03/04/18 02:00 Temperature 98.8 F Pulse Rate 71 68 81 Respiratory Rate 15 Blood Pressure 137/82 Pulse Oximetry 95 03/04/18 03:51 03/04/18 04:00 03/04/18 06:00 Temperature 98.5 F Pulse Rate 75 68 73 Respiratory Rate 16 14 Blood Pressure 133/85 Pulse Oximetry 100 03/04/18 07:00 03/04/18 07:51 Temperature Pulse Rate 69 Respiratory Rate 12 Blood Pressure Pulse Oximetry 100 Intake & Output 03/03/18 03/04/18 03/04/18 18:59 06:59 18:59 Intake Total 650 / 650 540 / 540 Output Total 525 / 525 375 / 375 Balance 125 / 125 165 / 165 Weight 76 kg Intake: IV 300 / 300 300 / 300 Zosyn 4.5 GM Premix 4.5 gm In 100 / 100 100 / 100 100 ml @ 200 mls/hr IV.SIG Q8H REBECCA Rx#:[id number] Flagyl 500 MG Inj 100 ML @ 100 200 / 200 200 / 200 mls/hr IV.SIG Q8H REBECCA Rx#: [id number] Oral 350 / 350 240 / 240 Output: Urine Amount (Catheter) 525 / 525 375 / 375 Indwelling Urethral Catheter 525 / 525 375 / 375 Other: Date of Last Bowel Movement 02/22/18 02/22/18 # Bowel Movements 0 - Constitutional no acute distress - Routine HEENT Exam Head: Present: normocephalic, atraumatic Eye: Present: EOMI, PERRL, normal accommodation, conjunctivae pink - Routine Neck Exam Present: supple, full ROM, trachea midline - Routine Respiratory Exam Present: CTA bilaterally - Routine Cardiovascular Exam Present: RRR, S1, S2 - Routine Abdominal Exam Present: soft, normoactive bowel sounds - Routine Extremities Exam Present: full ROM, pulses intact - Routine Skin Exam Present: intact - Routine Neurological Exam Present: alert, CN II-XII intact - Urinary Catheter Management Indwelling Urethral Catheter Cath placed during this visit: yes Reason for continuing: Acute urinary retention Insertion date: 03/01/18 Insertion time: 17:05 Assessment and Plan - Assessment (1) Laceration of neck Code(s): S11.91XA - Laceration without foreign body of unspecified part of neck , initial encounter Status: Acute Qualifiers: Encounter type: initial encounter Qualified Code(s): S11.91XA - Laceration without foreign body of unspecified part of neck, initial encounter (2) Lactic acidosis Code(s): E87.2 - Acidosis Status: Acute (3) EtOH dependence Code(s): F10.20 - Alcohol dependence, uncomplicated Status: Acute (4) Transaminitis Code(s): R74.0 - Nonspecific elevation of levels of transaminase and lactic acid dehydrogenase [LDH] Status: Acute (5) Hypovolemia Code(s): E86.1 - Hypovolemia Status: Acute (6) Alcohol withdrawal Code(s): F10.239 - Alcohol dependence with withdrawal, unspecified Status: Acute (7) LOC (loss of consciousness) Code(s): R40.20 - Unspecified coma Status: Acute (8) Fall from slip, trip, or stumble Code(s): W01.0XXA - Fall on same level from slipping, tripping and stumbling without subsequent striking against object, initial encounter Status: Acute (9) Acute blood loss anemia Code(s): D62 - Acute posthemorrhagic anemia Status: Acute (10) Thrombocytopenia Code(s): D69.6 - Thrombocytopenia, unspecified Status: Acute (11) Tobacco abuse counseling Code(s): Z71.6 - Tobacco abuse counseling Status: Acute (12) Tobacco abuse Code(s): Z72.0 - Tobacco use Status: Chronic (13) Contusion of rib on right side Code(s): S20.211A - Contusion of right front wall of thorax, initial encounter Status: Acute (14) Hypovolemic shock Code(s): R57.1 - Hypovolemic shock Status: Acute - Plan 1)Resp Insuff 2)Aspiration pneumonia due to gastric secretions 3)COPD 4) Laceration of neck 5) Lactic acidosis- Resolved 6) EtOH dependence 7) Alcohol withdrawal 8)Anemia 9)Thrombocytopenia 10)Coagulopathy- improving Plan Continue with oxygen keep sats >92% Bronchodilators Continue with abx( Zosyn , Flagyl)monitor for signs of infections ( Fever, WBC) Check sputum cx CXR 03/01: unchanged b/l infiltrates Off IVF, diurese with Lasix 40mg IV x1 Electrolytes replacement per protocol. Continue treatment plan
[2018-03-04] MEDS: guaiFENesin 600 MG ER Tablet PO SCH ×2 (11:13→20:27)
[2018-03-04] MEDS: Piperacil/Tazo 4.5 GM Premix 4.5 GM/100 ML BAG IV.SIG SCH ×4 (11:16→23:38)
[2018-03-04] MEDS: rifAXIMin 550 MG Tablet PO SCH ×2 (11:17→20:27)
[2018-03-04] MEDS: Budesonide-Formoterol 160/4.5 MCG 6 GM Inhaler INH SCH ×2 (11:18→20:27)
[2018-03-04] MEDS: Nadolol 20 MG Tablet PO SCH (11:24)
[2018-03-04] MEDS: Senna/Docusate Sodium 8.6/50 MG Tablet PO SCH ×2 (11:24→20:27)
[2018-03-04] MEDS: Pentoxifylline 400 MG Controlled Release Tablet PO SCH ×2 (11:24→17:41)
[2018-03-05] MEDS: Pantoprazole Inj 40 MG Vial IV.PUSH SCH (05:57)
[2018-03-05] MEDS: Piperacil/Tazo 4.5 GM Premix 4.5 GM/100 ML BAG IV.SIG SCH ×3 (05:58→18:42)
[2018-03-05 07:07] LABS: Hematocrit 26.8 % (39.0-51.0); Hemoglobin 8.9 gm/dL (13.0-17.0); Mean Corpuscular HGB Conc 33.1 % (32.0-36.0); Mean Corpuscular Hemoglobin 29.7 pg (27.0-34.0); Mean Corpuscular Volume 89.6 fL (80.0-100.0); Mean Platelet Volume 8.9 fL (7.0-11.0); Platelet Count 76 th/mm3 (150-450); Red Blood Count 2.99 mil/mm3 (4.50-5.90); Red Cell Distribution Width 17.9 % (11.6-17.2); White Blood Count 8.1 th/mm3 (4.0-11.0)
[2018-03-05 07:29] LABS: Anion Gap 11 meq/L (5-15); Blood Urea Nitrogen 14 mg/dL (7-18); Calcium 7.6 mg/dL (8.5-10.1); Carbon Dioxide 25.5 meq/L (21.0-32.0); Chloride 107 meq/L (98-107); Glomerular Filtration Rate Greater Than 89 mL/min (>89); Glucose,Random 86 mg/dL (74-106); Sodium 143 meq/L (136-145)
[2018-03-05 07:30] LABS: Phosphorus 2.4 mg/dL (2.5-4.9)
[2018-03-05] MEDS: Potassium Phosphate Inj 30 MMOL in Sodium Chlor 0.9% Inj 250 ML IV.SIG PRN (09:37)
[2018-03-05] MEDS: Pentoxifylline 400 MG Controlled Release Tablet PO SCH ×3 (09:38→18:42)
[2018-03-05] MEDS: guaiFENesin 600 MG ER Tablet PO SCH ×2 (09:38→20:06)
[2018-03-05] MEDS: Senna/Docusate Sodium 8.6/50 MG Tablet PO SCH ×2 (09:38→20:05)
[2018-03-05] MEDS: Nadolol 20 MG Tablet PO SCH (09:38)
[2018-03-05] MEDS: rifAXIMin 550 MG Tablet PO SCH ×2 (09:38→20:04)
[2018-03-05] MEDS: Budesonide-Formoterol 160/4.5 MCG 6 GM Inhaler INH SCH ×2 (09:39→20:04)
[2018-03-05] MEDS: LORazepam 0.5 MG Tablet PO PRN ×3 (09:40→19:54)
--- NOTE | 2018-03-05 12:03 | P.PN ---
Subjective Interval history: Awake but lethargic. Had Ativan today. Able to take a diet. Had loose stools. No Fever. Physical Exam Vital signs: Vital Signs 03/04/18 13:00 03/04/18 14:00 03/04/18 16:00 Temperature Pulse Rate 81 83 86 Respiratory Rate 12 14 14 Blood Pressure 100/70 103/71 97/61 L Pulse Oximetry 95 95 100 03/04/18 16:17 03/04/18 17:00 03/04/18 18:00 Temperature Pulse Rate 82 84 87 Respiratory Rate 16 11 L 18 Blood Pressure 104/69 112/74 Pulse Oximetry 99 95 03/04/18 19:00 03/04/18 19:43 03/04/18 20:00 Temperature 97.8 F Pulse Rate 83 90 85 Respiratory Rate 14 18 16 Blood Pressure 100/72 104/71 Pulse Oximetry 98 96 99 03/04/18 22:00 03/04/18 23:12 03/05/18 00:00 Temperature 98 F Pulse Rate 95 H 92 H 93 H Respiratory Rate 18 20 Blood Pressure 138/82 Pulse Oximetry 99 03/05/18 02:00 03/05/18 04:00 03/05/18 06:00 Temperature 98 F Pulse Rate 87 79 79 Respiratory Rate 15 Blood Pressure 119/72 Pulse Oximetry 99 03/05/18 08:00 03/05/18 10:00 03/05/18 10:26 Temperature 97.8 F Pulse Rate 85 92 H Respiratory Rate 18 Blood Pressure 134/88 Pulse Oximetry 96 96 Intake & Output 03/04/18 03/05/18 03/05/18 18:59 06:59 18:59 Intake Total 300 / 300 420 / 420 Output Total 1400 / 1400 350 / 350 Balance -1100 / -1100 70 / 70 Weight 76.5 kg Intake: IV 300 / 300 300 / 300 Zosyn 4.5 GM Premix 4.5 gm In 200 / 200 200 / 200 100 ml @ 200 mls/hr IV.SIG Q6H REBECCA Rx#:[id number] Flagyl 500 MG Inj 100 ML @ 100 100 / 100 100 / 100 mls/hr IV.SIG Q8H REBECCA Rx#: [id number] Oral 120 / 120 Tube Feeding 0 / 0 Output: Urine Amount (Catheter) 1400 / 1400 350 / 350 Indwelling Urethral Catheter 1400 / 1400 350 / 350 Other: Date of Last Bowel Movement 02/22/18 02/22/18 03/05/18 # Bowel Movements 0 # Incontinent Bowel Movements 0 Narrative: GENERAL: Lethargic Mid aged W/M pale. SKIN: Multiple ecchymosis overlying right lateral chest wall. HEAD: Normocephalic. EYES: Pupils equal and reactive. ENT: No nasal bleeding or discharge. Mucous membranes pink and moist. NECK: Trachea midline. No swelling or erythema CARDIOVASCULAR: Regular rate and rhythm. 2/6 systolic murmur LSB. RESPIRATORY:Occ Basal crackles and Bilateral wheeze. GASTROINTESTINAL: Abdomen soft, non-tender, nondistended. Bowel sounds present. MUSCULOSKELETAL: Extremities without clubbing, cyanosis, or edema. No obvious deformities. NEUROLOGICAL: Patient is awake and moves all limbs .Mild tremors noted . No gross deficit. - Urinary Catheter Management Indwelling Urethral Catheter Cath placed during this visit: yes Reason for continuing: Acute urinary retention Insertion date: 03/01/18 Insertion time: 17:05 Results - Labs CBC & Chem 7: 03/05/18 05:06 03/05/18 05:06 Laboratory Results - last 24 hr 03/04/18 03/05/18 03/05/18 16:44 05:06 05:06 WBC 8.1 RBC 2.99 L Hgb 8.9 L Hct 26.8 L MCV 89.6 MCH 29.7 MCHC 33.1 RDW 17.9 H Plt Count 76 L MPV 8.9 Sodium 143 Potassium 3.2 L 3.0 L Chloride 107 Carbon Dioxide 25.5 Anion Gap 11 BUN 14 Creatinine 0.65 Estimated GFR Greater than 89 Random Glucose 86 Calcium 7.6 L Phosphorus 2.4 L Magnesium 2.0 - Procedures EGD today with esophagitis, portal gastropathy, small varices non-bleeding and thus no intervention Assessment and Plan - Assessment (1) Aspiration pneumonia due to gastric secretions Code(s): J69.0 - Pneumonitis due to inhalation of food and vomit Status: Acute (2) COPD (chronic obstructive pulmonary disease) Code(s): J44.9 - Chronic obstructive pulmonary disease, unspecified Status: Acute (3) Laceration of neck Code(s): S11.91XA - Laceration without foreign body of unspecified part of neck , initial encounter Status: Acute (4) Lactic acidosis Code(s): E87.2 - Acidosis Status: Acute (5) EtOH dependence Code(s): F10.20 - Alcohol dependence, uncomplicated Status: Acute (6) Transaminitis Code(s): R74.0 - Nonspecific elevation of levels of transaminase and lactic acid dehydrogenase [LDH] Status: Acute (7) Hypovolemia Code(s): E86.1 - Hypovolemia Status: Acute (8) Alcohol withdrawal Code(s): F10.239 - Alcohol dependence with withdrawal, unspecified Status: Acute (9) LOC (loss of consciousness) Code(s): R40.20 - Unspecified coma Status: Acute - Plan 1. Diet as tolerated 2. O2 at 3 l N/C and wean to RA, Keep sat >92 3. Nebs qid , duoneb 4. Continue antibiotics , Zosyn , Flagyl 5. CBC BMP in am and stool for C Diff 6. PT Evaluation. 7. Transfer to tele (3) Laceration of neck Qualifiers: Encounter type: initial encounter Qualified Code(s): S11.91XA - Laceration without foreign body of unspecified part of neck, initial encounter
[2018-03-05] MEDS: metroNIDAZOLE 500 MG Tablet PO SCH ×2 (13:54→23:24)
--- NOTE | 2018-03-05 17:13 | P.PN ---
Subjective Interval history: 52-year-old male with past medical history of tobacco and alcohol dependence. He states he was sharpening a non-serrated carving knife this morning while intoxicated. He said he got up to put the knife away and he tripped and fell and lacerated his left neck around 10 am on 02/21. He states he hit his head on the counter and had loss of consciousness. There was blood pooling on the floor and each time he tried to get up he was near-syncopal so he remained on the floor all day until neighbors found him at around 8 pm. He was brought to [facility] by [facility]. The wound was explored by the emergency medicine physician and platysma appeared intact. CTA of the neck demonstrated soft tissue swelling in the subcut fat with deeper structures appearing intact. He was found to have anion-gap lactic acidosis with bicarb of 11.9, anion gap of 26 , lactic acid 16. EtOH level is still 134. CPK is 309. Creatinine is normal. His hemoglobin is 9.4. Most recent prior hemoglobin was 13.[address] Aly discussed with Dr. Amador who recommended admission to medicine. The laceration was repaired in the ED and patient received 2 L normal saline bolus, Ancef 2gram, Td, Zofran and Reglan for nausea. Since admission started on CIWA protocol thinking in Alcohol withdrawal, he drinks 10 beers daily. had EGD 02/24/18 with Esophagitis, portal gastropathy, small varices non-bleeding and thus no intervention, was on Precedex, on Oxygen podiatric foot and ankle specialist following, Urinary retention, placed Polanco catha and started on Flomax, passed Swallow test on 03/02/1803/04: Stable in his bedroom, continue Lethargic, discussed with nurse Miss Pearson, no new issues, continue present care in Intensive care unit not improving his Mental condition. 03/05: Seen in his bedroom, eating improving today his mental condition, no new issues, as per nurse he may be transferred out of Intensive care Unit I agree will transfer out, no nausea, vomit or diarrhea. Physical Exam Vital signs: Vital Signs 03/04/18 18:00 03/04/18 19:00 03/04/18 19:43 Temperature Pulse Rate 87 83 90 Respiratory Rate 18 14 18 Blood Pressure 112/74 100/72 Pulse Oximetry 95 98 96 03/04/18 20:00 03/04/18 22:00 03/04/18 23:12 Temperature 97.8 F Pulse Rate 85 95 H 92 H Respiratory Rate 16 18 Blood Pressure 104/71 Pulse Oximetry 99 03/05/18 00:00 03/05/18 02:00 03/05/18 04:00 Temperature 98 F 98 F Pulse Rate 93 H 87 79 Respiratory Rate 20 15 Blood Pressure 138/82 119/72 Pulse Oximetry 99 99 03/05/18 06:00 03/05/18 08:00 03/05/18 10:00 Temperature 97.8 F Pulse Rate 79 85 92 H Respiratory Rate 18 Blood Pressure 134/88 Pulse Oximetry 96 03/05/18 10:26 03/05/18 12:00 03/05/18 12:42 Temperature 97.9 F Pulse Rate 82 81 Respiratory Rate 16 15 Blood Pressure 112/71 Pulse Oximetry 96 94 L 03/05/18 14:00 Temperature Pulse Rate 82 Respiratory Rate Blood Pressure Pulse Oximetry Intake & Output 03/04/18 03/05/18 03/05/18 18:59 06:59 18:59 Intake Total 300 / 300 420 / 420 Output Total 1400 / 1400 350 / 350 Balance -1100 / -1100 70 / 70 Weight 76.5 kg Intake: IV 300 / 300 300 / 300 Zosyn 4.5 GM Premix 4.5 gm In 200 / 200 200 / 200 100 ml @ 200 mls/hr IV.SIG Q6H REBECCA Rx#:[id number] Flagyl 500 MG Inj 100 ML @ 100 100 / 100 100 / 100 mls/hr IV.SIG Q8H REBECCA Rx#: [id number] Oral 120 / 120 Tube Feeding 0 / 0 Output: Urine Amount (Catheter) 1400 / 1400 350 / 350 Indwelling Urethral Catheter 1400 / 1400 350 / 350 Other: Date of Last Bowel Movement 02/22/18 02/22/18 03/05/18 # Bowel Movements 0 # Incontinent Bowel Movements 0 Narrative: GENERAL: alert, eating with nurse. SKIN: Multiple ecchymosis overlying right lateral chest wall. HEAD: Normocephalic. EYES: Pupils equal and reactive. ENT: No nasal bleeding or discharge. Mucous membranes pink and moist. NECK: Trachea midline. No swelling or erythema CARDIOVASCULAR: Regular rate and rhythm. 2/6 systolic murmur LSB. RESPIRATORY:Clear to auscultation bilateral, no wheezing or crackles. GASTROINTESTINAL: Abdomen soft, non-tender, nondistended. Bowel sounds present. MUSCULOSKELETAL: Extremities without clubbing, cyanosis, or edema. No obvious deformities. NEUROLOGICAL: alert and awake, oriented to person and place. - Urinary Catheter Management Indwelling Urethral Catheter Cath placed during this visit: yes Reason for continuing: Acute urinary retention Insertion date: 03/01/18 Insertion time: 17:05 Results - Labs CBC & Chem 7: 03/05/18 05:06 03/05/18 05:06 Laboratory Results - last 24 hr 03/04/18 03/05/18 03/05/18 16:44 05:06 05:06 WBC 8.1 RBC 2.99 L Hgb 8.9 L Hct 26.8 L MCV 89.6 MCH 29.7 MCHC 33.1 RDW 17.9 H Plt Count 76 L MPV 8.9 Sodium 143 Potassium 3.2 L 3.0 L Chloride 107 Carbon Dioxide 25.5 Anion Gap 11 BUN 14 Creatinine 0.65 Estimated GFR Greater than 89 Random Glucose 86 Calcium 7.6 L Phosphorus 2.4 L Magnesium 2.0 - Procedures EGD today with esophagitis, portal gastropathy, small varices non-bleeding and thus no intervention Assessment and Plan - Plan 1. Acute left neck Laceration, Platysma intact CTA unremarkable, Laceration repaired 02/21/18 suture removed seven to 10 days 2. Acute Alcohol withdrawal/alcoholic dependence continue CIWA protocol 3. Alcoholic encephalopathy Improving slowly today better 4. Respiratory failure podiatric foot and ankle specialist following, CXR no cardiomegaly, lungs clear 5. Aspiration Pneumonia Zosyn, Metronidazole, bronchodilator, Mucolytic and incentive spirometry 6. Esophageal Varices/Esophagitis/Liver Cirrhosis/ Hyperammonemia resolved. Endoscopy 02/24 - LA Class A esophagitis, small nonbleeding varices, portal gastropathy. Continue Xifaxan and lactulose pentoxifylline per GI Nadolol 20 mg po daily (hold orders) Ammonia has normalized now 7. Acute Anion gap Metabolic acidosis resolved/Lactic acidemia resolved/ Hypovolemic shock resolved 8. Acute blood loss anemia following hemoglobin 9. Urinary Retention Polanco cath placed and Flomax 10. Tobacco dependence strongly recommended to stop smoking PROPH: SCDs for DVT prophylaxis. Avoid pharmacologic DVT prophylaxis at this time due to anemia and coagulopathy. Famotidine p.o. for stress ulcer prophylaxis. Code Status: Full code. Discussed Condition With: Patient and nurse Miss Alesha in the room. Discharge Planning: not yet clear for discharge.
[2018-03-05 22:14] LABS: Potassium 3.4 meq/L (3.5-5.1)
[2018-03-05 22:19] LABS: Phosphorus 2.7 mg/dL (2.5-4.9)
[2018-03-06] MEDS: Piperacil/Tazo 4.5 GM Premix 4.5 GM/100 ML BAG IV.SIG SCH ×4 (00:07→17:11)
[2018-03-06] MEDS: LORazepam 0.5 MG Tablet PO PRN (00:07)
[2018-03-06 05:53] LABS: Anion Gap 10 meq/L (5-15); Blood Urea Nitrogen 13 mg/dL (7-18); Calcium 7.6 mg/dL (8.5-10.1); Carbon Dioxide 25.1 meq/L (21.0-32.0); Chloride 108 meq/L (98-107); Glomerular Filtration Rate Greater Than 89 mL/min (>89); Glucose,Random 93 mg/dL (74-106); Sodium 143 meq/L (136-145)
[2018-03-06] MEDS: metroNIDAZOLE 500 MG Tablet PO SCH ×3 (06:13→21:13)
[2018-03-06] MEDS: Pantoprazole Inj 40 MG Vial IV.PUSH SCH (06:14)
[2018-03-06] MEDS: Nadolol 20 MG Tablet PO SCH (08:40)
[2018-03-06] MEDS: Pentoxifylline 400 MG Controlled Release Tablet PO SCH ×3 (08:40→17:11)
[2018-03-06] MEDS: guaiFENesin 600 MG ER Tablet PO SCH ×2 (08:41→21:10)
[2018-03-06] MEDS: Senna/Docusate Sodium 8.6/50 MG Tablet PO SCH ×2 (08:41→21:11)
[2018-03-06] MEDS: rifAXIMin 550 MG Tablet PO SCH ×2 (08:42→21:11)
[2018-03-06] MEDS: Budesonide-Formoterol 160/4.5 MCG 6 GM Inhaler INH SCH ×2 (08:42→21:11)
--- NOTE | 2018-03-06 11:19 | P.PN ---
Subjective Interval history: Nursing denies any deterioration since last night except for the confusion. Said that patient needed restraints. When I talked to the patient today he has no new complaints. He is able to tell me that he is at the hospital and that it is February and that is 2017 and that he is here because he fell. Is that he lives alone. Physical Exam Vital signs: Vital Signs 03/05/18 12:00 03/05/18 12:42 03/05/18 14:00 Temperature 97.9 F Pulse Rate 82 81 82 Respiratory Rate 16 15 Blood Pressure 112/71 Pulse Oximetry 94 L 03/05/18 16:00 03/05/18 18:00 03/05/18 20:00 Temperature 97.9 F 97.6 F Pulse Rate 75 79 80 Respiratory Rate 24 20 Blood Pressure 153/77 H 133/82 Pulse Oximetry 96 03/05/18 20:40 03/05/18 21:00 03/06/18 00:00 Temperature 97.8 F 97.7 F Pulse Rate 82 83 83 Respiratory Rate 18 15 Blood Pressure 145/87 H 137/87 Pulse Oximetry 93 L 93 L 03/06/18 04:00 03/06/18 08:00 Temperature 97.4 F L 97.2 F L Pulse Rate 83 80 Respiratory Rate 18 20 Blood Pressure 124/78 152/96 H Pulse Oximetry 94 L 91 L Intake & Output 03/05/18 03/06/18 03/06/18 18:59 06:59 18:59 Intake Total 810 / 810 540 / 540 Output Total 450 / 450 550 / 550 Balance 360 / 360 -10 / -10 Weight 76.2 kg Intake: IV 360 / 360 300 / 300 Zosyn 4.5 GM Premix 4.5 gm In 100 / 100 300 / 300 100 ml @ 200 mls/hr IV.SIG Q6H REBECCA Rx#:[id number] Potassium Phosphate Inj 30 MMOL 260 / 260 In NS Inj 250 ML @ 42 mls/hr IV.SIG UNSCH PRN Rx#:[id number] Oral 450 / 450 240 / 240 Output: Urine 0 / 0 Urine Amount (Catheter) 450 / 450 550 / 550 Indwelling Urethral Catheter 450 / 450 550 / 550 Other: Date of Last Bowel Movement 03/05/18 03/05/18 # Bowel Movements 2 1 # Incontinent Bowel Movements 1 Narrative: Alert and oriented 3, does demonstrate some insight Clear lungs bilaterally, unlabored breathing In restraints Abdomen soft, nontender - Urinary Catheter Management Indwelling Urethral Catheter Cath placed during this visit: yes Reason for continuing: Acute urinary retention Insertion date: 03/01/18 Insertion time: 17:05 Results - Labs CBC & Chem 7: 03/05/18 05:06 03/06/18 04:27 Laboratory Results - last 24 hr 03/05/18 03/06/18 21:12 04:27 Sodium 143 Potassium 3.4 L 3.0 L Chloride 108 H Carbon Dioxide 25.1 Anion Gap 10 BUN 13 Creatinine 0.58 L Estimated GFR Greater than 89 Random Glucose 93 Calcium 7.6 L Phosphorus 2.7 - Procedures EGD today with esophagitis, portal gastropathy, small varices non-bleeding and thus no intervention Assessment and Plan - Plan 52-year-old white male who was admitted with acute encephalopathy, hypovolemic shock and lactic acidosis secondary to alcohol intoxication with a left neck laceration requiring suture repair. Started on antibiotics aspiration pneumonia , now status post endoscopy with small nonbleeding varices. Acute left neck Laceration, Platysma intact CTA unremarkable, Laceration repaired 02/21/18 suture removed seven to 10 days Acute Alcohol withdrawal/alcoholic dependence continue CIWA protocol -CIWA score is less than 8. Not requiring IV Ativan. 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 Continue Xifaxan and lactulose pentoxifylline per GI Nadolol 20 mg po daily (hold orders)
[2018-03-06 13:30] LABS: Anion Gap 11 meq/L (5-15); Blood Urea Nitrogen 14 mg/dL (7-18); Calcium 7.7 mg/dL (8.5-10.1); Carbon Dioxide 23.2 meq/L (21.0-32.0); Chloride 105 meq/L (98-107); Glomerular Filtration Rate Greater Than 89 mL/min (>89); Glucose,Random 131 mg/dL (74-106); Potassium 3.2 meq/L (3.5-5.1); Sodium 139 meq/L (136-145)
[2018-03-06] MEDS ORDERED: Thiamine Inj 100 MG in Sodium Chlor 0.9% Inj 100 ML IV.SIG ONE (15:00)
--- NOTE | 2018-03-06 18:11 | P.PN ---
Subjective Interval history: Up in a chair and able to take a diet. No complaints. No SOB at rest . Kept O2 off. Physical Exam Vital signs: Vital Signs 03/05/18 20:00 03/05/18 20:40 03/05/18 21:00 Temperature 97.6 F 97.8 F Pulse Rate 80 82 83 Respiratory Rate 20 18 Blood Pressure 133/82 145/87 H Pulse Oximetry 93 L 03/06/18 00:00 03/06/18 04:00 03/06/18 08:00 Temperature 97.7 F 97.4 F L 97.2 F L Pulse Rate 83 83 80 Respiratory Rate 15 18 20 Blood Pressure 137/87 124/78 152/96 H Pulse Oximetry 93 L 94 L 91 L 03/06/18 12:00 03/06/18 16:00 03/06/18 16:36 Temperature 97.3 F L 96.8 F L Pulse Rate 65 71 65 Respiratory Rate 20 20 16 Blood Pressure 143/92 H 106/68 Pulse Oximetry 94 L 96 Intake & Output 03/05/18 03/06/18 03/06/18 18:59 06:59 18:59 Intake Total 810 / 810 540 / 540 301 / 301 Output Total 450 / 450 550 / 550 301 / 301 Balance 360 / 360 -10 / -10 0 / 0 Weight 76.2 kg Intake: IV 360 / 360 300 / 300 301 / 301 Zosyn 4.5 GM Premix 4.5 gm In 100 / 100 300 / 300 200 / 200 100 ml @ 200 mls/hr IV.SIG Q6H REBECCA Rx#:[id number] Potassium Phosphate Inj 30 MMOL 260 / 260 In NS Inj 250 ML @ 42 mls/hr IV.SIG UNSCH PRN Rx#:[id number] Thiamine Inj 100 MG In NS Inj 101 / 101 100 ML @ 100 mls/hr IV.SIG ONCE ONE Rx#:[id number] Oral 450 / 450 240 / 240 Output: Urine 0 / 0 300 / 300 Stool 1 / 1 Urine Amount (Catheter) 450 / 450 550 / 550 Indwelling Urethral Catheter 450 / 450 550 / 550 Other: Date of Last Bowel Movement 03/05/18 03/05/18 03/06/18 # Bowel Movements 2 1 # Incontinent Bowel Movements 1 Narrative: Alert and oriented . Mid aged W/M GENERAL: SKIN: Warm and dry. HEAD: Normocephalic. EYES: No scleral icterus. No injection or drainage. NECK: Supple, trachea midline. No JVD or lymphadenopathy. CARDIOVASCULAR: Regular rate and rhythm without murmurs, gallops, or rubs. RESPIRATORY: Breath sounds equal bilaterally. No accessory muscle use. GASTROINTESTINAL: Abdomen soft, non-tender, nondistended. MUSCULOSKELETAL: No cyanosis, or edema. BACK: Nontender without obvious deformity. No CVA tenderness. - Urinary Catheter Management Indwelling Urethral Catheter Cath placed during this visit: yes Reason for continuing: Acute urinary retention Insertion date: 03/01/18 Insertion time: 17:05 Results - Labs CBC & Chem 7: 03/05/18 05:06 03/06/18 12:45 Laboratory Results - last 24 hr 03/05/18 03/06/18 03/06/18 21:12 04:27 12:45 Sodium 143 Potassium 3.4 L 3.0 L Chloride 108 H Carbon Dioxide 25.1 Anion Gap 10 BUN 13 Creatinine 0.58 L Estimated GFR Greater than 89 Random Glucose 93 Calcium 7.6 L Phosphorus 2.7 Magnesium Vitamin B12 Procalcitonin 0.11 H 03/06/18 03/06/18 03/06/18 12:45 12:45 12:45 Sodium 139 Potassium 3.2 L Chloride 105 Carbon Dioxide 23.2 Anion Gap 11 BUN 14 Creatinine 0.68 Estimated GFR Greater than 89 Random Glucose 131 H Calcium 7.7 L Phosphorus Magnesium 2.0 Vitamin B12 Greater than 2000 H Procalcitonin - Procedures EGD today with esophagitis, portal gastropathy, small varices non-bleeding and thus no intervention Assessment and Plan - Assessment (1) Aspiration pneumonia due to gastric secretions Code(s): J69.0 - Pneumonitis due to inhalation of food and vomit Status: Acute (2) COPD (chronic obstructive pulmonary disease) Code(s): J44.9 - Chronic obstructive pulmonary disease, unspecified Status: Acute (3) Laceration of neck Code(s): S11.91XA - Laceration without foreign body of unspecified part of neck , initial encounter Status: Acute (4) Lactic acidosis Code(s): E87.2 - Acidosis Status: Acute (5) EtOH dependence Code(s): F10.20 - Alcohol dependence, uncomplicated Status: Acute (6) Transaminitis Code(s): R74.0 - Nonspecific elevation of levels of transaminase and lactic acid dehydrogenase [LDH] Status: Acute (7) Hypovolemia Code(s): E86.1 - Hypovolemia Status: Acute (8) Alcohol withdrawal Code(s): F10.239 - Alcohol dependence with withdrawal, unspecified Status: Acute (9) LOC (loss of consciousness) Code(s): R40.20 - Unspecified coma Status: Acute - Plan 1. Diet as tolerated 2. O2 at 2 l N/C and wean to RA, Keep sat >92 3. Nebs qid , duoneb 4. Continue antibiotics , Zosyn , Flagyl 5. Chest Xray in am 6. PT Evaluation. 7. Advance diet. (3) Laceration of neck Qualifiers: Encounter type: initial encounter Qualified Code(s): S11.91XA - Laceration without foreign body of unspecified part of neck, initial encounter
[2018-03-07] MEDS: Piperacil/Tazo 4.5 GM Premix 4.5 GM/100 ML BAG IV.SIG SCH ×4 (01:09→17:19)
[2018-03-07] MEDS: metroNIDAZOLE 500 MG Tablet PO SCH ×3 (05:17→22:33)
[2018-03-07] MEDS: Pantoprazole Inj 40 MG Vial IV.PUSH SCH (05:17)
[2018-03-07] MEDS: Senna/Docusate Sodium 8.6/50 MG Tablet PO SCH ×2 (08:23→22:33)
[2018-03-07] MEDS: Pentoxifylline 400 MG Controlled Release Tablet PO SCH ×3 (08:23→17:19)
[2018-03-07] MEDS: guaiFENesin 600 MG ER Tablet PO SCH ×2 (08:23→22:33)
[2018-03-07] MEDS: rifAXIMin 550 MG Tablet PO SCH ×2 (08:23→22:33)
[2018-03-07] MEDS: Nadolol 20 MG Tablet PO SCH (08:23)
[2018-03-07] MEDS: Budesonide-Formoterol 160/4.5 MCG 6 GM Inhaler INH SCH ×2 (08:24→22:40)
--- NOTE | 2018-03-07 08:37 | XR ---
EXAM DATE: 03/07/2018 8:29 AM EDT AGE/SEX: 52 years / Male INDICATIONS: Short of breath. CLINICAL DATA: This is the patient's subsequent encounter. Patient reports that signs and symptoms h ave been present for 1 week and indicates a pain score of 0/10. MEDICAL/SURGICAL HISTORY: None. None. [place] [facility] [place]. . FINDINGS: The cardiac silhouette is enlarged in transverse diameter. There are findings of congestive heart harshil lure with interstitial and alveolar opacity bilaterally. No pleural effusions are identified. CONCLUSION: Cardiomegaly and findings of congestive heart failure. There has been no significant change when com pared to the prior exam. Electronically signed by: Rigo Oneal MD 03/07/2018 8:36 AM EDT
--- NOTE | 2018-03-07 14:22 | P.PN ---
Subjective Interval history: Nursing reports that it takes 3 staff members to have the patient ultimately stand up. Says that he needs to be coached to eat. Patient himself has no new complaints. Unable to verbalize that he is in the hospital. But does know that it is February. Physical Exam Vital signs: Vital Signs 03/06/18 16:00 03/06/18 16:36 03/06/18 20:00 Temperature 96.8 F L 97.4 F L Pulse Rate 70 65 76 Respiratory Rate 20 16 18 Blood Pressure 106/68 140/82 Pulse Oximetry 96 98 03/06/18 21:54 03/07/18 00:00 03/07/18 04:00 Temperature 97.9 F 98.1 F Pulse Rate 78 81 72 Respiratory Rate 18 16 14 Blood Pressure 122/77 138/90 Pulse Oximetry 93 L 94 L 96 03/07/18 08:00 03/07/18 11:23 Temperature 97.9 F Pulse Rate 69 76 Respiratory Rate 20 18 Blood Pressure 158/67 H Pulse Oximetry 93 L Intake & Output 03/06/18 03/07/18 03/07/18 18:59 06:59 18:59 Intake Total 301 / 301 200 / 200 100 / 100 Output Total 301 / 301 450 / 450 Balance 0 / 0 -250 / -250 100 / 100 Weight 77.8 kg Intake: IV 301 / 301 200 / 200 100 / 100 Zosyn 4.5 GM Premix 4.5 gm In 200 / 200 200 / 200 100 / 100 100 ml @ 200 mls/hr IV.SIG Q6H [facility] Rx#:[id number] Thiamine Inj 100 MG In NS Inj 101 / 101 100 ML @ 100 mls/hr IV.SIG ONCE ONE Rx#:[id number] Output: Urine 300 / 300 Stool 1 / 1 Urine Amount (Catheter) 450 / 450 Indwelling Urethral Catheter 450 / 450 Other: Date of Last Bowel Movement 03/06/18 03/05/18 Narrative: Clear lungs bilaterally, unlabored breathing oriented 1 Appears slightly cachectic - Urinary Catheter Management Indwelling Urethral Catheter Cath placed during this visit: yes, but has since been removed by the nurse Reason for continuing: Other continuation reason Insertion date: 03/01/18 Insertion time: 17:05 Removal date: 03/07/18 Removal time: 12:00 Results - Labs CBC & Chem 7: 03/05/18 05:06 03/06/18 12:45 Laboratory Results - last 24 hr 03/06/18 12:45 Procalcitonin 0.11 H - Imaging Impressions Chest X-Ray 03/07/18 00:00 CONCLUSION: Cardiomegaly and findings of congestive heart failure. There has been no significant change when compared to the prior exam. - Procedures EGD today with esophagitis, portal gastropathy, small varices non-bleeding and thus no intervention Assessment and Plan - Plan 52-year-old white male who was admitted with acute encephalopathy, hypovolemic shock and lactic acidosis secondary to alcohol intoxication with a left neck laceration requiring suture repair. Started on antibiotics aspiration pneumonia , now status post endoscopy with small nonbleeding varices. Acute left neck Laceration, Platysma intact CTA unremarkable, Laceration repaired 02/21/18 Sutures removed today Acute Alcohol withdrawal/alcoholic dependence continue CIWA protocol -CIWA score 0, continue thiamine Generalized weakness We will repeat creatinine kinase since last level was still elevated, will obtain MRI. Hypokalemia Improving abx of Zosyn, Metronidazole - bronchodilator, Mucolytic and incentive spirometry, procalcitonin is elevated recent upper GI bleed Endoscopy 02/24 - LA Class A esophagitis, small nonbleeding varices, portal gastropathy. Continue Xifaxan and lactulose pentoxifylline per GI Nadolol 20 mg po daily (hold orders)
[2018-03-07] MEDS ORDERED: Sod Chloride 0.9% Inj 1,000 ML IV.SIG SCH (15:15)
--- NOTE | 2018-03-07 17:55 | P.PN ---
Subjective Interval history: Sitting up and seems comfortable. Off o2 and sats 97. Able to take a diet and has no aspiration. CXR is stable. Physical Exam Vital signs: Vital Signs 03/06/18 20:00 03/06/18 21:54 03/07/18 00:00 Temperature 97.4 F L 97.9 F Pulse Rate 76 78 81 Respiratory Rate 18 18 16 Blood Pressure 140/82 122/77 Pulse Oximetry 98 93 L 94 L 03/07/18 04:00 03/07/18 08:00 03/07/18 11:23 Temperature 98.1 F 97.9 F Pulse Rate 72 69 76 Respiratory Rate 14 20 18 Blood Pressure 138/90 158/67 H Pulse Oximetry 96 93 L 03/07/18 15:52 Temperature Pulse Rate 76 Respiratory Rate 18 Blood Pressure Pulse Oximetry Intake & Output 03/06/18 03/07/18 03/07/18 18:59 06:59 18:59 Intake Total 301 / 301 200 / 200 1200 / 1200 Output Total 301 / 301 450 / 450 Balance 0 / 0 -250 / -250 1200 / 1200 Weight 77.8 kg Intake: IV 301 / 301 200 / 200 1200 / 1200 Zosyn 4.5 GM Premix 4.5 gm In 200 / 200 200 / 200 200 / 200 100 ml @ 200 mls/hr IV.SIG Q6H [facility] Rx#:[id number] NS Inj 1,000 ML @ Wide Open IV. 1000 / 1000 SIG BOLUS [facility] Rx#:[id number] Thiamine Inj 100 MG In NS Inj 101 / 101 100 ML @ 100 mls/hr IV.SIG ONCE ONE Rx#:[id number] Output: Urine 300 / 300 Stool 1 / 1 Urine Amount (Catheter) 450 / 450 Indwelling Urethral Catheter 450 / 450 Other: Date of Last Bowel Movement 03/06/18 03/05/18 Narrative: GENERAL: Mid aged W/M in no distress SKIN: Warm and dry. HEAD: Atraumatic. Normocephalic. EYES: Pupils equal and round. No scleral icterus. No injection or drainage. ENT: No nasal bleeding or discharge. Mucous membranes dry. NECK: Trachea midline. No JVD. CARDIOVASCULAR: Regular rate and rhythm. RESPIRATORY: No accessory muscle use. Occ basal crackles and Breath sounds equal bilaterally. GASTROINTESTINAL: Abdomen soft, non-tender, nondistended. Hepatic and splenic margins not palpable. MUSCULOSKELETAL: Extremities without clubbing, cyanosis, or edema. No obvious deformities. NEUROLOGICAL: Awake and alert. Motor grossly within normal limits. Slow speech. PSYCHIATRIC: Appropriate mood and affect. - Urinary Catheter Management Indwelling Urethral Catheter Cath placed during this visit: yes, but has since been removed by the nurse Reason for continuing: Other continuation reason Insertion date: 03/01/18 Insertion time: 17:05 Removal date: 03/07/18 Removal time: 12:00 Results - Labs CBC & Chem 7: 03/05/18 05:06 03/06/18 12:45 Laboratory Results - last 24 hr 03/07/18 15:08 Total Creatine Kinase 39 - Imaging Impressions Chest X-Ray 03/07/18 00:00 CONCLUSION: Cardiomegaly and findings of congestive heart failure. There has been no significant change when compared to the prior exam. - Procedures EGD today with esophagitis, portal gastropathy, small varices non-bleeding and thus no intervention Assessment and Plan - Assessment (1) Aspiration pneumonia due to gastric secretions Code(s): J69.0 - Pneumonitis due to inhalation of food and vomit Status: Acute (2) COPD (chronic obstructive pulmonary disease) Code(s): J44.9 - Chronic obstructive pulmonary disease, unspecified Status: Acute (3) Laceration of neck Code(s): S11.91XA - Laceration without foreign body of unspecified part of neck , initial encounter Status: Acute (4) Lactic acidosis Code(s): E87.2 - Acidosis Status: Acute (5) EtOH dependence Code(s): F10.20 - Alcohol dependence, uncomplicated Status: Acute (6) Transaminitis Code(s): R74.0 - Nonspecific elevation of levels of transaminase and lactic acid dehydrogenase [LDH] Status: Acute (7) Hypovolemia Code(s): E86.1 - Hypovolemia Status: Acute (8) Alcohol withdrawal Code(s): F10.239 - Alcohol dependence with withdrawal, unspecified Status: Acute (9) LOC (loss of consciousness) Code(s): R40.20 - Unspecified coma Status: Acute - Plan 1. Diet as tolerated 2. D/C o2 3. D/c Nebs and add ventolin HFA , 2 puffs TID 4. Continue antibiotics , Zosyn , Flagyl for7 days 5. Labs in am 6. PT Evaluation. 7. Continue Thiamine ,Ativan. (3) Laceration of neck Qualifiers: Encounter type: initial encounter Qualified Code(s): S11.91XA - Laceration without foreign body of unspecified part of neck, initial encounter
[2018-03-08] MEDS: Piperacil/Tazo 4.5 GM Premix 4.5 GM/100 ML BAG IV.SIG SCH ×3 (06:50→13:18)
[2018-03-08] MEDS: metroNIDAZOLE 500 MG Tablet PO SCH ×3 (06:57→23:00)
[2018-03-08] MEDS: Pantoprazole Inj 40 MG Vial IV.PUSH SCH (06:57)
[2018-03-08] MEDS: Budesonide-Formoterol 160/4.5 MCG 6 GM Inhaler INH SCH ×2 (09:55→23:01)
[2018-03-08] MEDS: guaiFENesin 600 MG ER Tablet PO SCH ×2 (09:55→23:00)
[2018-03-08] MEDS: Nadolol 20 MG Tablet PO SCH (09:55)
[2018-03-08] MEDS: Pentoxifylline 400 MG Controlled Release Tablet PO SCH ×3 (09:55→17:15)
[2018-03-08] MEDS: Senna/Docusate Sodium 8.6/50 MG Tablet PO SCH ×2 (09:56→23:00)
[2018-03-08] MEDS: rifAXIMin 550 MG Tablet PO SCH ×2 (09:59→23:00)
[2018-03-08] MEDS ORDERED: Gadobutrol PF 10 MMOL/10 ML Vial (for RAD) IV.SIG ONE (10:54)
--- NOTE | 2018-03-08 11:06 | MR ---
EXAM DATE: 03/08/2018 10:58 AM EDT AGE/SEX: 52 years / Male INDICATIONS: Altered mental status. CLINICAL DATA: This is the patient's initial encounter. Patient reports that signs and symptoms have been present for 1 day and indicates a pain score of 0/10. MEDICAL/SURGICAL HISTORY: None. . Left varicosectomy. COMPARISON: [facility] – [place], CT HEAD W/O CONTRAST, 02/22/2018. . TECHNIQUE: Multiplanar, multisequence examination of the brain was performed without and with 7.7 ml Gadavist (gadobutrol) contrast as a single exam dose. FINDINGS: Cerebrum: The ventricles are normal for age. No evidence of midline shift, mass lesion, hemorrhage or acute infarction. No extraaxial fluid collections are seen. The pituitary gland and suprasellar cistern are normal in configuration. White Matter: No significant signal abnormalities are seen in the white matter. Posterior Fossa: The cerebellum and brainstem are intact. The 4th ventricle is midline. The cerebel lopontine angle is unremarkable. The cerebellar tonsils are normal in position. Diffusion Imaging: No focal areas of restricted diffusion are seen. No evidence of acute infarction . Extracranial: The visualized portions of the orbits and paranasal sinuses are unremarkable. Post Contrast: No abnormal areas of parenchymal or dural enhancement. No evidence of blood-brain ba rrier breakdown. CONCLUSION: 1. Unremarkable MRI of the brain. Electronically signed by: Lorenzo Escamilla MD 03/08/2018 11:04 AM EDT
[2018-03-08 13:49] VITALS: RESP 18
[2018-03-08 14:04] LABS: Anion Gap 11 meq/L (5-15); Blood Urea Nitrogen 11 mg/dL (7-18); Calcium 7.8 mg/dL (8.5-10.1); Carbon Dioxide 23.6 meq/L (21.0-32.0); Chloride 106 meq/L (98-107); Glomerular Filtration Rate Greater Than 89 mL/min (>89); Glucose,Random 145 mg/dL (74-106); Sodium 141 meq/L (136-145)
[2018-03-08 14:13] LABS: Potassium 2.7 meq/L (3.5-5.1)
[2018-03-08 14:46] LABS: Hematocrit 30.8 % (39.0-51.0); Hemoglobin 9.8 gm/dL (13.0-17.0); Mean Corpuscular HGB Conc 31.8 % (32.0-36.0); Mean Corpuscular Volume 91.2 fL (80.0-100.0); Mean Platelet Volume 8.5 fL (7.0-11.0); Platelet Count 100 th/mm3 (150-450); Red Blood Count 3.38 mil/mm3 (4.50-5.90); Red Cell Distribution Width 18.2 % (11.6-17.2); White Blood Count 6.3 th/mm3 (4.0-11.0)
[2018-03-08] MEDS ORDERED: Potassium Chloride Inj 20 MEQ, Magnesium Sulfate Inj 2 GM in Sod Chloride 0.9% Inj 1,00... IV.SIG ONE (15:38)
--- NOTE | 2018-03-08 15:43 | P.PN ---
Subjective Interval history: Nursing denies any deterioration since last night except for a critical of the potassium low at 2.7. Patient's mother thinks that he is getting stronger. Patient himself has no new complaints. He thanks me for my service. Physical Exam Vital signs: Vital Signs 03/07/18 15:52 03/07/18 16:00 03/07/18 20:00 Temperature 97.2 F L 97.5 F L Pulse Rate 76 66 81 Respiratory Rate 18 20 19 Blood Pressure 144/91 H 129/81 Pulse Oximetry 95 94 L 03/08/18 00:00 03/08/18 04:00 03/08/18 08:00 Temperature 98.0 F 97.7 F 97.4 F L Pulse Rate 76 72 67 Respiratory Rate 18 18 16 Blood Pressure 150/92 H 155/90 H 153/93 H Pulse Oximetry 92 L 93 L 95 03/08/18 13:48 Temperature 97.3 F L Pulse Rate 70 Respiratory Rate 18 Blood Pressure 117/78 Pulse Oximetry 94 L Intake & Output 03/07/18 03/08/18 03/08/18 18:59 06:59 18:59 Intake Total 1440 / 1440 100 / 100 200 / 200 Output Total 400 / 400 Balance 1440 / 1440 -300 / -300 200 / 200 Intake: IV 1200 / 1200 100 / 100 200 / 200 Zosyn 4.5 GM Premix 4.5 gm In 200 / 200 100 / 100 200 / 200 100 ml @ 200 mls/hr IV.SIG Q6H [facility] Rx#:[id number] NS Inj 1,000 ML @ Wide Open IV. 1000 / 1000 SIG BOLUS [facility] Rx#:[id number] Oral 240 / 240 Output: Urine Amount (Catheter) 400 / 400 Straight 400 / 400 Other: # Voids 0 2 Date of Last Bowel Movement 03/08/18 # Bowel Movements 0 1 # Incontinent Bowel Movements 1 Narrative: 4/5 proximal upper extremity strength bilaterally including for prescription Alert and oriented 3, has intact insight - Urinary Catheter Management Indwelling Urethral Catheter Cath placed during this visit: yes, but has since been removed by the nurse Reason for continuing: Not indwelling catheter Insertion date: 03/01/18 Insertion time: 17:05 Removal date: 03/07/18 Removal time: 12:00 Straight Cath placed during this visit: yes Reason for continuing: Not indwelling catheter Insertion date: 03/08/18 Insertion time: 03:00 Results - Labs CBC & Chem 7: 03/08/18 14:35 03/08/18 12:45 Laboratory Results - last 24 hr 03/07/18 03/08/18 03/08/18 15:08 12:45 12:45 WBC RBC Hgb Hct MCV MCH MCHC RDW Plt Count MPV Sodium 141 Potassium 2.7 L* Chloride 106 Carbon Dioxide 23.6 Anion Gap 11 BUN 11 Creatinine 0.67 Estimated GFR Greater than 89 Random Glucose 145 H Calcium 7.8 L Iron 35 L Total Creatine Kinase 39 03/08/18 14:35 WBC 6.3 RBC 3.38 L Hgb 9.8 L Hct 30.8 L MCV 91.2 MCH 29.0 MCHC 31.8 L RDW 18.2 H Plt Count 100 L D MPV 8.5 Sodium Potassium Chloride Carbon Dioxide Anion Gap BUN Creatinine Estimated GFR Random Glucose Calcium Iron Total Creatine Kinase - Imaging Impressions Head MRI 03/08/18 00:00 CONCLUSION: 1. Unremarkable MRI of the brain. - Procedures EGD today with esophagitis, portal gastropathy, small varices non-bleeding and thus no intervention Assessment and Plan - Plan 52-year-old white male who was admitted with acute encephalopathy, hypovolemic shock and lactic acidosis secondary to alcohol intoxication with a left neck laceration requiring suture repair. Started on antibiotics aspiration pneumonia , now status post endoscopy with small nonbleeding varices. Acute left neck Laceration, Platysma intact CTA unremarkable, Laceration repaired 02/21/18 Sutures removed yesterday Acute Alcohol withdrawal/alcoholic dependence continue CIWA protocol -CIWA score 0, continue thiamine Generalized weakness Deconditioning, CK within normal limits, continue with therapy Hypokalemia Worsened today, likely secondary to chronic alcohol use, will infuse IV also administered p.o. supplementation, recheck in a.m. Possible pneumonia - bronchodilator, Mucolytic and incentive spirometry, procalcitonin is elevated , will switch from Zosyn to Levaquin, continue Flagyl recent upper GI bleed Endoscopy 02/24 - [place] Class A esophagitis, small nonbleeding varices, portal gastropathy. Continue Xifaxan and lactulose pentoxifylline per GI Nadolol 20 mg po daily (hold orders) Discharge Planning: Anticipate discharge tomorrow once patient's mother has made home arrangements.
[2018-03-08] MEDS ORDERED: Iron Sucrose Inj 100 MG/5 ML Vial IV.PUSH SCH (18:00)
[2018-03-08] MEDS ORDERED: Iron Sucrose Inj 200 MG in Sodium Chlor 0.9% Inj 100 ML IV.SIG ONE (19:00)
[2018-03-08] MEDS ORDERED: levoFLOXacin 750 MG Tablet PO SCH (21:00)
[2018-03-09 05:06] LABS: Anion Gap 9 meq/L (5-15); Blood Urea Nitrogen 10 mg/dL (7-18); Calcium 7.8 mg/dL (8.5-10.1); Chloride 108 meq/L (98-107); Glomerular Filtration Rate Greater Than 89 mL/min (>89); Glucose,Random 86 mg/dL (74-106); Potassium 3.3 meq/L (3.5-5.1); Sodium 143 meq/L (136-145)
[2018-03-09] MEDS: Pantoprazole Inj 40 MG Vial IV.PUSH SCH (05:41)
[2018-03-09] MEDS: metroNIDAZOLE 500 MG Tablet PO SCH ×2 (05:41→13:00)
[2018-03-09] MEDS: Pentoxifylline 400 MG Controlled Release Tablet PO SCH ×2 (09:51→13:00)
[2018-03-09] MEDS: Nadolol 20 MG Tablet PO SCH (09:51)
[2018-03-09] MEDS: guaiFENesin 600 MG ER Tablet PO SCH (09:51)
[2018-03-09] MEDS: rifAXIMin 550 MG Tablet PO SCH (09:51)
[2018-03-09] MEDS: Budesonide-Formoterol 160/4.5 MCG 6 GM Inhaler INH SCH (09:52)
[2018-03-09] MEDS: Senna/Docusate Sodium 8.6/50 MG Tablet PO SCH (09:52)
[2018-03-09 13:12] VITALS: BP 143/88; TEMP 97.6; O2SAT 91
--- NOTE | 2018-03-09 14:54 | P.DS ---
Date of admission: 02/21/18 23:43 Primary care physician: No Primary Care Physician Brief History from admission: 52-year-old male with past medical history of tobacco and alcohol dependence. He states he was sharpening a non-serrated carving knife this morning while intoxicated. He said he got up to put the knife away and he tripped and fell and lacerated his left neck around 10 am on 02/21. He states he hit his head on the counter and had loss of consciousness. There was blood pooling on the floor and each time he tried to get up he was near-syncopal so he remained on the floor all day until neighbors found him at around 8 pm. He was brought to [facility] [place] [facility]. The wound was explored by the emergency medicine physician and platysma appeared intact. CTA of the neck demonstrated soft tissue swelling in the subcut fat with deeper structures appearing intact. He was found to have anion-gap lactic acidosis with bicarb of 11.9, anion gap of 26 , lactic acid 16. EtOH level is still 134. CPK is 309. Creatinine is normal. His hemoglobin is 9.4. Most recent prior hemoglobin was 13.[address] Aly discussed with Dr. Amador who recommended admission to medicine. The laceration was repaired in the ED and patient received 2 L normal saline bolus, Ancef 2gram, Td, Zofran and reglan for nausea. He denies headache, dysphagia, chest pain, shortness of breath, abdominal pain, flank pain, vomiting, melena, hematemesis, audiovisual hallucinations. He is tremulous and complains of thirst. He is a daily drinker of at least 10 beers per day, last drink was 9 am on 02/21. DS: Medications - Discharge Medications Prescriptions: albuterol sulfate [Ventolin HFA] 2 puff INH Q6H PRN #1 inhaler PRN Reason: Shortness Of Breath budesonide-formoterol [Symbicort] 2 puff INH BID #1 inhaler ferrous sulfate [Iron (ferrous sulfate)] 325 mg PO TID #90 tab guaifenesin [Mucinex] 600 mg PO BID #60 tab levofloxacin 750 mg PO HS #5 tab metronidazole 500 mg PO Q8HR #5 tab nadolol 20 mg PO DAILY #30 tab pantoprazole 40 mg PO BID #60 tab pentoxifylline 400 mg PO TID #90 tab potassium chloride [Klor-Con M20] 20 meq PO BID #60 tab tamsulosin 0.4 mg PO HS #30 cap thiamine HCl (vitamin B1) 100 mg PO BID #60 tab DS: Summary Hospital Course: Patient initially had his neck laceration repaired in the ER. Patient was admitted to the ICU state of lactic acidosis. The surgery deemed no further surgical intervention as he had a superficial cut. Patient was started on antibiotics for suspected aspiration pneumonia needed 2 units of blood to be transfused, also was placed on Precedex drip due to severe alcohol withdrawal symptoms. Underwent EGD which showed esophagitis, portal gastropathy, and small nonbleeding varices. His LFTs eventually improved. Eventually patient was weaned off his Precedex drip and then transferred to the regular floor where he was eventually doing well on room air. Patient had his neck sutures removed after approximately 10-11 days. was found to become hypokalemic likely secondary to chronic alcoholic gastropathy was started on potassium supplementation. Patient has met maximal benefit from hospitalization and is clinically stable for discharge. - Time Spent with Patient Total time spent providing and/or coordinating discharge services: Less than 30 minutes - Quality: VTE Deep Vein Thrombosis/Pulmonary Embolism Present on Admission: No Exam Vital signs: Vital Signs 03/08/18 16:00 03/08/18 20:00 03/09/18 00:00 Temperature 97.4 F L 98.3 F 98.0 F Pulse Rate 70 70 78 Respiratory Rate 18 18 18 Blood Pressure 112/73 136/86 122/82 Pulse Oximetry 94 L 91 L 93 L 03/09/18 04:00 03/09/18 08:00 03/09/18 12:00 Temperature 97.4 F L 98.5 F 97.6 F Pulse Rate 89 74 68 Respiratory Rate 18 18 18 Blood Pressure 131/82 161/97 H 143/88 H Pulse Oximetry 94 L 90 L 91 L Intake & Output 03/08/18 03/09/18 03/09/18 18:59 06:59 18:59 Intake Total 200 / 200 1124 / 1124 Output Total 0 / 0 Balance 200 / 200 1124 / 1124 Weight 80.1 kg Intake: IV 200 / 200 1124 / 1124 Venofer Inj 200 MG In NS Inj 110 / 110 100 ML @ 110 mls/hr IV.SIG ONCE ONE Rx#:[id number] Zosyn 4.5 GM Premix 4.5 gm In 200 / 200 100 ml @ 200 mls/hr IV.SIG Q6H [facility] Rx#:[id number] KCl Inj 20 MEQ Magnesium 500 / 500 Sulfate Inj 2 GM In NS Inj 1, 000 ML @ 500 mls/hr IV.SIG ONCE ONE Rx#:[id number] Output: Urine 0 / 0 Other: Date of Last Bowel Movement 03/08/18 Narrative: Clear lungs bilaterally, unlabored breathing, alert and oriented Appears more energetic today Results Procedures completed during hospitalization: Neck laceration repair EGD with esophagitis, portal gastropathy, small varices non-bleeding and thus no intervention Labs on day of discharge: Labs from last 24 hours 03/09/18 03/08/18 03:40 14:35 WBC 6.3 RBC 3.38 L Hgb 9.8 L Hct 30.8 L MCV 91.2 MCH 29.0 MCHC 31.8 L RDW 18.2 H Plt Count 100 L D MPV 8.5 Sodium 143 Potassium 3.3 L Chloride 108 H Carbon Dioxide 26.0 Anion Gap 9 BUN 10 Creatinine 0.60 Estimated GFR Greater than 89 Random Glucose 86 Calcium 7.8 L - Impressions ITS Impressions Neck CTA 02/21/18 21:21 CONCLUSION: 1. Focal soft tissue swelling at the left lateral mid neck primarily within the subcutaneous fat. The deeper structures appear intact. 2. No arterial injury is seen. There is scattered atherosclerotic calcification without a significant stenosis. Head CT 02/22/18 00:00 CONCLUSION: No acute intracranial abnormality is seen. . Liver Ultrasound 02/22/18 00:00 CONCLUSION: 1. Cirrhotic appearing liver with trace amount of ascites. 2. Gallbladder wall thickening with mild pericholecystic fluid. Findings are commonly seen in the setting of chronic liver disease but limit overall sonographic sensitivity for detection of early acute cholecystitis. If there is compelling continued clinical concern regarding cholecystitis, HIDA scan may be performed to document cystic duct patency. 3. Trace peripancreatic fluid. Suspect this is due to overall mesenteric edema. Clinical correlation with pancreatic enzymes is recommended. Chest X-Ray 03/07/18 00:00 CONCLUSION: Cardiomegaly and findings of congestive heart failure. There has been no significant change when compared to the prior exam. Head MRI 03/08/18 00:00 CONCLUSION: 1. Unremarkable MRI of the brain. Discharge Plan - Discharge Disposition Patient Disposition: 01 Discharge Home - Discharge Condition Condition: Serious - Discharge Order Discharge Orders: Discharge Order (Routine); Ordered 03/09/18 Ordered By: Dennys Caruso - Physicians Team Primary Care Provider: Primary Care Clementine Hassan Attending Provider: Dennys Caruso Other Providers: Karina Amador MD ; Addison Corley MD ; Henry Beasley MD
[2018-03-09 20:13] VITALS: PULSE 68
== END 2018-03-09 17:55 | disposition home or self-care (01) ==
LOC: NEPE 21:13 → NEDA 23:43 → HIMC 02-22 02:45 → N04 03-05 20:40
PROVIDERS: ADMIT Hospitalist; ATTEND Hospitalist
PROC: PANENDO (2018-02-24 11:41)